=== PATIENT | female | born 1945 | race Caucasian/White ===

== ENCOUNTER 2021-02-10 13:47 | Outpatient (REF) | payer MEDICARE, BC, SELFPAY ==
[2021-02-10 20:17] LABS: HCT 36.6 % (36.0-46.0); HGB 11.9 g/dL (11.2-15.7); MCH 29.9 pg (27.0-33.0); MCHC 32.5 % (32.0-36.0); MPV 11.8 fL (8.0-11.0); Platelet Count 277 10^3/uL (130-400); RBC 3.98 10^6/uL (3.93-5.22); RDW 13.2 % (11.7-14.6); RDW-SD 45.1 fL; WBC 4.21 10^3/uL (4.4-10.8)
[2021-02-10 20:26] LABS: Anion Gap 8.4 mmol/L (3-11); BUN 19 mg/dL (7-18); CO2 25.6 mmol/L (21.0-32.0); Calcium 9.1 mg/dL (8.5-10.1); Chloride 109 mmol/L (98-107); Estimated GFR 53.76 (mL/min/1.73m2); Glucose 85 mg/dL (74-106); Sodium 143 mmol/L (136-145)
[2021-02-10 20:53] LABS: Iron 99 ug/dL (50-170); Total Iron Binding Capacity 289 ug/dL (250-450); Transferrin Sat 34 % (15-50)
== END 2021-02-10 13:48 | disposition home or self-care (01) ==
LOC: NCHCN 13:47
PROVIDERS: Visit Provider Nurse Practitioner Family
DX: G43.709 Chronic migraine without aura, not intractable, without status migrainosus (principal); R79.89 Other specified abnormal findings of blood chemistry
CPT/HCPCS: 80048; 85027; 83540; 83550

== ENCOUNTER 2021-03-09 02:14 | Outpatient (CLI) | payer MEDICARE, BC, SELFPAY ==
--- NOTE | 2021-03-09 | DI.DEXA_ITS ---
Exam(s) XR DEXA BONE DENSITY W/WO ADRIANNE EXAM: XR DEXA BONE DENSITY W/WO ADRIANNE CLINICAL HISTORY: OSTEOPOROSIS, M81.0 TECHNIQUE: COMPARISON: No exams were available for comparison FINDINGS: DEXA scan was performed according to the usual protocol. Findings for left hip scanning are T-score -2.2 with left femoral neck T-score -2.7. Prior examinati on of September 2016 showed left hip T-score -2.1. Lumbar spine scanning shows T-score -2.2. Prior examination of 2015 showed T-score -2.6. Findings for right forearm scanning are T-score -0.5. IMPRESSION: Findings consistent with osteoporosis according to the WHO criteria. The lateral vertebral scanogram shows no evidence of a vertebral compression fracture. RADIATION DOSE DELIVERED: Total DLP
== END 2021-03-09 02:34 ==
PROVIDERS: Visit Provider Nurse Practitioner Family
DX: M81.0 Age-related osteoporosis without current pathological fracture (principal)
CPT/HCPCS: 77080

== ENCOUNTER 2021-09-06 16:53 | Outpatient (REF) | payer MEDICARE, BC, SELFPAY ==
[2021-09-06 20:52] LABS: ESR 18 mm/hr (0-30)
[2021-09-07 09:28] LABS: Abs Immature Grans 0.02 10^3/uL (0.0-0.06); Absolute Basophil Count 0.05 10^3/uL (0.0-0.2); Absolute Eosinophil Count 0.13 10^3/uL (0.0-0.7); Absolute Lymphocyte Count 1.87 10^3/uL (1.2-3.4); Absolute Monocyte Count 0.49 10^3/uL (0.1-0.8); Absolute Neutrophil Count 4.19 10^3/uL (1.2-6.7); Basophils % 0.7; Eosinophils % 1.9; HCT 36.5 % (36.0-46.0); HGB 11.8 g/dL (11.2-15.7); Immature Grans % 0.3; Lymphocytes % 27.7; MCH 29.6 pg (27.0-33.0); MCHC 32.3 % (32.0-36.0); MCV 91.7 fL (80-95); MPV 11.5 fL (8.0-11.0); Monocytes % 7.3; Neutrophils % 62.1; Nucleated RBC 0 %; Platelet Count 333 10^3/uL (130-400); RBC 3.98 10^6/uL (3.93-5.22); RDW 12.5 % (11.7-14.6); RDW-SD 41.7 fL; WBC 6.75 10^3/uL (4.4-10.8)
[2021-09-07 16:34] LABS: Rheumatoid Factor <8.6 IU/mL (<12.0)
[2021-09-08 11:02] LABS: Lyme Ab w Rflx to Lyme Confirm Positive (Negative)
[2021-09-08 12:06] LABS: Lyme IgG Ab Positive (Negative); Lyme IgM Ab Positive (Negative)
[2021-09-08 16:09] LABS: ANA Interpretation Positive (Negative); ANA Titer Pattern 1:640 Speckled
[2021-09-08 20:18] LABS: Anaplasma phagocytophilum Negative (Negative); B. miyamotoi PCR Negative (Negative); Babesia divergens/MO-1 Negative (Negative); Babesia duncani Negative (Negative); Babesia microti Negative (Negative); Ehrlichia chaffeensis Negative (Negative); Ehrlichia ewingii/canis Negative (Negative); Ehrlichia muris eauclairensis Negative (Negative)
== END 2021-09-06 16:54 | disposition home or self-care (01) ==
LOC: NCHCN 16:53
PROVIDERS: Visit Provider Nurse Practitioner Family
DX: M25.69 Stiffness of other specified joint, not elsewhere classified (principal)
CPT/HCPCS: 85652; 86617; 87798; 85025; 86038; 86140; 86431; 86618

== ENCOUNTER 2021-09-21 13:39 | Outpatient (REF) | payer MEDICARE, BC, SELFPAY ==
[2021-09-23 13:28] LABS: dsDNA Ab, IgG <12.3 IU/mL (<30.0)
== END 2021-09-21 13:40 | disposition home or self-care (01) ==
LOC: NCHCN 13:39
PROVIDERS: Visit Provider Nurse Practitioner Family
DX: R79.89 Other specified abnormal findings of blood chemistry (principal)
CPT/HCPCS: 86225

== ENCOUNTER 2021-11-09 15:15 | Observation (INO) | payer MEDICARE, SELFPAY ==
[2021-11-09] VITALS (26 sets, daily range): BP systolic 117–166; BP diastolic 59–84; PULSE 81–94; RESP 17–34; TEMP 36.8–37.7; O2SAT 90–95
--- NOTE | 2021-11-09 15:15 | RT.EKG_ITS ---
APPROVED REPORT Exam: Resting ECG Reason for Exam: pain Patient Location: E HR:93 bpm ECG Measurements Heart Rate 93 AXIS AL 163 P 19 QRSd 76 QRS 9 QT 335 T 25 QTc 416 Conclusion Sinus rhythm...normal P axis, V-rate 60- 99 Sinus. Peaked T waves anterior leads. No STEMI.
--- NOTE | 2021-11-09 15:30 | RT.EKG_ITS ---
APPROVED REPORT Exam: Resting ECG Reason for Exam: posterior ekg for pain Patient Location: E HR:96 bpm ECG Measurements Heart Rate 96 AXIS WA 162 P 24 QRSd 75 QRS 6 QT 329 T 18 QTc 416 Conclusion Sinus rhythm...normal P axis, V-rate 60- 99 Posterior infarct, old...prom R T, V1-V3 or Q >40mS, V7-V9 Physician: no stemi
[2021-11-09 16:09] LABS: Abs Immature Grans 0.08 10^3/uL (0.0-0.06); Absolute Basophil Count 0.03 10^3/uL (0.0-0.2); Absolute Eosinophil Count 0.07 10^3/uL (0.0-0.7); Basophils % 0.2; Eosinophils % 0.5; HCT 37.2 % (36.0-46.0); HGB 11.9 g/dL (11.2-15.7); Immature Grans % 0.6; Lymphocytes % 15.1; MCH 29.6 pg (27.0-33.0); MCV 92.5 fL (80-95); MPV 10.5 fL (8.0-11.0); Monocytes % 5.3; Neutrophils % 78.3; Nucleated RBC 0 %; Platelet Count 290 10^3/uL (130-400); RBC 4.02 10^6/uL (3.93-5.22); RDW 14.8 % (11.7-14.6); RDW-SD 50.6 fL; WBC 13.28 10^3/uL (4.4-10.8)
[2021-11-09 16:10] LABS: Absolute Lymphocyte Count 2.01 10^3/uL (1.2-3.4)
--- NOTE | 2021-11-09 16:15 | DI.CT_ITS ---
Exam(s) CT CHEST PE CTA EXAM: CT CHEST PE CTA CLINICAL HISTORY: left pleuritic chest pain 2 days. TECHNIQUE: Imaging Protocol: Axial CT angiography was performed with multi-slice acquisition and mu lti-planar and/or 3D reconstructions. CONTRAST MATERIAL: Intravenous: Omnipaque 350 Contrast volume:structured data in ml COMPARISON: US RIGHT BREAST ULTRASOUND from 07/04/2013 FINDINGS: CT angiography of the chest was performed with intravenous infusion of 64 cc of Omnipaque 350. There are large areas of apparent atelectasis bilaterally. There is also a question of bilateral bas ilar consolidation period. No pleural effusion. Tracheobronchial tree appears intact. There are multiple pulmonary emboli visible, most in segmental and subsegmental vessels in right lowe r lobe, with additional small peripheral emboli in both lungs. There does not appear to be right hea rt strain. Cardiac size is at the upper limits of normal. . Thoracic aorta is of normal diameter, no thoracic aortic aneurysm or dissection, major branch vess els appear intact. No mediastinal or hilar adenopathy. There is an incidental 4.2 cm in diameter left hepatic lobe mass, this has attenuation readings aroun d 20 Hounsfield units, I cannot confirm that this is a cyst. Accordingly abdominal ultrasound is sugg ested for further evaluation Images obtained through the upper abdomen show unremarkable appearance visualized portions of the spl een pancreas and adrenals. IMPRESSION: Pulmonary embolic disease as described above. No significant evidence of right heart strain. Incidental hepatic low to intermediate attenuation mass noted, hepatic ultrasound recommended for mary racterization. RADIATION DOSE DELIVERED: 375.12mGy.cm Total DLP 375.12mGy.cm Total DLP 12.41mGy CTDIvol DATA REPOSITORY: All CT scans at this facility are submitted to the National Radiology Data Registry (NRDR) Dose Index Registry (DIR) with the [employer] ([employer]). RADIATION OPTIMIZATION: All CT scans at this facility use at least one of these dose optimization te chniques: automated exposure control; mA and/or kV adjustment per patient size (includes targeted exa ms where dose is matched to clinical indication); or iterative reconstruction.
[2021-11-09 16:25] LABS: ALT 25 U/L (14-59); AST 9 U/L (15-37); Albumin 3.6 g/dL (3.4-5.0); Alkaline Phosphatase 97 U/L (46-116); Anion Gap 12.5 mmol/L (3-11); BUN 22 mg/dL (7-18); Bilirubin, Total 0.3 mg/dL (0.2-1.0); CO2 26.5 mmol/L (21.0-32.0); CREATININE 1.2 mg/dL (0.55-1.02); Calcium 8.8 mg/dL (8.5-10.1); Chloride 102 mmol/L (98-107); Estimated GFR 43.45 (mL/min/1.73m2); Glucose 153 mg/dL (74-106); Magnesium 1.9 mg/dL (1.8-2.4); Potassium 3.4 mmol/L (3.5-5.1); Sodium 141 mmol/L (136-145); Total Protein 7.8 g/dL (6.4-8.2); Troponin I < 50 ng/L (<or=60)
[2021-11-09] MEDS: Omnipaque 350 MG/ML 100 ML BTL 64 ML IJ (16:35)
[2021-11-09 16:43] LABS: D-Dimer 2270 ng/mlFEU (<500)
[2021-11-09 16:59] LABS: Source Nasal/Nares
--- NOTE | 2021-11-09 17:09 | W.ED.GENAD ---
Discharge Plan Disposition Patient Disposition: [facility] INPATIENT Discharge Details Clinical Impression: Pulmonary embolism, Liver mass, left lobe Admit Date/Time: 11/09/21 17:16 Admit Provider: Shey Villarreal Attending Provider: Shey Villarreal Primary Care Provider: Arlyn Sweeney ED Provider: Chang Breaux Discharge Data Discharge Date/Time-TO BE ENTERED AT DEPARTURE: 11/09/21 17:49 Medical Decision Making 1709 --76-year-old female here with pleuritic chest pain for the past 2 days, worse today, hypoxic in the low 90s with no known pulmonary disease or cardiac disease. High concern for pulmonary embolism. Patient is hemodynamically stable, mildly hyper since. Screening EKG was reviewed and interpreted by me: Please see report, prominent R with ST depression V1 to V3, consider posterior infarct. Posterior EKG was reviewed and interpreted by me: Please see report, no STEMI. CT of the chest was reviewed and interpreted by radiology: There are large areas of apparent atelectasis bilaterally. There is also a question of bilateral basilar consolidation period. No pleural effusion. Tracheobronchial tree appears intact. There are multiple pulmonary emboli visible, most in segmental and subsegmental vessels in right lower lobe, with additional small peripheral emboli in both lungs. There does not appear to be right heart strain. Cardiac size is at the upper limits of normal. Thoracic aorta is of normal diameter, no thoracic aortic aneurysm or dissection, major branch vessels appear intact. No mediastinal or hilar adenopathy. There is an incidental 4.2 cm in diameter left hepatic lobe mass, this has attenuation readings around 20 Hounsfield units, I cannot confirm that this is a cyst. Accordingly abdominal ultrasound is suggested for further evaluation Images obtained through the upper abdomen show unremarkable appearance visualized portions of the spleen pancreas and adrenals. IMPRESSION: Pulmonary embolic disease as described above. No significant evidence of right heart strain. Incidental hepatic low to intermediate attenuation mass noted, hepatic ultrasound recommended for characterization. I spoke with Dr. Samuels about this study, no right heart strain. Atelectasis at the bases versus consolidation, question pneumonia, also incidentally noted 4 cm left hepatic lobe mass that requires follow-up study. Labs reviewed and patient does have mild leukocytosis. She denies cough or fever in the past few weeks. Initial troponin is negative, delta troponin pending. Plan to treat with Lovenox 1 mg/kg subcutaneous. I will admit the patient to hospitalist service. --Spoke with hospitalist, discussed ED presentation and course, they will admit the patient. Care transitioned to hospitalist service at time of admit. HPI General Mode of arrival: ambulatory. Date/Time Provider Initiated Documentation: 11/09/21 15:35. Limitations to Documentation: no limitations. Information obtained by: patient. HPI Narrative: 76-year-old female here with pleuritic chest pain for the past 2 days, pain is progressive and worse today. Pain worse with deep inspiration. Pain is severe and localized to left chest and left back, radiates to left shoulder. No associated leg swelling or calf pain. Related Data Home Medications Medication Instructions Recorded Confirmed fluoxetine 20 mg PO QAM 07/31/15 11/09/21 multivitamin 1 ea PO DAILY 07/31/15 11/09/21 Advil PM 1 cap PO QHS 11/09/21 11/09/21 omeprazole magnesium [Prilosec OTC] 20 mg PO DAILY 11/09/21 11/09/21 prednisone 10 mg PO HS 11/09/21 11/09/21 apixaban [Eliquis DVT-PE Treat 30D See Rx Instructions .ROUTE 11/10/21 Start] .COMPLEX #74 dose pk verapamil 180 mg PO DAILY 11/10/21 11/10/21 verapamil 180 mg PO DAILY #30 tab 11/10/21 Previous Rx's Medication Instructions Recorded apixaban [Eliquis DVT-PE Treat 30D See Rx Instructions .ROUTE 11/10/21 Start] .COMPLEX #74 dose pk verapamil 180 mg PO DAILY #30 tab 11/10/21 Allergies Allergy/AdvReac Type Severity Reaction Status Date / Time No Known Allergies Allergy Unverified 11/09/21 15:28 General Stated Complaint: Chest Pain ESTEPHANIE: 2 Review of Systems All systems reviewed & are unremarkable except as noted in HPI and below Constitutional Constitutional: Denies fever(s) Cardiovascular Cardiovascular: Reports as per HPI PFSH All Active Problems Bilateral pulmonary embolism (Acute) Double vision with both eyes open (Acute) Arthralgia (Acute) Liver mass, left lobe (Acute) Medical History Benign head tremor Complicated migraine Polymyalgia rheumatica Steroid dependent Surgical History Colonoscopy - MAC (01/03/17) H/O cataract extraction Tonsillectomy Tubal Ligation, Family History Mother Colon cancer Father Leukemia Aneurysm Paternal Grandmother Diabetes Social History Smoking/Tobacco Use Status: Never Smoking risk assessment performed?: Yes Alcohol Intake: current Alcohol Intake frequency: holidays/special occasions only Drug use: Never Substance use type: does not use Do you feel safe at home: Yes Do you feel safe in your relationship?: Yes Exam Const General: cooperative and no acute distress HENMT Mouth: moist mucous membranes Eyes Conjunctivae: normal conjunctivae Sclera: normal sclerae Neck Neck: trachea midline and supple Resp Auscultation: clear to auscultation bilaterally, no rales, no rhonchi and no wheezes Cardio Rate: regular rate and not tachycardic Rhythm: regular rhythm GI Palpation: soft, not firm, no guarding, no masses, not rigid and nontender Skin General skin exam: no rashes or lesions noted Neuro General: patient alert, patient awake, patient oriented x3 and tone normal Extrem General: no edema Psych Appearance: grossly normal Mental Status: mental status grossly normal Speech and Movement: speech and movement normal Course Vital Signs Vital signs: Vital Signs Respiratory Rate 34 H 11/09/21 15:23 Temperature 36.8 C 11/09/21 15:25 Temperature Source Temporal Artery Scan 11/09/21 15:25 Pulse 86 11/09/21 15:31 Pulse 94 H 11/09/21 15:40 Respiratory Rate 17 11/09/21 16:58 Respiratory Effort 11/09/21 16:58 Respiratory Depth Shallow 11/09/21 16:58 Respiratory Pattern Normal 11/09/21 16:58 Blood Pressure 141/71 H 11/09/21 15:31 Blood Pressure Mean 87 11/09/21 15:31 Blood Pressure Position Sitting 11/09/21 15:25 Pulse Oximetry 90 L 11/09/21 15:40 Oxygen Delivery Method Room Air 11/09/21 15:25 Oxygen Flow Rate 0 11/09/21 15:25 Pain Level 8 11/09/21 15:25 Lab/Test Results Lab/Test Results: 11/09/21 16:57 Blood Blood Culture - Pending 11/09/21 16:57 Blood Blood Culture - Pending Laboratory Tests Range/Units 11/09/21 11/09/21 11/09/21 15:27 15:27 15:27 WBC (4.4-10.8) 10^3/uL 13.28 H RBC (3.93-5.22) 10^6/uL 4.02 Hgb (11.2-15.7) g/dL 11.9 Hct (36.0-46.0) % 37.2 MCV (80-95) fL 92.5 MCH (27.0-33.0) pg 29.6 MCHC (32.0-36.0) % 32.0 RDW (11.7-14.6) % 14.8 H Plt Count (130-400) 10^3/uL 290 MPV (8.0-11.0) fL 10.5 Immature Gran % 0.6 Neutrophils % 78.3 Lymphocytes % 15.1 Monocytes % 5.3 Eosinophils % 0.5 Basophils % 0.2 Nucleated RBC % % 0 Absolute Neutrophils (1.2-6.7) 10^3/uL 10.40 H Absolute Lymphocytes (1.2-3.4) 10^3/uL 2.01 Absolute Monocytes (0.1-0.8) 10^3/uL 0.70 Absolute Eosinophils (0.0-0.7) 10^3/uL 0.07 Absolute Basophils (0.0-0.2) 10^3/uL 0.03 D-Dimer (<500) ng/mlFEU 2270 H Sodium (136-145) mmol/L 141 Potassium (3.5-5.1) mmol/L 3.4 L Chloride (98-107) mmol/L 102 Carbon Dioxide (21.0-32.0) mmol/L 26.5 Anion Gap (3-11) mmol/L 12.5 H BUN (7-18) mg/dL 22 H Creatinine (0.55-1.02) mg/dL 1.2 H Estimated GFR/1.73 m2 (mL/min/1.73m2) 43.45 Glucose (74-106) mg/dL 153 H Calcium (8.5-10.1) mg/dL 8.8 Magnesium (1.8-2.4) mg/dL 1.9 Total Bilirubin (0.2-1.0) mg/dL 0.3 AST (15-37) U/L 9 L ALT (14-59) U/L 25 Alkaline Phosphatase (46-116) U/L 97 Troponin I (<or=60) ng/L < 50 Total Protein (6.4-8.2) g/dL 7.8 Albumin (3.4-5.0) g/dL 3.6 COVID-19 Source Range/Units 11/09/21 16:55 WBC (4.4-10.8) 10^3/uL RBC (3.93-5.22) 10^6/uL Hgb (11.2-15.7) g/dL Hct (36.0-46.0) % MCV (80-95) fL MCH (27.0-33.0) pg MCHC (32.0-36.0) % RDW (11.7-14.6) % Plt Count (130-400) 10^3/uL MPV (8.0-11.0) fL Immature Gran % Neutrophils % Lymphocytes % Monocytes % Eosinophils % Basophils % Nucleated RBC % % Absolute Neutrophils (1.2-6.7) 10^3/uL Absolute Lymphocytes (1.2-3.4) 10^3/uL Absolute Monocytes (0.1-0.8) 10^3/uL Absolute Eosinophils (0.0-0.7) 10^3/uL Absolute Basophils (0.0-0.2) 10^3/uL D-Dimer (<500) ng/mlFEU Sodium (136-145) mmol/L Potassium (3.5-5.1) mmol/L Chloride (98-107) mmol/L Carbon Dioxide (21.0-32.0) mmol/L Anion Gap (3-11) mmol/L BUN (7-18) mg/dL Creatinine (0.55-1.02) mg/dL Estimated GFR/1.73 m2 (mL/min/1.73m2) Glucose (74-106) mg/dL Calcium (8.5-10.1) mg/dL Magnesium (1.8-2.4) mg/dL Total Bilirubin (0.2-1.0) mg/dL AST (15-37) U/L ALT (14-59) U/L Alkaline Phosphatase (46-116) U/L Troponin I (<or=60) ng/L Total Protein (6.4-8.2) g/dL Albumin (3.4-5.0) g/dL COVID-19 Source Nasal/Nares Critical Care Time Critical Care Time Critical Care Time: Yes Total Critical Care Time: 40 Attestation: I spent greater than 40 minutes addressing this patient's immediate life threats. Please see MDM section of note. This time was spent engaged in work directly related to the patient's care, exclusive of separate procedures, and failure to initiate these interventions would have likely resulted in clinically significant or life threatening deterioration in the patient's condition.
[2021-11-09] MEDS: Enoxaparin 80 MG/0.8 ML SYR 70 MG SC (17:12)
[2021-11-09 17:40] LABS: COVID-19 PCR Negative (Negative)
[2021-11-09 18:02] LABS: C-Reactive Protein 16.12 mg/dL (0.0-0.3)
[2021-11-09] MEDS: Lactated Ringers 1,000 ML 125 ML IV (18:22)
[2021-11-09] MEDS: Potassium Chloride 20 MEQ TABCR 40 MEQ PO (18:23)
[2021-11-09] MEDS: Acetaminophen 325 MG TAB PO (18:23)
[2021-11-09 18:39] LABS: Procalcitonin 0.1 ng/mL
[2021-11-09 19:18] LABS: Troponin I < 50 ng/L (<or=60)
[2021-11-09] MEDS: predniSONE 5 MG TAB 10 MG PO (21:11)
[2021-11-09] MEDS: diphenhydrAMINE 25 MG CAP PO (21:11)
--- NOTE | 2021-11-09 22:40 | HPE_ITS ---
Date of service: 11/09/21 Time of Service: 22:40 Assessment and Plan Assessment and plan (1) Bilateral pulmonary embolism: Status: Acute Assessment and plan: The cause of pleuritic chest pain and leucocytosis. Continue full dose enoxaparin initiated in the ED with plans to transition to a DOAC agent prior to discharge. Obtain venous dopplers of BLEs as well as an echo. Monitor on tele. IVF overnight. Monitor oxygenation. Check hematest stool. Will need need malignancy workup, most of which should be completed as outpatient. Will need exercise oximetry prior to discharge home. (2) Pleuritic chest pain: Status: Acute Assessment and plan: As above Avoid NSAIDs in setting of being on anticoagulation. Will tx with tylenol and prn tramadol. Encourage IS. (3) Liver mass: Status: Acute Assessment and plan: Check US abdomen and hepatitis panel. (4) Atelectasis: Status: Acute Assessment and plan: As above - encourage IS and treat pleuritic chest pain (5) Hypokalemia: Status: Acute Assessment and plan: Replete and recheck in am (6) Discharge planning issues: Status: Acute Assessment and plan: Full code, per my conversation with the patient History of Present Illness History of Present Illness Chief Complaint: Chest pain on inspiration since Sunday (3 days ago) Narrative: Ms Lemus is a 76 year old female with PMHx of polymyalgia rheumatica, on prednisone, as well as complicated migraines, chronic head tremor, and GERD, who presented to [facility] ED today c/o sudden onset of chest pain which was worse on inspiration. The pain was left sided in her lower chest and radiates to the back. She admits to feeling short of breath only because it hurts to take a deep breath. The pain was better yesterday, but got worse today, so she came in to the hospital. The patient stated that she did not have any leg swelling. She was diagnosed with PMR in the beginning of October and, due to pain associated with that, she does admit to a period of immobility. No recent travel. Her ED workup revealed multiple bilateral PEs without any CT evidence of R heart strain. Her CT also revealed a liver mass, 4.2 cm in diameter, in left hepatic lobe. She was hemodynamically stable and her O2 sats were 91% on RA. She tested negative for COVID-19 in the ED and is fully vaccinated/boosted against COVID-19. She saw her daughter two days ago who, at the time, had cold-like symptoms and did test positive for COVID-19. The patient denies any symptoms of COVID-19 at this time. She was initiated on therapeutic lovenox. Hospitalist admission was requested. Review of Systems All systems reviewed & are unremarkable except as noted in HPI and below PFSH All Active Problems (Updated 11/09/21 @ 22:50 by Shey Villarreal MD) Discharge planning issues (Acute) Hypokalemia (Acute) Atelectasis (Acute) Liver mass (Acute) Pleuritic chest pain (Acute) Bilateral pulmonary embolism (Acute) Double vision with both eyes open (Acute) Arthralgia (Acute) Pulmonary embolism (Chronic) Liver mass, left lobe (Acute) Medical History (Updated 11/09/21 @ 22:50 by Shey Villarreal MD) Benign head tremor Complicated migraine Polymyalgia rheumatica Steroid dependent Surgical History (Updated 11/09/21 @ 22:46 by Shey Villarreal MD) Colonoscopy - MAC (01/03/17) H/O cataract extraction Tonsillectomy Tubal Ligation, Family History Mother Colon cancer Father Leukemia Aneurysm Paternal Grandmother Diabetes Social History Smoking/Tobacco Use Status: Never Smoking risk assessment performed?: Yes Alcohol Intake: current Alcohol Intake frequency: holidays/special occasions only Drug use: Never Substance use type: does not use Do you feel safe at home: Yes Do you feel safe in your relationship?: Yes Meds Allergies and Home Medications Allergies Allergy/AdvReac Type Severity Reaction Status Date / Time No Known Allergies Allergy Unverified 11/09/21 15:28 Home Medications Medication Instructions Recorded Confirmed Type fluoxetine 20 mg PO QAM 07/31/15 11/09/21 History multivitamin 1 ea PO DAILY 07/31/15 11/09/21 History verapamil 120 mg PO DAILY 07/31/15 11/09/21 History ibuprofen-diphenhydramine cit 1 cap PO QHS 11/09/21 11/09/21 History [Advil PM] omeprazole magnesium [Prilosec OTC] 20 mg PO DAILY 11/09/21 11/09/21 History prednisone 10 mg PO HS 11/09/21 11/09/21 History Exam Narrative Exam Narrative: General: Very pleasant elderly female who appears to be comfortable, not tachypneic/ dyspneic, while laying flat in bed, on 1L of O2 by NC. Speaking in complete sentences. Head tremor Neurological: A&OX3, no focal deficits; head tremor Psychiatric: Appropriate speech pattern/content Skin: Visible skin intact HEENT: Atraumatic, normocephalic, EOMI, dry MM, clear oropharynx, no submandibular or cervical lymphadenopathy, no goiter or JVD Cardiovascular: RRR, no m/r/g Lungs: Diminished breast sounds at B bases Gastrointestinal: soft, nontender, nondistended Genitourinary: deferred Extremities: trace BLE edema, symmetric, no c/c; 1+ pedal pulses B Results Imaging Additional studies: EKG: not accessible for my review at this time due to a system issue CTA chest: Pulmonary embolic disease as described above. No significant evidence of right heart strain. Incidental hepatic low to intermediate attenuation mass noted, hepatic ultrasound recommended for characterization. Labs Result diagrams: 11/09/21 15:27 11/09/21 15:27 Labs: Laboratory Results - last 24 hr 11/09/21 11/09/21 11/09/21 15:26 15:26 15:27 WBC RBC Hgb Hct MCV MCH MCHC RDW Plt Count MPV Immature Gran % Neutrophils % Lymphocytes % Monocytes % Eosinophils % Basophils % Nucleated RBC % Absolute Neutrophils Absolute Lymphocytes Absolute Monocytes Absolute Eosinophils Absolute Basophils D-Dimer Sodium 141 Potassium 3.4 L Chloride 102 Carbon Dioxide 26.5 Anion Gap 12.5 H BUN 22 H Creatinine 1.2 H Estimated GFR/1.73 m2 43.45 Glucose 153 H Calcium 8.8 Magnesium 1.9 Total Bilirubin 0.3 AST 9 L ALT 25 Alkaline Phosphatase 97 Troponin I < 50 C-Reactive Protein 16.12 H Total Protein 7.8 Albumin 3.6 Procalcitonin 0.1 COVID-19 Source SARS-CoV-2 (PCR) 11/09/21 11/09/21 11/09/21 15:27 15:27 16:55 WBC 13.28 H RBC 4.02 Hgb 11.9 Hct 37.2 MCV 92.5 MCH 29.6 MCHC 32.0 RDW 14.8 H Plt Count 290 MPV 10.5 Immature Gran % 0.6 Neutrophils % 78.3 Lymphocytes % 15.1 Monocytes % 5.3 Eosinophils % 0.5 Basophils % 0.2 Nucleated RBC % 0 Absolute Neutrophils 10.40 H Absolute Lymphocytes 2.01 Absolute Monocytes 0.70 Absolute Eosinophils 0.07 Absolute Basophils 0.03 D-Dimer 2270 H Sodium Potassium Chloride Carbon Dioxide Anion Gap BUN Creatinine Estimated GFR/1.73 m2 Glucose Calcium Magnesium Total Bilirubin AST ALT Alkaline Phosphatase Troponin I C-Reactive Protein Total Protein Albumin Procalcitonin COVID-19 Source Nasal/Nares SARS-CoV-2 (PCR) Negative 11/09/21 18:50 WBC RBC Hgb Hct MCV MCH MCHC RDW Plt Count MPV Immature Gran % Neutrophils % Lymphocytes % Monocytes % Eosinophils % Basophils % Nucleated RBC % Absolute Neutrophils Absolute Lymphocytes Absolute Monocytes Absolute Eosinophils Absolute Basophils D-Dimer Sodium Potassium Chloride Carbon Dioxide Anion Gap BUN Creatinine Estimated GFR/1.73 m2 Glucose Calcium Magnesium Total Bilirubin AST ALT Alkaline Phosphatase Troponin I < 50 C-Reactive Protein Total Protein Albumin Procalcitonin COVID-19 Source SARS-CoV-2 (PCR) Last Vital Signs Temp 37.5 C 11/09/21 22:34 Pulse 81 11/09/21 22:34 Resp 18 11/09/21 22:34 BP 117/65 11/09/21 22:34 Pulse Ox 92 11/09/21 22:34
--- NOTE | 2021-11-10 | DI.US_ITS ---
Exam(s) US EXTREMITY VENOUS BI EXAM: US EXTREMITY VENOUS BI CLINICAL HISTORY: Bilateral PEs, suspected DVT LEs. TECHNIQUE: Bilateral lower extremity venous ultrasound performed using grayscale, color-flow, and sp ectral Doppler analysis. COMPARISON: No exams were available for comparison FINDINGS: The right common femoral, femoral and popliteal veins demonstrate normal compressibility, augmentatio n, and color Doppler. The right posterior tibial veins are patent. The left common femoral, femoral a nd posterior tibialis veins demonstrate normal compressibility, augmentation and color Doppler. There is thrombus seen in the distal left popliteal vein and proximal left peroneal vein. It measures 7.5 mm in length. The saphenofemoral junctions are unremarkable. There is no evidence of a Thurman's cyst. The soft tissues are unremarkable. IMPRESSION: Right: Negative for DVT Left: DVT within the distal left popliteal vein and proximal left peroneal vein. DATA REPOSITORY:
[2021-11-10 02:10] VITALS: BP 120/76; PULSE 81; RESP 19; TEMP 37.5; O2SAT 92
[2021-11-10] MEDS: Lactated Ringers 1,000 ML 125 ML IV (02:13)
[2021-11-10 03:36] VITALS: O2SAT 92
[2021-11-10] MEDS: Enoxaparin 80 MG/0.8 ML SYR 70 MG SC (05:46)
[2021-11-10 05:52] VITALS: BP 129/76; PULSE 87; RESP 19; TEMP 37.4; O2SAT 93
[2021-11-10 06:56] LABS: Abs Immature Grans 0.03 10^3/uL (0.0-0.06); Absolute Basophil Count 0.03 10^3/uL (0.0-0.2); Absolute Eosinophil Count 0.01 10^3/uL (0.0-0.7); Absolute Lymphocyte Count 1.09 10^3/uL (1.2-3.4); Absolute Monocyte Count 0.43 10^3/uL (0.1-0.8); Absolute Neutrophil Count 7.88 10^3/uL (1.2-6.7); Basophils % 0.3; Eosinophils % 0.1; HCT 32.7 % (36.0-46.0); HGB 10.6 g/dL (11.2-15.7); Immature Grans % 0.3; Lymphocytes % 11.5; MCH 29.2 pg (27.0-33.0); MCHC 32.4 % (32.0-36.0); MCV 90.1 fL (80-95); MPV 10.6 fL (8.0-11.0); Monocytes % 4.5; Neutrophils % 83.3; Nucleated RBC 0 %; Platelet Count 273 10^3/uL (130-400); RBC 3.63 10^6/uL (3.93-5.22); RDW 15.1 % (11.7-14.6); RDW-SD 50.3 fL; WBC 9.47 10^3/uL (4.4-10.8)
[2021-11-10 07:05] VITALS: PULSE 83
[2021-11-10 07:09] LABS: Anion Gap 7.7 mmol/L (3-11); BUN 14 mg/dL (7-18); CO2 26.3 mmol/L (21.0-32.0); CREATININE 0.9 mg/dL (0.55-1.02); Calcium 8.9 mg/dL (8.5-10.1); Chloride 105 mmol/L (98-107); Glucose 100 mg/dL (74-106); Magnesium 1.9 mg/dL (1.8-2.4); Potassium 4.2 mmol/L (3.5-5.1); Sodium 139 mmol/L (136-145)
[2021-11-10] MEDS: Multivitamin TAB 1 TAB PO (07:47)
[2021-11-10] MEDS: FLUoxetine 20 MG CAP PO (07:47)
[2021-11-10] MEDS: Pantoprazole 40 MG TABCR PO (07:47)
--- NOTE | 2021-11-10 08:00 | DI.US_ITS ---
APPROVED REPORT EXAM: Comprehensive 2D, Doppler, and color-flow Echocardiogram Patient Location: In-Patient Room/Bed: 229 Summer Internship: Katheryn Pacheco RDCS (AE) Indications: Acute PE, Chest pain Other Information Study Quality: Good Conclusion Normal left ventricular wall thickness and chamber size. Estimated ejection fraction is 60 to 65%. Wall motion is normal Normal right ventricular size and systolic function The atria are normal in size Mild mitral annular calcification. Trace mitral regurgitation Trileaflet aortic valve without stenosis or regurgitation Normal tricuspid valve with trace regurgitation. Estimated right ventricular systolic pressure is 28 mmHg Borderline dilated ascending aorta measuring 3.44 cm Wall motion Left Ventricle The left ventricle is normal size. The left ventricular systolic function is normal. The left ventric ular ejection fraction is within the normal range. There is normal left ventricular wall thickness. T here is normal LV segmental wall motion. There is no ventricular septal defect visualized. LVEF is 60 -65%. Right Ventricle The right ventricle is normal size. The right ventricular systolic function is normal. The RVSP is 27 .6mmHg. Atria The left atrium size is normal. The right atrium size is normal. The interatrial septum is intact wit h no evidence for an atrial septal defect. Aortic Valve The aortic valve is normal in structure. Aortic valve is trileaflet. There is no aortic valvular sten osis. No aortic regurgitation is present. Mitral Valve Mild mitral annular calcification. No evidence of mitral valve stenosis. Trace mitral regurgitation. Tricuspid Valve The tricuspid valve is normal in structure. There is no tricuspid valve stenosis. Trace tricuspid reg urgitation. Pulmonic Valve The pulmonary valve is normal in structure. There is no pulmonic valvular stenosis. Trace pulmonic re gurgitation. Great Vessels The aortic root is normal in size. The ascending aorta is mildly dilated. Aortic arch is normal in ca liber. IVC is normal in size and collapses >50% with inspiration. Pericardium There is no pericardial effusion. 2D Dimensions IVSD d PLAX 0.81 cm F: 0.6-1.0 LV Vol A2C d MOD 61.4 mL LVPW d PLAX 0.81 cm F: 0.6 - 1.0 LV Vol A4C d MOD 71.7 mL LVID d PLAX 3.68 cm F: 3.8 - 5.2 LA vol/ BSA A2C s A-L 15.5 mL/m2 LVDs 2.55 cm F: 2.2 - 3.5 LA vol/ BSA A4C s A-L 23.6 mL/m2 Ao Root d 2.35 cm F: 2.7 - 3.3 LA Vol/ BSA Biplane s A-L 21.1 mL/m2 RA Area A4C 11.02 cm2 LA Area A4C s MOD 15.94 cm2 RA Vol/ BSA A4C s A-L 13.6 mL/m2 LA Area A2C s MOD 11.76 cm2 Ao Asc Diam d 3.44 cm F: 2.3 - 3.1 LV EF A4C MOD 58.5 % LV EF Teichholz 57.7 % LV EF A2C MOD 58.4 % LVEF (Esqueda's) 56.83 % F: 54 - 74 LV EF Biplane MOD 56.8 % LV Volume 52.22 mL F: 46 - 106 SV 37.58 mL LV Volume Index 30.36 mL/m2 F: 29 - 61 SV Index 21.77 mL/m2 LV Vol Biplane MOD 66.1 mL FS 29.75 % M-Mode TAPSE 2.20 cm (M/F) >1.7 LV Diastology MV E' medial 0.075 (>0.07 m/s) E/A Ratio 0.8 LV E/e MED 10.25 (<14) MV E Vmax 0.77 (0.4-1.3 m/s) MV E' lateral 0.099 (>0.1 m/s) MV A Vmax 0.95 (0.4-1.3 m/s) LV E/e LAT 7.70 (<14) MV E/A Ratio 0.78 MV E/E' medial 10.26 MV E/E' lateral 7.74 Aortic Valve LVOT Area 2.83 cm2 AoV Area Vmax 2.20 cm2 LVOT Vmax 1.32 m/s AoV Area/ BSA (Vmax) 1.28 cm2/m2 LVOT Mean Hector. 0.82 m/s LINDA Mean Hector. 2.06 cm2 LVOT Peak Grad 6.9 mmHg LINDA Mean Hector. Index 1.19 cm2/m2 LVOT Mean Grad 3.2 mmHg LVOT VTI 0.266 m LVOT Diam s 1.85 cm AoV Vmax 1.69 m/s Velocity Ratio 0.78 AoV Mean Hector. 1.13 m/s AoV Peak Grad 11.4 mmHg LVOT SV 75.38 mL AoV Mean Grad 5.8 mmHg AoV VTI 0.310 m AoV Area VTI 2.43 cm2 AoV Area/ BSA (VTI) 1.41 cm/m2 Mitral Valve MV DT 325 (160-240 msec) MV PHT 94 msec MV Area PHT 2.34 cm2 MV VTI 0.319 m MV Area VTI 2.36 (4.0-6.0 cm2) Pulmonary Valve PV Vmax 0.98 (0.5-1.5 m/s) RVOT Peak Gr. 1.65 mmHg PV Peak Grad 3.8 mmHg RVOT Mean Gr. 1.05 mmHg PV Mean Grad 2.0 mmHg RVOT VTI 0.146 m PV VTI 0.179 m RVOT Vmax 0.64 m/s Tricuspid Valve TR Peak Grad 24.6 mmHg TR Vmax 2.48 m/s RA Pressure 3.00 mmHg RVSP (TR) 27.6 mmHg
--- NOTE | 2021-11-10 08:00 | DI.US_ITS ---
Exam(s) US ABDOMEN LIMITED EXAM: US ABDOMEN LIMITED CLINICAL HISTORY: liver mass TECHNIQUE: Ultrasound abdomen performed using standard protocol. COMPARISON: CT CT CHEST PE CTA from 11/09/2021 FINDINGS: PANCREAS: Normal where visualized. LIVER: The liver measures 13.5 cm long. Hepatopedal flow in the Portal Vein. There is a 3.5 x 3.4 x 4 cm cyst with septations in the liver corresponding to the CT abnormality. GALLBLADDER: No evidence of cholelithiasis. No evidence of wall thickening. No pericholecystic fluid identified. BILIARY SYSTEM: Common bile duct measures < 7 mm. No intrahepatic biliary ductal dilation. ZAMORANO'S SIGN: Negative. RIGHT KIDNEY: Kidney is normal in size. No evidence of renal calculi. No evidence of hydronephrosis. No renal mass or cyst identified. ASCITES: None seen. IMPRESSION: 3.5 x 3.4 x 4 cm septated cyst in the liver. This corresponds to the CT finding. DATA REPOSITORY:
[2021-11-10] MEDS: Verapamil C.R. 180 MG TABCR PO (10:25)
[2021-11-10 11:47] VITALS: BP 149/78; PULSE 95; RESP 15; TEMP 37.5; O2SAT 93
[2021-11-10] MEDS: traMADol 50 MG TAB PO (12:37)
[2021-11-10 13:19] VITALS: PULSE 80; PULSE 85; RESP 20; O2SAT 87; O2SAT 93; O2SAT 95
--- NOTE | 2021-11-10 14:26 | W.PM.DS.N ---
Date of service: 11/10/21 Time of Service: 14:26 DS: Diagnosis Discharge Diagnosis (1) Bilateral pulmonary embolism: Status: Acute (2) Pleuritic chest pain: Status: Acute (3) Liver mass: Status: Acute (4) Atelectasis: Status: Acute (5) Hypokalemia: Status: Acute Discharge Plan Disposition Patient Disposition: HOME Condition: Stable Discharge Details Reason For Visit: Bilateral Pulmonary Emobli Admit Date/Time: 11/09/21 17:16 Admit Provider: Shey Villarreal Attending Provider: Shey Villarreal Primary Care Provider: Arlyn Sweeney [place] [facility] Hospital Course: Ms Lemus is a 76 year old female with PMHx of polymyalgia rheumatica, on prednisone, as well as complicated migraines, chronic head tremor, and GERD, who presented to [facility] ED today c/o sudden onset of chest pain which was worse on inspiration. The pain was left sided in her lower chest and radiates to the back. She admits to feeling short of breath only because it hurts to take a deep breath. The pain was better yesterday, but got worse today, so she came in to the hospital. The patient stated that she did not have any leg swelling. She was diagnosed with PMR in the beginning of October and, due to pain associated with that, she does admit to a period of immobility. No recent travel. Her ED workup revealed multiple bilateral PEs without any CT evidence of R heart strain. Her CT also revealed a liver mass, 4.2 cm in diameter, in left hepatic lobe. She was hemodynamically stable and her O2 sats were 91% on RA. She tested negative for COVID-19 in the ED and is fully vaccinated/boosted against COVID-19. She saw her daughter two days ago who, at the time, had cold-like symptoms and did test positive for COVID-19. The patient denies any symptoms of COVID-19 at this time. She was initiated on therapeutic lovenox. Hospitalist admission was requested. Her ultrasound of the liver showed 3.5 x 3.4 x 4 cm septated cyst in the liver. This corresponds to the CT finding. She should follow up with her pcp for further recommendations. Her echo showed no evidence of right ventricular heart strain. Conclusion Normal left ventricular wall thickness and chamber size. Estimated ejection fraction is 60 to 65%. Wall motion is normal Normal right ventricular size and systolic function The atria are normal in size Mild mitral annular calcification. Trace mitral regurgitation Trileaflet aortic valve without stenosis or regurgitation Normal tricuspid valve with trace regurgitation. Estimated right ventricular systolic pressure is 28 mmHg Borderline dilated ascending aorta measuring 3.44 cm She was also found to have a DVT within the distal left popliteal vein and proximal left peroneal vein. she has remained hemodynamically stable and oxygenating well on room air. She is stable for discharge to home and will be started on eliquis. prescription was sent to mail in pharmacy so she will be provided 4 doses, one to started tonight, 2 for tomorrow and one dose for sunday morning. Her prescription should be in by then. she is discharged to home with no services. discharge discussed with DR Davis. Home Meds and New Rx's Prescriptions: New verapamil 180 mg Tablet Extended Release 180 mg PO DAILY Qty: 30 RF: 0 Eliquis DVT-PE Treat 30D Start 5 mg (74 tabs) tablets,dose pack See Rx Instructions .ROUTE .COMPLEX Qty: 74 RF: 0 Continued multivitamin 1 EACH capsule 1 ea PO DAILY RF: 0 fluoxetine 20 MG capsule 20 mg PO QAM RF: 0 prednisone 5 mg tablet 10 mg PO HS RF: 0 omeprazole magnesium [Prilosec OTC] 20 mg Tablet,Delayed Release (Dr/Ec) 20 mg PO DAILY RF: 0 Advil PM 200-38 mg Tablet 1 cap PO QHS RF: 0 verapamil 180 mg tablet extended release 180 mg PO DAILY RF: 0 Discharge Instructions Instructions: Pulmonary Embolism (DC) Additional Instructions: please follow up with your doctor regarding your liver cyst. Stand Alone Forms: Nursing Discharge Form Referrals: Arlyn Sweeney MD [Primary Care Provider] - 11/15/21 1:30 pm Activity:: Activity as Tolerated Equipment/Supplies:: No Equipment Needed Diet:: As Tolerated Discharge Orders Discharge Orders: Discharge Order (Routine); Ordered 11/10/21 Ordered By: Jessica Reardon Discharge Data Discharge Date/Time-TO BE ENTERED AT DEPARTURE: 11/10/21 15:12 DS: Summary Time Spent with Patient providing and/or coordinating discharge services: Less than 30 minutes Status at Discharge Functional status at discharge: independent ambulation Overall status at discharge: patient is progressing back to baseline Mental Status: mental status grossly normal Speech and Movement: speech and movement normal Mood: congruent mood Affect: normal affect Exam Psych Mental Status: mental status grossly normal Speech and Movement: speech and movement normal Mood: congruent mood Affect: normal affect DS: Data Vitals/I&O Vitals and I&O: Vital Signs Temperature 37.5 C 11/10/21 11:47 Temperature Source Tympanic 11/10/21 11:47 Pulse 95 H 11/10/21 11:47 Pulse Rhythm Regular 11/10/21 09:20 Pulse 84 11/09/21 17:16 Respiratory Rate 15 11/10/21 11:47 Respiratory Effort Non-Labored 11/10/21 09:20 Respiratory Depth Normal 11/10/21 09:20 Respiratory Pattern Normal 11/10/21 09:20 Blood Pressure 149/78 H 11/10/21 11:47 Blood Pressure Mean 81 11/09/21 17:16 Blood Pressure Position Sitting 11/09/21 15:25 Pulse Oximetry 93 11/10/21 11:47 Oxygen Delivery Method Room Air 11/10/21 11:47 Oxygen Flow Rate 0 11/10/21 11:47 Pain Level 4 11/10/21 11:47 Comment 11/09/21 17:54 Intake & Output 11/09/21 11/10/21 11/10/21 23:59 11:59 23:59 Intake Total 360 / 360 981.25 / 1181.25 200 / 1181.25 Output Total 200 / 200 1000 / 1000 Balance 160 / 160 -18.75 / 181.25 200 / 181.25 Weight 67.8 kg 68.311 kg Intake: IV 981.25 / 981.25 Oral 340 / 340 200 / 200 Output: Urine 200 / 200 1000 / 1000 Other: Urine Color Yellow Yellow Straw Urine Appearance Clear Clear Urine Odor Normal Normal Voiding Methods Toilet Toilet Data Completed and Pending Labs on day of discharge: Labs from last 24 hours 11/10/21 11/10/21 11/10/21 06:26 06:26 06:26 WBC 9.47 RBC 3.63 L Hgb 10.6 L Hct 32.7 L MCV 90.1 MCH 29.2 MCHC 32.4 RDW 15.1 H Plt Count 273 MPV 10.6 Immature Gran % 0.3 Neutrophils % 83.3 Lymphocytes % 11.5 Monocytes % 4.5 Eosinophils % 0.1 Basophils % 0.3 Nucleated RBC % 0 Absolute Neutrophils 7.88 H Absolute Lymphocytes 1.09 L Absolute Monocytes 0.43 Absolute Eosinophils 0.01 Absolute Basophils 0.03 D-Dimer Sodium 139 Potassium 4.2 D Chloride 105 Carbon Dioxide 26.3 Anion Gap 7.7 BUN 14 D Creatinine 0.9 Estimated GFR/1.73 m2 >= 60.00 Glucose 100 D Calcium 8.9 Magnesium 1.9 Total Bilirubin AST ALT Alkaline Phosphatase Troponin I C-Reactive Protein Total Protein Albumin Procalcitonin COVID-19 Source SARS-CoV-2 (PCR) Hep Bs Antigen Pending Hep Bs Antibody Pending Hep Bs Antibody, Quant Pending Hep B Core Total Ab Pending Hepatitis C Antibody Pending 11/09/21 11/09/21 11/09/21 18:50 16:55 15:27 WBC RBC Hgb Hct MCV MCH MCHC RDW Plt Count MPV Immature Gran % Neutrophils % Lymphocytes % Monocytes % Eosinophils % Basophils % Nucleated RBC % Absolute Neutrophils Absolute Lymphocytes Absolute Monocytes Absolute Eosinophils Absolute Basophils D-Dimer 2270 H Sodium Potassium Chloride Carbon Dioxide Anion Gap BUN Creatinine Estimated GFR/1.73 m2 Glucose Calcium Magnesium Total Bilirubin AST ALT Alkaline Phosphatase Troponin I < 50 C-Reactive Protein Total Protein Albumin Procalcitonin COVID-19 Source Nasal/Nares SARS-CoV-2 (PCR) Negative Hep Bs Antigen Hep Bs Antibody Hep Bs Antibody, Quant Hep B Core Total Ab Hepatitis C Antibody 11/09/21 11/09/21 11/09/21 15:27 15:27 15:26 WBC 13.28 H RBC 4.02 Hgb 11.9 Hct 37.2 MCV 92.5 MCH 29.6 MCHC 32.0 RDW 14.8 H Plt Count 290 MPV 10.5 Immature Gran % 0.6 Neutrophils % 78.3 Lymphocytes % 15.1 Monocytes % 5.3 Eosinophils % 0.5 Basophils % 0.2 Nucleated RBC % 0 Absolute Neutrophils 10.40 H Absolute Lymphocytes 2.01 Absolute Monocytes 0.70 Absolute Eosinophils 0.07 Absolute Basophils 0.03 D-Dimer Sodium 141 Potassium 3.4 L Chloride 102 Carbon Dioxide 26.5 Anion Gap 12.5 H BUN 22 H Creatinine 1.2 H Estimated GFR/1.73 m2 43.45 Glucose 153 H Calcium 8.8 Magnesium 1.9 Total Bilirubin 0.3 AST 9 L ALT 25 Alkaline Phosphatase 97 Troponin I < 50 C-Reactive Protein Total Protein 7.8 Albumin 3.6 Procalcitonin 0.1 COVID-19 Source SARS-CoV-2 (PCR) Hep Bs Antigen Hep Bs Antibody Hep Bs Antibody, Quant Hep B Core Total Ab Hepatitis C Antibody 11/09/21 15:26 WBC RBC Hgb Hct MCV MCH MCHC RDW Plt Count MPV Immature Gran % Neutrophils % Lymphocytes % Monocytes % Eosinophils % Basophils % Nucleated RBC % Absolute Neutrophils Absolute Lymphocytes Absolute Monocytes Absolute Eosinophils Absolute Basophils D-Dimer Sodium Potassium Chloride Carbon Dioxide Anion Gap BUN Creatinine Estimated GFR/1.73 m2 Glucose Calcium Magnesium Total Bilirubin AST ALT Alkaline Phosphatase Troponin I C-Reactive Protein 16.12 H Total Protein Albumin Procalcitonin COVID-19 Source SARS-CoV-2 (PCR) Hep Bs Antigen Hep Bs Antibody Hep Bs Antibody, Quant Hep B Core Total Ab Hepatitis C Antibody 11/09/21 18:30 Blood Blood Culture - Pending 11/09/21 18:50 Blood Blood Culture - Pending Preliminary micro results at discharge 11/09/21 18:30 Blood Culture - Pending Blood 11/09/21 18:50 Blood Culture - Pending Blood PFSH All Active Problems (Updated 11/09/21 @ 22:50 by Shey Villarreal MD) Discharge planning issues (Acute) Hypokalemia (Acute) Atelectasis (Acute) Liver mass (Acute) Pleuritic chest pain (Acute) Bilateral pulmonary embolism (Acute) Double vision with both eyes open (Acute) Arthralgia (Acute) Pulmonary embolism (Chronic) Liver mass, left lobe (Acute) Medical History (Updated 11/09/21 @ 22:50 by Shey Villarreal MD) Benign head tremor Complicated migraine Polymyalgia rheumatica Steroid dependent Surgical History (Updated 11/09/21 @ 22:46 by Shey Villarreal MD) Colonoscopy - MAC (01/03/17) H/O cataract extraction Tonsillectomy Tubal Ligation, Family History (Updated 11/09/21 @ 23:48 by Shey Villarreal MD) Mother Colon cancer Father Leukemia Aneurysm Paternal Grandmother Diabetes Social History Smoking/Tobacco Use Status: Never Smoking risk assessment performed?: Yes Alcohol Intake: current Alcohol Intake frequency: holidays/special occasions only Drug use: Never Substance use type: does not use Do you feel safe at home: Yes Do you feel safe in your relationship?: Yes
--- NOTE | 2021-11-10 16:07 | PDOC.CMDIS ---
- If Service Date Differs Date of service: 11/10/21 Time of Service: 16:07 LACE Index Scoring Tool - Questions: Length of Stay (in days): 1 Acuity (Admit via E.D.?): Yes E.D. Visits: 1 - Answers: Total Score: 5 Risk of Readmission: Low Risk Care Management Discharge Reason for Hospitalization: Bilateral pulmonary emboli Discharge Plan: Shena will discharge home when ready per MD. New eliquis prescription submitted to [facility], and doses released to Shena until the mail order pharmacy is able to deliver. She will follow up with her PCP and transport via private vehicle with her , Robby. Patient/Family Education Needs: Review of discharge instructions, discuss Ask Me Three.
[2021-11-11 10:34] LABS: HBs Antibody, Qual Negative (See Note); HBs Antibody, Quant <3.1 mIU/mL (See Note); Hepatitis B Core Antibody Negative (Negative); Hepatitis B surface Ag Negative (Negative); Hepatitis C Ab w Rflx HCV PCR Negative (Negative)
== END 2021-11-10 15:12 | disposition home or self-care (01) ==
LOC: ER 17:15 → MS 17:51
PROVIDERS: Physician Assistant; Admitting Provider Internal Medicine; Emergency Provider Student in an Organized Health Care Education/Training Program; Visit Provider Internal Medicine
DX: I26.99 Other pulmonary embolism without acute cor pulmonale (principal); J98.11 Atelectasis; I82.432 Acute embolism and thrombosis of left popliteal vein; I82.452 Acute embolism and thrombosis of left peroneal vein; E87.6 Hypokalemia; R07.81 Pleurodynia; M35.3 Polymyalgia rheumatica; Z79.52 Long term (current) use of systemic steroids; K21.9 Gastro-esophageal reflux disease without esophagitis; G43.909 Migraine, unspecified, not intractable, without status migrainosus; G25.2 Other specified forms of tremor; K76.89 Other specified diseases of liver
CPT/HCPCS: 36415; 71275; 80048; 80053; 84145; 86704; 86706; 86803; 87040; 87340; 87635; 93005; 93306; 94618; 96372; 99291; 76705; 83735; 84484; 85025; 85379; 86140; 93010; 93970; 99217; 99220; G0378; J1650; J3490; J7512

== ENCOUNTER 2022-02-28 05:36 | Outpatient (CLI) | payer MEDICARE, SELFPAY ==
[2022-02-28 10:45] LABS: HGB 12.1 g/dL (11.2-15.7); MCH 29.5 pg (27.0-33.0); MCHC 31.8 % (32.0-36.0); MCV 92.7 fL (80-95); MPV 10.4 fL (8.0-11.0); Platelet Count 361 10^3/uL (130-400); RDW 13.4 % (11.7-14.6); RDW-SD 45.8 fL; WBC 5.94 10^3/uL (4.4-10.8)
[2022-02-28 12:09] LABS: Anion Gap 7.7 mmol/L (3-11); BUN 19 mg/dL (7-18); CO2 26.3 mmol/L (21.0-32.0); CREATININE 1.1 mg/dL (0.55-1.02); Calcium 9.7 mg/dL (8.5-10.1); Chloride 104 mmol/L (98-107); Estimated GFR 48.04 (mL/min/1.73m2); Glucose 102 mg/dL (74-106); Sodium 138 mmol/L (136-145)
== END 2022-02-28 05:37 | disposition home or self-care (01) ==
LOC: LBO 05:36
PROVIDERS: PCP Student in an Organized Health Care Education/Training Program; Referring Provider Student in an Organized Health Care Education/Training Program; Visit Provider Student in an Organized Health Care Education/Training Program
DX: D64.9 Anemia, unspecified (principal); H53.2 Diplopia; R06.02 Shortness of breath; E86.0 Dehydration; Z87.448 Personal history of other diseases of urinary system
CPT/HCPCS: 36415; 80048; 85027

== ENCOUNTER → 2022-06-16 14:41 | Outpatient (CLI) | payer MEDICARE, SELFPAY ==
--- NOTE | 2022-06-16 10:15 | DI.RAD_ITS ---
Exam(s) XR THORACIC SPINE COMPLETE EXAM: XR THORACIC SPINE COMPLETE CLINICAL HISTORY: Upper Back Pain, DORSALGIA--M54.9. TECHNIQUE: 2D digital imaging was performed. Three views. COMPARISON: CR XR DEXA BONE DENSITY W/WO ADRIANNE from 03/09/[address] CHEST PE CTA from 11/09/2021 FINDINGS: There is minimal wedging of the T4 and T5 vertebral bodies. There is also mild compression of the T 8 and T11 vertebral bodies. There is mild accentuation of the thoracic kyphosis. There are degenera tive disc changes with anterior disc space narrowing in the midthoracic region. Heart size is normal. The visualized portions of the lungs are clear. IMPRESSION: Multiple mild compression fractures. Degenerative disc changes greatest in the mid thoracic region. DATA REPOSITORY: RADIATION DOSE DELIVERED:
== END ==
PROVIDERS: PCP Student in an Organized Health Care Education/Training Program; Visit Provider Family Medicine
DX: M48.54XA Collapsed vertebra, not elsewhere classified, thoracic region, initial encounter for fracture (principal); M43.14 Spondylolisthesis, thoracic region
CPT/HCPCS: 72072

== ENCOUNTER 2022-09-29 01:28 | Outpatient (CLI) | payer MEDICARE, SELFPAY ==
--- OUTSIDE RECORDS SUMMARY | 2022-09-29 01:30 | XMS_ITS | Encounter Summary ---
:1945 Author Organization [facility] [address] Care Team Providers Name Role Phone Arlyn Sweeney MD Primary Care Provider Reason for Visit Reason Comments Post Op S/P 2.5 weeks blepharoplasty OU Encounter Details Date Type Department Care Team Description 12/28/2016 Office Visit Ophthalmology at [facility] C Barb Kilpatrick, Dermatochalasis of both [facility] [place] [address] [place] [address] [place] [address] Social History Tobacco Use Types Packs/Day Years Used Date Smoking Tobacco: Never Alcohol Use Standard Drinks/Week Comments No 0 (1 standard drink = 0.6 oz pure alcoho l) Sex Assigned at Date Recorded Not on file documented as of this encounter Progress Notes Barb Kilpatrick MD - 12/28/2016 3:15 PM EST Encounter Diagnosis Name Primary? Dermatochalasis of both upper eyelids Shena Lemus, a 71 y.o. female with the following problem(s): 1. POW#2 BUL bleph. Doing well, notices improvement in visual field. - good upper lid height and contour, expected postop appearance - already stopped ointment, returned to normal activities - Findings and concerns discussed with Shena and she expressed understanding. FOLLOW UP - 3 months documented in this encounter Plan of Treatment Upcoming Encounters Date Type Specialty Care Team Description 10/10/2022 TH Visit Hematology and Oncology Elida Turcios , (TeleHealth) [facility] DR HEMATOLOGY/ONCOLOGY DEPT. [place], [place] [address] (Wo rk) 11/02/2022 Office Visit Rheumatology Marisabel Salgado APRN [facility] RHEUMATOLOGY [place], [place] [address] (Savanna matos) documented as of this encounter Visit Diagnoses Diagnosis Dermatochalasis of both upper eyelids documented in this encounter Care Teams Parks Recreation Coordinator Relationship Specialty Start Date End Date Arlyn Sweeney MD PCP - General 09/27/10 10/01/18 [address] [place] [address] documented as of this encounter
--- OUTSIDE RECORDS SUMMARY | 2022-09-29 01:30 | XMS_ITS | Encounter Summary ---
:1945 [place] [address] Care Team Providers Name Role Phone Arlyn Sweeney MD Primary Care Provider Reason for Visit Auth/Cert Specialty Diagnoses / Procedures Referred By Contact Refer red To Contact Diagnoses visually significant dermatochalasis, bilateral upper eyelids Procedures PRO BLEPHAROPLASTY UPPER EYELID W/EXCESSIVE SKIN BLEPHAROPLASTY,UPPER EYELID, WITH EXCESSIVE SKIN, GARETH (WRVU 6.81) Referral ID Status Reason Start Date Expiration Date Visits Requ ested Visits Authorized [id number] 1 1 Encounter Details Date Type Department Care Team Description 12/11/2016 Anesthesia Event Outpatient Surgery Royer Simms MD [facility] [place] [address] [place] Vidhya Washington MD [facility] [place] [address] [facility] [place] [address] Anesthesia Record Procedure Summary Procedure Name Responsible Anesthesia Start Anesthesia Stop Time Anesthesiologist Time BLEPHAROPLASTY,Mane French MD 12/11/16 1005 7 1047 R EYELID, WITH EXCESSIVE SKIN, GARETH (WRVU 6.81) (Bilateral: Face) Events Date Time Event Comment 12/11/2016 1001 1005 AN Verify 1005 Start 1005 An Start Data 1008 Anesthesia Ready 1042 an stop data 1047 Recovery or ICU Handoff Patient care was transferred to the destination unit staff after review of the patient's medica l history, current anesthetic/surgi pascale status and plan, according to the Provider Handoff Checklist. 1047 Stop Name Total IV Lidocaine 60 mg Propofol 75 mg lactated ringers infusion 1,000 mL 400 mL Agents Name O2 Air N2O Blood No blood administrations on file. Lines, Drains, and Airways Type Details Placement Removal Incision 12/11/16; right eye lid 12/11/16 0000 by Snow, 0 07/03/22 1715 by upper ; 07/03/22 (ANA Norris, Anjali erdre L cleanup utility RA#[id number]); 1715 (LDA cleanup utility RA#[id number]) Incision 12/11/16; eye; left eye 12/11/16 0000 by Snow, 0 07/03/22 1715 by lid,upper ; 07/03/22 (ANA Norris , Dierdre L cleanup utility RA#[id number]); 1715 (LDA cleanup utility RA#[id number]) PIV 12/11/16; 0957; median 12/11/16 0957 by 12/11/16 1120 by Alek, cubital vein (antecubital Arlyn Daniel, ANA Mckee), right; rfxl-lif-vykrgo catheter system; 20 gauge; Anesthesia MD; distraction, intradermal injection; no longer indicated, removed per policy/procedure, catheter/device intact; 12/11/16; 1120 documented in this encounter Social History Tobacco Use Types Packs/Day Years Used Date Smoking Tobacco: Never Alcohol Use Standard Drinks/Week Comments No 0 (1 standard drink = 0.6 oz pure alcoho l) Sex Assigned at Date Recorded Not on file documented as of this encounter OR Notes Anesthesia Postprocedure Evaluation - Mane Simms MD - 12/11/2016 2:28 PM EST [facility] Department of Anesthesiology Post-procedure Note Patient: Shena Lemus Procedure Summary Date Anesthesia Start Anesthesia Stop Room / Location 12/11/16 1005 1047 [facility] OR [address] [place] [address] [facility] Procedure Diagnosis Surgeon Responsible Provider BLEPHAROPLASTY,UPPER EYELID, WITH EXCESSIVE SKIN, GARETH (WRVU 6.81) (Bilateral Face) Dermatochalasis of both upper eyelids (visually significant dermatochalasis, bilateral upper eyelids) Barb Kilpatrick MD Beach, Michael L, MD All Anesthesia Providers: Anesthesiologist: Mane Simms MD PLATE MAKER ZINC: Noa Wu CRNA Last (1hr) Vitals: BP Temp Pulse Resp SpO2 Patient Location: [facility] Level of Consciousness: Awake and Alert Pain Management: Satisfactory Analgesia PONV: None Cardiovascular Status: At Baseline and Hemodynamically Stable Respiratory Status: At Baseline and Room Air Postoperative Fluid Status: Intravascular EUvolemia Possible Anesthetic Complications: NONE apparent at time of evaluation Final Primary Anesthesia Type: General (The anesthetic type performed was the same as planned.) Comments: MANE SIMMS MD Anesthesia Preprocedure Evaluation - Mane Simms MD - 12/11/2016 7:28 AM EST Pre-Anesthesia Evaluation for: Shena zimmer 71 y.o. female. Procedure(s): BLEPHAROPLASTY,UPPER EYELID, WITH EXCESSIVE SKIN, GARETH (WRVU 6.81) Patient Active Problem List Diagnosis ??? Dermatochalasis of both upper eyelids Past Medical History Diagnosis Date ??? Arthritis ??? Cataract Past Surgical History Procedure Laterality Date ??? Cataract removal Right 2011 ??? Cataract removal Left 2011 Social History Substance Use Topics ??? Smoking status: Never Smoker ??? Smokeless tobacco: Not on file ??? Alcohol use No History Drug Use Not on file No Known Allergies Medications: MAR and/or home medications have been reviewed. Physical Exam: There were no vitals filed for this visit. There is no height or weight on file to calculate BMI. Anesthesia Physical Exam Anesthesia Plan: ASA 2 MAC, with a(n) intravenous induction Informed Consent: Anesthetic plan and risks discussed with patient. PAT Staff Note verapmil for chronic head movement. Not for cardiac diseaas Fosamax This is a preliminary note based on a chart review in preparation for anesthetic care. documented in this encounter Plan of Treatment Upcoming Encounters Date Type Specialty Care Team Description 10/10/2022 Visit Hematology and Oncology Elida Turcios (TeleHealth) [facility] HEMATOLOGY/ONCOLOGY DEPT. [place], [place] [address] (Wo rk) 11/02/2022 Office Visit Rheumatology Marisabel Salgado APRN [facility] [address] [place], [place] [address] (Wo rk) documented as of this encounter Visit Diagnoses Not on filedocumented in this encounter Administered Medications Inactive Administered Medications - up to 3 most recent administrations Medication Order MAR Action Action Date Dose Rate Site lactated ringers infusion 1,000 mL New Bag 12/11/2016 10:05 AM EST 1,000 mL, at 100 mL/hr, Intravenous, CONTINUOUS, Starting on Sun12/11/16 at 1015, Until Sun12/11/16 at 1135, Day of Surgery (Day of Procedure) New Bag 12/11/2016 9:49 AM EST 1,000 mLs 100 mL/hr lidocaine (PF) (XYLOCAINE) 100 mg/5 mL (2 %) Given 04/2017 10:12 AM EST 60 mg injection PRN, Starting on Sun12/11/16 at 1012, Until Sun12/11/16 at 1048, Anesthesia Intra-op, Routine propofol (DIPRIVAN) 10 mg/mL bolus injection Given 04/2017 10:13 AM EST 25 mg (Anesthesia) PRN, Starting on Sun12/11/16 at 1012, Until Sun12/11/16 at 1048, Anesthesia Intra-op Given 12/11/2016 10:12 AM EST 50 mg documented in this encounter Care Teams Brush Machine Setter Relationship Specialty Start Date End Date Arlyn Sweeney MD PCP - General 09/27/10 10/01/18 [address] [place] [address] documented as of this encounter
--- OUTSIDE RECORDS SUMMARY | 2022-09-29 01:30 | XMS_ITS | Encounter Summary ---
:1945 Author Organization [facility] [place] [address] Care Team Providers Name Role Phone Petra Serra DO Primary Care Provider Encounter Details Date Type Department Care Team Description 06/16/2022 Ancillary Procedure Radiology Library at PonceGenny dean [facility] B, DO [facility] [address] [place] [phone] (Wo rk) Social History Tobacco Use Types Packs/Day Years Used Date Smoking Tobacco: Never Smokeless Tobacco: Never Alcohol Use Standard Drinks/Week Comments No 0 (1 standard drink = 0.6 oz pure alcoho l) Sex Assigned at Date Recorded Not on file documented as of this encounter Plan of Treatment Upcoming Encounters Date Type Specialty Care Team Description 10/10/2022 TH Visit Hematology and Oncology Elida Turcios (TeleHealth) [facility] HEMATOLOGY/ONCOLOGY DEPT. [place], [place] [address] (Wo rk) 11/02/2022 Office Visit Rheumatology Marisabel Salgado APRN [facility] RHEUMATOLOGY [place], [place] [address] (Wo rk) documented as of this encounter Procedures Procedure Name Priority Date/Time Associated Diagnosis Comme nts FILM LIBRARY Routine 06/16/2022 12:00 AM Results for this STORAGE ONLY DX EDT procedure ar e in SPINE the results section. documented in this encounter Results Film Library- Storage Only DX Spine (06/16/2022 12:00 AM EDT) Specimen (Source) Anatomical Location Collection Method / Collectio n Time Received Time / Laterality Volume Narrative STANLEY - 08/02/2022 10:33 PM EDT This exam is auto-finalizing. It's purpo se is for storage only. Petra Serra DO IMG FILM LIBRARY ORDERABLES Performing Organization Address City/State/ZIP Code Phon e Number [place], [place] documented in this encounter Visit Diagnoses Not on filedocumented in this encounter Care Teams Land Surveyor Manager Relationship Specialty Start Date End Date Petra Serra DO PCP - General Family Medicine 02/19/[address] [place] [address] documented as of this encounter
--- OUTSIDE RECORDS SUMMARY | 2022-09-29 01:30 | XMS_ITS | Encounter Summary ---
:1945 Author Organization [facility] [place] [address] Care Team Providers Name Role Phone Petra Serra Primary Care Provider Reason for Visit Reason Onset Date Comments Medication Refill 05/23/2022 Encounter Details Date Type Department Care Team Description 05/23/2022 Refill Rheumatology at [facility] Aramis Griffin, PMR ([facility] Du beyer MD rheumatica) [place] [address] [facility] [phone] DR RHEUMATOLOGY [place], [place] [address] (Wo rk) Social History Tobacco Use Types Packs/Day Years Used Date Smoking Tobacco: Never Smokeless Tobacco: Never Alcohol Use Standard Drinks/Week Comments No 0 (1 standard drink = 0.6 oz pure alcoho l) Sex Assigned at Date Recorded Not on file documented as of this encounter Miscellaneous Notes Telephone Encounter - Susi Aguila LPN - 05/23/2022 12:56 PM EDT Requested Prescriptions Pending Prescriptions Disp Refills ??? predniSONE (Deltasone) 1 mg Tablet 120 tablet 11 Sig: Use 1 mg tablets of prednisone to reduce daily dose by 1 mg every 2 to 4 weeks if doing well. Increase daily dose by 1 mg if symptoms return ??? predniSONE (Deltasone) 5 mg Tablet 120 tablet 5 Si tablets daily May take first thing in the morning or as split doses 2 in the morning 2 at night /Last office visit: 11/07/2021 follow up 05/30/2022 with Marisabel Salgado /Last refill: 11/07/2021, 10/11/2021 documented in this encounter Plan of Treatment Upcoming Encounters Date Type Specialty Care Team Description 10/10/2022 TH Visit Hematology and Oncology Elida Turcios , (TeleHealth) [facility] HEMATOLOGY/ONCOLOGY DEPT. [place], [place] [address] (Wo rk) 11/02/2022 Office Visit Rheumatology Marisabel Salgado APRN [facility] RHEUMATOLOGY [place], [place] [address] (Wo rk) documented as of this encounter Visit Diagnoses Diagnosis PMR (polymyalgia rheumatica) Polymyalgia rheumatica documented in this encounter Care Teams Wood Buffer Relationship Specialty Start Date End Date Petra Serra DO PCP - General Family Medicine 02/19/22 4 [place] [address] documented as of this encounter
--- OUTSIDE RECORDS SUMMARY | 2022-09-29 01:30 | XMS_ITS | Encounter Summary ---
:1945 Author Organization [facility] [place] [address] Care Team Providers Name Role Phone Petra Serra Primary Care Provider Encounter Details Date Type Department Care Team Description 09/19/2022 Hospital Encounter Hematology and VTE (ve nous thromboembolism); Oncology at [facility] [place] Dyspnea, [place] [address] Social History Tobacco Use Types Packs/Day Years Used Date Smoking Tobacco: Never Smokeless Tobacco: Never Alcohol Use Standard Drinks/Week Comments No 0 (1 standard drink = 0.6 oz pure alcoho l) Sex Assigned at Date Recorded Not on file documented as of this encounter Medications at Time of Discharge Medication Sig Dispensed Refills Start Date End Date CALCIUM ORAL Take by mouth daily. 0 Eliquis 5 mg Tablet 5 mg 2 times daily. 0 022 predniSONE (Deltasone) 1 Use 1 mg tablets of 120 tablet 11 mg TabletIndications: PMR prednisone to reduce (polymyalgia rheumatica) daily dose by 1 mg every 2 to 4 weeks if doing well. Increase daily dose by 1 mg if symptoms return FLUoxetine (PROZAC) 20 mg Take 20 mg by mouth 0 Tablet daily. verapamil (CALAN) 120 mg Take 120 mg by mouth 0 Tablet daily. multivitamin with Take 1 tablet by 0 minerals Tablet mouth daily. verapamiL SR (Calan-SR) Take 180 mg by mouth 0 180 mg Tablet Sustained daily. Release gabapentin (Neurontin) Take 100 mg by mouth 0 100 mg Capsule 3 times daily. acetaminophen (Tylenol) Take 1,000 mg by 0 500 mg Tablet mouth 3 times daily. documented as of this encounter Plan of Treatment Upcoming Encounters Date Type Specialty Care Team Description 10/10/2022 TH Visit Hematology and Oncology Elida Turcios , (TeleHealth) [facility] HEMATOLOGY/ONCOLOGY DEPT. [place], [place] [address] (Wo rk) 11/02/2022 Office Visit Rheumatology Marisabel Salgado APRN [facility] RHEUMATOLOGY [place], [place] [address] (Wo rk) documented as of this encounter Procedures Procedure Name Priority Date/Time Associated Diagnosis Comme nts HEMOGRAM Routine 09/19/2022 11:30 AM VTE (venous Results for this EST thromboembolism) procedure are in Dyspnea, unspecified the res ults type section. DIFFERENTIAL, Routine 09/19/2022 11:30 AM VTE (venous Results for this AUTOMATED EST thromboembolism) procedure are in Dyspnea, unspecified the res ults type section. HC CBC,PLT & AUTO Routine 09/19/2022 11:30 AM VTE (venous DIFF EST thromboembolism) Dyspnea, unspecified type documented in this encounter Results (ABNORMAL) Differential, Automated (09/19/2022 11:30 AM EST) [facility] Method Time Signature Neutrophils % 74.2 % [facility] Neutr Abs (ANC) 7.19 (H) 1.70 - [facility] 6.10 [facility] x10(3)/[facility] LABORATORY Lymphocytes % 15.6 % [facility] Lymphocytes Abs 1.5 0.9 - 3.2 [facility] x10(3)/[facility] LABORATORY Monocytes % 8.1 % [facility] Monocyte Abs 0.8 0.3 - 0.9 [facility] x10(3)/[facility] LABORATORY Eosinophils % 1.1 % [facility] Eosinophils Abs 0.1 0.0 - 0.4 [facility] x10(3)/[facility] LABORATORY Basophils % 0.4 % [facility] Basophils Abs 0.0 0.0 - 0.1 [facility] x10(3)/[facility] LABORATORY Immature Gran % 0.60 % [facility] Comment: Immature granulocytes(IG's)percentage an d absolute count will include metamyelocytes, myelocytes, and promyelo cytes. Blood smears from CBCs yielding IG's will be scanned manually for concor dance. If this scan disagrees with the automated IG or if promyelocytes are not ed, a manual differential will be performed. Alanna Gran Abs 0.06 (H) 0.00 - 0.04 x10(3)/[facility] LABORATORY Specimen Anatomical Collection Method Collection Time Receive d Time (Source) Location / / Volume Laterality Blood 09/19/2022 11:30 09/19/2022 AM EST 11:41 AM EST Resulting Agency Comment Spec In Lab Elida Turcios MD HEMATOLOGY ORDERABLES Performing Organization Address City/State/ZIP Code Phon e Number [place] [phone] (ABNORMAL) Hemogram (09/19/2022 11:30 AM EST) Analysis Performed At Patho logist Time Signature WBC 9.7 (H) 4.0 - 9.5 [facility] x10(3)/[facility] LABORATORY RBC 3.90 (L) 4.00 - [facility] 5.21 [facility] x10(6)/[facility] LABORATORY Hemoglobin 12.1 11.7 - [facility] g/dL [facility]ORY Hematocrit 37.4 35.7 - [facility] 45.8 % [facility] MCV 95.9 (H) 82.6 - [facility] 94.4 [facility] LABORATORY MCH 31.0 27.1 - [facility] 32.0 pg [facility] MCHC 32.4 31.7 - [facility] 35.0 g/dL [facility] Platelets 342 145 - 357 [facility] x10(3)/[facility] LABORATORY RDWSD 47.5 (H) 37.0 - [facility] 46.0 [facility] RDWCV 13.4 11.5 - [facility] 14.1 % [facility] LABORATORY MPV 10.4 7.6 - 12.9 [facility] LABORATORY nRBC % Auto 0.0 % [facility] nRBC Abs Auto 0.000 0.000 - [facility] 0.000 [facility] x10(3)/[facility] LABORATORY Specimen Anatomical Collection Method Collection Time Receive d Time (Source) Location / / Volume Laterality Blood 09/19/2022 11:30 09/19/2022 AM EST 11:41 AM EST Resulting Agency Comment Spec In Lab Elida Turcios MD HEMATOLOGY ORDERABLES Performing Organization Address City/State/[place] [address] documented in this encounter Visit Diagnoses Diagnosis VTE (venous thromboembolism) Embolism and thrombosis of unspecified s ite Dyspnea, unspecified type documented in this encounter Care Teams Foundation Coordinator Relationship Specialty Start Date End Date Petra Serra DO PCP - General Family Medicine 02/19/22 4 [place] [address] documented as of this encounter
--- OUTSIDE RECORDS SUMMARY | 2022-09-29 01:30 | XMS_ITS | Encounter Summary ---
:1945 Author Organization [facility] [place] [address] Care Team Providers Name Role Phone Tawanna Browning MAGI Primary Care Provider Encounter Details Date Type Department Care Team Description 10/25/2021 Telephone [place] [facility] [place]amis Griffin MD [facility] [place] [address] RHEUMATOLOGY DEPT. [phone] [place], [place] [address] (Wo rk) Social History Tobacco Use Types Packs/Day Years Used Date Smoking Tobacco: Never Smokeless Tobacco: Never Alcohol Use Standard Drinks/Week Comments No 0 (1 standard drink = 0.6 oz pure alcoho l) Sex Assigned at Date Recorded Not on file documented as of this encounter Miscellaneous Notes Telephone Encounter - Aramis Griffin MD - 10/25/2021 2:18 PM EST Return call to patient. The patient describes that the prednisone which is currently at 15 mg in split doses has made a marked difference in her shoulder mobility and sense of wellbeing. She is concerned however that while her PMR symptoms are better, she is experienced return of symptoms for which she takes verapamil and fluoxetine. The symptoms include a tic,, that has markedly worsened, that was previously very well controlled by verapamil. Second, she reports that the benefit of fluoxetine for her head symptoms has also been washed. She has symptoms nearly all day long that started at 9 or 9:30 in the morning. It is just as before . I am wondering if there may be some drug interaction between higher doses of prednisone with the efficacy of these agents. I have suggested to her that she try lowering her prednisone to 5 mg twice a day for the next day or2 and call her PCP if she is not feeling better. The patient agreed with this plan and said I thought we might do something like this I will copy Ms. Browning on this note so that she is aware of these new issues. Aramis Griffin MD documented in this encounter Plan of Treatment Upcoming Encounters Date Type Specialty Care Team Description 10/10/2022 TH Visit Hematology and Oncology Elida Turcios , (TeleHealth) [facility] HEMATOLOGY/ONCOLOGY DEPT. [place], [place] [address] (Wo rk) 11/02/2022 Office Visit Rheumatology Marisabel Salgado APRN [facility] RHEUMATOLOGY [place], [place] [address] (Wo rk) documented as of this encounter Visit Diagnoses Not on filedocumented in this encounter Care Teams Supervisor Chlorine Liquefaction Relationship Specialty Start Date End Date Tawanna Browning APRN PCP - General Family Medicine 10/02/18 02/18/22 [address] [place] [address] documented as of this encounter
--- OUTSIDE RECORDS SUMMARY | 2022-09-29 01:30 | XMS_ITS | Encounter Summary ---
:1945 Author Organization [facility] [place] [address] Care Team Providers Name Role Phone Arlyn Sweeney MD Primary Care Provider Reason for Visit Auth/Cert Specialty Diagnoses / Procedures Referred By Contact Refer red To Contact Diagnoses visually significant dermatochalasis, bilateral upper eyelids Procedures PRO BLEPHAROPLASTY UPPER EYELID W/EXCESSIVE SKIN BLEPHAROPLASTY,UPPER EYELID, WITH EXCESSIVE SKIN, GARETH (WRVU 6.81) Referral ID Status Reason Start Date Expiration Date Visits Requ ested Visits Authorized [id number] 1 1 Encounter Details Date Type Department Care Team Description 12/11/2016 Surgery Outpatient Surgery Sarah Kilpatrick MD BLEPHAROPLASTY,[facility] EYELID, WITH EXCESSIVE [facility] DR SKIN, GARETH (WRVU 6.81) [facility] OPHTHALMOLOGY DEPT [address] [address] [phone] Social History Tobacco Use Types Packs/Day Years Used Date Smoking Tobacco: Never Alcohol Use Standard Drinks/Week Comments No 0 (1 standard drink = 0.6 oz pure alcoho l) Sex Assigned at Date Recorded Not on file documented as of this encounter Last Filed Vital Signs Vital Sign Reading Time Taken Comments Blood Pressure 133/60 12/11/2016 11:15 AM EST Pulse 68 12/11/2016 11:15 AM EST Temperature 36.9 ??C (98.4 ??F) 12/11/2016 10:45 AM EST Respiratory Rate 14 12/11/2016 11:15 AM EST Oxygen Saturation 98% 12/11/2016 11:15 AM EST Inhaled Oxygen Concentration - - Weight 68 kg (150 lb) 12/11/2016 9:44 AM EST Height 163.8 cm (5' 4.5) 12/11/2016 9:44 AM EST Body Mass Index 25.35 12/11/2016 9:44 AM EST documented in this encounter Discharge Instructions Discharge InstructionsArlyn Daniel RN - 12/11/2016 9:58 AM EST General Anesthesia Discharge Instructions Go home and rest. You may be sleepy for several hours. Take it easy as sudden position changes may cause nausea and/or dizziness. Use caution on stairs. Do not smoke if you are alone. Follow a light to regular diet as tolerated today. If nausea occurs, start with clear liquids, and progress slowly to a regular diet. Do not drive, operate machinery, drink alcoholic beverages or make any legal decisions after having general anesthesia. The medications given change your reaction time and alter your judgement. IV site -- slight redness is normal, you can use warm compresses. If tenderness and redness increases or foul drainage occurs, please contact your M.D. Patients who have had endotracheal tubes/LMA (tubes used by the anesthesia staff to ensure a safe airway during your operation) may have a sore throat. This is normal and cold liquids or soothing lozengers will help ease this discomfort. Narcotic pain medications can cause constipation, please ask the surgeons office what they recommendfor prevention of this. Some non-pharmaceutical means of constipation prevention include increasing intake of fluids, eating more fruits and vegetables as well as fruit juices. If you are uncomfortable and/or unable to urinate within 8 hours of discharge and it is before 5 pm,call your physician. If it is after 5pm go to the closest emergency room or call the hospital raschel knitting machine operator at [phone] and ask for physician nca certified concierge covering for your physician. Questions or problems after 5pm or on a weekend: Call the [facility] raschel knitting machine operator at and ask for the physician nca certified concierge covering for your doctor. Patient Barb Wang MD - 12/11/2016 9:59 AM EST POST-OPERATIVE INSTRUCTIONS after EYELID and ORBITAL Surgery WOUND CARE Apply ice (most patients prefer a bag of frozen peas) to the area of surgery for the first 24 hours.This is essential for reducing the amount of swelling and bruising. It is normal to have mild bleeding/drainage from the incisions for the first couple of days. Apply the ointment to the incision(s) 3x/day for 1 week (you may experience blurriness if the ointment gets into the eyes - this is ok). This provides comfort to the incision while it heals. If you develop itching and increasing redness, please discontinue the ointment as this may be a sign of an allergic reaction. If you feel your eyes are dry, you may use the ointment in the eye or an [id number] artificial tear drop. Your bruising and swelling will look its worse within the first 24 - 48 hours after surgery. GENERAL POST-OPERATIVE INSTRUCTIONS If you were given a prescription for antibiotics, take as directed until all pills are gone. If you develop a rash, itching, trouble breathing, or feel you are having any other reaction to the pills, do not take any more and contact Dr. Kilpatrick's office immediately. For the first 48 hours after surgery sleep with your head elevated on at least 2 pillows. This will help decrease the swelling. You may shower and wash your hair the day after surgery. The sutures may get wet but avoid direct impact of water. When drying the eye area, blot rather than rub dry. Do not exert yourself for the first 5 days following surgery. This includes bending over, lifting heavy objects, exercising, working out, and other activities requiring exertion. You may read, run errands, and perform other activities that do not require exertion. Sutures should be fully dissolved 5 to 30 days after surgery. It is normal for one eye to heal more quickly than the other. It is also normal for the incisions to look pink, lumpy, and bumpy 1 to 30 days following surgery. The incisions can be gently rubbed (after 10 days) with a towel to encourage the sutures to dissolve. DO NOT APPLY VITAMIN E TO THE EYELID AREA - it will burn the skin If you have pain, take Tylenol. If this does not relieve the pain, call Dr. Kilpatrick. DO NOT TAKE ASPIRIN, MOTRIN, ADVIL, EXCEDIN, OR ANY OTHER PAIN KILLER WITHOUT SPECIFIC PERMISSION TO DO SO - these may cause additional bruising. You may resume all above medicines and Vitamin E 3 days after surgery. You may wear contact lenses whe you feel comfortable inserting them. DO NOT WEAR DARK MAKEUP (I.E. MASCARA OR EYELINER) FOR 14 DAYS AFTER SURGERY - this may pigment the incision. You may wear cover-up the following day (ie Dermablend) If you have severe pain, or your wound site becomes increasingly red and painful, begins bleeding heavily, or develops a greenish discharge, or if you develop fever or any other concern about your condition, call Dr. Kilpatrick immediately. She may be reached at [phone]: PLEASE DO NOT HESITATE TO CALL IF YOU ARE HAVING A PROBLEM!! There is always a doctor nca certified concierge at the eye clinic. documented in this encounter Medications at Time of Discharge Medication Sig Dispensed Refills Start Date End Date FLUoxetine (PROZAC) 20 mg Take 20 mg by mouth 0 Tablet daily. verapamil (CALAN) 120 mg Take 120 mg by mouth 0 Tablet daily. multivitamin with Take 1 tablet by 0 minerals Tablet mouth daily. erythromycin (ROMYCIN) 5 Apply to both eye 3.5 g 3 04/201712/18/2016 mg/gram (0.5 %) Ointment lids 3 times daily for 7 days. calcium carbonate 648 mg Take 650 mg by mouth 0 04/04/2022 calcium Tablet 3 times daily (with meals). alendronate (FOSAMAX) 35 Take 35 mg by mouth 0 05/30/2022 mg Tablet every 7 days. Take in AM with full glass of water, on an empty stomach. Do not lie down for 30 min. fish oil-omega-3 fatty Take 2 g by mouth 0 04/04/2022 acids 1,000 mg Capsule daily. Reported on 03/08/2017 documented as of this encounter Progress Notes Karolina Gaston RN - 12/11/2016 10:58 AM EST Report from Jesus PEREZ, no concerns. documented in this encounter H&P Notes Barb Kilpatrick MD - 12/11/2016 9:58 AM EST Seen in pre-operative area. Shena Lemus reports that she is in her usual state of health and hashad no new problems with her eyes or general health since her pre op physical examination and she feels fit for surgery today. Operative and post op plans reviewed, informed consent signed and in chart. Source Note - Barb Kilpatrick MD - 12/11/2016 9:57 AM EST Patient Name: Shena Lemus Patient Age: 71 y.o. Birthdate: 1945 Admit date: 12/11/2016 Attending Physician: Barb Kilpatrick MD Please see scanned preop H&P by Arlyn Sweeney MD on 11/29/16. Cleared for surgery. Barb Kilpatrick MD - 12/11/2016 9:57 AM EST Patient Name: Shena Lemus Patient Age: 71 y.o. Birthdate: 1945 Admit date: 12/11/2016 Attending Physician: Barb Kilpatrick MD Please see scanned preop H&P by Arlyn Sweeney MD on 11/29/16. Cleared for surgery. documented in this encounter Miscellaneous Notes Op Note - Barb Kilpatrick MD - 12/11/2016 9:58 AM EST [facility] Operative Note Patient Name: Shena Lemus : [id number] MR#: [id number] Case Date: 12/11/2016 Surgeon: Surgeon(s) and Role: * Barb Kilpatrick MD - Primary Preoperative diagnosis: visually significant dermatochalasis, bilateral upper eyelids Postoperative diagnosis: same Procedure(s): BLEPHAROPLASTY,UPPER EYELID, WITH EXCESSIVE SKIN, GARETH (WRVU 6.81) Anesthesia: MAC Estimated Blood Loss: minimal Specimens removed during surgery: None Drains: none Surgical Closure: Primary Closure - closure of ALL tissue levels during the original surgery regardless of wires, wickes, drains, or other devices extruding through the incision Disposition: awakened from anesthesia and taken to the recovery room in a stable condition, having suffered no apparent untoward event. Condition: doing well without problems (Please see the Surgical Encounter Summary for any Implant and Specimen details pertinent to this patient.) Indications for procedure: Shena presented with ptosis of the bilateral upper lids causing obstruction of vision and affecting activities of daily living. Examination revealed ptosis of the bilateral upper lids and Goldmann visual field testing confirmed visual field defects that improved with taping of the lid on both sides. Given the patient's visually significant ptosis, surgery was recommended toimprove visual function. Description of procedure: After informed consent for the procedure was obtained, the patient was brought to the operating room where the operative site was confirmed. Monitored anesthesia care was established without complication. A roughly elliptical area of tissue to be excised from the bilateral upper eyelids was marked with amarking pen. The lower border was placed within the eyelid crease and the upper border determined bythe pinch test. Local anesthesia containing a 50:50 mixture of 2% lidocaine with 1:100,000 epinephrine and 0.75% Marcaine was injected into each upper lid for anesthesia and hemostasis. The patient wasthen prepped and draped in the standard sterile fashion for oculoplastic surgery. Attention was first directed to the right upper eyelid where the previously marked area was incised with a #15 blade. Dissection of a skin-muscle flap was carried out using curved iris scissors and theexcised tissue was placed in a wet sponge until the end of the case. The incision was then closed with a 6-0 plain gut suture using a combination of interrupted and running throws. Attention was then turned to the left upper eyelid where the previously marked area was incised witha #15 blade. Dissection of a skin-muscle flap was carried out using curved iris scissors and the excised tissue was placed in a wet sponge until the end of the case. The incision was then closed with a6-0 plain gut suture using a combination of interrupted and running throws. Shena tolerated the procedure well, and was transferred to the recovery room in good condition. Infection Bundle used? N/A Attestation: Case Date: 12/11/2016 I performed this procedure without the involvement of a resident. Barb Kilpatrick MD 12/11/2016 documented in this encounter Plan of Treatment Upcoming Encounters Date Type Specialty Care Team Description 10/10/2022 TH Visit Hematology and Oncology Elida Turcios (TeleHealth) [facility] HEMATOLOGY/ONCOLOGY DEPT. [place], [place] [address] (Wo rk) 11/02/2022 Office Visit Rheumatology Marisabel Salgado APRN [facility] RHEUMATOLOGY [place], [place] [address] (Wo rk) documented as of this encounter Procedures Procedure Name Priority Date/Time Associated Diagnosis Comme nts BLEPHAROPLASTY,UPPER 12/11/2016 10:05 AM Dermatochalas is of both EYELID, WITH EST upper eyelids EXCESSIVE SKIN, GARETH (WRVU 6.81) documented in this encounter Visit Diagnoses Diagnosis Dermatochalasis of both upper eyelids documented in this encounter Administered Medications Inactive Administered Medications - up to 3 most recent administrations Medication Order MAR Action Action Date Dose Rate Site BUpivacaine (PF) (MARCAINE) Given 12/11/2016 10:30 AM EST 1 mL Both Eyes 0.75 % (7.5 mg/mL) injection ONCE PRN, Starting on Sun12/11/16 at 1030, Until Sun12/11/16 at 1344, Intra-Operative (Intra-Procedure), Routine erythromycin (ROMYCIN) 5 mg/gram Given 12/11/2016 10:30 AM EST 1 Tube Both Eyes (0.5 %) ophthalmic ointment ONCE PRN, Starting on Sun12/11/16 at 1030, Until Sun12/11/16 at 1344, Intra-Operative (Intra-Procedure) lactated ringers infusion 1,000 mL New Bag 12/11/2016 10:05 AM EST 1,000 mL, at 100 mL/hr, Intravenous, CONTINUOUS, Starting on Sun12/11/16 at 1015, Until Sun12/11/16 at 1135, Day of Surgery (Day of Procedure) New Bag 12/11/2016 9:49 AM EST 1,000 mLs 100 mL/hr lidocaine-EPINEPHrine 2 %-1:200,000 inje ction Given 12/11/2016 10:31 AM EST 1 mL ONCE PRN, Starting on Sun12/11/16 at 1031, Until Sun12/11/16 at 1344, Intra-Operative (Intra-Procedure), Routine tetracaine (PF) (PONTOCAINE) ophthalmic Given 12/11/2016 10:31 A M EST 2 drops solution ONCE PRN, Starting on Sun12/11/16 at 1031, Until Sun12/11/16 at 1344, Intra-Operative (Intra-Procedure), Routine documented in this encounter Active and Recently Administered Medications Times are shown in EST. Continuous Medication Order 12/09/2016 12/10/2016 12/11/2016 lactated ringers infusion 1,000 mL 0949 (New Bag - Provider: Arlyn Daniel RN)1005 (New Bag - Provider: Noa Wu CRNA)1041 (Anesthesia Volume Adjustment - Provider: Noa Wu CRNA) 1,000 mL, at 100 mL/hr, Intravenous, CON TINUOUS, Starting Sun12/11/16 at 1015, Until Sun12/11/16 at 1135, Day of Surgery (Day of Procedure) PRN Medication Order 12/09/2016 12/10/2016 12/11/2016 acetaminophen (TYLENOL) tablet 650 mg 650 mg, Oral, ONCE PRN, 1 dose, Starting Sun12/11/16 at 1142, Until Sun12/11/16 at 1344, Pain, Maximum dose of acetaminophen is 4000 mg from all sources in 24 hours., Recovery (Recovery-Hospital Unit), Routine BUpivacaine (PF) (MARCAINE) 0.75 % (7.5 mg/mL) injection (CANCEL ED) 1030 (Given - Provider: Barb Kilpatrick MD - Comment: 2% Xylocaine w/ epi 1:200,000 mixed 1:1 with Sensocaine 0.75% total 2 cc) ONCE PRN, Starting 12/11/16 at 1030, U ntil 12/11/16 at 1344, Intra-Operative (Intra-Procedure), Routine erythromycin (ROMYCIN) 5 mg/gram (0.5 %) ophthalmic ointment (CA NCELED) 1030 (Given - Provider: Barb Kilpatrick MD - Comment: topical post-op, tube labeled sent with patient) ONCE PRN, Starting 12/11/16 at 1030, Intra-Operative (Intra-Pr ocedure) lidocaine (XYLOCAINE) 10 mg/mL (1 %) injection 3 mg 3 mg (0.3 mL), Subcutaneous, ONCE PRN, 1 dose, Starting 12/11/16 at 0945, Until 12/11/16 at 1135, for discomfort with PIV insertion, Day of Surgery (Day of Procedure), Routine lidocaine-EPINEPHrine 2 %-1:200,000 injection (CANCELED) 1031 (Given - Provider: Barb Kilpatrick MD - Comment: 2% Xylocaine w/ epi 1:200,000 mixed 1:1 with Sensocaine 0.75% total 2 cc) ONCE PRN, Starting 12/11/16 at 1031, U ntil 12/11/16 at 1344, Intra-Operative (Intra-Procedure), Routine sodium chloride 0.9 % flush 5-20 mL 5-20 mL, Intravenous, EVERY 1 MIN PRN, S tarting 12/11/16 at 0945, Until 12/11/16 at 1135, flush, Flush pertains to all indwelling lines. Flush per protocol found in the job aid using the link provid ed on this medication record., Day of Surgery (Day of Procedure) , Routine tetracaine (PF) (PONTOCAINE) ophthalmic solution (CANCELED) 1031 (Given - Provider: Barb Kilpatrick MD - Comment: prior to prep) ONCE PRN, Starting 12/11/16 at 1031, U ntil 12/11/16 at 1344, Intra-Operative (Intra-Procedure), Routine documented in this encounter Care Teams Webbing Inspector Relationship Specialty Start Date End Date Arlyn Sweeney MD PCP - General 09/27/10 10/01/18 [address] [place] [address] documented as of this encounter
--- OUTSIDE RECORDS SUMMARY | 2022-09-29 01:30 | XMS_ITS | Encounter Summary ---
:1945 Author Organization [facility] [place] [address] Care Team Providers Name Role Phone Petra Serra Primary Care Provider Reason for Referral Diagnostic Test (Routine) - Pending Review Specialty Diagnoses / Procedures Referred By Contact Refer red To Contact Diagnoses Compression fracture of T8 vertebra with routine healing, subsequent encounter Closed wedge compression fracture of T4 vertebra with routine healing, subsequent encounter Joshua Cabrera PA Procedures MRI Thoracic Spine wo Contrast (Generic) MRI Thoracic Spine wo Contrast (Generic) [facility] [place] [address] Referral ID Status Reason Start Expiration Visits Visits Date Date Requested Authorized [id number] Pending Specialty 09/06/2022 03/06/2024 1 1 Review Service Requested Reason for Visit Reason Comments Back Pain T4,T5, T8 & T11 mild sally jasmin FX Consultation (Routine) - Authorized Specialty Diagnoses / Procedures Referred By Contact Refer red To Contact [facility] Diagnoses Collapse of thoracic vertebra, initial encounter Spine - T4, T5, T8 & T11 mild compression fxs/ XR 06/16/22 in eDH *SLB or ARB Bhanu Acevedo, DO [facility] Spine [facility] [address] [place] [address] Phone: Fax: Referral ID Status Reason Start Expiration Visits Visits Date Date Requested Authorized [id number] Authorized Consult, 06/27/2022 06/27/2023 6 6 Test & Treat PCP Updated and/or Approved Encounter Details Date Type Department Care Team Description 09/06/2022 Office Visit [facility] Savita Cabrera ssisandi fracture of T8 vertebra with routine healing, subsequent encounter; at [facility] Closed wedge compression fracture of T4 vertebra with routine healing, subsequent encounter; [facility] Ce sed wedge compression fracture of T5 vertebra with routine healing, subsequent encounter; Stacey WOLFF Closed wedge compression fracture of T11 vertebra with routine healing, subsequent encounter [place], [place] [employer] [id number] [place] [address] [phone] Social History Tobacco Use Types Packs/Day Years Used Date Smoking Tobacco: Never Smokeless Tobacco: Never Alcohol Use Standard Drinks/Week Comments No 0 (1 standard drink = 0.6 oz pure alcoho l) Sex Assigned at Date Recorded Not on file documented as of this encounter Last Filed Vital Signs Vital Sign Reading Time Taken Comments Blood Pressure - - Pulse - - Temperature - - Respiratory Rate - - Oxygen Saturation - - Inhaled Oxygen Concentration - - Weight 70.3 kg (155 lb) 09/06/2022 10:38 AM EDT Height 162.6 cm (5' 4) 09/06/2022 10:38 AM EDT Body Mass Index 26.61 09/06/2022 10:38 AM EDT documented in this encounter Progress Notes Joshua Cabrera PA - 09/06/2022 11:00 AM EDT Images from the original note were not included. [facility] Joshua Cabrera PA-C Dear Colleagues, I had the pleasure of seeing this patient at the [facility] for evaluation. Chief Complaint: Thoracic back pain HPI: Shena is a 77 year old female who presents to clinic for evaluation of back pain. 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 She has history of osteoporosis. She was involved in a sledding accident years ago and has had upper thoracic back pain since. This summer in May while gardening, she devel oped increased mid thoracic back pain. She had imaging done which showed T4, T5, T8 and T11 compression fractures. Pain continues to be quite bothersome for her, particularly during activities that require bending over. She does not report any radiating symptoms. She notes some changes in balance but not significant changes that is concerning for her. No bowel/bladder changes. Medications and allergies: reviewed and can be found in eDH Review of systems: As above in HPI Physical exam: Resting comfortably in no acute distress. Ambulates without assistive device. She has tenderness to palpation particularly about the T8 and lower thoracic spine and paraspinals. She has pain with forward flexion but not extension. She has normal sensation and motor strength in bilateral lower extremities. Imaging: Reviewed imaging available in eDH including XR from 06/16/22 which shows T4, T5, T8, T11 superior endplate compression fractures; mild in severity. More recent chest XR reviewed and shows increased T8 wedging when compared to the dedicated thoracic films from 06/16/22. Assessment Diagnosis: -T4, T5, T8, and T11 superior endplate compression fractures. Shena is a 77 year old female who presents to clinic with history of osteoporosis and PMR being treated with chronic steroids with XR findings of T4, T5, T8, and T11 superior endplate compression fractures with complaints of thoracic back pain. Her pain is located lower thoracic spine. When comparing to 08/01/22 imaging there has been progression of wedging of T8 fracture. We discussed the natural progression of compression fractures. Given that her symptoms have persisted over 3 months and continues to have significant, activity limiting back pain with XR evidence of progression T8 wedging,an MRI could be obtained to assess status of healing and if indicated possible vertebroplasty. She is currently involved in PT and recommend she continue with this. We will have her obtain MRI and I will reach out once I receive results and discuss recommendations. Plan: 1) MRI thoracic spine; will call once imaging results are received. 2) If indicated, may consider vertebroplasty. 3) continue with plans with PT Thank you for letting me participate in this patient's care. Sincerely, Joshua Cabrera PA-C [facility] documented in this encounter Plan of Treatment Upcoming Encounters Date Type Specialty Care Team Description 10/10/2022 TH Visit Hematology and Oncology Elida Turcios , (TeleHealth) [facility] HEMATOLOGY/ONCOLOGY DEPT. [place], [place] [address] (Wo rk) 11/02/2022 Office Visit Rheumatology Marisabel Salgado APRN [facility] RHEUMATOLOGY [place], [place] [address] (Wo rk) Scheduled Orders Name Type Priority Associated Diagnoses Order S chedule MRI Thoracic Spine wo Imaging Routine Compression fractur e of Expected: 09/06/2022 Contrast (Generic) T8 vertebra with routi ne (Approximate), healing, subsequent Expires: 03/08/2023 encounter Closed wedge compression fracture of T4 vertebra with routine healing, subsequent encounter documented as of this encounter Visit Diagnoses Diagnosis Compression fracture of T8 vertebra with routine healing, subsequent encounter Closed wedge compression fracture of T4 vertebra with routine healing, subsequent encounter Closed wedge compression fracture of T5 vertebra with routine healing, subsequent encounter Closed wedge compression fracture of T11 vertebra with routine healing, subsequent encounter documented in this encounter Care Teams Steel Die Engraver Relationship Specialty Start Date End Date Petra Serra DO PCP - General Family Medicine 02/19/[address] [place] [address] documented as of this encounter
--- OUTSIDE RECORDS SUMMARY | 2022-09-29 01:30 | XMS_ITS | Encounter Summary ---
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 [place] [address] CENTER [phone] [place] [place] [address] Social History Tobacco Use Types Packs/Day Years Used Date Smoking Tobacco: Never Smokeless Tobacco: Never Alcohol Use Standard Drinks/Week Comments No 0 (1 standard drink = 0.6 oz pure alcoho l) Sex Assigned at Date Recorded Not on file documented as of this encounter Last Filed Vital Signs Vital Sign Reading Time Taken Comments Blood Pressure 135/70 05/30/2022 3:54 PM EDT Pulse 76 05/30/2022 3:54 PM EDT Temperature 36.2 ??C (97.1 ??F) 05/30/2022 3:54 PM EDT Respiratory Rate - - Oxygen Saturation 100% 05/30/2022 3:54 PM EDT Inhaled Oxygen Concentration - - Weight 69.9 kg (154 lb) 05/30/2022 3:54 PM EDT Height 162.6 cm (5' 4) 05/30/2022 3:54 PM EDT Body Mass Index 26.43 05/30/2022 3:54 PM EDT documented in this encounter Patient Instructions Patient InstructionsMarisabel Salgado, CASHIER ASSOCIATE - 05/30/2022 4:00 PM EDT Taper prednisone by 1mg every 2 weeks until at 10mg/day, then taper by 1mg every 3 weeks Report response or any flares Lab work today 3L DXA scan ordered (sent to [facility]) Follow up in 2 months, sooner PRN Bone Health - Optimize calcium intake: (1,000-1,200 mg/day), includes food/drink intake Optimize vitamin D intake: (1,000-2,000 IU/day) Lifestyle modifications (balanced diet, maintaining weight in the recommended range, smoking cessation, regular weight-bearing or resistance training exercise, limiting alcohol intake to 1-2 alcoholic beverages/day) documented in this encounter Progress Notes Marisabel Salgado APRN - 05/30/2022 4:00 PM EDT Rheumatology Progress Note Chief Complaint: Shena Lemus is a 77 y.o. year old female seen as a follow up for PMR. FABIENNE from Dr. Griffin. Last visit 11/2021. Rheum History: -10/2022 developed relatively acutely bilateral shoulder pain and stiffness that progressed to involve hips, buttocks, lateral hips, groin. did not respond well to Tylenol or NSAIDs. 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 nothing to suggest GCA or SNRA. had beautiful response to prednisone. steroid 20mg then taper planned. -11/2021 reduced to 10mg w/o flare. Taper by 1mg q2-4w. -03/2022 flared at 3mg, increased to 5mg -04/2022 at 6mg with some symptoms, increase to 7mg Previous Therapies: Prednisone-current, immediate response History of Present Illness: PMH includes PE. Was tapering dose down by 1 mg every 2 weeks. Decrease to 3 mg/day and had an increase in symptoms (shoulders and neck). Tapered up dose and currently on 12mg/d of prednisone for about a month. Denies any visual changes, headache, malaise, cough, neck stiffness, lutheran tenderness, scalp tenderness, trouble swallowing, muscle pain around the jaw or the tongue with eating or talking, pain/aches in upper arms/shoulders, especially with activity, difficulty raising arms above the head, pain/aches in thethighs/hips, especially with activity. Reports no point tenderness in muscles or joints. Denies lower extremity claudication with activity. +fatigue -better than when diagnosed but still present. Hx Fosamax treatment. Reports that she had a follow-up DEXA scan where provider and her thought that the medication was doing more harm than good. Last DEXA years ago. Not sure if it was osteoporosis versus osteopenia. Does not take vitamin D or calcium. States she is active in the summer with gardening. Does not smoke and rarely drinks any alcohol. 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 Currently on Eliquis ROS: General (-)fevers, (-)chills, (-)night sweats, (-)wt loss/gain, (+)fatigue Head and Neck (-)headache, (-)dizziness, (-)tinnitus, (-)epistaxis, (-)tender scalp or temporal area, (-)hair loss, (-)lymphadenopathy Mouth (-)dry mouth, (-)mouth ulcers, (-)jaw claudication Eyes (-)vision change, (-)dry eyes, (-)photosensitivity, (-)uveitis CVS (-)chest pain, (-)palpitations, (-)edema, (-)claudication Pulm (-)shortness of breath, (-)wheezes, (-)cough Hematologic (-)anemia, (-)bruising, (+)blood clots GI (-)nausea (-)vomiting, (-)diarrhea, (-)abdominal pain, (-)hematochezia, (- )change in appetite, (-)reflux, (-)dysphagia (-)hematuria, (-)dysuria, (-)frequency MS (-)joint pain, (-) joint stiffness, (-)paralysis, (-)hx of arthritis Endo (-)thyroid disorders, (-)diabetes, (-)temperature intolerance Neuro (-) neuropathy, (-)numbness, (-)paresthesias, (-)weakness, (-)gait instability Skin (-)Raynaud's,(-) ulcers, (-)rash, (-)fingernail changes, (-)dactylitis Psych (-) depression, (-)anxiety, (-)sleep disturbances Problem List: Patient Active Problem List Diagnosis Date Noted ??? Dermatochalasis of both upper eyelids 11/09/2016 Allergies: No Known Allergies Past Medical History: Past Medical History: Diagnosis Date ??? Arthritis ??? Cataract Past Surgical History: Past Surgical History: Procedure Laterality Date ??? CATARACT REMOVAL Right 2011 ??? CATARACT REMOVAL Left 2011 ??? LID SURGERY Bilateral 12/11/2016 blepharoplasty OU JR ??? PRO BLEPHAROPLASTY UPPER EYELID W EXCESSIVE SKIN Bilateral 12/11/2016 BLEPHAROPLASTY,UPPER EYELID, WITH EXCESSIVE SKIN, GARETH (WRVU 6.81) performed by Barb Kilpatrick MD at [facility] OSC ??? PRO COLONOSCOPY, BIOPSY N/A 04/04/2022 COLONOSCOPY FLEXIBLE, WITH BX (WRVU 3.66) performed by Aster Golden MD at [facility] ENDOSCOPY Family History: Family History Problem Relation Age of Onset ??? Glaucoma Neg Hx ??? Macular Degeneration Neg Hx ??? Retinal Detachment Neg Hx ??? Autoimmune Disorder Neg Hx Health Care Maintenance Date Next Due Influenza vaccine Pneumonia vaccine TB Screen (PPD/QGA) DXA 05/2022 HCQ Eye Exam Viral Hepatitis Screen Social History: Social History Socioeconomic History ??? Marital status: Spouse name: Not on file ??? Number of children: Not on file ??? Years of education: Not on file ??? Highest education level: Not on file Occupational History ??? Not on file Tobacco Use ??? Smoking status: Never Smoker ??? Smokeless tobacco: Never Used Vaping Use ??? Vaping Use: Never used Substance and Sexual Activity ??? Alcohol use: No ??? Drug use: No ??? Sexual activity: Not on file Other Topics Concern ??? Not on file Social History Narrative ??? Not on file Social Determinants of Health Financial Resource Strain: Not on file Food Insecurity: Not on file Transportation Needs: Not on file Physical Activity: Not on file Housing Stability: Not on file Daily Behaviors: Exercise: gardening Physical Exam BP 135/70 Pulse 76 Temp 36.2 ??C (97.1 ??F) (Temporal) Ht 162.6 cm (5' 4) Wt 69.9 kg (154 lb) LMP (LMP Unknown) Comment: postmenopausal SpO2 100% BMI 26.43 kg/m?? Gen: awake, alert and oriented x 3, in no distress. well nourished Skin: warm and dry, no rheumatologic rashes. Head and Neck: no scalp or temporal tenderness, no cervical or submandibular adenopathy Eyes: normal sclerae Heart: regular rate and rhythm, no murmurs, rubs or gallops. No edema present. +2 radial and pedal pulses. Lungs: no signs of respiratory distress, lung sounds are clear in all lobes bilaterally without rales, ronchi, or wheezes MSK: Hand - no tenderness, swelling, or warmth. Heberden and charly's nodes. Limited fist and claw. Strength normal. Wrist - no tenderness, swelling, or warmth. normal ROM Elbow - no tenderness, swelling, or warmth. normal ROM Shoulder - no tenderness, swelling, or warmth. normal ROM Neck - no tenderness, normal ROM Hip - no tenderness, Sit to stand normal. Knee - no tenderness, swelling, or warmth. normal ROM. crepitus noted. Strength normal. Ankle - no tenderness, normal ROM Feet - no tenderness Neuro: Strength 5/5 throughout unless otherwise noted. Sensation to light touch is grossly normal throughout. Psych: appropriate mood and affect. good eye contact. answers questions appropriately Past Lab Studies: WBC Date Value Ref Range Status 10/11/2021 8.8 4.0 - 9.5 x10(3)/mcL Final RBC Date Value Ref Range Status 10/11/2021 3.94 (L) 4.00 - 5.21 x10(6)/mcL Final Hematocrit Date Value Ref Range Status 10/11/2021 35.0 (L) 35.7 - 45.8 % Final Hemoglobin Date Value Ref Range Status 10/11/2021 11.7 11.7 - 15.5 g/dL Final MCV Date Value Ref Range Status 10/11/2021 88.8 82.6 - 94.4 fL Final MCH Date Value Ref Range Status 10/11/2021 29.7 27.1 - 32.0 pg Final Platelets Date Value Ref Range Status 10/11/2021 379 (H) 145 - 357 x10(3)/mcL Final Chemistry Component Value Date/Time NA 139 10/11/2021 1212 K 4.0 10/11/2021 1212 CL 103 10/11/2021 1212 CO2 22 10/11/2021 1212 BUN 22 (H) 10/11/2021 1212 CREATININE 1.01 10/11/2021 1212 Component Value Date/Time CALCIUM 9.9 10/11/2021 1212 ALKPHOS 92 10/11/2021 1212 AST 8 10/11/2021 1212 ALT 8 10/11/2021 1212 BILITOT <0.2 (L) 10/11/2021 1212 Assessment/Plan: I discussed the following diagnosis/diagnoses and differential diagnoses in detail with patient, including treatment options and patient agrees with the plan outlined below. PMR, long-term use of systemic steroids - Patient presents today with a history of PMR, currently on12 mg/day prednisone and asymptomatic of any PMR (or GCA) symptoms. She has had 1 true flare when she was at 3 mg/day. From there she continued to increase her dose until she found asymptomatic status at 12 mg/day. She never tried to taper again. We will begin taper by 1 mg every 2 weeks until at 10 mg then by 1 mg every 3 weeks. She understands to report any flares. We discussed PMR and GCA symptomsto report. She understands to go to the ER immediately for any visual changes. We will check inflammatory markers today. She was previously on a bisphosphonate. We discussed side effects of prednisone including but not limited to bone loss. Repeat DEXA will be sent to [facility]. Pending these results may restart her on a bisphosphonate. We will check a vitamin D today. We discussed bone health recommendations. We will continue to monitor her for flares and she is interested in our steroid sparing study. We will see her back in 2 months, sooner if needed. Further changes pending clinical course. ??? Taper prednisone by 1mg every 2 weeks until at 10mg/day, then taper by 1mg every 3 weeks ??? Report response or any flares ??? Lab work today 3L ??? DXA scan ordered (sent to [facility]) ??? Follow up in 2 months, sooner PRN Bone Health - Optimize calcium intake: (1,000-1,200 mg/day), includes food/drink intake Optimize vitamin D intake: (1,000-2,000 IU/day) Lifestyle modifications (balanced diet, maintaining weight in the recommended range, smoking cessation, regular weight-bearing or resistance training exercise, limiting alcohol intake to 1-2 alcoholic beverages/day) Orders Placed This Encounter Procedures ??? DXA Central Spine, Hip, and/or Whole Body (Generic) ??? Vitamin D, 25-Hydroxy ??? CRP, acute inflammation ??? Sedimentation rate - Patient was given the necessary information on the condition and instructed to contact clinic or go to ER if symptoms continue or worsen. - After Visit Summary was either printed and given to the patient or provided via the patient portalat the patient's request. 35 minutes was spent today in chart review, documentation, and [id number] visit. Deborah Salgado, MSN, CASHIER ASSOCIATE, [employer] Rheumatology Department documented in this encounter Plan of Treatment Upcoming Encounters Date Type Specialty Care Team Description 10/10/2022 TH Visit Hematology and Oncology Elida Turcios , (TeleHealth) [facility] HEMATOLOGY/ONCOLOGY DEPT. 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 steroids HC VITAMIN D Routine 05/30/2022 4:53 PM PMR (polymyalgia Resul ts for this TOTAL-25 HYDROXY EDT rheumatica) procedure are in group home current the result s use of systemic section. steroids HC Routine 05/30/2022 4:53 PM PMR (polymyalgia Resul ts for this ESR-SEDIMENTATION EDT rheumatica) procedure are in RATE, BLOOD group home current the result s use of systemic section. steroids documented in this encounter Results Sedimentation rate (05/30/2022 4:53 PM EDT) athologist Signature Sed Rate 16 3 - 46 [facility] mm/hr [facility] Comment: Effective October 15, 2019 new capillar y photometric technology has resulted in a change in reference ranges. It is r ecommended that each ESR result be reviewed with its own age appropriate re ference range. Specimen Anatomical Collection Method Collection Time Receive d Time (Source) Location / / Volume Laterality Blood 05/30/2022 4:53 PM 2 5:08 EDT PM EDT Resulting Agency Comment Spec In Lab Marisabel Salgado APRN HEMATOLOGY ORDERABLES Performing Organization Address City/[facility]/[place] [address] CRP, acute inflammation (05/30/2022 4:53 PM EDT) P athologist Signature CRP <3.0 <=4.9 mg/L [facility] Specimen Anatomical Collection Method Collection Time Receive d Time (Source) Location / / Volume Laterality Blood 05/30/2022 4:53 PM 2 5:08 EDT PM EDT Resulting Agency Comment Spec In Lab Marisabel Salgado APRN CHEMISTRY ORDERABLES Performing Organization Address City/[facility]/[place] [address] Vitamin D, 25-Hydroxy (05/30/2022 4:53 PM EDT) Patholo gist Method Time Signature 25-OH Vit D 47 21 - 100 [facility] Total ng/mL [facility] 25-OH Vit D Sufficient [facility] Specimen Anatomical Collection Method Collection Time Receive d Time (Source) Location / / Volume Laterality Blood 05/30/2022 4:53 PM 5:08 EDT PM EDT Resulting Agency Comment Spec In Lab Marisabel Salgado APRN CHEMISTRY ORDERABLES Performing Organization Address City/State/[place] [address] documented in this encounter Visit Diagnoses Diagnosis PMR (polymyalgia rheumatica) 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
--- OUTSIDE RECORDS SUMMARY | 2022-09-29 01:30 | XMS_ITS | Encounter Summary ---
:1945 Author Organization [facility] [place] [address] Care Team Providers Name Role Phone Tawanna Browning APRN Primary Care Provider Reason for Visit Consultation (Routine) - Closed Specialty Diagnoses / Procedures Referred By Contact Refer red To Contact Rheumatology Diagnoses Stiffness of unspecified joint, not elsewhere classified Other specified abnormal findings of blood chemistry Tawanna Browning APRN [facility] Rheumatology [address]c [address] [place] [address] [place] [address] Fax: Referral ID Status Reason Start Date Expiration Date Visits V isits Requested Authorized [id number] Closed Consult, Test 09/28/2021 09/28/2022 12 [facility] PCP Updated and/or Approved Encounter Details Date Type Department Care Team Description 10/11/2021 Office Visit Rheumatology at [facility] Aramis Griffin PMR (polymyalgia rheumatica) ; [facility] MD Rebeca Trigger finger of all digits of both stan[place] ds; [facility] osteoarthritis invol [place]ing [place] [address] CENTER [phone] [place] [address] Social History Tobacco Use Types Packs/Day Years Used Date Smoking Tobacco: Never Smokeless Tobacco: Never Alcohol Use Standard Drinks/Week Comments No 0 (1 standard drink = 0.6 oz pure alcoho l) Sex Assigned at Date Recorded Not on file documented as of this encounter Last Filed Vital Signs Vital Sign Reading Time Taken Comments Blood Pressure 145/76 10/11/2021 10:54 AM EST Pulse 91 10/11/2021 10:54 AM EST Temperature 36.8 ??C (98.3 ??F) 10/11/2021 10:54 AM EST Respiratory Rate 16 10/11/2021 10:54 AM EST Oxygen Saturation 99% 10/11/2021 10:54 AM EST Inhaled Oxygen Concentration - - Weight 70.4 kg (155 lb 4.8 oz) 10/11/2021 10:54 AM EST Height 162.6 cm (5' 4) 10/11/2021 10:54 AM EST Body Mass Index 26.66 10/11/2021 10:54 AM EST documented in this encounter Patient Instructions Patient InstructionsAramis Griffin MD - 10/11/2021 11:00 AM EST 1. Probable diagnosis of polymyalgia rheumatica discussed. Risk in association with seronegative rheumatoid arthritis and giant cell arteritis discussed. 2. Use of prednisone 20 mg a day as 5 mg tablets x4 for the first week. Please call if symptoms are not completely better 3. If symptom free at the end of 2 weeks may reduce prednisone to 15 mg a day (3 Tablets) 4. Return in 1 month for evaluation of clinical response 5. If symptoms of headache or loss of vision occurs please call [facility] rheumatology as soon as possible. 6. Recommend baby aspirin daily for the first 2 weeks 7. Catracho tape fingers for triggering at that time nightly for 1 week. 8. Labs today as baseline documented in this encounter Progress Notes Aramis Griffin MD - 10/11/2021 11:00 AM EST Aramis Griffin MD - 10/11/2021 11:00 AM EST Subjective: Patient ID: Shena Lemus is a 76 y.o. female referred for polyarticular pain. HPI Patient was in her usual state of excellent health enjoying gardening and having a wonderful summer when in early July she developed relatively acutely bilateral shoulder pain and stiffness that progressed to involve her hips and her buttocks her lateral hips and in her groin. This came on relatively quickly and did not respond very well to Tylenol or nonsteroidals. She is not experienced headache, jaw claudication, change in vision, diplopia, cough. She is in painnearly 24 hours a day except when she takes a Tylenol PM. She has been experiencing major functionallimitation. She does not think that she can do much of the activities that were standard for her before July. No fevers chills weight loss no change in her hands. Review of Systems Constitutional: No fevers, chills, malaise. Skin: no rashes HEENT: no sicca sx, change in hearing, taste sinus pain, CYR, change in taste. 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 Not never smoker. Patient Active Problem List Diagnosis Code ??? Dermatochalasis of both upper eyelids H02.831, H02.834 Objective: Physical Exam BP 145/76 Pulse 91 Temp 36.8 ??C (98.3 ??F) (Temporal) Resp 16 Ht 162.6 cm (5' 4) Wt 70.4kg (155 lb 4.8 oz) LMP (LMP Unknown) Comment: postmenopausal SpO2 99% BMI 26.66 kg/m?? Healthy-appearing white female looking her stated age walking gingerly due to knee pain and arthritis and having trouble arising from the chair without using her hands. Skin exam negative HEENT exam negative for temporal artery tenderness Neck exam stiff in all directions Chest clear Cardiac exam normal no murmurs gallops or rubs. Abdomen no bruits nontender normal bowel sounds Extremity no clubbing cyanosis or edema Joint exam is significant for marked impairment of abduction in her shoulders, bilateral elbow flexion contractures of approximately 5??, wrist pain and tenderness,. 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 Back exam, normal straight leg raising note tenderness Hip exam decreased external rotation bilaterally. Knees no obvious effusions or warmth with tenderness on the medial tibial plateau and pain arising from a chair requiring the use of her hands Ankles: Normal Feet: Normal Neurologic exam no focal deficit some ataxia. Assessment and Plan: The presentation is that of polymyalgia rheumatica superimposed on a background of erosive osteoarthritis of the hands and triggering of the fingers. There is nothing to suggest giant cell arteritis orseronegative rheumatoid arthritis. The proximal distribution of her joint involvement is quite characteristic of PMR as is the presentation. Plan 1. Probable diagnosis of polymyalgia rheumatica discussed. Risk in association with seronegative rheumatoid arthritis and giant cell arteritis discussed. 2. Use of prednisone 20 mg a day as 5 mg tablets x4 for the first week. Please call if symptoms are not completely better 3. If symptom free at the end of 2 weeks may reduce prednisone to 15 mg a day (3 Tablets) 4. Return in 1 month for evaluation of clinical response 5. If symptoms of headache or loss of vision occurs please call [facility] rheumatology as soon as possible. 6. Recommend baby aspirin daily for the first 2 weeks 7. Catracho tape fingers for triggering at that time nightly for 1 week. 8. Labs today as baseline Level 4 consultation Aramis Griffin MD labs as expected CRP is 29 normochromic normocytic anemia note sent to patient and copy PCP Recent Results (from the past 24 hour(s)) CRP, acute inflammation Result Value Ref Range CRP 29.1 (H) <=4.9 mg/L Comprehensive metabolic panel (non-fasting) Result Value Ref Range Glucose Lvl 92 65 - 199 mg/dL BUN 22 (H) 8 - 18 mg/dL Creatinine 1.01 0.70 - 1.20 mg/dL Sodium 139 135 - 145 mmol/L Potassium 4.0 3.5 - 5.0 mmol/L Chloride 103 98 - 107 mmol/L CO2 22 22 - 31 mmol/L Anion Gap 14 5 - 15 mmol/L Calcium 9.9 8.5 - 10.5 mg/dL Total Protein 7.6 6.1 - 8.0 g/dL Albumin 4.3 3.2 - 5.2 g/dL AST 8 0 - 30 unit/L ALT 8 0 - 30 unit/L Alk Phos 92 35 - 105 unit/L Total Bilirubin <0.2 (L) 0.2 - 1.3 mg/dL Estimated GFR 53 (L) >=60 mL/min/1.73 m?? Hemogram Result Value Ref Range WBC 8.8 4.0 - 9.5 x10(3)/mcL RBC 3.94 (L) 4.00 - 5.21 x10(6)/mcL Hemoglobin 11.7 11.7 - 15.5 g/dL Hematocrit 35.0 (L) 35.7 - 45.8 % MCV 88.8 82.6 - 94.4 fL MCH 29.7 27.1 - 32.0 pg MCHC 33.4 31.7 - 35.0 g/dL Platelets 379 (H) 145 - 357 x10(3)/mcL RDWSD 40.6 37.0 - 46.0 fL RDWCV 12.4 11.5 - 14.1 % MPV 10.6 7.6 - 12.9 fL nRBC % Auto 0.0 % nRBC Abs Auto 0.000 0.000 - 0.000 x10(3)/mcL Differential, Automated Result Value Ref Range Neutrophils % 71.6 % Neutr Abs (ANC) 6.30 (H) 1.70 - 6.10 x10(3)/mcL Lymphocytes % 19.3 % Lymphocytes Abs 1.7 0.9 - 3.2 x10(3)/mcL Monocytes % 7.6 % Monocyte Abs 0.7 0.3 - 0.9 x10(3)/mcL Eosinophils % 0.6 % Eosinophils Abs 0.0 0.0 - 0.4 x10(3)/mcL Basophils % 0.7 % Basophils Abs 0.1 0.0 - 0.1 x10(3)/mcL Immature Gran % 0.20 % Alanna Gran Abs 0.02 0.00 - 0.04 x10(3)/mcL documented in this encounter Miscellaneous Notes Addendum Note - Gallo Chan V - 10/11/2021 11:00 AM EST Addended by: GALLO CHAN V on: 10/11/2021 12:02 PM Modules accepted: Orders documented in this encounter Plan of Treatment Upcoming Encounters Date Type Specialty Care Team Description 10/10/2022 TH Visit Hematology and Oncology Elida Turcios , (TeleHealth) [facility] HEMATOLOGY/ONCOLOGY DEPT. [place], [place] [address] (Wo rk) 11/02/2022 Office Visit Rheumatology Marisabel Salgado APRN [facility] RHEUMATOLOGY [place], [place] [address] (Savanna rk) documented as of this encounter Procedures Procedure Name Priority Date/Time Associated Comments Diagnosis HC VENIPUNCTURE Routine 10/11/2021 12:12 PMR (polymyalgia Resu lts for this PM EST rheumatica) procedure are i n the results section. HEMOGRAM Routine 10/11/2021 12:12 PMR (polymyalgia Results for this PM EST rheumatica) procedure are i n the results section. DIFFERENTIAL, Routine 10/11/2021 12:12 PMR (polymyalgia Result s for this AUTOMATED PM EST rheumatica) procedure are i n the results section. HC CBC,PLT & AUTO DIFF Routine 10/11/2021 12:12 PMR (polymyalg ia PM EST rheumatica) COMPREHENSIVE Routine 10/11/2021 12:12 PMR (polymyalgia Result s for this METABOLIC PANEL PM EST rheumatica) procedure ar e in (NON-FASTING) the results section. documented in this encounter Results (ABNORMAL) Differential, Automated (10/11/2021 12:12 PM EST) [facility] Method Time Signature Neutrophils % 71.6 % [facility] Neutr Abs (ANC) 6.30 (H) 1.70 - [facility] [address] [facility] x10(3)/[facility] LABORATORY Lymphocytes % 19.3 % [facility] Lymphocytes Abs 1.7 0.9 - 3.2 [facility] x10(3)/[facility] LABORATORY Monocytes % 7.6 % [facility] Monocyte Abs 0.7 0.3 - 0.9 [facility] x10(3)/[facility] LABORATORY Eosinophils % 0.6 % [facility] Eosinophils Abs 0.0 0.0 - 0.4 [facility] x10(3)/[facility] LABORATORY Basophils % 0.7 % [facility] Basophils Abs 0.1 0.0 - 0.1 [facility] x10(3)/[facility] LABORATORY Immature Gran % 0.20 % [facility] Comment: Immature granulocytes(IG's)percentage an d absolute count will include metamyelocytes, myelocytes, and promyelo cytes. Blood smears from CBCs yielding IG's will be scanned manually for concor dance. If this scan disagrees with the automated IG or if promyelocytes are not ed, a manual differential will be performed. Alanna Gran Abs 0.02 0.00 - 0.04 x10(3)/[facility] LABORATORY Specimen Anatomical Collection Method Collection Time Receive d Time (Source) Location / / Volume Laterality Blood 10/11/2021 12:12 10/11/2021 PM EST 12:27 PM EST Resulting Agency Comment Spec In Lab Aramis Griffin MD HEMATOLOGY ORDERABLES Performing Organization Address City/State/[place] [address] (ABNORMAL) Hemogram (10/11/2021 12:12 PM EST) Analysis Performed At Patho logist Time Signature WBC 8.8 4.0 - 9.5 [facility] x10(3)/[facility] LABORATORY RBC 3.94 (L) 4.00 - [facility] [place] [address] [facility] x10(6)/[facility] LABORATORY Hemoglobin 11.7 11.7 - [facility] 15.5 g/dL [facility]OR[facility]ORY Hematocrit 35.0 (L) 35.7 - [facility] [place] 45.8 % [facility] MCV 88.8 82.6 - [facility] 94.4 fL [facility] MCH 29.7 27.1 - [facility] [place] 32.0 pg [facility] MCHC 33.4 31.7 - [facility] 35.0 g/dL [facility] Platelets 379 (H) 145 - 357 [facility] x10(3)/[facility] LABORATORY RDWSD 40.6 37.0 - [facility] 46.0 [facility] LABORATORY RDWCV 12.4 11.5 - [facility] 14.1 % [facility] LABORATORY MPV 10.6 7.6 - 12.9 [facility] LABORATORY nRBC % Auto 0.0 % [facility] nRBC Abs Auto 0.000 0.000 - [facility] [address] [facility] x10(3)/[facility] LABORATORY Specimen Anatomical Collection Method Collection Time Receive d Time (Source) Location / / Volume Laterality Blood 10/11/2021 12:12 10/11/2021 PM EST 12:27 PM EST Resulting Agency Comment Spec In Lab Aramis Griffin MD HEMATOLOGY ORDERABLES Performing Organization Address City/State/ZIP Code Phon e Number [address] (ABNORMAL) CRP, acute inflammation (10/11/2021 12:12 PM EST) athologist Signature CRP 29.1 (H) <=4.9 mg/L [facility] Specimen Anatomical Collection Method Collection Time Receive d Time (Source) Location / / Volume Laterality Blood 10/11/2021 12:12 10/11/2021 PM EST 12:27 PM EST Resulting Agency Comment Spec In Lab Aramis Griffin MD CHEMISTRY ORDERABLES Performing Organization Address City/State/[place] [address] (ABNORMAL) Comprehensive metabolic panel (non-fasting) (10/11/2021 12:12 PM EST) P athologist Signature Glucose Lvl 92 65 - 199 [facility] mg/dL [facility] Comment: Diabetes: >=200 mg/dL plus symp toms BUN 22 (H) 8 - 18 mg/dL [facility] Creatinine 1.01 0.70 - 1.20 mg/dL [facility] Sodium 139 135 - 145 mmol/L [facility] Potassium 4.0 3.5 - 5.0 mmol/L [facility] Comment: Please note: ??Patients with WBC >100,00 0 may have falsely elevated Potassium levels. ??For accurate Potassium quantif ication in these patients send serum separator tube (gold top) for subsequent determinations. ??Contact the Clinical Chemistry Laboratory if there are any qu estions. Chloride 103 98 - 107 mmol/L [facility] CO2 22 22 - 31 mmol/L [facility] Anion Gap 14 5 - 15 mmol/L [facility] Calcium 9.9 8.5 - 10.5 mg/dL [facility] Total Protein 7.6 6.1 - 8.0 g/dL [facility] Albumin 4.3 3.2 - 5.2 g/dL [facility] AST 8 0 - 30 unit/L [facility] ALT 8 0 - 30 unit/L [facility] Alk Phos 92 35 - 105 unit/L [facility] Total Bilirubin <0.2 (L) 0.2 - 1.3 mg/dL [facility] Estimated GFR 53 (L) >=60 mL/min/1.73 m?? [facility] Comment: This patient? s estimated glomerular filtration rate (eGFR) is between 53 mL/min/1.73 m2 (patients with less muscl e mass) and 62 mL/min/1.73 m2 (patients with more muscle mass) as determined by the CKD-EPI equation. Assessment of eGFR is not appropriate when creatinine concentrations are rapidly changing. For clinical decisions where creatinine clearance will affect therapy, a 24-hour urine creatinine clearance may b e advised. Assignment of CKD stage 1 - 5 for patien ts with an eGFR near the transition point between stages may be based on cli nical assessment of muscle mass and symptoms in addition to eGFR. Specimen Anatomical Collection Method Collection Time Receive d Time (Source) Location / / Volume Laterality Blood 10/11/2021 12:12 10/11/2021 PM EST 12:27 PM EST Resulting Agency Comment Spec In Lab Aramis Griffin MD CHEMISTRY ORDERABLES Performing Organization Address City/State/[place] [address] documented in this encounter Visit Diagnoses Diagnosis PMR (polymyalgia rheumatica) Polymyalgia rheumatica Trigger finger of all digits of both [place] ds Primary osteoarthritis involving multipl e joints documented in this encounter Care Teams Director Of Entertainment Relationship Specialty Start Date End Date Tawanna Browning APRN PCP - General Family Medicine 10/02/18 02/18/22 [address] [place] [address] documented as of this encounter
--- OUTSIDE RECORDS SUMMARY | 2022-09-29 01:30 | XMS_ITS | Encounter Summary ---
:1945 Author Organization [facility] [place] [address] Care Team Providers Name Role Phone Petra Serra DO Primary Care Provider Encounter Details Date Type Department Care Team Description 09/06/2022 Travel Social History Tobacco Use Types Packs/Day Years [...] Hematology and Oncology Elida Turcios , (TeleHealth) [facility] HEMATOLOGY/ONCOLOGY DEPT. [place], [place] [address] (Wo rk) 11/02/2022 Office Visit Rheumatology Marisabel Salgado APRN [facility] RHEUMATOLOGY [place], [place] [address] (Wo rk) documented as of this encounter Visit Diagnoses Not on filedocumented in this encounter Care Teams Cane Pusher Relationship Specialty Start Date End Date Petra Serra DO PCP - General Family Medicine 02/19/[address] [place] [id number] documented as of this encounter
--- OUTSIDE RECORDS SUMMARY | 2022-09-29 01:30 | XMS_ITS | Encounter Summary ---
:1945 Author Organization [facility] [place] [address] Care Team Providers Name Role Phone Tawanna Browning APRN Primary Care Provider Encounter Details Date Type Department Care Team Description 12/30/2021 Telephone Rheumatology at [facility] [place] [address] Social History Tobacco Use Types Packs/Day [...] Hematology and Oncology Elida Turcios , (TeleHealth) [facility] HEMATOLOGY/ONCOLOGY DEPT. [place], [place] [address] (Wo rk) 11/02/2022 Office Visit Rheumatology Marisabel Salgado APRN [facility] RHEUMATOLOGY [place], [place] [address] (Wo rk) documented as of this encounter Visit Diagnoses Not on filedocumented in this encounter Care Teams Agricultural Engineering Technologist Relationship Specialty Start Date End Date Tawanna Browning APRN PCP - General Family Medicine 10/02/18 02/18/22 [address] [place] [address] documented as of this encounter
--- OUTSIDE RECORDS SUMMARY | 2022-09-29 01:30 | XMS_ITS | Encounter Summary ---
:1945 Author Organization [facility] [place] [address] Care Team Providers Name Role Phone Petra Serra Primary Care Provider Encounter Details Date Type Department Care Team Description 05/04/2022 Telephone Rheumatology at [facility] [place] [address] Social History Tobacco Use Types Packs/Day Years Used Date Smoking Tobacco: Never Smokeless Tobacco: Never Alcohol Use Standard Drinks/Week Comments No 0 (1 standard drink = 0.6 oz pure alcoho l) Sex Assigned at Date Recorded Not on file documented as of this encounter Miscellaneous Notes Telephone Encounter - Alyson Stein - 05/04/2022 11:07 AM EDT Called pt to try and jennifer a bumped follow up, left message, sending letter documented in this encounter Plan of Treatment Upcoming Encounters Date Type Specialty Care Team Description 10/10/2022 TH Visit Hematology and Oncology Elida Turcios (TeleHealth) [facility] HEMATOLOGY/ONCOLOGY DEPT. [place], [place] [address] (Wo rk) 11/02/2022 Office Visit Rheumatology Marisabel Salgado, HOTEL OR MOTEL ROOM SERVICE SUPERVISOR [facility] RHEUMATOLOGY [place], [place] [address] (Wo rk) documented as of this encounter Visit Diagnoses Not on filedocumented in this encounter Care Teams Business Intelligence Consultant Relationship Specialty Start Date End Date Petra Serra DO PCP - General Family Medicine 02/19/[address] [place] [address] documented as of this encounter
--- OUTSIDE RECORDS SUMMARY | 2022-09-29 01:30 | XMS_ITS | Encounter Summary ---
:1945 Author Organization [facility] [place] [address] Care Team Providers Name Role Phone Petra Serra Primary Care Provider Encounter Details Date Type Department Care Team Description 02/28/2022 Telephone Gastroenterology at [facility] [place] [address] Social History Tobacco Use Types Packs/Day Years Used Date Smoking Tobacco: Never Smokeless Tobacco: Never Alcohol Use Standard Drinks/Week Comments No 0 (1 standard drink = 0.6 oz pure alcoho l) Sex Assigned at Date Recorded Not on file documented as of this encounter Miscellaneous Notes Telephone Encounter - Gale Eduardo - 02/28/2022 11:25 AM EDT Shena Lemus [id number] Diagnosis/Indication: Family history of malignant neoplasm of gastrointestinal tract Encounter for screening colonoscopy Diarrhea, unspecified type 1. Have you ever had a/an Colonoscopy before? Yes: Date over 5 years ago she said If yes, did you have any problems with the procedure? No What type of sedation was used: Other: unknown 2. Do you take any blood thinners or have you been diagnosed with a bleeding disorder that increasesyour risk of bleeding with procedures? Yes: Type: eliquis 3. Do you have a Pacemaker or Defibrillator device? No 4. Are you a diabetic? No 5. Do you have any Allergies to Eggs, Latex or Medications? No 6. Do you take any Oral Iron Supplements (Including multi-vitamins)? No 7. Do you have a history of three or more abdominal surgeries? No 8. Have you had a problem with sedation or anesthesia? No 9. Do you use a c-pap machine or oxygen tank? Neither 10. Do you take prescription narcotic pain medications, including suboxone or methodone? No 11. Do you have a preference regarding the gender of your provider? No Preference 12. Is there any other information you would like to us to note for the provider and nursing team who will perform your case? No 13. Say to patient: You must have a responsible green party who will drive you to your procedure, stay on campus for the entire duration of your procedure, and drive you home from your procedure? *Please Verify the height and weight, and adjust if height and/or weight have changed* Estimated body mass index is 26.63 kg/m?? as calculated from the following: Height as of 11/07/21: 162.6 cm (5' 4.02). Weight as of 11/07/21: 70.4 kg (155 lb 3.3 oz). Age:76 y.o. documented in this encounter Plan of Treatment Upcoming Encounters Date Type Specialty Care Team Description 10/10/2022 TH Visit Hematology and Oncology Elida Turcios , (TeleHealth) [facility] HEMATOLOGY/ONCOLOGY DEPT. [place], [place] [address] (Savanna matos) 11/02/2022 Office Visit Rheumatology Marisabel Salgado APRN [facility] RHEUMATOLOGY [place], [place] [address] (Savanna matos) documented as of this encounter Visit Diagnoses Not on filedocumented in this encounter Care Teams Insurance Verification Rep Relationship Specialty Start Date End Date Petra Serra DO PCP - General Family Medicine 02/19/[address] [place] [address] documented as of this encounter
--- OUTSIDE RECORDS SUMMARY | 2022-09-29 01:30 | XMS_ITS | Encounter Summary ---
:1945 Author Organization [facility] [place] [address] Care Team Providers Name Role Phone Petra Serra DO Primary Care Provider Reason for Referral Surgical (Routine) - Closed Specialty Diagnoses / Procedures Referred By Contact Refer red To Contact Gastroenterology Diagnoses Family history of malignant neoplasm of gastrointestinal tract Encounter for screening colonoscopy Diarrhea, unspecified type Petra Serra, [facility] Endoscopy 4t Procedures Braddock DO [facility] [address] [place] [id number] Referral ID Status Reason Start Date Expiration Date Visits V isits Requested Authorized [id number] Closed Test Only 02/19/2022 02/19/2023 6 6 PCP Updated and/or Approved Encounter Details Date Type Department Care Team Description 02/19/2022 Transcribe Orders eDH Incoming Family Ponce his tory of malignant neoplasm of gastrointestinal tract; Referrals Petra Granado DO Encounter for screening colonoscopy; [phone] [address] Diarrhea, unspe cified type [place], [place] [address] Social History Tobacco Use Types Packs/Day Years [...] Oncology Elida Turcios , (TeleHealth) [facility] HEMATOLOGY/ONCOLOGY DEPT. [place], [place] [address] (Wo rk) 11/02/2022 Office Visit Rheumatology Marisabel Salgado APRN [facility] RHEUMATOLOGY [place], [place] [address] (Wo rk) Scheduled Referrals Name Type Priority Associated Diagnoses Order S chedule Referral to Outpatient Routine Family history of Ordered: Colorectal Surgery Referral malignant neoplasm of 02/19/2022 gastrointestinal tract Encounter for screening colonoscopy Diarrhea, unspecified type documented as of this encounter Visit Diagnoses Diagnosis Family history of malignant neoplasm of gastrointestinal tract Encounter for screening colonoscopy Special screening for malignant neoplasm s, colon Diarrhea, unspecified type documented in this encounter Care Teams Bible Teacher Relationship Specialty Start Date End Date Petra Serra DO PCP - General Family Medicine 02/19/22 [facility] [place] [address] documented as of this encounter
--- OUTSIDE RECORDS SUMMARY | 2022-09-29 01:30 | XMS_ITS | Encounter Summary ---
:1945 Author Organization [facility] [place] [address] Care Team Providers Name Role Phone Petra Serra Primary Care Provider Encounter Details Date Type Department Care Team Description 04/10/2022 Telephone Rheumatology at [facility] [place] [address] Social History Tobacco Use Types Packs/Day Years Used Date Smoking Tobacco: Never Smokeless Tobacco: Never Alcohol Use Standard Drinks/Week Comments No 0 (1 standard drink = 0.6 oz pure alcoho l) Sex Assigned at Date Recorded Not on file documented as of this encounter Miscellaneous Notes Telephone Encounter - Casie Ortega RN - 04/10/2022 11:53 AM EDT Increase to 7 mg/d of prednisone Schedule follow up 30' with me ??6.19 8am or ??6.20 9 am wr RTC to patient. Patient wtll increase to 7 mg.daily. Patient uncertain of the times listed above. Message sent to sales secretary to call back and schedule patient with Dr Griffin around this time, and per patient schedule as well. Telephone Encounter - Casie Ortega RN - 04/10/2022 10:37 AM EDTSummary: PMR RTC to the patient. The patient states she is currently at 6 mg of the Prednisone. Has felt better at the 6 mg, but still has symptoms with the Right arm and this discomfort extendinginto her neck. It was much worse, but I can live with it if I have to. The patient did not received any message from the sales secretary to be seen, per her report. Nurse reviewed the previous phone note with the patient regarding the need for her to increase the medication, 5 mg Prednisone,and see Provider today. The patient states I will do whatever he wants. I would love to see and talk to him. Question is should patient increase again to 7 mg, or wait this out? Message to Provider. documented in this encounter Plan of Treatment Upcoming Encounters Date Type Specialty Care Team Description 10/10/2022 TH Visit Hematology and Oncology Elida Turcios (TeleHealth) [facility] HEMATOLOGY/ONCOLOGY DEPT. [place], [place] [address] (Wo rk) 11/02/2022 Office Visit Rheumatology Marisabel Salgado APRN [facility] RHEUMATOLOGY [place], [place] [address] (Wo rk) documented as of this encounter Visit Diagnoses Not on filedocumented in this encounter Care Teams Skilled Nursing Facility Counselor Relationship Specialty Start Date End Date Petra Serra DO PCP - General Family Medicine 02/19/22 4 [place] [address] documented as of this encounter
--- OUTSIDE RECORDS SUMMARY | 2022-09-29 01:30 | XMS_ITS | Encounter Summary ---
:1945 Author Organization [facility] [place] [address] Care Team Providers Name Role Phone Petra Serra Primary Care Provider Encounter Details Date Type Department Care Team Description 04/04/2022 Telephone Rheumatology at [facility] [place] [address] Social History Tobacco Use Types Packs/Day Years Used Date Smoking Tobacco: Never Smokeless Tobacco: Never Alcohol Use Standard Drinks/Week Comments No 0 (1 standard drink = 0.6 oz pure alcoho l) Sex Assigned at Date Recorded Not on file documented as of this encounter Miscellaneous Notes Telephone Encounter - Casie Ortega RN - 04/05/2022 3:49 PM EDT Stay at 5 mg and schedule f/u for Sunday Nurse called the patient back,left detailed message. Nurse also will send to the school secretary to call make f/u with Provider for this Sunday. Telephone Encounter - Casie Ortega RN - 04/05/2022 3:12 PM EDT TC x one-patient not available. No machine to leave message on. Will call again later if able. Patient called back, left message back to call her, phone sketchy? Message left from the patient: The patient message states for the PMR she had decreased the Prednisone to 3 mg and had sx. So, the patient reports she increased to 5 mg. How long should she continue? Last office visit Plan as follows: Plan 1. Patient doing well so we will begin to taper daily dose of prednisone by 1 mg every 2 to 4 weeks if doing well. Patient to start at 9 mg (1 5 mg tablet and four 1 mg tablets) tonight 2. If symptoms return patient is discharged to resume a higher dose of prednisone typically 1 mg more to control symptoms, but she may call or use my to reach out. 3. Follow-up with Ms. Carmen Ruthzier in 3 months or as needed. ?Message sent to the Provider documented in this encounter Plan of Treatment Upcoming Encounters Date Type Specialty Care Team Description 10/10/2022 TH Visit Hematology and Oncology Elida Turcios , (TeleHealth) [facility] HEMATOLOGY/ONCOLOGY DEPT. [place], [place] [address] (Wo rk) 11/02/2022 Office Visit Rheumatology Marisabel Salgado APRN [facility] RHEUMATOLOGY [place], [place] [address] (Wo rk) documented as of this encounter Visit Diagnoses Not on filedocumented in this encounter Care Teams Factory Focus Technician Relationship Specialty Start Date End Date Petra Serra DO PCP - General Family Medicine 02/19/[address] [place] [address] documented as of this encounter
--- OUTSIDE RECORDS SUMMARY | 2022-09-29 01:30 | XMS_ITS | Encounter Summary ---
:1945 Author Organization [facility] [place] [address] Care Team Providers Name Role Phone AudreyPetra huynh Primary Care Provider Reason for Referral Vision (Optometry) (Routine) - Authorized Specialty Diagnoses / Procedures Referred By Contact Refer red To Contact Diagnoses Routine eye exam Marisabel Salgado, Mery Granados, [employer] [address] [place] [phone] Fax: Referral ID Status Reason Start Date Expiration Visits Visits Date Requested Authorized [id number] Authorized Consult, 08/01/2022 01/28/2023 1 1 Test & Treat Encounter Details Date Type Department Care Team Description 08/01/2022 Office Visit Rheumatology at [facility] [place] Marisabel Salgado, PMR (polymyalgia rheumatica) ; [facility] PBX WIRE CHIEF assisted current use of systemic steroi ds; [facility] SOB (shortness of breath); [place] [address] Routine eye exam [phone] RHEUMATOLOGY [place], [place] [address] Social History Tobacco Use Types Packs/Day Years Used Date Smoking Tobacco: Never Smokeless Tobacco: Never Alcohol Use Standard Drinks/Week Comments No 0 (1 standard drink = 0.6 oz pure alcoho l) Sex Assigned at Date Recorded Not on file documented as of this encounter Last Filed Vital Signs Vital Sign Reading Time Taken Comments Blood Pressure 152/82 08/01/2022 3:41 PM EDT Pulse 96 08/01/2022 3:41 PM EDT Temperature 36.6 ??C (97.8 ??F) 08/01/2022 3:41 PM EDT Respiratory Rate 16 08/01/2022 3:41 PM EDT Oxygen Saturation 98% 08/01/2022 3:41 PM EDT Inhaled Oxygen Concentration - - Weight 70.5 kg (155 lb 6.4 oz) 08/01/2022 3:41 PM EDT Height 162.6 cm (5' 4.02) 08/01/2022 3:41 PM EDT Body Mass Index 26.66 08/01/2022 3:41 PM EDT documented in this encounter Patient Instructions Patient InstructionsMarisabel Salgado APRN - 08/01/2022 4:00 PM EDT Follow up with pain and spine about making an appointment Chest xray today at 3T Continue with prednisone taper every 2-3 weeks [facility] Follow up in 3 months, sooner if needed documented in this encounter Progress Notes Marisabel Salgado APRN - 08/01/2022 4:00 PM EDT Rheumatology Progress Note Chief Complaint: Shena Lemus is a 77 y.o. year old female seen as a follow up for PMR. Last visit 05/2022. Rheum History: -10/2022 developed relatively acutely bilateral [...] 6mg with some symptoms, increase to 7mg -05/2022 currently 12 mg/d prednisone and asymptomatic. 1 true flare at 3 mg/d. increased dose until asymptomatic at 12 mg/d. never tried to taper again. will begin taper 1 mg q2w until at 10mg then 1mgq3 w. check inflammatory markers today. previously on bisphosphonate. Repeat DEXA order sent to [facility]. may restart bisphosphonate. will check vitamin D. Previous Therapies: Prednisone-current, immediate response History of Present Illness: PMH includes PE. Doing well in regard to PMR but recently dx with compression fx and having severe back pain. Referral to pain and spine but has not heard from them yet. Has been tapering prednisone successfully since last visit, currently on 8mg/d of prednisone and denies any visual changes, malaise, cough, neck stiffness, jehovah's witness tenderness, scalp tenderness, trouble swallowing, muscle pain around the jaw or the tongue with eating or talking, pain/aches in upper arms/shoulders, especially with activity, difficulty raising arms above the head, pain/aches in the thighs/hips, especially with activity. Reports no point tenderness in muscles or joints. Denies lower extremity claudication with activity. +fatigue - improving. +CYR - occ when she wakes up, resolves in seconds. Does not know where CYR is usually located d/t it goes away so quickly. DXA scan ordered (sent to [facility]), medicare will not pay until 2022. Hx Fosamax treatment. Currently taking calcium per PCP recommendations. SOB with walking, new, hx PE. Denies CP, cough, dizziness, wheezing, SOB at rest. Has not seen eye doctor in 15yrs, would like to see one. 06/2022 new onset compression fx --> referred to pain clinic 02/2022 - CMP norm except Cr 1.1 H, BUN 19 H, CBC unremarkable 05/2022 - CRP/sed rate/vit D norm 03/2021 - external DXA - osteoporosis. no evidence of vertebral compression fx Rheumatic History (x) means positive Heart Failure [...] CVS (-)chest pain, (-)palpitations, (-)edema, (-)claudication Pulm (+)shortness of breath, (-)wheezes, (-)cough Hematologic (-)anemia, (-)bruising, (+)blood clots GI (-)nausea (-)vomiting, (-)diarrhea, (-)abdominal pain, (-)hematochezia, (- )change in appetite, (-)reflux, (-)dysphagia (-)hematuria, (-)dysuria, (-)frequency MS (+)joint pain, back pain(-) joint stiffness, (-)paralysis, (-)hx of arthritis Endo [...] 6.81) performed by Barb Kilpatrick MD at [facility] OSC ??? PRO COLONOSCOPY, BIOPSY N/A 04/04/2022 COLONOSCOPY FLEXIBLE, WITH BX (WRVU 3.66) performed by Aster Golden MD at [facility] ENDOSCOPY Family History: Family History Problem Relation Age of Onset ??? Glaucoma Neg Hx ??? Macular Degeneration Neg Hx ??? Retinal Detachment Neg Hx ??? Autoimmune Disorder Neg Hx Health Care Maintenance Date Next Due Influenza vaccine Pneumonia vaccine TB Screen (PPD/QGA) DXA 05/2023 *medicare will not pay until then HCQ Eye Exam Viral Hepatitis Screen Social [...] Daily Behaviors: Exercise: gardening Physical Exam BP 152/82 Pulse 96 Temp 36.6 ??C (97.8 ??F) (Temporal) Resp 16 Ht 162.6 cm (5' 4.02) Wt 70.5 kg (155 lb 6.4 oz) LMP (LMP Unknown) Comment: postmenopausal SpO2 98% BMI 26.66 kg/m?? Gen: awake, alert and oriented x 3, in no distress. well nourished Skin: warm and dry, no rheumatologic rashes. Head and Neck: no scalp or temporal tenderness, no cervical or submandibular adenopathy Eyes: normal sclerae Heart: regular rate and rhythm, no murmurs, rubs or gallops. No edema present. +2 radial and posterior popliteal pulses. Lungs: no signs of respiratory distress, [...] Sit to stand normal. Knee - no tenderness Ankle - no tenderness Feet - no tenderness Neuro: Strength 5/5 [...] today with a history of PMR, currently on8mg/d prednisone and asymptomatic of any PMR (or GCA) symptoms. Tapering since last visit has gone well, we will continue to taper 1mg q2-3w. No labs today d/t asymptomatic. We discussed PMR and GCA symptoms to report. She understands to go to the ER immediately for any visual changes. Recent dx of compression fx, referred to pain and spine. I encouraged patient to call to schedule appt. Encouraged bone health recommendations. Complaining of SOB with exertion today, will do cxr. Hx PE on eliqus currently. Would like eye doctor referral, order place to Fabi in [facility]. We will see her back in 3 months, sooner if needed. ??? Follow up with pain and spine about making an appointment ??? Chest xray today at 3T ??? Continue with prednisone taper every 2-3 weeks ??? Referral to eye doctor, Fabi in [facility] ??? Follow up in 3 months, sooner if needed Bone Health - Optimize calcium intake: (1,000-1,200 mg/day), includes food/drink intake Optimize vitamin D intake: (1,000-2,000 IU/day) Lifestyle modifications (balanced diet, maintaining weight in the recommended range, smoking cessation, regular weight-bearing or resistance training exercise, limiting alcohol intake to 1-2 alcoholic beverages/day) Orders Placed This Encounter Procedures ? ? XR Chest PA & Lateral (Generic) - Patient was given the necessary information on the condition and instructed to contact clinic or go to ER if symptoms continue or worsen. - After Visit Summary was either printed and given to the patient or provided via the patient portalat the patient's request. 30 minutes was spent today in chart review, documentation, and [id number] visit. Deborah Salgado MSN, PBX WIRE CHIEF, HEALTH INSURANCE SALES AGENT-C Rheumatology Department documented in this encounter Plan of Treatment Upcoming Encounters Date Type Specialty Care Team Description 10/10/2022 TH Visit Hematology and Oncology Elida Turcios , (TeleHealth) [facility] HEMATOLOGY/ONCOLOGY DEPT. [place], [place] [address] (Wo rk) 11/02/2022 Office Visit Rheumatology Marisabel Salgado APRN [facility] [address] [place], [place] [address] (Wo rk) Scheduled Referrals Name Type Priority Associated Diagnoses Order S chedule Referral to Outpatient Referral Routine Routine eye exam Orde red: Optometry 08/01/2022 documented as of this encounter Results XR Chest PA & Lateral (Generic) (08/01/2022 4:42 PM EDT) Anatomical Region Laterality Modality Chest N/A Digital Radiography Specimen (Source) Anatomical Location Collection Method / Collectio n Time Received Time / Laterality Volume Impressions 08/01/2022 8:55 PM EDT Hiatal hernia. No radiographically evident acute cardio pulmonary process. Thank you for letting us participate in the care of this patient. ??If you are a health care provider and have any questi ons regarding this report, please contact the number below. ??For patients who have questions please contact the health before and after school daycare worker that requested your imaging first. ? Narrative 08/01/2022 8:55 PM EDT EXAMINATION: XR CHEST PA AND LATERAL (GENERIC) CLINICAL HISTORY: SOB with walking, hx P E 11/2021 TECHNIQUE: PA and lateral views of the chest COMPARISON: None FINDINGS: Low lung volumes. Age unknown wedge-shap ed compression deformity mid thoracic spine. No radiographically evident pleur al effusion. No pneumothorax. Platelike atelectasis or scar at the right midlung and left lower lobe. No consolidation. No pleural effusion. Hiatal hernia with air-fluid level. Cardiac, remaining mediastinal and hilar contours are elvie l. No displaced rib fracture. No subphrenic free air. Procedure Note Estee Alvarez MD - 08/01/2022 EXAMINATION: XR CHEST PA AND LATERAL ([employer]) CLINICAL HISTORY: SOB with walking, hx P E 11/2021 TECHNIQUE: PA and lateral views of the chest COMPARISON: None FINDINGS: Low lung volumes. Age unknown wedge-shap ed compression deformity mid thoracic spine. No radiographically evident pleur al effusion. No pneumothorax. Platelike atelectasis or scar at the right midlung and left lower lobe. No consolidation. No pleural effusion. Hiatal hernia with air-fluid level. Cardiac, remaining mediastinal and hilar contours are elvie l. No displaced rib fracture. No subphrenic free air. IMPRESSION Hiatal hernia. No radiographically evident acute cardio pulmonary process. Thank you for letting us participate in the care of this patient. If you are a health care provider and have any questi ons regarding this report, please contact the number below. For patients w ho have questions please contact the health before and after school daycare worker that requested your imaging first. 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
--- OUTSIDE RECORDS SUMMARY | 2022-09-29 01:30 | XMS_ITS | Encounter Summary ---
:1945 Author Organization [place] [address] Care Team Providers Name Role Phone Petra Serra DO Primary Care Provider Encounter Details Date Type Department Care Team Description 09/25/2022 Telephone Hematology [place] [facility] [place] [address] Social History Tobacco Use Types Packs/Day Years Used Date Smoking Tobacco: Never Smokeless Tobacco: Never Alcohol Use Standard Drinks/Week Comments No 0 (1 standard drink = 0.6 oz pure alcoho l) Sex Assigned at Date Recorded Not on file documented as of this encounter Miscellaneous Notes Telephone Encounter - Anel Damico RN - 09/25/2022 9:27 AM EST TC to patient and reviewed labs and Dr. Tucker' recommendations outlined below. US order to be faxed to [facility]. Patient aware and will call to have a TH visit set up after US completed. Anel Damico RN MSN ===View-only below this line=== ----- Message ----- From: Elida Turcios MD Sent: 09/23/2022 8:36 AM EST To: Anel Damico RN, Grace Arzola PS: can you change f/u to tele? You may need to double check with patient when she will get the ultrasound of the liver done. Hopefully she gets that done before her tele appointment, otherwise we willhave to move tele follow up out. Thank you Anel: Please call and let her know that there is no evidence of anemia. Still think that her dyspnea is due to restriction from thoracic compression fracture. Also let her know that I will change her f/u to tele, but if she does not get her ultrasound done before her appointment, please let her call PS to move her appointment out. Can you fax an order of right upper quadrant ultrasound to follow-up liver mass to [facility]? ICD code R16.0 liver mass. Thank you, Elida documented in this encounter Plan of Treatment Upcoming Encounters Date Type Specialty Care Team Description 10/10/2022 TH Visit Hematology and Oncology Elida Turcios (TeleHealth) [facility] HEMATOLOGY/ONCOLOGY DEPT. [place], [place] [address] (Wo rk) 11/02/2022 Office Visit Rheumatology Marisabel Salgado APRN [facility] RHEUMATOLOGY [place], [place] [address] (Wo rk) documented as of this encounter Visit Diagnoses Not on filedocumented in this encounter Care Teams Forestry Fire Aide Relationship Specialty Start Date End Date Petra Serra DO PCP - General Family Medicine 02/19/22 [address] [place] [address] documented as of this encounter
--- OUTSIDE RECORDS SUMMARY | 2022-09-29 01:30 | XMS_ITS | Encounter Summary ---
:1945 Author Organization [facility] [address] Care Team Providers Name Role Phone Petra Serra DO Primary Care Provider Reason for Visit Auth/Cert Specialty Diagnoses / Procedures Referred By Contact Refer red To Contact Diagnoses Family history of malignant neoplasm of gastrointestinal tract Encounter for screening colonoscopy Diarrhea, unspecified type Family history of malignant neoplasm of gastrointestinal tract Encounter for screening colonoscopy Diarrhea, unspecified type Procedures PRO COLONOSCOPY, DIAGNOSTIC PRO COLONOSCOPY, BIOPSY PRO COLONOSCOPY, REMV LESN, SNARE COLONOSCOPY, DIAGNOSTIC Referral ID Status Reason Start Date Expiration Date Visits Requ ested Visits Authorized [id number] 1 1 Encounter Details Date Type Department Care Team Description 04/04/2022 Surgery Gastro[place]ology at [facility] Aster Golden COLONOSCOPY FLEXIBLE, [facility] Du Monk MD WITH BX (WRVU 3.66) [place] [address] [facility] [phone] DR GASTROENTEROLOGY [place], [place] [address] Social History Tobacco Use Types Packs/Day Years Used Date Smoking Tobacco: Never Smokeless Tobacco: Never Alcohol Use Standard Drinks/Week Comments No 0 (1 standard drink = 0.6 oz pure alcoho l) Sex Assigned at Date Recorded Not on file documented as of this encounter Last Filed Vital Signs Vital Sign Reading Time Taken Comments Blood Pressure 116/81 04/04/2022 4:15 PM EDT Pulse 67 04/04/2022 4:15 PM EDT Temperature 36.9 ??C (98.4 ??F) 04/04/2022 2:56 PM EDT Respiratory Rate 9 04/04/2022 4:15 PM EDT Oxygen Saturation 96% 04/04/2022 4:15 PM EDT Inhaled Oxygen Concentration - - Weight - - Height - - Body Mass Index - - documented in this encounter Discharge Instructions Discharge InstructionsDionisio Anderson RN - 04/04/2022 4:37 PM EDT Learning About Treatments for Orona's Esophagus With Dysplasia What is Orona's esophagus? The esophagus is the tube that carries food and liquid to your stomach. Orona's esophagus, or Orona's syndrome, is a condition in which the cells that line the esophagus start to change. They startto look like the cells that line the stomach and intestines. When you have Orona's, you are slightly more likely to get cancer of the esophagus. So regular testing is important, even if you don't have symptoms. It helps your doctor watch for signs of more changes that may lead to cancer. If tests show that the cells continue to change and could become cancer, that change is called dysplasia. How is Orona's esophagus treated? Treatment for Orona's depends on whether the cells in the esophagus lining have changed (dysplasia). If you don't have dysplasia, there is no specific treatment. But taking GERD medicines can help lower your risk of getting esophageal cancer. If dysplasia is found, your doctor may do a procedure to remove or destroy the changed cells. During the procedure, you will get medicines through a needle in a vein (IV) in your arm or hand. These medicines reduce pain. They will make you feel relaxed and drowsy. Your throat will also be numbed. You may not remember much about the procedure. There are a few ways to remove or destroy the changed cells. You may have: Radiofrequency (RF) ablation. The doctor uses heat to destroy the cells. Cryosurgery (also called cryotherapy). It destroys cells by freezing them. Liquid nitrogen is most often used. Endoscopic resectioning. Your doctor cuts the damaged tissue from your esophagus. This is done through a small tube, called an endoscope. You may also need surgery to remove part of the esophagus. Your doctor will recommend the best treatment based on your test results. What can you expect after treatment? After most treatments, you will be observed for 1 to 2 hours until the medicines wear off. Don't eator drink until feeling returns to your throat. When you recover, you can go home. After radiofrequency (RF) treatment, your esophagus may feel tight or narrow when you swallow. You may have some chest pain. If you had cryotherapy, you may feel some discomfort in your neck and chest. Your esophagus may feeltight or narrow when you swallow. If you had surgery, you will stay in the hospital and will take longer to recover. You may still need to treat the symptoms of gastrointestinal reflux disease (GERD). Your doctor may give you information about that. Follow-up care is a mary part of your treatment and safety. Be sure to make and go to all appointments, and call your doctor if you are having problems. It's also a good idea to know your test results and keep a list of the medicines you take. Where can you learn more? Visit our [employer] information library at [email or web address] You can also view health information on [employer], your personal patient account. Log in or sign up today. Enter X603 in the search box to learn more about Learning About Treatments for Orona's Esophagus With Dysplasia. Current as of: February 18, 2020 Content Version: 12.8 ?? [id number] imagine. Care instructions adapted under license by [facility]. If you have questions about a medical condition or this instruction, always ask your healthcare professional. [employer] disclaims any warranty or liability for your use of this information. documented in this encounter Medications at Time of Discharge Medication Sig Dispensed Refills Start Date End Date FLUoxetine (PROZAC) 20 Take 20 mg by mouth 0 mg Tablet daily. verapamil (CALAN) 120 Take 120 mg by mouth 0 mg Tablet daily. multivitamin with Take 1 tablet by 0 minerals Tablet mouth daily. predniSONE (Deltasone) Use 1 mg tablets of 120 tablet 11 01/202205/23/2022 1 mg TabletIndications: prednisone to reduce PMR (polymyalgia daily dose by 1 mg rheumatica) every 2 to 4 weeks if doing well. Increase daily dose by 1 mg if symptoms return predniSONE (Deltasone) 4 tablets daily March 120 tablet 5 05/202105/23/2022 5 mg TabletIndications: take first thing in PMR (polymyalgia the morning or as rheumatica) split doses 2 in the morning 2 at night alendronate (FOSAMAX) Take 35 mg by mouth 0 05/30/2022 35 mg Tablet every 7 days. Take in AM with full glass of water, on an empty stomach. Do not lie down for 30 min. documented as of this encounter Plan of Treatment Upcoming Encounters Date Type Specialty Care Team Description 10/10/2022 TH Visit Hematology and Oncology Eilda Turcios , (TeleHealth) [facility] HEMATOLOGY/ONCOLOGY DEPT. [place], [place] [address] (Wo rk) 11/02/2022 Office Visit Rheumatology Marisabel Salgado APRN [facility] RHEUMATOLOGY [place], [place] [address] (Wo rk) documented as of this encounter Procedures Procedure Name Priority Date/Time Associated Diagnosis Comme nts SURGICAL PATHOLOGY Routine 04/04/2022 4:38 Result s for this REPORT PM EDT procedure are i n the results section. SPECIMEN TO Routine 04/04/2022 4:38 Results for this PATHOLOGY PM EDT procedure are i n the results section. SPECIMEN TO Routine 04/04/2022 4:38 Results for this PATHOLOGY PM EDT procedure are i n the results section. COLONOSCOPY 04/04/2022 3:39 Family history of FLEXIBLE, WITH BX PM EDT malignant neoplasm of (WRVU 3.66) gastrointestinal tract Encounter for screening colonoscopy Diarrhea, unspecified type COLONOSCOPY Routine 04/04/2022 3:24 Results for this PM EDT procedure are i n the results section. documented in this encounter Results Surgical Pathology Report (04/04/2022 4:38 PM EDT) Component Value Ref Test Analysis Performed At [facility] Method Time Signature Surgical [id number] ? Location: 4T; EA; [facility] Pathology [place] Report The signing pathologist has (i) examined the relevant preparation(s) for the [facility] specimen(s) and (ii) rendered or confirmed the diagnosis(es) . HOSPITAL LABORATORY . ?Surgic al Pathology DIAGNOSIS A - Cecum 2mm polyp, resection: - ??Tubular adenoma. B - Non-directed colon biopsies, biopsy (Multiple): - ??Colonic mucosa within normal limits. Electronically signed by: ?Shannan WHITE PhD, Samantha Verified: ??04/06/2022 12:53 ??Pathologist Performed at: ??-[facility] Dept. of Pathology, [place], [place] SPECIMEN(S) SUBMITTED A - ??Cecum 2mm polyp, resection B - Non-directed colon biopsies, biopsy (Multiple) CLINICAL INFORMATION 77 year-old F screening colonoscopy/intermittent diarrhea SPECIMEN PROCESSING A - Labeled/Fixative: Cecum 2 mm polyp, formalin. Quantity/Size: Single, 0.4 x 0.3 x 0.3 cm. Tissue Description: Soft, red-chappell, polypoid tissue. Sections/Processing: Submitted en toto ??in 1 cassette labeled A1. B - Labeled/Fixative: Non-directed colon biopsies, formalin. Quantity/Size: Six, averaging 0.3 cm. Tissue Description: Soft, red-chappell tissues. Sections/Processing: Submitted en toto ??in 2 cassettes labeled B1-B2. ??shb Specimen (Source) Anatomical Collection Method Collection Time Re ceived Time Location / / Volume Laterality 04/04/2022 4:38 PM EDT Aster Golden MD PATHOLOGY/CYTOLOGY ORDERABLE S Performing Organization Address City/State/[place] [address] Specimen to Pathology (04/04/2022 4:38 PM EDT) Specimen Anatomical Collection Method Collection Time Receive d Time (Source) Location / / Volume Laterality AP Specimen 04/04/2022 4:38 PM 4:38 EDT PM EDT Narrative [facility] - 04/04/2022 4:38 PM EDT Specimen requisition ordered. ??Separate Pathology report to follow Aster Golden MD PATHOLOGY/CYTOLOGY ORDERABLE S Performing Organization Address City/[facility]/[place] [address] Specimen to Pathology (04/04/2022 4:38 PM EDT) Specimen Anatomical Collection Method Collection Time Receive d Time (Source) Location / / Volume Laterality AP Specimen 04/04/2022 4:38 PM 4:38 EDT PM EDT Narrative [facility] - 04/04/2022 4:38 PM EDT Specimen requisition ordered. ??Separate Pathology report to follow Aster Golden MD PATHOLOGY/CYTOLOGY ORDERABLE S Performing Organization Address City/State/[place] [address] COLONOSCOPY (04/04/2022 3:24 PM EDT) [facility] gist Method Time Signature COLONOSCOPY [facility] Endoscopy Procedure Date: 04/04/2022 3:24 PM ? Patient Name: Shena Lemus ? N: [id number] ? Date of : 1945 ? Age: 77 ? Order #: [id number] ? Instrument Name: [id number] ? Procedure: ? Colonoscopy Indications: ? Screening in patient at increase d ? risk: Colorectal cancer in mother ? 60 or older (90s) Providers: ? Aster Golden MD, Jesus swanson ? Lloyd Francisco RN, Mickie Niño MD: ?Petra B. Audreychetoff Medicines: ? Midazolam 5 mg and fentanyl 200 mcg ? were given through an infi ltrated ? IV. Then, Midazolam 3 mg I V, ? Fentanyl 75 micrograms IV were ? given through a new IV. Complications: ? No immediate complications. Procedure: ? The procedure, indications, ? benefits, risks and altern atives ? were explained to the keyonna ent. ? Specifically discussed wer e ? potential complications in cluding, ? but not limited to, estela lemus, ? perforation, infection, mi ssing a ? cancer, and adverse medica tion ? reactions. The patient was placed ? in the left lateral decubi tus ? position, and a digital re ctal exam ? was performed. The Colonos cope was ? inserted in the anus and u nder ? direct visualization, adva nced to ? the cecum, identified by ? appendiceal orifice and il eocecal ? valve. Careful inspection was made ? as the colonoscope was wit hdrawn. ? The colonoscopy was perfor med ? without difficulty. The pa tient ? tolerated the procedure we ll. The ? quality of the bowel prepa ration ? was evaluated using the BB PS ? (Errol Bowel Preparation Scale) ? with scores of: Right [place] n = 2, ? Transverse Colon = 2 and L eft Colon ? = 3. The total BBPS score equals 7. ? Findings: ? A 2 mm polyp was found in the cecum. The polyp was ? sessile. The polyp was removed with a cold biopsy ? forceps. Resection and retrieval were complete. ? The exam was otherwise normal. ? Biopsies for histology were taken with a cold forceps ? from the right colon and left colon for evaluation of ? microscopic colitis. ? Moderate Sedation: ? I was present during the intraservice time as ? documented by the sedation RN. Impression: ?- One diminuitive polyp, otherw ise ? normal exam. ? - Biopsies taken for evalu ation of ? microscopic colitis. Recommendation: ?- Await pathology results. Need f or ? future colonoscopy to be d etermined ? after reviewing pathology. ? - Discharge home ambulator y. ? Attending Participation: ? I personally performed the entire procedure. ? Aster Golden MD 04/04/2022 4:33:48 PM Number of Addenda: 0 Note Initiated On: 04/04/2022 3:24 PM Specimen (Source) Anatomical Collection Method Collection Time Re ceived Time Location / / Volume Laterality 04/04/2022 3:24 PM EDT Petra Serra DO GENERAL SURGICAL ORDERABLES Performing Organization Address City/State/ZIP Code Phon e Number [facility] documented in this encounter Visit Diagnoses Not on filedocumented in this encounter Administered Medications Inactive Administered Medications - up to 3 most recent administrations Medication Order MAR Action Action Date Dose Rate Site fentaNYL (pf) (50 mcg/mL) Given 04/04/2022 4:09 PM EDT 25 mcg multi-dose injection ONCE PRN, Starting on Sun04/04/22 at 1544, Until Sun04/04/22 at 1920, Intra-Operative (Intra-Procedure), Routine Given 04/04/2022 3:59 PM EDT 50 mcg Given 04/04/2022 3:53 PM EDT 50 mcg midazolam (pf) (Versed) (1 mg/mL) multi-dose Given 04/04/2022 4: 07 PM EDT 1 mg injection ONCE PRN, Starting on Sun04/04/22 at 1544, Until Sun04/04/22 at 1920, Intra-Operative (Intra-Procedure), Routine Given 04/04/2022 4:02 PM EDT 1 mg Given 04/04/2022 3:59 PM EDT 1 mg documented in this encounter Active and Recently Administered Medications Times are shown in EDT. PRN Medication Order 04/02/2022 04/03/2022 04/04/2022 fentaNYL (pf) (50 mcg/mL) multi-dose injection (CANCELED) 1544 (Given - Provider: Lashell Francisco RN)1547 (Given - Provider: Lashell Francisco RN)1550 (Given - Provider: Lashell Francisco RN)1553 (Given - Provider: Lashell Francisco, ANA) ONCE PRN, Starting on Sun04/04/22 at 154 4, Until Sun04/04/22 at 1920, Intra- Operative (Intra-Procedure), Routine 155 9 (Given - Provider: Lashell Francisco RN - Comment: with new IV)1609 (Given - Provider: Lashell Francisco, ANA) midazolam (pf) (Versed) (1 mg/mL) multi-dose injection (CANCELED ) 1544 (Given - Provider: Lashell W Francisco, RN)1547 (Given - Provider: Lashell Francisco RN)1550 (Given - Provider: Lashell Francisco, ANA)1553 (Given - Provider: Lashell Francisco RN)1556 (Given - Provider: Lashell Francisco, ANA) ONCE PRN, Starting on Sun04/04/22 at 154 4, Until Sun04/04/22 at 1920, Intra- Operative (Intra-Procedure), Routine 155 9 (Given - Provider: Lashell Francisco RN - Comment: with new IV)1602 (Given - Provider: Lashell Francisco RN)1607 (Given - Provider: Lashell Francisco RN) documented in this encounter Care Teams Graining Machine Operator Relationship Specialty Start Date End Date Petra Serra DO PCP - General Family Medicine 02/19/22 [address] [place] [address] documented as of this encounter
--- OUTSIDE RECORDS SUMMARY | 2022-09-29 01:30 | XMS_ITS | Encounter Summary ---
:1945 Author Organization [facility] [place] [address] Care Team Providers Name Role Phone Petra Serra Primary Care Provider Encounter Details Date Type Department Care Team Description 08/01/2022 Hospital Encounter [place] [facility] Marisabel Salgado, SOB ([address] MAGI lockhart) [facility] [address] [place] [phone] RHEUMATOLOGY [place] [id number] Social History Tobacco Use Types Packs/Day Years Used Date Smoking Tobacco: Never Smokeless Tobacco: Never Alcohol Use Standard Drinks/Week Comments No 0 (1 standard drink = 0.6 oz pure alcoho l) Sex Assigned at Date Recorded Not on file documented as of this encounter Medications at Time of Discharge Medication Sig Dispensed Refills Start Date End Date Eliquis 5 mg Tablet 5 mg 2 times daily. 0 022 predniSONE (Deltasone) Use 1 mg tablets of 120 tablet 11 05/05 1 mg TabletIndications: prednisone to reduce PMR (polymyalgia daily dose by 1 mg rheumatica) every 2 to 4 weeks if doing well. Increase daily dose by 1 mg if symptoms return FLUoxetine (PROZAC) 20 Take 20 mg by mouth 0 mg Tablet daily. verapamil (CALAN) 120 Take 120 mg by mouth 0 mg Tablet daily. multivitamin with Take 1 tablet by 0 minerals Tablet mouth daily. predniSONE (Deltasone) 4 tablets daily March 120 tablet 05/0509/06/2022 5 mg TabletIndications: take first thing in PMR (polymyalgia the morning or as rheumatica) split doses 2 in the morning 2 at night documented as of this encounter Plan of Treatment Upcoming Encounters Date Type Specialty Care Team Description 10/10/2022 TH Visit Hematology and Oncology Elida Turcios (TeleHealth) [facility] HEMATOLOGY/ONCOLOGY DEPT. [place], [place] [address] (Wo rk) 11/02/2022 Office Visit Rheumatology Marisabel Salgado APRN [facility] RHEUMATOLOGY [place], [place] [address] (Wo rk) documented as of this encounter Procedures Procedure Name Priority Date/Time Associated Diagnosis Comme nts XR CHEST PA AND Routine 08/01/2022 4:42 PM SOB (shortness of R esults for this LATERAL EDT breath) procedure are i n the results section. documented in this encounter Results XR Chest PA & [...] who have questions please contact the health aged or disabled care worker that requested your imaging first. ? [...] 08/01/2022 EXAMINATION: XR CHEST PA AND LATERAL (GE NERIC) CLINICAL HISTORY: SOB with walking, hx P [...] ho have questions please contact the health aged or disabled care worker that requested your imaging first. Electronically signed by: Estee Alvarez MD , [facility] ([phone]), at 08/01/2022 8:55 PM Marisabel Salgado MOTOR VEHICLE LICENCE EXAMINER IMG DX ORDERABLES documented in this encounter Visit Diagnoses Diagnosis SOB (shortness of breath) Shortness of breath documented in this encounter Care Teams National Facilities Manager Relationship Specialty Start Date End Date Petra Serra DO PCP - General Family Medicine 02/19/22 [address] [place] [address] documented as of this encounter
--- OUTSIDE RECORDS SUMMARY | 2022-09-29 01:30 | XMS_ITS | Encounter Summary ---
:1945 Author Organization [facility] [place] [address] Care Team Providers Name Role Phone Tawanna Browning MAGI Primary Care Provider Encounter Details Date Type Department Care Team Description 10/25/2021 Telephone Rheumatology at [facility] Susi Aguila LPN [facility] [place] [address] Social History Tobacco Use Types Packs/Day Years Used Date Smoking Tobacco: Never Smokeless Tobacco: Never Alcohol Use Standard Drinks/Week Comments No 0 (1 standard drink = 0.6 oz pure alcoho l) Sex Assigned at Date Recorded Not on file documented as of this encounter Miscellaneous Notes Telephone Encounter - Susi Aguila LPN - 10/25/2021 10:36 AM EST Pt called and reports that she is having trouble with her meds not working. She states that on the first week of taking Prednisone, verapamil, and fluoxetine, everything was fine. On the second week, the prednisone continues to work, but she reports that the verapamil and fluoxetine is not working now. She would like a call back to discuss. [phone] documented in this encounter Plan of Treatment Upcoming Encounters Date Type Specialty Care Team Description 10/10/2022 TH Visit Hematology and Oncology Elida Turcios (TeleHealth) [facility] HEMATOLOGY/ONCOLOGY DEPT. [place], [place] [address] (Wo rk) 11/02/2022 Office Visit Rheumatology Marisabel Salgado APRN [facility] RHEUMATOLOGY [place], [place] [address] (Wo rk) documented as of this encounter Visit Diagnoses Not on filedocumented in this encounter Care Teams Neck Cutter Relationship Specialty Start Date End Date Tawanna Browning APRN PCP - General Family Medicine 10/02/18 02/18/22 [address] [place] [address] documented as of this encounter
--- OUTSIDE RECORDS SUMMARY | 2022-09-29 01:30 | XMS_ITS | Encounter Summary ---
:1945 Author Organization [place] [address] Care Team Providers Name Role Phone Petra [...] Expiration Date Visits Requ ested Visits Authorized [id number] 1 1 Encounter Details Date Type Department Care Team Description 04/04/2022 Hospital Encounter Gastroenterology at [facility] Michael Weaver, [facility] [place] [address] [facility] [phone] [place] [address] Social History Tobacco Use Types Packs/Day Years Used Date Smoking Tobacco: Never Smokeless Tobacco: Never Alcohol Use Standard Drinks/Week Comments No 0 (1 standard drink = 0.6 oz pure alcoho l) Sex Assigned at Date Recorded Not on file documented as of this encounter Last Filed Vital Signs Vital Sign Reading Time Taken Comments Blood Pressure 118/64 04/04/2022 4:50 PM EDT Pulse 69 04/04/2022 4:30 PM EDT Temperature 36.9 ??C (98.4 ??F) 04/04/2022 2:56 PM EDT Respiratory Rate 16 04/04/2022 4:50 PM EDT Oxygen Saturation 94% 04/04/2022 5:00 PM EDT Inhaled Oxygen Concentration - - [...] Where can you learn more? Visit our [employer] information library at [email or web address] You can also view health information on [employer], your personal patient account. Log in or sign up today. Enter X603 in the search box to learn more about Learning About Treatments for Orona's Esophagus With Dysplasia. Current as of: February 18, 2020 Content Version: 12.8 ?? [id number] [employer]. Care instructions adapted under license by [facility]. If you have questions about a medical condition or this instruction, always ask your healthcare professional. [employer] disclaims any warranty or liability for your [...] Hematology and Oncology Elida Turcios , (TeleHealth) [facility] HEMATOLOGY/ONCOLOGY DEPT. [place], [place] [address] (Wo rk) 11/02/2022 Office Visit Rheumatology Marisabel Salgado APRN [facility] RHEUMATOLOGY [place], [place] [address] (Savanna matos) documented as of this encounter Procedures Procedure [...] Component Value Ref Test Analysis Performed At [facility] Method Time Signature Surgical [id number] ? Location: 4T; [facility]; [facility] Report The signing pathologist has (i) examined [...] Samantha Verified: ??04/06/2022 12:53 ??Pathologist Performed at: ??-[facility] Dept. of Pathology, [place], [place] SPECIMEN(S) SUBMITTED A - ??Cecum 2mm [...] MD PATHOLOGY/CYTOLOGY ORDERABLE S Performing Organization Address [facility]/ZIP Code Phon e Number [address] Specimen to Pathology (04/04/2022 4:38 PM EDT) Specimen Anatomical Collection Method Collection Time Receive d Time (Source) Location / / Volume Laterality AP Specimen 04/04/2022 4:38 PM 4:38 EDT PM EDT Narrative [facility] - 04/04/2022 4:38 PM EDT Specimen requisition ordered. ??Separate Pathology report to follow Aster Golden MD PATHOLOGY/CYTOLOGY ORDERABLE S Performing Organization Address City/[facility]/ZIP [facility] Phon e Number [address] Specimen to Pathology (04/04/2022 4:38 PM EDT) Specimen Anatomical Collection Method Collection Time Receive d Time (Source) Location / / Volume Laterality AP Specimen 04/04/2022 4:38 PM 4:38 EDT PM EDT Narrative [facility] - 04/04/2022 4:38 PM EDT Specimen requisition ordered. ??Separate Pathology report to follow Aster Golden MD PATHOLOGY/CYTOLOGY ORDERABLE S Performing Organization Address [facility]/ZIP [place] [address] COLONOSCOPY (04/04/2022 3:24 PM EDT) [facility] gist Method Time Signature COLONOSCOPY [facility] Endoscopy Procedure Date: 04/04/2022 3:24 PM ? Patient Name: Shena Lemus ? N: [id number] ? Date of : 1945 ? Age: 77 ? Order #: [id number] ? Instrument Name: [id number] ? Procedure: ? Colonoscopy Indications: ? Screening in patient at increase d ? risk: Colorectal cancer in mother ? 60 or older (90s) Providers: ? Aster Golden MD, Jesus swanson ? Lloyd Francisco RN, Mickie Niño MD: ?Petra Serra Medicines: ? Midazolam 5 mg and fentanyl [...] was evaluated using the BB PS ? (Piqua Bowel Preparation Scale) ? with scores of: Right [place] n = 2, ? Transverse Colon = [...] Diagnoses Not on filedocumented in this encounter Active and Recently Administered Medications Times are shown in EDT. PRN Medication Order 04/02/2022 04/03/2022 04/04/2022 fentaNYL (pf) (50 mcg/mL) multi-dose injection (CANCELED) 1544 (Given - Provider: Lashell Francisco RN)1547 (Given - Provider: Lashell Francisco RN)1550 (Given - Provider: Lashell Francisco RN)1553 (Given - Provider: Lashell Francisco RN) ONCE PRN, Starting on Sun04/04/22 at 154 4, Until Sun04/04/22 at 1920, Intra- Operative (Intra-Procedure), Routine 155 9 (Given - Provider: Lashell Francisco RN - Comment: with new IV)1609 (Given - Provider: Lashell Francisco, ANA) midazolam (pf) (Versed) (1 mg/mL) multi-dose injection (CANCELED ) 1544 (Given - Provider: Lashell Francisco RN)1547 (Given - Provider: Lashell Francisco, ANA)1550 (Given - Provider: Lashell Francisco, ANA)1553 (Given - Provider: Lashell Francisco, NAA)1556 (Given - Provider: Lashell Francisco, RN) ONCE PRN, Starting on Sun04/04/22 at 154 4, Until Sun04/04/22 at 1920, Intra- Operative (Intra-Procedure), Routine 155 9 (Given - Provider: Lashell Francisco RN - Comment: with new IV)1602 (Given - Provider: Lashell Francisco, ANA)1607 (Given - Provider: Lashell Francisco, ANA) documented in this encounter Care Teams Can Vacuum Tester Relationship Specialty Start Date End Date Petra Serra DO PCP - General Family Medicine 02/19/22 [address] [place] [address] documented as of this encounter
--- OUTSIDE RECORDS SUMMARY | 2022-09-29 01:30 | XMS_ITS | Encounter Summary ---
:1945 Author Organization [facility] [place] [address] Care Team Providers Name Role Phone Petra Serra DO Primary Care Provider Reason for Referral Consultation (Routine) - Closed Specialty Diagnoses / Procedures Referred By Contact Refer red To Contact Hematology and Diagnoses Other pulmonary embolism without acute cor pulmonale, unspecified chronicity Petra Serra, [facility] Hem Onc 3k Oncology DO [address] [phone] Fax: Referral ID Status Reason Start Date Expiration Date Visits V isits Requested Authorized [id number] Closed Consult, Test 05/30/2022 05/30/2023 1 1 & Treat PCP Updated and/or Approved Encounter Details Date Type Department Care Team Description 05/30/2022 Transcribe Orders eDH Incoming Kwasi Serra pulm onary Referrals Petra Granado DO embolism without [phone] [place] [place] [address] acute cor [place], RD unspecified [place], chronic[place] [id number] Social History Tobacco Use Types Packs/Day Years [...] (TeleHealth) [facility] HEMATOLOGY/ONCOLOGY DEPT. [place], [place] [address] (Wo rk) 11/02/2022 Office Visit Rheumatology Marisabel Salgado, FOOD SERVICE DIRECTOR [facility] RHEUMATOLOGY [place], [place] [address] (Wo rk) Scheduled Referrals Name Type Priority Associated Diagnoses Order S chedule Referral to Outpatient Referral Routine Other pulmonary Order ed: Hematology and embolism without Oncology acute cor pulmonale, unspecified chronicity documented as of this encounter Visit Diagnoses Diagnosis Other pulmonary embolism without acute c or pulmonale, unspecified chronicity documented in this encounter Care Teams Wood Die Maker Relationship Specialty Start Date End Date Petra Serra DO PCP - General Family Medicine 02/19/22 [facility] [place] [address] documented as of this encounter
--- OUTSIDE RECORDS SUMMARY | 2022-09-29 01:30 | XMS_ITS | Clinical Summary ---
:1945 Author Organization [facility] [place] [address] Care Team Providers Name Role Phone Petra Serra Primary Care Provider Allergies No known active allergies Medications Medication Sig Dispensed Refills Start Date End Date Status FLUoxetine (PROZAC) Take 20 mg by 0 Active 20 mg Tablet mouth daily. verapamil (CALAN) 120 Take 120 mg by 0 Active mg Tablet mouth daily. multivitamin with Take 1 tablet by 0 Active minerals Tablet mouth daily. predniSONE Use 1 mg tablets 120 tablet 11 05/23/2022 Active (Deltasone) 1 mg of prednisone to TabletIndications: reduce daily dose PMR (polymyalgia by 1 mg every 2 to rheumatica) 4 weeks if doing well. Increase daily dose by 1 mg if symptoms return Additional Information Patient taking differently: 7 mg Oral DAILY, Use 1 mg tablets of prednisone to reduce daily dose by 1 mg every 2 to 4 weeks if doing well. Increase daily dose by 1 mg if symptoms return, Reported on 09/19/2022 Eliquis 5 mg Tablet 5 mg 2 times daily. 0 05/29/2022 Active CALCIUM ORAL Take by mouth daily. 0 Active verapamiL SR (Calan-SR) 180 mg Take 180 mg by mouth daily. 0 08/22/2022 Active Tablet Sustained Release gabapentin (Neurontin) 100 mg Take 100 mg by mouth 3 0 08/23/2022 Active Capsule times daily. acetaminophen (Tylenol) 500 mg Take 1,000 mg by mouth 3 0 Active Tablet times daily. Active Problems Problem Noted Date Acute pulmonary embolism without acute cor pulmonale 1 11/19/2021 PMR (polymyalgia rheumatica) 09/19/2022 Migraine 09/19/2022 Osteoporosis 09/19/2022 Compression fracture of thoracic vertebra 09/19/2022 Dermatochalasis of both upper eyelids 11/09/2016 Encounters Date Type Specialty Care Team Description 09/25/2022 Telephone Hematology and Anel Damico Oncology Rosangela, RN 09/19/2022 Hospital Encounter Hematology and VTE (ve nous thromboembolism); Oncology Dyspnea, unspec ified type 09/19/2022 Office Visit Hematology and Karolina, Liver mass (P rimary Dx); Oncology Elida Jiménez MD VTE (venous thr omboembolism); Dyspnea, unspec ified type; Chronic midline thoracic back pain 09/19/2022 Travel 09/06/2022 Office Visit [facility] Savita Cabrera ssion fracture of T8 vertebra with routine healing, subsequent encounter; GILDARDO Lewis Closed wedge co mpression fracture of T4 vertebra with routine healing, subsequent encounter; Closed wedge co mpression fracture of T5 vertebra with routine healing, subsequent encounter; Closed wedge co mpression fracture of T11 vertebra with routine healing, subsequent encounter 09/06/2022 Travel 08/01/2022 Hospital Encounter Radiology Marisabel Salgado SOB (shor tness of M, PLEATER HAND breath) 08/01/2022 Office Visit Rheumatology Marisabel Salgado PMR (polymyalgi a rheumatica); M, 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 nt use of systemic 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; SOB (shortness of breath); Routine eye exa m from Last 3 Months Family History Medical History Relation Comments Autoimmune Disorder Neg Hx Glaucoma Neg Hx Macular Degeneration Neg Hx Retinal Detachment Neg Hx Social History Tobacco Use Types Packs/Day Years Used Date Smoking Tobacco: Never Smokeless Tobacco: Never Tobacco Cessation: Counseling Given: Not Answered Alcohol Use Standard Drinks/Week Comments No 0 (1 standard drink = 0.6 oz pure alcoho l) Sex Assigned at Date Recorded Not on file Last Filed Vital Signs Vital Sign Reading Time Taken Comments Blood Pressure 131/87 09/19/2022 10:17 AM EST Pulse 81 09/19/2022 10:17 AM EST Temperature 36.1 ??C (97 ??F) 09/19/2022 10:17 AM EST Respiratory Rate 16 09/19/2022 10:17 AM EST Oxygen Saturation 97% 09/19/2022 10:17 AM EST Inhaled Oxygen Concentration - - Weight 71.9 kg (158 lb 8.2 oz) 09/19/2022 10:17 AM EST Height 156.8 cm (5' 1.73) 09/19/2022 10:17 AM EST Body Mass Index 29.24 09/19/2022 10:17 AM EST Plan of Treatment Upcoming Encounters Date Type Specialty Care Team Description 10/10/2022 TH Visit Hematology and Oncology Elida Turcios , (TeleHealth) [facility] HEMATOLOGY/ONCOLOGY DEPT. [place], [place] [address] (Wo rk) 11/02/2022 Office Visit Rheumatology Marisabel Salgado PLEATER HAND [facility] RHEUMATOLOGY [place], [place] [address] (Wo rk) Health Maintenance Due Date Last Done Comments Covid-19 Vaccine (#1) 1945 Hepatitis C Screening 1961 Tdap adult 1962 Tetanus vaccine 1962 Zoster vaccine (1 of 2) 1993 Advance Directive 1998 Bone Density Scan 2008 Pneumoccocal Vaccine: 65+ (1 - PCV) 2008 Influenza (Flu) vaccine (1 of 1 - Influenza standard 07/06/2022 series) Procedures Procedure Name Priority Date/Time Associated Diagnosis Comme nts DIFFERENTIAL, Routine 09/19/2022 11:30 AM VTE (venous Results for this AUTOMATED EST thromboembolism) procedure are in Dyspnea, unspecified the res ults type section. HEMOGRAM Routine 09/19/2022 11:30 AM VTE (venous Results for this EST thromboembolism) procedure are in Dyspnea, unspecified the res ults type section. HC CBC,PLT & AUTO Routine 09/19/2022 11:30 AM VTE (venous DIFF EST thromboembolism) Dyspnea, unspecified type XR CHEST PA AND Routine 08/01/2022 4:42 PM SOB (shortness of R esults for this LATERAL EDT breath) procedure are i n the results section. from Last 3 Months Results (ABNORMAL) Hemogram (09/19/2022 11:30 AM EST) Analysis Performed At Patho logist Time Signature WBC 9.7 (H) 4.0 - 9.5 MANSI JAIN x10(3)/[facility] LABORATORY RBC 3.90 (L) 4.00 - [facility] 5.21 [facility] x10(6)/[facility] LABORATORY Hemoglobin 12.1 11.7 - [facility] 15.[facility] g/dL [facility] LABORATORY Hematocrit 37.4 35.7 - [facility] 45.8 % [facility] LABORATORY MCV 95.9 (H) 82.6 - [facility] 94.4 [facility] LABORATORY MCH 31.0 27.1 - [facility] 32.0 pg [facility] LABORATORY MCHC 32.4 31.7 - [facility] 35.0 g/dL [facility] LABORATORY Platelets 342 145 - 357 [facility] x10(3)/[facility] LABORATORY RDWSD 47.5 (H) 37.0 - [facility] 46.0 [facility] LABORATORY RDWCV 13.4 11.5 - [facility] 14.1 % [facility] LABORATORY MPV 10.4 7.6 - 12.9 [facility] LABORATORY nRBC % Auto 0.0 % [facility] LABORATORY nRBC Abs Auto 0.000 0.000 - [facility] 0.000 [facility] x10(3)/[facility] LABORATORY Specimen Anatomical Collection Method Collection Time Receive d Time (Source) Location / / Volume Laterality Blood 09/19/2022 11:30 09/19/2022 AM EST 11:41 AM EST Resulting Agency Comment Spec In Lab Elida Turcios MD HEMATOLOGY ORDERABLES Performing Organization Address City/State/ZIP [place] [address] (ABNORMAL) Differential, Automated (09/19/2022 11:30 AM EST) [facility] gist Method Time Signature Neutrophils % 74.2 % [facility] LABORATORY Neutr Abs (ANC) 7.19 (H) 1.70 - [facility] 6.10 [facility] x10(3)/[facility] LABORATORY Lymphocytes % 15.6 % [facility] LABORATORY Lymphocytes Abs 1.5 0.9 - 3.2 [facility] x10(3)/[facility] LABORATORY Monocytes % 8.1 % [facility] LABORATORY Monocyte Abs 0.8 0.3 - 0.9 [facility] x10(3)/[facility] LABORATORY Eosinophils % 1.1 % [facility] LABORATORY Eosinophils Abs 0.1 0.0 - 0.4 [facility] x10(3)/[facility] LABORATORY Basophils % 0.4 % [facility] LABORATORY Basophils Abs 0.0 0.0 - 0.1 [facility] x10(3)/[facility] LABORATORY Immature Gran % 0.60 % [facility] LABORATORY Comment: Immature granulocytes(IG's)percentage an d absolute count will include metamyelocytes, myelocytes, and promyelo cytes. Blood smears from CBCs yielding IG's will be scanned manually for concor dance. If this scan disagrees with the automated IG or if promyelocytes are not ed, a manual differential will be performed. Alanna Gran Abs 0.06 (H) 0.00 - 0.04 x10(3)/[facility] LABORATORY Specimen Anatomical Collection Method Collection Time Receive d Time (Source) Location / / Volume Laterality Blood 09/19/2022 11:30 09/19/2022 AM EST 11:41 AM EST Resulting Agency Comment Spec In Lab Elida Turcios MD HEMATOLOGY ORDERABLES Performing Organization Address City/State/ZIP [place] [address] XR Chest PA & Lateral (Generic) (08/01/2022 [...] who have questions please contact the health medicare sales executive that requested your imaging first. ? Electronically signed by: Estee Alvarez MD , [facility] ([phone]), at 08/01/2022 8:55 PM Narrative 08/01/2022 8:55 PM EDT EXAMINATION: XR [...] ho have questions please contact the health medicare sales executive that requested your imaging first. Electronically signed by: Estee Alvarez MD , [facility] ([phone]), at 08/01/2022 8:55 PM Marisabel Salgado PLEATER HAND IMG DX ORDERABLES from Last 3 Months Insurance Payer Benefit Plan / Subscriber ID Effective Dates Phone Addre ss Type Group [employer] [place] [place] [id number] 2021-Christopher [phone] [address] [place] ADV[employer]AGE t 22 [id number] [place] [address] Advance Directives Latest Code Status on File Code Status Date Activated Date Inactivated Comments Full Code 12/11/2016 10:02 AM 12/11/2016 1:44 PM Question Answer Comments Does patient have capacity to make decision: Yes Care Teams Icu Registered Nurse Relationship Specialty Start Date End Date Petra Serra DO PCP - General Family Medicine 02/19/22 [facility] [address] [address]
--- OUTSIDE RECORDS SUMMARY | 2022-09-29 01:30 | XMS_ITS | Encounter Summary ---
:1945 Author Organization [facility] [place] [address] Care Team Providers Name Role Phone Petra Serra DO Primary Care Provider Encounter Details Date Type Department Care Team Description 09/19/2022 Travel Social History Tobacco Use Types Packs/Day [...] , (TeleHealth) [facility] HEMATOLOGY/ONCOLOGY DEPT. [place], [place] [address] (Wo rk) 11/02/2022 Office Visit Rheumatology Marisabel Salgado APRN [facility] RHEUMATOLOGY [place], [place] [address] (Wo rk) documented as of this encounter Visit Diagnoses Not on filedocumented in this encounter Care Teams Sebd Teacher Relationship Specialty Start Date End Date Petra Serra DO PCP - General Family Medicine 02/19/[address] [place] [id number] documented as of this encounter
--- OUTSIDE RECORDS SUMMARY | 2022-09-29 01:30 | XMS_ITS | Encounter Summary ---
:1945 Author Organization [facility] [address] Care Team Providers Name Role Phone Tawanna Browning MAGI Primary Care Provider Reason for Visit Reason Comments Follow-up Encounter Details Date Type Department Care Team Description 11/07/2021 Office Visit Rheumatology at [facility] Aramis Griffin, PMR ([facility] rheumaticgoran) [place] [address] CENTER [phone] R[address]PT. [place] [address] Social History Tobacco Use Types Packs/Day Years Used Date Smoking Tobacco: Never Smokeless Tobacco: Never Alcohol Use Standard Drinks/Week Comments No 0 (1 standard drink = 0.6 oz pure alcoho l) Sex Assigned at Date Recorded Not on file documented as of this encounter Last Filed Vital Signs Vital Sign Reading Time Taken Comments Blood Pressure 124/71 11/07/2021 8:05 AM EST Pulse 87 11/07/2021 8:05 AM EST Temperature 36.4 ??C (97.6 ??F) 11/07/2021 8:05 AM EST Respiratory Rate 16 11/07/2021 8:05 AM EST Oxygen Saturation 99% 11/07/2021 8:05 AM EST Inhaled Oxygen Concentration - - Weight 70.4 kg (155 lb 3.3 oz) 11/07/2021 8:05 AM EST Height 162.6 cm (5' 4.02) 11/07/2021 8:05 AM EST Body Mass Index 26.63 11/07/2021 8:05 AM EST documented in this encounter Patient Instructions Patient InstructionsAramis Griffin MD - 11/07/2021 8:00 AM EST 1. Patient doing well so we will [...] but she may call or use my DH to reach out. 3. Follow-up with Ms. Carmen Salgado in 3 months or as needed. documented in this encounter Progress Notes Aramis Griffin MD - 11/07/2021 8:00 AM EST Subjective: Patient ID: Shena Lemus is a 76 y.o. female referred for polyarticular pain on 10/11/21. 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 There is nothing to suggest giant cell arteritis orseronegative rheumatoid arthritis. The proximal distribution of her joint involvement is quite characteristic of PMR as is the presentation. CRP 29 placed on Prednisone 20 mg in divided doses to good effect; f/u phone call wished to reduce to 5 bid because verapamil/fluoxetine for tic + headache were no longr working thought due to steroids Interval History: Subsequently reduced prednisone to 10 mg a day taken at bedtime because of symptoms related to lack of activity with fluoxetine and verapamil. She has had no symptoms. No morning stiffness anymore, no fevers, chills, visual disturbances. There have been no signs of infections all in all she is very happy with how she is doing although neither she nor I can explain of prednisone therapy altered the benefits that she has experienced from verapamil and fluoxetine. However I am using the prednisone at bedtime and reducing the dose to 10 mg a day these benefits seem to have returned she is otherwise doing well. 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 Not never smoker. Patient Active Problem List Diagnosis Code ??? Dermatochalasis of both upper eyelids H02.831, H02.834 Objective: Physical Exam BP 124/71 Pulse 87 Temp 36.4 ??C (97.6 ??F) (Temporal) Resp 16 Ht 162.6 cm (5'4.02) Wt 70.4 kg (155 lb 3.3 oz) LMP (LMP Unknown) Comment: postmenopausal SpO2 99% BMI 26.63 kg/m?? LMP (LMP Unknown) Comment: postmenopausal Healthy-appearing white female looking her stated age no longer walking gingerly due to knee pain and arthritis or having trouble arising from the chair without using her hands. Skin exam negative HEENT exam negative for temporal artery tenderness Neck exam supple Chest clear Cardiac exam normal no murmurs gallops or rubs. Abdomen no bruits nontender normal bowel sounds Extremity no clubbing cyanosis or edema Joint exam is significant for complete clearing of marked impairment of abduction in her shoulders. No longer has bilateral elbow flexion contractures of approximately 5??, wrist pain and tenderness,. 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 Hip exam decreased external rotation bilaterally. Knees no obvious effusions or warmth with tenderness on the medial tibial plateau and pain arising from a chair requiring the use of her hands Ankles: Normal Feet: Normal Neurologic exam no focal deficits. Assessment and Plan: The presentation is that of polymyalgia rheumatica superimposed on a background of erosive osteoarthritis of the hands and triggering of the fingers. There is nothing to suggest giant cell arteritis orseronegative rheumatoid arthritis. The proximal distribution of her joint involvement is quite characteristic of PMR as is the presentation and she has had a beautiful response to prednisone that has been maintained to 10 mg a day. Her steroid taper is planned and follow-up as needed in 3 months. Plan 1. Patient doing well so we [...] reach out. 3. Follow-up with Ms. Carmen Salgado in 3 months or as needed. Level 4 follow-up Aramis Griffin MD documented in this encounter Plan of Treatment Upcoming Encounters Date Type Specialty Care Team Description 10/10/2022 TH Visit Hematology and Oncology Elida Turcios (TeleHealth) [facility] HEMATOLOGY/ONCOLOGY DEPT. [place], [place] [address] (Wo rk) 11/02/2022 Office Visit Rheumatology Marisabel Salgado APRN [facility] RHEUMATOLOGY [place], [place] [address] (Wo rk) documented as of this encounter Visit Diagnoses Diagnosis PMR (polymyalgia rheumatica) Polymyalgia rheumatica documented in this encounter Care Teams Vision Therapist Relationship Specialty Start Date End Date Tawanna Browning APRN PCP - General Family Medicine 10/02/18 02/18/22 [address] [place] [address] documented as of this encounter
--- OUTSIDE RECORDS SUMMARY | 2022-09-29 01:30 | XMS_ITS | Encounter Summary ---
:1945 Author Organization [facility] [place] [address] Care Team Providers Name Role Phone Arlny Sweeney MD Primary Care Provider Reason for Visit Reason Comments Post Op Encounter Details Date Type Department Care Team Description 03/08/2017 Office Visit Ophthalmology at [facility] C Barb Kilpatrick, Dermatochalasis of both [facility] [place] [address] CENTER [phone] [place] [address] Social History Tobacco Use Types Packs/Day Years Used Date Smoking Tobacco: Never Alcohol Use Standard Drinks/Week Comments No 0 (1 standard drink = 0.6 oz pure alcoho l) Sex Assigned at Date Recorded Not on file documented as of this encounter Progress Notes Barb Kilpatrick MD - 03/08/2017 2:15 PM EDT Images from the original note were not included. No diagnosis found. Shena Lemus, a 71 y.o. female with the following problem(s): 1. POM#3 BUL bleph. Doing well, notices improvement in visual field. - good upper lid height and contour, well healed - discussed risk of recurrence - Findings and concerns discussed with Shena and she expressed understanding. FOLLOW UP - PRN Photo(s) taken by Barb Kilpatrick MD with patient's verbal permission for use for clinical and education purposes preop postop documented in this encounter Plan of Treatment Upcoming Encounters Date Type Specialty Care Team Description 10/10/2022 TH Visit Hematology and Oncology Elida Turcios , (TeleHealth) [facility] HEMATOLOGY/ONCOLOGY DEPT. [place], [place] [address] (Wo rk) 11/02/2022 Office Visit Rheumatology Marisabel Salgado APRN [facility] RHEUMATOLOGY [place], [place] [address] (Wo rk) documented as of this encounter Procedures Procedure Name Priority Date/Time Associated Diagnosis Comme nts EXTERNAL Routine 03/08/2017 2:19 Dermatochalasis of both R esults for this PHOTOGRAPHY - OU - PM EDT upper eyelids procedur e are in BOTH EYES the results section. documented in this encounter Results EXTERNAL PHOTOGRAPHY - OU- BOTH EYES (03/08/2017 2:19 PM EDT) Anatomical Region Laterality Modality Other Specimen (Source) Anatomical Location Collection Method / Collectio n Time Received Time / Laterality Volume Narrative 03/08/2017 2:19 PM EDT This result has an attachment that is no t available. Much improved lid position OU (see scann ed photo) Barb Kilpatrick MD OPHTHALMOLOGY SERVICES ORDER NATHAN documented in this encounter Visit Diagnoses Diagnosis Dermatochalasis of both upper eyelids documented in this encounter Care Teams Customer Logistics Manager Relationship Specialty Start Date End Date Arlyn Sweeney MD PCP - General 09/27/10 10/01/18 [address] [place] [address] documented as of this encounter
--- OUTSIDE RECORDS SUMMARY | 2022-09-29 01:30 | XMS_ITS | Encounter Summary ---
:1945 Author Organization [facility] [place] [address] Care Team Providers Name Role Phone Petra Serra Primary Care Provider Encounter Details Date Type Department Care Team Description 04/05/2022 Telephone Rheumatology at [facility] [place] [address] Social History Tobacco Use Types Packs/Day Years Used Date Smoking Tobacco: Never Smokeless Tobacco: Never Alcohol Use Standard Drinks/Week Comments No 0 (1 standard drink = 0.6 oz pure alcoho l) Sex Assigned at Date Recorded Not on file documented as of this encounter Miscellaneous Notes Telephone Encounter - Ilana Martinez - 04/05/2022 4:00 PM EDT Lm for pt to call and book a visit with Carmen Salgado. Sending letter documented in this encounter Plan of Treatment Upcoming Encounters Date Type Specialty Care Team Description 10/10/2022 TH Visit Hematology and Oncology Elida Turcios (TeleHealth) [facility] HEMATOLOGY/ONCOLOGY DEPT. [place], [place] [address] (Wo rk) 11/02/2022 Office Visit Rheumatology Marisabel Salgado APRN [facility] RHEUMATOLOGY [place] [address] (Wo rk) documented as of this encounter Visit Diagnoses Not on filedocumented in this encounter Care Teams Deodorizer Operator Relationship Specialty Start Date End Date Petra Serra DO PCP - General Family Medicine 02/19/[address] [place] [address] documented as of this encounter
--- OUTSIDE RECORDS SUMMARY | 2022-09-29 01:31 | XMS_ITS | Encounter Summary ---
:1945 Author Organization [place] [address] Care Team Providers Name Role Phone Arlyn Sweeney MD Primary Care Provider Reason for Visit Reason Comments Ptosis Consultation (Routine) - Closed Specialty Diagnoses / Procedures Referred By Contact Refer red To Contact Ophthalmology Diagnoses blepharoplasty Denisha rCuz MD Renz, Jennifer, MD Procedures consult, treat, eval [address] [place] OPHTHALMOLOGY DEPT [place], [place] [id number] [place] [address] Fax: Referral ID Status Reason Start Date Expiration Date Visits Requ ested Visits Authorized [id number] Closed 07/13/2016 07/13/2017 1 1 Encounter Details Date Type Department Care Team Description 11/09/2016 Office Visit Ophthalmology at [facility] C Barb Kilpatrick, Dermatochalasis of both [facility] [place] [address] CENTER [phone] [place] [address] Social History Tobacco Use Types Packs/Day Years Used Date Smoking Tobacco: Never Alcohol Use Standard Drinks/Week Comments No 0 (1 standard drink = 0.6 oz pure alcoho l) Sex Assigned at Date Recorded Not on file documented as of this encounter Progress Notes Barb Kilpatrick MD - 11/09/2016 3:15 PM EST Encounter Diagnosis Name Primary? Dermatochalasis of both upper eyelids Shena Lemus, a 71 y.o. female with the following problem(s): 1. Dermatochalasis of bilateral upper eyelids: causing obstruction of vision and affecting activities of daily living. Visually significant superior field loss of both eyes was demonstrated by Goldmannvisual spence, with 20-25 degrees of improvement noted with eyelid taping. Recommend repair with dermatochalasis excision OU. - Discussed risks, benefits, and alternatives to procedure including risk of bleeding, infection, recurrence, and need for more surgery and Shena expressed understanding. - Patient to avoid fish oil/omega 3s 14 days prior to procedure - Surgical orders entered - Surgical consent signed - pre-operative information packet given - surgical coordination initiated - Call with any problems or questions. - Findings and concerns discussed with Shena and she expressed understanding. FOLLOW UP - schedule for surgery. documented in this encounter Plan of Treatment Upcoming Encounters Date Type Specialty Care Team Description 10/10/2022 TH Visit Hematology and Oncology Elida Turcios (TeleHealth) [facility] HEMATOLOGY/ONCOLOGY DEPT. [place], [place] [address] (Wo rk) 11/02/2022 Office Visit Rheumatology Marisbael Salgado APRN [facility] RHEUMATOLOGY [place], [place] [address] (Wo rk) documented as of this encounter Procedures Procedure Name Priority Date/Time Associated Diagnosis Comme nts GOLDMANN VISUAL FIELD Routine 11/09/2016 4:47 Dermatochalasis of Results for this - INTERMEDIATE - OU- PM EST both upper eyelids p rocedure are in BOTH EYES the results section. BLEPHAROPLASTY UPPER, Routine 11/09/2016 4:44 Dermatochalasis of W/ EXCESS SKIN, GARETH PM EST both upper eyelids documented in this encounter Results GOLDMANN VISUAL FIELD - INTERMEDIATE - OU- BOTH EYES (11/09/2016 4:47 PM EST) Anatomical Region Laterality Modality Other Specimen (Source) Anatomical Location Collection Method / Collectio n Time Received Time / Laterality Volume Narrative 11/09/2016 4:47 PM EST Right Eye Reliability was good. Left Eye Reliability was good. Notes OD: superior visual field defect within 25 degrees of fixation, improves 20 degrees with lid taping OS: superior visual field defect within 20 degrees of fixation, improves 25 degrees with lid taping Barb Kilpatrick MD OPHTHALMOLOGY SERVICES ORDER NATHAN documented in this encounter Visit Diagnoses Diagnosis Dermatochalasis of both upper eyelids documented in this encounter Care Teams Grounds Supervisor Relationship Specialty Start Date End Date Arlyn Sweeney MD PCP - General 09/27/10 10/01/18 [address] [place] [address] documented as of this encounter
--- OUTSIDE RECORDS SUMMARY | 2022-09-29 01:31 | XMS_ITS | Encounter Summary ---
:1945 Author Organization [facility] [place] [address] Care Team Providers Name Role Phone Arlyn Sweeney MD Primary Care Provider Reason for Visit Auth/Cert Specialty Diagnoses / Procedures Referred By Contact Refer red To Contact Diagnoses visually significant dermatochalasis, bilateral upper eyelids Procedures PRO BLEPHAROPLASTY UPPER EYELID W/EXCESSIVE SKIN BLEPHAROPLASTY,UPPER EYELID, WITH EXCESSIVE SKIN, GARETH (WRVU 6.81) Referral ID Status Reason Start Date Expiration Date Visits Requ ested Visits Authorized [id number] 1 1 Encounter Details Date Type Department Care Team Description 12/11/2016 Hospital Encounter Outpatient Surgery Beatrice Kilpatrick MD On license of [facility] [place] [address] [place] [address] [phone] Social History Tobacco Use Types Packs/Day Years [...] closest emergency room or call the hospital utility operator yarn at [phone] and ask for physician inspector balance wheel motion covering for your physician. Questions or problems after 5pm or on a weekend: Call the [facility] utility operator yarn at and ask for the physician inspector balance wheel motion covering for your doctor. Patient Barb Wang [...] the ointment in the eye or an [id number]-[id number] artificial tear drop. Your bruising and swelling [...] Kilpatrick immediately. She may be reached at [phone]: PLEASE DO NOT HESITATE TO CALL IF YOU ARE HAVING A PROBLEM!! There is always a doctor inspector balance wheel motion at the eye clinic. documented in this [...] Kilpatrick MD - 12/11/2016 9:58 AM EST [facility] Operative Note Patient Name: Shena Lemus : [id number] MR#: [id number] Case Date: 12/11/2016 Surgeon: Surgeon(s) and Role: [...] Hematology and Oncology Elida Turcios , (TeleHealth) [facility] HEMATOLOGY/ONCOLOGY DEPT. [place], [place] [address] (Wo rk) 11/02/2022 Office Visit Rheumatology Marisabel Salgado APRN [facility] RHEUMATOLOGY [place], [place] [address] (Wo rk) documented as of this encounter Procedures Procedure Name Priority Date/Time Associated Diagnosis Comme nts BLEPHAROPLASTY,UPPER 12/11/2016 10:05 AM Dermatochalas is of both EYELID, WITH EST upper eyelids EXCESSIVE SKIN, GARETH (WRVU 6.81) documented in this encounter Visit Diagnoses Not [...] 9:49 AM EST 1,000 mLs 100 mL/hr documented in this encounter Active and Recently Administered Medications Times are shown in EST. Continuous Medication Order 12/09/2016 12/10/2016 12/11/2016 lactated ringers infusion 1,000 mL 0949 (New Bag - Provider: Arlyn Daniel RN)1005 (New Bag - Provider: Noa Wu CRNA)1041 (Anesthesia Volume Adjustment - Provider: Noa Wu CRNA) 1,000 mL, at 100 mL/hr, Intravenous, CON TINUOUS, Starting 12/11/16 at 1015, Until Sun12/11/16 at 1135, Day of Surgery (Day of Procedure) PRN Medication Order 12/09/2016 12/10/2016 12/11/2016 acetaminophen (TYLENOL) tablet 650 mg 650 mg, Oral, ONCE PRN, 1 dose, Starting 12/11/16 at 1142, Until Sun12/11/16 at 1344, Pain, [...] labeled sent with patient) ONCE PRN, Starting Sun12/11/16 at 1030, Intra-Operative (Intra-Pr ocedure) lidocaine (XYLOCAINE) 10 mg/mL (1 %) injection 3 mg 3 mg (0.3 mL), Subcutaneous, ONCE PRN, 1 dose, Starting Sun12/11/16 at 0945, Until Sun12/11/16 at 1135, for discomfort with PIV insertion, [...] Intravenous, EVERY 1 MIN PRN, S tarting Sun12/11/16 at 0945, Until Sun12/11/16 at 1135, flush, Flush pertains to all indwelling lines. Flush per protocol found in the job aid using the link provid ed on this medication record., Day of Surgery (Day of Procedure) , Routine tetracaine (PF) (PONTOCAINE) ophthalmic solution (CANCELED) 1031 (Given - Provider: Barb Kilpatrick MD - Comment: prior to prep) ONCE PRN, Starting Sun12/11/16 at 1031, U ntil Sun12/11/16 at 1344, Intra-Operative (Intra-Procedure), Routine documented in this encounter Care Teams Social Science Teacher Relationship Specialty Start Date End Date Arlyn Sweeney MD PCP - General 09/27/10 10/01/18 [address] [place] [address] documented as of this encounter
--- OUTSIDE RECORDS SUMMARY | 2022-09-29 01:33 | XMS_ITS | Encounter Summary ---
:1945 Author Organization [facility] Address [address] [place] [address] Care Team Providers Name Role Phone None, Provider Primary Care Provider Unavailable Reason for Visit Reason Comments Eye Problem Patient here for extra skin outer corner Right eye since having Bilateral blepharoplasty at [facility] 12/11.Bump RLL x 1.5 months. Bump is bothersome and itches. Other No dryness or eye pain. [facility] f ine both eyes. No flashes/floaters. RASHAWN was last eye at [facility]. Hx of gerhard ract surgery. No eye trauma. Consult (Routine) - Authorization Not Required Specialty Diagnoses / Procedures Referred By Contact Refer red To Contact Ophthalmology Diagnoses Unspecified ptosis of bilateral eyelids Unspecified disorder of eyelid [facility] Ophthalmology [address] [place], [place] [address] Phone: Fax: Referral ID Status Reason Start Expiration Visits Visits Date Date Requested Authorized [id number] Authorization Not 1 1 Required Encounter Details Date Type Department Care Team Description 10/25/2018 Office Visit [facility] Cherelle Lake MD Ophthalmology - [address], [facility] [address] [place], [place] [address] [place], [place] [phone] (Wo rk) Social History Tobacco Use Types Packs/Day Years Used Date Smoking Tobacco: Never Smokeless Tobacco: Never Sex Assigned at Date Recorded Not on file documented as of this encounter Discharge Diagnoses Diagnosis H57.819 Brow ptosis, unspecified-H57.819 [ICD-10-CM] H02.9 Unspecified disorder of eyelid-H02 .9[ICD-10-CM] Z96.1 Presence of intraocular lens-Z96.1 [ICD-10-CM] documented in this encounter Discharge Disposition Disposition Code Departure Means Destination Auto Discharge documented in this encounter Progress Notes Rosibel Lake MD - 10/25/2018 1400 EST Chief Complaint Patient presents with ??? Eye Problem Patient here for extra skin outer corner Right eye since having Bilateral blepharoplasty at [facility] 12/11/16.Bump RLL x 1.5 months. Bump is bothersome and itches. ??? Other No dryness or eye pain. [facility] fine both eyes. No flashes/floaters. RASHAWN was last eye at [facility]. Hx of cataract surgery. No eye trauma. HPI The patient is a 73 y.o. female seen for the first time for eval of extra skin outer corner Right eye since having Bilateral blepharoplasty at [facility] in 12/11/16. Bump RLL has been present for 6weeks, itis bothersome and itches. Vision is unchanged. No eye pain or dryness Hx of PCIOL. ROS Constitutional: ENT/Mouth NL Cardiovascular: NL Respiratory: NL Gastrointestinal: NL Genitourinary: NL Musculoskeletal: Integumentary: Neurologic: NL Psychiatric: Endocrine: NL Hematologic: NL Immunologic: NL Roadway Technician: Exposures: Other: Attestation: Allergies include: Patient has no allergy information on record. There is no problem list on file for this patient. Outpatient Medications Marked as Taking for the 10/25/18 encounter (Office Visit) with Rosibel Lake MD Medication Sig ??? FLUoxetine (PROZAC) 20 mg capsule Take 20 mg by mouth daily. ??? ibandronate (BONIVA) 150 mg tablet Take 150 mg by mouth every 30 days. ??? verapamil (CALAN) 120 mg tablet Take 180 mg by mouth 3 times daily. Base Eye Exam Visual Acuity (Snellen - Linear) Right Left Dist sc 20/25 +2 20/25 Near cc J1+ J1+ Tonometry (ICARE, 14:28) Right Left Pressure 13 12 Pupils Dark Light Shape React APD Right 3 2 Round Brisk None Left 3 2 Round Brisk None Visual Bond Right Left Full Full Extraocular Movement Right Left Full, Ortho Full, Ortho Neuro/Psych Oriented x3: Yes Mood/Affect: Normal Dilation Both eyes: paremyd @ 14:44 Additional Tests Color Right Left Ishihara 14 Slit Lamp and Fundus Exam External Exam Right Left External Brow ptosis Brow ptosis MRD1 3 mm 3 mm MRD2 5 mm 5 mm Levator 15 mm 14 mm Slit Lamp Exam Right Left Lids/Lashes nodule LL measures 2.5mm x 3mm Normal Conjunctiva/Sclera White and quiet White and quiet Cornea Clear Clear Anterior Chamber Deep and quiet Deep and quiet Iris Round and reactive, pharm dilated Round and reactive,pharm dilated Lens PCIOL PCIOL Vitreous Normal Normal Fundus Exam Right Left Disc Normal Normal C/D Ratio 0.4 0.4 Macula Normal Normal Vessels Normal Normal Periphery Normal Normal DIAGNOSTIC TESTS: IMPRESSION & PLAN: Encounter Diagnoses Name Primary? Brow ptosis Yes ??? Lesion of right eyelid ??? Pseudophakia of both eyes 1. Brow ptosis I think the redundant skin on her lid is actually due to some brow ptosis. We discussed treatment options. She would like to observe for now, and/or will discuss with Dr. Kilpatrick when she returns from maternity leave. 2. Lesion of right eyelid Discussed treatment options, including observation vs excision.?? Discussed risks of excision, including pain, bleeding, infection, need for additional surgery, scarring, recurrence.?? Patient would like to proceed.?? Will plan for excision in the treatment room under local anesthestic. 3. Pseudophakia of both eyes I have reviewed the patient's past medical, family, social and surgical history. I have also reviewed the patient's medications, allergies, and problem list. I performed my own HPI and have reviewed the [facility]'s ROS as well. I personally completed this exam myself. Rosibel Lake MD The patient was instructed to call our office or go to emergency room if worse vision, worse symptoms, or new/other concerns arise. documented in this encounter Plan of Treatment Not on filedocumented as of this encounter Visit Diagnoses Diagnosis Brow ptosis - Primary Unspecified ptosis of eyelid Lesion of right eyelid Pseudophakia of both eyes Lens replaced by other means documented in this encounter Historical Medications This list may reflect changes made after this encounter. Medication Sig Dispensed Refills Start Date End Date ibandronate (BONIVA) 150 mg Take 150 mg by mouth 0 tablet every 30 days. verapamil (CALAN) 120 mg Take 180 mg by mouth 0 tablet 3 times daily. FLUoxetine (PROZAC) 20 mg Take 20 mg by mouth 0 capsule daily. added in this encounter Eye Exam Visual Acuity (Snellen - Linear) Right eye Left eye Dist sc 20/25 +2 20/25 Near cc J1+ J1+ Tonometry (ICARE, 14:28) Right eye Left eye Pressure 13 12 Pupils Dark Light Shape React APD Right eye 3 2 Round Brisk None Left eye 3 2 Round Brisk None Visual Bond Right eye Left eye Full Full Extraocular Movement Right eye Left eye Full, Ortho Full, Ortho Neuro/Psych Oriented x3: Yes Mood/Affect: Normal Dilation Both eyes: paremyd @ 14:44 Color Right eye Left eye Ishihara External Exam Right eye Left eye External Brow ptosis Brow ptosis Slit Lamp Exam Right eye Left eye Lids/Lashes nodule LL measures 2.5mm x 3mm Normal Conjunctiva/Sclera White and quiet White and quiet Cornea Clear Clear Anterior Chamber Deep and quiet Deep and quiet Iris Round and reactive, pharm dilated Round and reactive,pharm dilated Lens PCIOL PCIOL Vitreous Normal Normal Fundus Exam Right eye Left eye Disc Normal Normal C/D Ratio 0.4 0.4 Macula Normal Normal Vessels Normal Normal Periphery Normal Normal External Right eye Left eye MRD1 3 mm 3 mm MRD2 5 mm 5 mm Levator 15 mm 14 mm Care Teams Supervisor Quilting Relationship Specialty Start Date End Date None, Provider PCP - General 10/08/18 documented as of this encounter
--- OUTSIDE RECORDS SUMMARY | 2022-09-29 01:33 | XMS_ITS | Encounter Summary ---
:1945 Author Organization [facility] Address [address] [place] [address] Care Team Providers Name Role Phone Unavailable Primary Care Provider Unavailable Encounter Details Date Type Department Care Team Description 11/01/2006 Results Only [facility] - Raven Luna FNP conversion [address] [place], [place] [id number] [place] [phone] (Wo rk) Social History Tobacco Use Types Packs/Day Years Used Date Smoking Tobacco: Never Assessed Sex Assigned at Date Recorded Not on file documented as of this encounter Plan of Treatment Not on filedocumented as of this encounter Procedures Procedure Name Priority Date/Time Associated Diagnosis Comme nts CYTOPATHOLOGY Routine 11/01/2006 0:00 EST Results for this procedure are i n the results section . documented in this encounter Results CYTOPATHOLOGY (11/01/2006 0:00 EST) Component Value Ref Test Analysis Performed At [facility] Method Time Signature Pathology CYTOPATHOLOGY REPORT JAVI Report: [facility] Reports generated via electronic interface contain original data; however they are lacking the format of the original report. Caution should be taken when reading/interpreting unformatte d reports. Name: ? DIMITRI LUIS ? Accession #: ? [id number] : ? 1945 (Age: 61) ??F ?Collect Date: ? 11/01/2006 Location: ? [facility] ? Receive Date: ? 11/06/2006 Provider: ?RAVEN PEREZ RETAIL SALESMAN Copy to: ? Specimen/Source: ? ThinPrep Pap Test, Cervix/Endocervix, processed on [employer] ThinPrep Imaging System, with manual evaluation Last Menstrual Period: ? SPECIMEN ADEQUACY ? Unsatisfactory for Evaluation, - insufficient numbers of squamous epith elial cells (less than 10% of expected cellularity) GENERAL CATEGORIZATION ? Specimen processed and examined, but unsatisfac tory for evaluation of epithelial abnormality. Recommend repeat Pap test or further follow up, as clinicall y indicated. ? Document reviewed and electronically signed by: ? BROOKS Weldon(ASCP) ? Report Date: ??11/09/2006 09:00 End of Report Specimen (Source) Anatomical Location Collection Method / Collectio n Time Received Time / Laterality Volume 11/01/2006 11/06/2006 Raven Perez RETAIL SALESMAN PATHOLOGY ORDERABLES Performing Organization Address City/State/ZIP Code Phon e Number [facility] [address] [place] [address] SERVICES [facility] [address] [place] [address] documented in this encounter Visit Diagnoses Not on filedocumented in this encounter
--- OUTSIDE RECORDS SUMMARY | 2022-09-29 01:33 | XMS_ITS | Clinical Summary ---
:1945 Author Organization [facility] Address [address] [place] [address] Care Team Providers Name Role Phone None, Provider Primary Care Provider Unavailable Allergies No known active allergies Medications Medication Sig Dispensed Refills Start Date End Date Status FLUoxetine (PROZAC) 20 Take 20 mg by 0 Active mg capsule mouth daily. verapamil (CALAN) 120 Take 180 mg by 0 Active mg tablet mouth 3 times daily. ibandronate (BONIVA) Take 150 mg by 0 Active 150 mg tablet mouth every 30 days. Active Problems No known active problems Surgical History Surgery Date Site/Laterality Comments INTRAOCULAR LENS PROSTHESIS INSERTION Bilateral CATARACT REMOVAL Bilateral Family History Medical History Relation Comments Cataract Mother Blindness Neg Hx Glaucoma Neg Hx Keratoconus Neg Hx Macular Degeneration Neg Hx Retinitis Pigmentosa Neg Hx Relation Status Comments Mother Social History Tobacco Use Types Packs/Day Years Used Date Smoking Tobacco: Never Smokeless Tobacco: Never Sex Assigned at Date Recorded Not on file Obstetrics History Plan of Treatment Health Maintenance Due Date Last Done Comments Hepatitis C Screen 1945 COVID-19 Vaccine (#1) 1945 Fall Risk Screening 2008 Care Teams Special Diet Cook Relationship Specialty Start Date End Date None, Provider PCP - General 10/08/18
--- OUTSIDE RECORDS SUMMARY | 2022-09-29 01:33 | XMS_ITS | Encounter Summary ---
:1945 Author Organization [facility] Address [address] [place] [address] Care Team Providers Name Role Phone None, Provider Primary Care Provider Unavailable Encounter Details Date Type Department Care Team Description 09/21/2021 Lab Requisition [facility] Outr Resulting Lab, Pathology & Laboratory Provider [facility] [address] [place] [address] Social History Tobacco Use Types Packs/Day Years Used Date Smoking Tobacco: Never Smokeless Tobacco: Never Sex Assigned at Date Recorded Not on file documented as of this encounter Plan of Treatment Not on filedocumented as of this encounter Procedures Procedure Name Priority Date/Time Associated Diagnosis Comme nts ANTI DNA (DOUBLE Routine 09/21/2021 9:05 EST Resu lts for this STRANDED) procedure are i n the results section. documented in this encounter Results ANTI DNA (DOUBLE STRANDED) (09/21/2021 9:05 EST) P athologist Signature Anti-DNA <12.3 <30.0 09/23/2021 [facility] (Double IU/mL 13:22 EST CENTER Stranded) LABORATORY SERVICES Comment: ? Negative: ??<30.0 IU/mL ? Borderline Positive: ??30.0 - 75.0 IU/mL ? Positive: ??>75.0 IU/mL Results were obtained with the [employer] LORAINE NTA Lite dsDNA SC [place] assay on the [employer] DSX. Specimen Anatomical Collection Method Collection Time Receive d Time (Source) Location / / Volume Laterality Blood VENOUS BLOOD / 09/21/2021 9:05 09/21/2021 Unknown EST 21:10 EST Provider Outr Resulting Lab IMMUNOLOGY AND SEROLOGY OR DERABLES Performing Organization Address City/State/[facility] Code Phon e Number [facility] [address] [place] [address] SERVICES documented in this encounter Visit Diagnoses Not on filedocumented in this encounter Care Teams Casting Inspector Relationship Specialty Start Date End Date None, Provider PCP - General 10/08/18 documented as of this encounter
--- OUTSIDE RECORDS SUMMARY | 2022-09-29 01:33 | XMS_ITS | Encounter Summary ---
:1945 Author Organization [facility] Address [address] [place] [address] Care Team Providers Name Role Phone Unavailable Primary Care Provider Unavailable Encounter Details Date Type Department Care Team Description 08/21/2005 Results Only [facility] - Raven Luna FNP conversion [address] [place], [place] [id number] [place] [phone] (Wo rk) Social History Tobacco Use Types Packs/Day Years Used Date Smoking Tobacco: Never Assessed Sex Assigned at Date Recorded Not on file documented as of this encounter Plan of Treatment Not on filedocumented as of this encounter Procedures Procedure Name Priority Date/Time Associated Diagnosis Comme nts CYTOPATHOLOGY Routine 08/21/2005 0:00 EDT Results for this procedure are i n the results section . documented in this encounter Results CYTOPATHOLOGY (08/21/2005 0:00 EDT) Component Value Ref Test Analysis Performed At [facility] Method Time Signature Pathology CYTOPATHOLOGY REPORT JAVI Report: [facility] Reports generated via electronic interface contain original data; however they are lacking the format of the original report. Caution should be taken when reading/interpreting unformatte d reports. Name: ? DIMITRI LUIS ? Accession #: ? [id number] : ? 1945 (Age: 60) ??F ?Collect Date: ? 08/21/2005 Location: ? [facility] ? Receive Date: ? 08/23/2005 Provider: ?RAVEN CHA MOTOR VEHICLE COMPLIANCE ANALYST Copy to: ? Specimen/Source: ? ThinPrep Pap Test, Cervix/Endocervix, processed on [employer] ThinPrep Imaging System, with manual evaluation Last Menstrual Period: ? grace Other: ? HPVA - HPV testing requested if ASC-US on the current ThinPr ep Pap test. ? SPECIMEN ADEQUACY ? Unsatisfactory for Evaluation, - insufficient numbers of squamous epith elial cells (less than 10% of expected cellularity) GENERAL CATEGORIZATION ? Specimen processed and examined, but unsatisfac tory for evaluation of epithelial abnormality. Recommend repeat Pap test or further follow up, as clinicall y indicated. ? Document reviewed and electronically signed by: ? BROOKS Cole(ASCP) ? Report Date: ??08/31/2005 12:03 End of Report Specimen (Source) Anatomical Location Collection Method / Collectio n Time Received Time / Laterality Volume 08/21/2005 08/23/2005 Raven BURGOS PATHOLOGY ORDERABLES Performing Organization Address City/State/ZIP Code Phon e Number [facility] [address] [place] [address] SERVICES [facility] [address] [place] [address] documented in this encounter Visit Diagnoses Not on filedocumented in this encounter
--- OUTSIDE RECORDS SUMMARY | 2022-09-29 01:33 | XMS_ITS | Encounter Summary ---
:1945 Author Organization [facility] Address [address] [place] [address] Care Team Providers Name Role Phone Unavailable Primary Care Provider Unavailable Encounter Details Date Type Department Care Team Description 02/05/2008 Results Only [facility] - Raven Luna FNP conversion [address] [place], [place] [phone] [place] [phone] (Wo rk) Social History Tobacco Use Types Packs/Day Years Used Date Smoking Tobacco: Never Assessed Sex Assigned at Date Recorded Not on file documented as of this encounter Plan of Treatment Not on filedocumented as of this encounter Procedures Procedure Name Priority Date/Time Associated Diagnosis Comme nts CYTOPATHOLOGY Routine 02/05/2008 0:00 EDT Results for this procedure are i n the results section . documented in this encounter Results CYTOPATHOLOGY (02/05/2008 0:00 EDT) Component Value Ref Test Analysis Performed At [facility] Method Time Signature Pathology CYTOPATHOLOGY REPORT JAVI Report: [facility] Reports generated via electronic interface contain original data; however they are lacking the format of the original report. Caution should be taken when reading/interpreting unformatte d reports. Name: ? DIMITRI LUIS ? Accession #: ? [id number] : ? 1945 (Age: 62) ??F ?Collect Date: ? 02/05/2008 Location: ? [facility] ? Receive Date: ? 02/06/2008 Provider: ?RAVEN CHA WASTE COLLECTION DRIVER Copy to: ? Specimen/Source: ? ThinPrep Pap Test, Cervix/Endocervix, processed on [employer] ThinPrep Imaging System, with manual evaluation Last Menstrual Period: ? AWILDA Other: ? HPVA - HPV testing requested if ASC-US on the current ThinPr ep Pap test. ? SPECIMEN ADEQUACY ? Satisfactory for Evaluation - assessment of transformation zone component not appl icable ( e.g. atrophy, vaginal sample, hysterectomy) - scant squamous epithelial component GENERAL CATEGORIZATION ? Negative for Intraepithelial Lesion or Malignancy ? Document reviewed and electronically signed by: ? BROOKS Weldon(ASCP) ? Report Date: ??02/11/2008 14:15 End of Report Specimen (Source) Anatomical Location Collection Method / Collectio n Time Received Time / Laterality Volume 02/05/2008 02/06/2008 Raven BURGOS PATHOLOGY ORDERABLES Performing Organization Address City/State/ZIP Code Phon e Number [facility] [address] [place] [address] SERVICES [facility] [address] [place] [address] documented in this encounter Visit Diagnoses Not on filedocumented in this encounter
--- OUTSIDE RECORDS SUMMARY | 2022-09-29 01:33 | XMS_ITS | Encounter Summary ---
:1945 Author Organization [facility] Address [address] [place] [address] Care Team Providers Name Role Phone None, Provider Primary Care Provider Unavailable Encounter Details Date Type Department Care Team Description 09/07/2021 Lab Requisition [facility] Outr Resulting Lab, Pathology & Laboratory Provider [facility] [address] [place] [address] Social History Tobacco Use Types Packs/Day Years Used Date Smoking Tobacco: Never Smokeless Tobacco: Never Sex Assigned at Date Recorded Not on file documented as of this encounter Plan of Treatment Not on filedocumented as of this encounter Procedures Procedure Name Priority Date/Time Associated Comments Diagnosis LYME ANTIBODY Today 09/06/2021 15:45 Results fo r this CONFIRMATION EDT procedure are i n the results section. LYME AB Routine 09/06/2021 15:45 Results for this EDT procedure are i n the results section. RHEUMATOID FACTOR Routine 09/06/2021 15:45 Result s for this EDT procedure are i n the results section. ANTI NUCLEAR AB Routine 09/06/2021 15:45 Results for this (NAJMA), IFA EDT procedure are i n the results section. documented in this encounter Results (ABNORMAL) LYME ANTIBODY CONFIRMATION (09/06/2021 15:45 EDT) [facility] Method Time Signature Lyme IgG Positive (A) Negative 09/08/2021 [facility] Antibody 12:01 EDT [facility] Comment: Specific anti-Borrelia burgdorf ei IgG antibodies are detected. Lyme IgM Antibody Positive (A) Negative 09/08/2021 12:01 EDT [facility] Comment: Specific anti-Borrelia burgdorf ei IgM antibodies are detected. Lyme Antibody See Comment 09/08/2021 12:01 EDT [facility] Confirmation LABORATORY SERVIC ES Interpretation Comment: Indicative of active or previou s B. burgdorferi infection. Lyme IgM is of diagnostic utility only during the first four weeks after the onset of disease. Specimen Anatomical Collection Method Collection Time Receive d Time (Source) Location / / Volume Laterality Blood VENOUS BLOOD / 09/06/2021 15:45 1 Unknown EDT 16:05 EDT Narrative [facility] - 09/08/2021 12:01 EDT New methodology in use 05/23/2021. Provider Outr Resulting Lab IMMUNOLOGY AND SEROLOGY OR DERABLES Performing Organization Address City/[facility] Code Phon e Number [facility] [address] [place] [address] SERVICES (ABNORMAL) LYME AB (09/06/2021 15:45 EDT) Analysis Performed At Patho logist Time Signature Lyme Ab Positive (A) Negative 09/08/2021 [facility] 10:58 EDT [facility] Comment: Lyme confirmation added by reflex. The [employer] Lyme Liaison Lyme Total Ant ibody Plus assay contains antigens from Borrelia burgdorferi, Borrelia garinii, and Borelia afzelli. Results from the second-step confirmation tests that detect o nly B. burgdorferi specific antigens ward uld be interpreted with caution. Specimen Anatomical Collection Method Collection Time Receive d Time (Source) Location / / Volume Laterality Blood VENOUS BLOOD / 09/06/2021 15:45 1 Unknown EDT 16:05 EDT Provider Outr Resulting Lab IMMUNOLOGY AND SEROLOGY OR DERABLES Performing Organization Address City/State/ZIP Code Phon e Number [facility] [address] [place] [address] SERVICES RHEUMATOID FACTOR (09/06/2021 15:45 EDT) P athologist Signature Rheumatoid <8.6 <12.0 09/07/2021 [facility] Factor IU/mL 16:29 EDT [facility] Specimen Anatomical Collection Method Collection Time Receive d Time (Source) Location / / Volume Laterality Blood VENOUS BLOOD / 09/06/2021 15:45 1 Unknown EDT 16:05 EDT Provider Outr Resulting Lab CHEMISTRY & BLOOD GAS ORDE RABLES Performing Organization Address City/[facility]/ZIP Code Phon e Number [facility] [address] [place] [address] SERVICES (ABNORMAL) ANTI NUCLEAR AB (NAJMA), IFA (09/06/2021 15:45 EDT) [facility] Method Time Signature NAJMA Positive Negative 09/08/2021 [facility] Interpretation (A) 16:04 EDT [facility] Comment: For titers greater than or equal to 1:16 0 (except the centromere and nucleolar patterns) it is recommended that specific follow-up autoantibody testing ??(such as for dsDNA and Extractable Nuclear Antig ens) be performed on all diffuse and/or speckled patterns NOTE: For add-on testing dsDNA is stable for 7 days refrigerated while Extractable Nuclear Antigens are only stable for 48 hours refrigerated. Cytoplasmic Pattern Noted, Speckled Cytoplasmic Pattern Noted, Reticular/Todd ochondrion-like NAJMA Titer and 1:640 Speckled 09/08/2021 16:04 EDT [facility] Pattern 1 LABORATORY SERVICES Specimen Anatomical Collection Method Collection Time Receive d Time (Source) Location / / Volume Laterality Blood VENOUS BLOOD / 09/06/2021 15:45 1 Unknown EDT 16:05 EDT Narrative [facility] - 09/08/2021 16:04 EDT Results were obtained with the INOVA NOV A Lite HEp-2 NAJMA Kit by indirect immunofluorescence. Provider Outr Resulting Lab IMMUNOLOGY AND SEROLOGY OR DERABLES Performing Organization Address City/[facility]/ZIP Code Phon e Number [facility] [address] [place] [address] SERVICES documented in this encounter Visit Diagnoses Not on filedocumented in this encounter Care Teams Space Systems Operations Manager Relationship Specialty Start Date End Date None, Provider PCP - General 10/08/18 documented as of this encounter
--- OUTSIDE RECORDS SUMMARY | 2022-09-29 01:33 | XMS_ITS | Encounter Summary ---
:1945 Author Organization [facility] Address [address] [place] [address] Care Team Providers Name Role Phone None, Provider Primary Care Provider Unavailable Encounter Details Date Type Department Care Team Description 11/10/2021 Lab Requisition [facility] Outr Resulting Lab, Pathology & Laboratory Provider [facility] [address] [place] [address] Social History Tobacco Use Types Packs/Day Years Used Date Smoking Tobacco: Never Smokeless Tobacco: Never Sex Assigned at Date Recorded Not on file documented as of this encounter Plan of Treatment Not on filedocumented as of this encounter Procedures Procedure Name Priority Date/Time Associated Diagnosis Comme nts CHRONIC HEPATITIS Routine 11/10/2021 6:26 EST Res ults for this PROFILE, UNKNOWN procedure a re in TYPE the results section. documented in this encounter Results CHRONIC HEPATITIS PROFILE, UNKNOWN TYPE (11/10/2021 6:26 EST) [facility] Method Time Signature Hep B Surface Ag Negative Negative 11/11/2021 [facility] 10:29 [facility] Hep B Surface <3.1 See Note 11/11/2021 [facility] Ab, Quantitative mIU/mL 10:29 [facility] Comment: Reference Range for Hep B Surface Ab, Qu ant: Positive: >= 10.0 mIU/mL Negative: ??< 10.0 mIU/mL Patient is presumed to not be immune to infection with Hepatitis B Virus. Hep B Surface Ab, Negative See Note 11/11/2021 10:29 EST [facility] Qualitative LABORATORY SERVICE S Comment: Reference Range for Hep B Surface Ab, Qu al: Unvaccinated: ??Negative Vaccinated: ??Positive Hepatitis B Core Ab, Negative Negative 11/11/2021 10:29 ES T [facility] Total LABORATORY SERVICES Hep C Antibody Negative Negative 11/11/2021 10:29 EST [facility] Specimen Anatomical Collection Method Collection Time Receive d Time (Source) Location / / Volume Laterality Blood VENOUS BLOOD / 11/10/2021 6:26 11/10/2021 Unknown EST 17:18 EST Provider Outr Resulting Lab CHEMISTRY & BLOOD GAS WENDY KIDD Performing Organization Address City/State/ZIP Code Phon e Number [facility] [address] [place] [address] SERVICES documented in this encounter Visit Diagnoses Not on filedocumented in this encounter Care Teams [employer] Director Relationship Specialty Start Date End Date None, Provider PCP - General 10/08/18 documented as of this encounter
[2022-09-29 11:53] LABS: HCT 35.8 % (36.0-46.0); HGB 11.5 g/dL (11.2-15.7); MCH 31.4 pg (27.0-33.0); MCHC 32.1 % (32.0-36.0); MCV 98 fL (80-95); Platelet Count 345 10^3/uL (130-400); RBC 3.66 10^6/uL (3.93-5.22); RDW 12.8 % (11.7-14.6); RDW-SD 46.2 fL; WBC 8.57 10^3/uL (4.4-10.8)
[2022-09-29 12:53] LABS: ALT 24 U/L (14-59); AST 16 U/L (15-37); Albumin 3.6 g/dL (3.4-5.0); Alkaline Phosphatase 73 U/L (46-116); BUN 26 mg/dL (7-18); Bilirubin, Total 0.4 mg/dL (0.2-1.0); CREATININE 1.2 mg/dL (0.55-1.02); Calcium 9.5 mg/dL (8.5-10.1); Chloride 101 mmol/L (98-107); Estimated GFR 46.05 (mL/min/1.73m2); Glucose 103 mg/dL (74-106); Potassium 3.9 mmol/L (3.5-5.1); Sodium 138 mmol/L (136-145); Total Protein 7.4 g/dL (6.4-8.2)
[2022-09-29 13:16] LABS: Vitamin D 25 Total 35.5 ng/mL (30-100)
== END 2022-09-29 01:29 | disposition home or self-care (01) ==
LOC: LBO 01:29
PROVIDERS: PCP Student in an Organized Health Care Education/Training Program; Visit Provider Student in an Organized Health Care Education/Training Program
DX: R16.0 Hepatomegaly, not elsewhere classified (principal); Z91.89 Other specified personal risk factors, not elsewhere classified; H53.2 Diplopia; M81.0 Age-related osteoporosis without current pathological fracture
CPT/HCPCS: 36415; 80053; 82306; 85027

== ENCOUNTER → 2022-10-09 03:16 | Outpatient (CLI) | payer MEDICARE, SELFPAY ==
--- NOTE | 2022-10-09 | DI.US_ITS ---
Exam(s) US ABDOMEN LIMITED EXAM: US ABDOMEN LIMITED CLINICAL HISTORY: RUQ US TO FOLLOW LIVER MASS, R16.0 TECHNIQUE: Ultrasound abdomen performed using standard protocol. COMPARISON: CT CT CHEST PE CTA from 11/09/2021 US US ABDOMEN LIMITED from 11/10/2021 FINDINGS: GALLBLADDER: No evidence of cholelithiasis. No evidence of wall thickening. No pericholecystic fluid identified. ZAMORANO'S SIGN: Negative. BILIARY SYSTEM: No intrahepatic or extrahepatic biliary ductal dilation. RIGHT KIDNEY: Normal size. No evidence of renal calculi. No evidence of hydronephrosis. No suspicious renal mass. No cyst identified. PANCREAS: Normal where visualized. ABDOMINAL AORTA AND IVC: Visualized portions normal caliber. ASCITES: None seen. LIVER: Normal size and echogenicity. Stable size 3.7 centimeter cyst with septation at the dome of t he right lobe of the liver. No additional lesions... IMPRESSION: Stable liver cyst. DATA REPOSITORY:
== END ==
PROVIDERS: PCP Student in an Organized Health Care Education/Training Program; Visit Provider Internal Medicine Hematology & Oncology
DX: R16.0 Hepatomegaly, not elsewhere classified (principal); K76.89 Other specified diseases of liver
CPT/HCPCS: 76705

== ENCOUNTER → 2022-10-27 00:12 | Outpatient (CLI) | payer MEDICARE, SELFPAY ==
--- NOTE | 2022-10-27 10:40 | DI.MRI_ITS ---
Exam(s) MR THORACIC SPINE WO EXAM: MR THORACIC SPINE WO CLINICAL HISTORY: COMP FX T8,S22.060D,CLOSED WEDGE COMP FX,S22.040D. TECHNIQUE: Multiplanar multisequence MRI of the Thoracic spine was performed. COMPARISON: CR XR THORACIC SPINE COMPLETE from 06/16/2022 FINDINGS: Bones: There is mild compression of the superior endplate of T4. There is very mild hyperintense sig nal seen on the T2 weighted images in this vertebral body. The T5 compression deformity appears brim plater conor. Since the x-ray from 06/16/2022 there is now a compression fracture deformity of T6 which shows mild hyperintense signal suggesting a a subacute fracture. There is also now compression fracture de formity of T7. There is loss of approximately 20 percent of the height of the vertebral body anterio rly. There is hyperintense signal seen in the superior aspect suggestive of a subacute fracture. Ne ither of these were present on the x-ray from 06/16/2022. There is a superior compression fracture de formity of T8 which appears to have slightly progressed since the prior x-ray from 06/16/2022. The si gnal suggests a subacute fracture. The subacute fracture in the T11 vertebral body appears stable. There is exaggeration of the kyphosis in the thoracic spine. Cord: The thoracic cord is normal size and signal intensity. No intrinsic cord lesion is present. Discs: There are mild diffuse disc bulges at several levels in the thoracic spine but no significant central spinal canal or neural foraminal stenosis is present. Soft tissues: Normal. IMPRESSION: 1. Stable subacute T11 compression fracture deformity. 2. Mild progression of the superior compression fracture deformity of T8 since 06/16/2022. 3. New anterior wedging compression deformities of T6 and T7 since 06/16/2022. 4. Subacute T4 compression fracture deformity. 5. Chronic T5 compression deformity. DATA REPOSITORY:
== END ==
PROVIDERS: PCP Student in an Organized Health Care Education/Training Program; Visit Provider Student in an Organized Health Care Education/Training Program
DX: M54.6 Pain in thoracic spine (principal); S22.060D Wedge compression fracture of T7-T8 vertebra, subsequent encounter for fracture with routine healing; S22.040D Wedge compression fracture of fourth thoracic vertebra, subsequent encounter for fracture with routine healing; S22.050A Wedge compression fracture of T5-T6 vertebra, initial encounter for closed fracture; S22.080D Wedge compression fracture of T11-T12 vertebra, subsequent encounter for fracture with routine healing
CPT/HCPCS: 72146

== ENCOUNTER 2022-11-12 12:19 | Emergency (ER) | payer MEDICARE, SELFPAY ==
[2022-11-12 12:26] VITALS: BP 142/90; PULSE 97; RESP 17; TEMP 36.6; O2SAT 95
--- NOTE | 2022-11-12 12:49 | ED.GENADUL_ITS ---
Discharge Plan Disposition Patient Disposition: Home Condition: Stable Discharge Details Clinical Impression: Closed rib fracture Primary Care Provider: Petra Serra ED Provider: Francie Álvarez Home Meds and New Rx's Prescriptions: New oxycodone 5 mg tablet 5 mg PO TID PRN (Reason: pain) Qty: 7 0RF Continued verapamil 180 mg tablet extended release 180 mg PO DAILY Qty: 90 3RF Rx Instructions: facial tic fluoxetine 20 mg capsule 20 mg PO QAM Qty: 90 3RF Rx Instructions: migraine management .. SENDING RX FOR PRICING ... calcium citrate-vitamin D3 500 mg-12.5 mcg (500 unit) tablet,chewable 1 tab PO DAILY Qty: 90 1RF Rx Instructions: Continue D per Rheum note dated 05/30/22 cgc (combo w/ Ca, ik) diphenhydramine-acetaminophen [Tylenol PM Extra Strength] 25-500 mg tablet 1 tab PO QHS PRN (Reason: pain) Qty: 90 0RF prednisone 1 mg tablet 4 mg PO DAILY Qty: 100 1RF Rx Instructions: Continuing. Rheum increase. apixaban 2.5 mg tablet 2.5 mg PO BID Qty: 180 1RF Rx Instructions: Reduced dose per 10/2022 Heme note gabapentin 100 mg capsule 100 mg PO TID Qty: 90 1RF Rx Instructions: Continuing TM Rx .. consider 300 qHS multivitamin 1 EACH capsule 1 ea PO DAILY calcium carbonate [Oyster Shell Calcium 500] 500 mg calcium (1,250 mg) Tablet 500 mg PO DAILY Discharge Instructions Instructions: Rib Fracture (ED) Additional Instructions: Your imaging was concerning for 2 rib fractures. Please encourage hydration. Please continue with Tylenol as needed for discomfort. Please do not take more than 3000 mg of Tylenol daily. Please encourage gentle stretching. You may use lidocaine patches which are available [id number] to help with discomfort. You may augment this with the oxycodone as prescribed if your pain is not sufficiently controlled. Please take this only as prescribed. Do not drink alcohol or drive while using this medication and stored in a safe place. Please note that this can make you dizzy or drowsy and please stop if symptoms increase. Please use your incentive spirometer at least 6 times daily to ensure you are taking deep breaths to help prevent pneumonia. Please discuss pain and stretching further with your physical therapy team. Please follow-up with your primary care in the next 2 weeks for reevaluation. If you develop shortness of breath, difficulty breathing or other new/worsening symptom please seek care urgently once again. Referrals: Petra Serra DO [Primary Care Provider] - Medical Decision Making Patient is a pleasant 77-year-old female with past medical history of polymyalgia rheumatica, compression fractures of thoracic spine, PE, anticoagulated on Eliquis, presented with chief complaint of right-sided back pain. She reports that 4 days ago she was standing on a chair trying to get something out of a truck when she fell after her feet slipped. She landed on the right side of her back and rolled. She denies striking her head. No loss of conscious. Denies any visual change. No headache, nausea or vomiting subsequently. Denies any pain in her neck. Denies any midline spinous pain. States that she is having pain with deep inspiration. She denies any change in bowel or bladder habits. Denies any sensory changes. No numbness or tingling. Denies any weakness. States the pain is maximal when she is laying supine or when she tries to twist. On exam, patient appears nontoxic. Her lungs are clear. No abdominal tenderness. No saddle paresthesias. She has 5-5 strength equal bilaterally in the lower extremities. Rotation to the right and left is quite limited secondary to pain in the right ribs laterally. She does have a small area of ecchymosis around ribs 5 through 7 posterior lateral. This area is focally tender for the patient and she does have small amount of swelling here. Her history and exam is not suggestive of cauda equina. She is not having any midthoracic pain. Exam is most consistent with a rib fracture. Will obtain x- ray. She did take Tylenol for her discomfort. We discussed supportive care measures and will apply Lidoderm patch. FINDINGS: Lungs: Bibasilar infiltrates. Low lung volumes. Pleural spaces: Blunted posterior costophrenic angles. Heart/Mediastinum: Retrocardiac gastric hernia. Stable cardiomediastinal silhouette. Bones/joints: Multiple midthoracic compression deformities. Multilevel degenerative scoliotic changes of the thoracic spine. Suspect right 4th and 5th anterolateral rib fractures. Degenerative changes of the shoulders. IMPRESSION: 1. Bilateral infiltrates. 2. Suspect right 4th and 5th anterolateral rib fractures. 3. Degenerative scoliotic changes of the thoracic spine with multiple midthoracic compression deformities. 4. Additional findings as discussed above Compared to CT scan dated 03/05/2022, patient did have bilateral infiltrates at that time. She does report that she has chronic shortness of breath with no acute change in this. She denies any cough, congestion, fevers, increased sputum production. At this time, I do not believe these infiltrates are infective but rather from chronic disease. While her pain is improving with the Lidoderm patch, will give p.o. oxycodone. She reports that she has had this historically and has done well with this medication. She is not driving. Advised on safe usage. Advised that she keep the stored in a safe place and try with nonopioid analgesics first and only to augment with this if unsuccessful. Patient has a incentive spirometer at home and will begin using this again. We did discuss the importance of being ambulatory and stretching. I encouraged her to sleep in a more upright position to help with symptomatic management. We discussed further supportive care and encourage close follow-up with her primary. Return precautions discussed. All of her questions and concerns were addressed and she is in agreement this plan. HPI General Date/Time Provider Initiated Documentation: 11/12/22 12:48 . Related Data Home Medications Medication Instructions Recorded Confirmed multivitamin 1 ea PO DAILY 07/31/15 11/12/22 fluoxetine 20 mg capsule 20 mg PO QAM #90 caps 01/05/22 11/12/22 verapamil 180 mg tablet,extended 180 mg PO DAILY #90 tabs 01/05/22 11/12/22 release calcium citrate 500 mg-vitamin D3 1 tab PO DAILY #90 tabs 09/26/22 11/12/22 12.5 mcg (500 unit) chewable tablet diphenhydramine 25 1 tab PO QHS PRN pain #90 tabs 09/27/22 11/12/22 mg-acetaminophen 500 mg tablet (Tylenol PM Extra Strength) prednisone 1 mg tablet 4 mg PO DAILY #100 tabs 10/16/22 11/12/22 apixaban 2.5 mg tablet 2.5 mg PO BID #180 tabs 10/19/22 11/12/22 gabapentin 100 mg capsule 100 mg PO TID #90 caps 10/21/22 11/12/22 calcium carbonate 500 mg calcium 500 mg PO DAILY 11/12/22 11/12/22 (1,250 mg) tablet (Oyster Shell Calcium 500) oxycodone 5 mg tablet 5 mg PO TID PRN pain #7 tabs 11/12/22 Previous Rx's Medication Instructions Recorded fluoxetine 20 mg capsule 20 mg PO QAM #90 caps 01/05/22 verapamil 180 mg tablet,extended 180 mg PO DAILY #90 tabs 01/05/22 release calcium citrate 500 mg-vitamin D3 1 tab PO DAILY #90 tabs 09/26/22 12.5 mcg (500 unit) chewable tablet diphenhydramine 25 1 tab PO QHS PRN pain #90 tabs 09/27/22 mg-acetaminophen 500 mg tablet (Tylenol PM Extra Strength) prednisone 1 mg tablet 4 mg PO DAILY #100 tabs 10/16/22 apixaban 2.5 mg tablet 2.5 mg PO BID #180 tabs 10/19/22 gabapentin 100 mg capsule 100 mg PO TID #90 caps 10/21/22 oxycodone 5 mg tablet 5 mg PO TID PRN pain #7 tabs 11/12/22 Allergies Allergy/AdvReac Type Severity Reaction Status Date / Time No Known Allergies Allergy Verified 11/12/22 12:31 General Stated Complaint: Nk/Back Pain ESTEPHANIE: 3 Review of Systems Constitutional Constitutional: Reports as per HPI, Denies chills, Denies fever(s), Denies headache(s), Denies lethargy and Denies poor appetite Eyes Eyes: Denies change in vision ENT Ears, Nose, Mouth, and Throat: Denies dizziness and Denies headache(s) Cardiovascular Cardiovascular: Reports as per HPI Respiratory Respiratory: Reports as per HPI, Denies chest congestion and Denies cough Gastrointestinal Gastrointestinal: Reports as per HPI, Denies abdominal pain, Denies diarrhea, Denies nausea and Denies vomiting Musculoskeletal Musculoskeletal: Reports as per HPI Integumentary/Breasts Skin/Breast: Reports as per HPI and Denies rash Neurologic Neurologic: Reports as per HPI, Denies dizziness and Denies headache(s) PFSH All Active Problems (Updated 11/12/22 @ 14:40 by GILDARDO Guthrie) Closed rib fracture (Acute) Low back pain, unspecified (Chronic) Due to compression fracture Compression fracture of thoracic spine, non-traumatic (Acute) T8, T11 Polymyalgia rheumatica (Acute) New Dx, [facility] Rheum. Tapering down from Predn 10mg, 5mg starts 01/12/22. Couns possibility of extending 2mg .. Anemia (Chronic) Hx low-normal, low .. [ ] iron studies? Liver mass, left lobe (Acute ~11/09/21) Incidental findin.5 x 3.4 x 4 cm septated cyst in the liver Bilateral pulmonary embolism (Acute ~11/09/21) Sudden onset, PAIN .. SOB (shortness of breath) (Acute) Pain in right knee (Chronic) Family history of colon cancer in mother (Acute) Dx @ 91yo, but she from this cancer and had Hx IBS symptoms x years.. Tubular adenoma of colon (Acute ~03/2022) per [facility] colonoscopy Osteoporosis (Chronic ~09/12/16) alendronate and boniva rx .. Rx stopped 2' worsening vs improving bone density per pt report.. [ ] DEXA Diarrhea (Acute) Recent symptoms .. recommending colo sooner than later [ ] Ptosis of both eyelids (Acute) Double vision with both eyes open (Acute) Trigger finger, right index finger (Acute) Medical History (Updated 11/12/22 @ 14:40 by GILDARDO Guthrie) Arthralgia Benign essential tremor Benign head tremor Chronic deep vein thrombosis (DVT) of left popliteal vein Nov 2021 Chronic migraine Dx mixed migraines .. more of a heavy head than headache. Almost resolved with Fluoxetine. 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 Sleeping difficulties Hx Advil PM .. changing to Tyl PM (01/2022). 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 still trying to taper, 09/2022 Surgical History Colonoscopy - MAC (01/03/17) 2006, 2016 H/O cataract extraction right 01/11/10, left 02/04/10 Dr. Hampton Tonsillectomy (~1972) Tubal Ligation, (~1972) Family History Mother Colon cancer Osteoporosis Father Leukemia Aneurysm Alcohol use disorder Paternal Grandmother Diabetes Social History Smoking/Tobacco Use Status: Never Smoking risk assessment performed?: Yes Alcohol Intake: current Alcohol Intake frequency: holidays/special occasions only Drug use: Never Substance use type: does not use Adopted: No Caregiver/Support person: Yes Foster care: No Household members: spouse Housing: house Number of Children: 2 number of grandchildren: 3 Communication Needs: None Education Level: college Details: Bachelor's Degree Do you need help understanding health information?: Never current occupation: Retired Pets and animals: No Sexually active: Yes Do you think of yourself as: straight/heterosexual Current gender identity: female What is your relationship status?: How often do you talk on the phone with friends or family?: three or more times per week How often do you get together with friends or relatives?: twice per week Do you belong to any clubs or organized social groups?: no Panel score (0-1 are the most socially isolated patients): 2 Sandra/Confucianism: None Special sandra needs: No Seatbelt use: always Helmet use: No 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 Do you feel safe at home: Yes Do you feel safe in your relationship?: Yes Exam Const General: cooperative, healthy appearing, comfortable, no acute distress and well developed Nutritional Appearance: average body habitus and well nourished Orientation: alert, awake and oriented x3 HENMT Head: normal to inspection Ears: hearing grossly normal bilaterally Mouth: moist mucous membranes Neck Neck: normal visual inspection and full ROM Chest Chest: normal inspection of the chest, normal palpation of entire chest wall and no crepitus Resp Effort & Inspection: normal respiratory effort, able to speak in complete sentences and no respiratory distress Auscultation: crackles bilaterally at the base, no rales, no rhonchi and no wheezes Cardio Rate: regular rate Rhythm: regular rhythm Heart Sounds: S1 normal and S2 normal GI Inspection: normal to inspection, no edema and non-distended Palpation: soft, no hepatosplenomegaly, not firm, no guarding, not rigid and nontender Auscultation: normal bowel sounds Back/Spine/Pelvis Thoracic/Lumbar Spine: thoracic and lumbar spine normal to inspection Back/spine/pelvis image: 1. Area of ecchymosis and tenderness. Skin General skin exam: ecchymosis Neuro General: patient alert, patient awake and patient oriented x3 Cognition: normal cognition Speech: speech normal Gait: normal gait Motor: muscle tone normal throughout, strength 5/5 throughout, no movement abnormalities noted and no fasciculations Sensory Exam: no sensory deficits noted (no saddle paresthesias) Extrem General: normal to inspection, capillary refill normal, no pedal edema, no calf tenderness and normal gait Psych Appearance: grossly normal and well kempt Mental Status: mental status grossly normal Speech and Movement: speech and movement normal Course Vital Signs Vital signs: Vital Signs Temperature 36.6 C 11/12/22 12:26 Pulse 97 H 11/12/22 12:26 Respiratory Rate 17 11/12/22 12:26 Blood Pressure 142/90 H 11/12/22 12:26 Pulse Oximetry 95 11/12/22 12:26 Temperature 36.6 C 11/12/22 12:26 Temperature Source Temporal Artery Scan 11/12/22 12:26 Pulse 97 H 11/12/22 12:26 Respiratory Rate 17 11/12/22 12:26 Respiratory Effort Short of Breath 11/12/22 12:30 Blood Pressure 142/90 H 11/12/22 12:26 Blood Pressure Position Sitting 11/12/22 12:26 Pulse Oximetry 95 11/12/22 12:26 Oxygen Delivery Method Room Air 11/12/22 12:26 Oxygen Flow Rate 0 11/12/22 12:26 Pain Level 9 11/12/22 12:26 PAWSS Have you Been Recently Intoxicated or Drunk Within the Last 30 days?: No Have you Ever Experienced Previous Episodes of Alcohol Withdrawal?: No Have you ever Experienced Withdrawal Seizures?: No Have you ever Experienced Delirium Tremens(DT)s?: No Have you ever undergone Alcohol Rehabilitation Treatment (i.e, inpt ot outpatient treatment programs)?: No Have you ever Experienced Blackouts?: No Have you ever Combined Alcohol with other Downers within the last 90 days?: No Have you ever Combined Alcohol with any other Substance of Abuse during the last 90 days?: No Result: 0
--- NOTE | 2022-11-12 13:00 | DI.RAD_ITS ---
Exam(s) XR RIBS RT W PA LAT CHEST CLINICAL HISTORY: fall, lateral pain. COMPARISON: CR XR THORACIC SPINE COMPLETE from 06/16/2022 TECHNIQUE:: PA and lateral views of the chest and four views of the right ribs were performed. FINDINGS: LUNGS:Linear areas scarring right mid lung field and left lung base. No pleural abnormality seen. HEART: Normal size. Aorta tortuous.. MEDIASTINUM: Small a moderate size hiatal hernia. BONES: Degenerative changes in the spine. Stable mild midthoracic compression fractures. No displac ed rib fracture is seen. No bony destructive lesion is seen. OTHER FINDINGS: None. IMPRESSION: 1. No rib fracture visible. Stable mild midthoracic compression fractures. 2. No acute pulmonary findings.
[2022-11-12] MEDS: Lidocaine 5% Patch 1 PATCH TP (13:22)
--- NOTE | 2022-11-12 13:56 | DI.VRAD_ITS ---
PROCEDURE INFORMATION: Exam: XR Right Ribs Exam date and time: 11/12/2022 1:31 PM Age: 77 years old Clinical indication: Other: Fall, lateral pain TECHNIQUE: Imaging protocol: Radiologic exam of the Right ribs. Views: 2 views. COMPARISON: CT CHEST PE CTA 03/05/2022 16:41 FINDINGS: Bones/joints: Multiple midthoracic compression deformities. Multilevel degenerative scoliotic changes of the thoracic spine. Suspect right 4th and 5th anterolateral rib fractures. Degenerative changes of the right and left shoulders. Pleural space: Blunted posterior costophrenic angles. Soft tissues: Unremarkable. IMPRESSION: 1. Suspect right 4th and 5th anterolateral rib fractures. 2. Bilateral infiltrates. 3. Degenerative scoliotic changes of the spine. PROCEDURE INFORMATION: Exam: XR Chest Exam date and time: 11/12/2022 1:31 PM Age: 77 years old Clinical indication: Other: Fall, lateral pain TECHNIQUE: Imaging protocol: Radiologic exam of the chest. Views: 2 views. COMPARISON: CT CHEST PE CTA 03/05/2022 16:41 FINDINGS: Lungs: Bibasilar infiltrates. Low lung volumes. Pleural spaces: Blunted posterior costophrenic angles. Heart/Mediastinum: Retrocardiac gastric hernia. Stable cardiomediastinal silhouette. Bones/joints: Multiple midthoracic compression deformities. Multilevel degenerative scoliotic changes of the thoracic spine. Suspect right 4th and 5th anterolateral rib fractures. Degenerative changes of the shoulders. IMPRESSION: 1. Bilateral infiltrates. 2. Suspect right 4th and 5th anterolateral rib fractures. 3. Degenerative scoliotic changes of the thoracic spine with multiple midthoracic compression deformities. 4. Additional findings as discussed above. Dictated and Authenticated by: Sue Aviles MD. Ordering:VANESSA Marmolejo MD
[2022-11-12] MEDS: oxyCODONE 5 MG TAB PO (14:56)
== END 2022-11-12 15:13 | disposition home or self-care (01) ==
PROVIDERS: Emergency Provider Physician Assistant; PCP Student in an Organized Health Care Education/Training Program
DX: S22.41XA Multiple fractures of ribs, right side, initial encounter for closed fracture (principal); S20.221A Contusion of right back wall of thorax, initial encounter; Z86.711 Personal history of pulmonary embolism; Z79.01 Long term (current) use of anticoagulants; W07.XXXA Fall from chair, initial encounter; Y93.89 Activity, other specified
CPT/HCPCS: 99283; 71046; 71100; 99284

== ENCOUNTER 2022-12-21 01:36 | Outpatient (CLI) | payer MEDICARE, SELFPAY ==
[2022-12-21 09:15] LABS: HCT 37.5 % (36.0-46.0); HGB 11.7 g/dL (11.2-15.7); MCH 27.8 pg (27.0-33.0); MCHC 31.2 % (32.0-36.0); MCV 89 fL (80-95); MPV 10.5 fL (8.0-11.0); Platelet Count 367 10^3/uL (130-400); RBC 4.21 10^6/uL (3.93-5.22); RDW 13.4 % (11.7-14.6); RDW-SD 43.6 fL; WBC 11.47 10^3/uL (4.4-10.8)
[2022-12-21 09:54] LABS: ALT 22 U/L (14-59); AST 8 U/L (15-37); Albumin 3.8 g/dL (3.4-5.0); Alkaline Phosphatase 74 U/L (46-116); Anion Gap 12.6 mmol/L (3-11); BUN 25 mg/dL (7-18); Bilirubin, Direct 0.1 mg/dL (0.0-0.2); Bilirubin, Total 0.3 mg/dL (0.2-1.0); CO2 25.4 mmol/L (21.0-32.0); CREATININE 1.4 mg/dL (0.55-1.02); Calcium 9.6 mg/dL (8.5-10.1); Chloride 104 mmol/L (98-107); Estimated GFR 38.27 (mL/min/1.73m2); Glucose 87 mg/dL (74-106); Potassium 3.6 mmol/L (3.5-5.1); Sodium 142 mmol/L (136-145); Total Protein 7.4 g/dL (6.4-8.2)
[2022-12-21 10:29] LABS: Iron 55 ug/dL (50-170); Total Iron Binding Capacity 351 ug/dL (250-450); Transferrin Sat 16 % (15-50)
== END 2022-12-21 01:37 | disposition home or self-care (01) ==
LOC: LBO 01:37
PROVIDERS: PCP Student in an Organized Health Care Education/Training Program; Visit Provider Student in an Organized Health Care Education/Training Program
DX: D64.9 Anemia, unspecified (principal); N17.9 Acute kidney failure, unspecified; R16.0 Hepatomegaly, not elsewhere classified; R79.89 Other specified abnormal findings of blood chemistry
CPT/HCPCS: 36415; 80048; 80076; 85027; 83540; 83550

== ENCOUNTER 2023-03-12 03:07 | Outpatient (CLI) | payer MEDICARE, SELFPAY ==
[2023-03-12 10:56] LABS: HGB 12.5 g/dL (11.2-15.7)
[2023-03-12 11:21] LABS: Anion Gap 12.9 mmol/L (3-11); BUN 23 mg/dL (7-18); CO2 24.1 mmol/L (21.0-32.0); CREATININE 1.3 mg/dL (0.55-1.02); Calcium 9.4 mg/dL (8.5-10.1); Chloride 104 mmol/L (98-107); Estimated GFR 41.83 (mL/min/1.73m2); Glucose 132 mg/dL (74-106); Magnesium 1.9 mg/dL (1.8-2.4); Potassium 3.7 mmol/L (3.5-5.1); Sodium 141 mmol/L (136-145)
[2023-03-12 11:26] LABS: Hemoglobin A1C 5.5 % (<5.7)
[2023-03-12 11:50] LABS: Iron 74 ug/dL (50-170)
== END 2023-03-12 03:08 | disposition home or self-care (01) ==
LOC: LBO 03:07
PROVIDERS: PCP Student in an Organized Health Care Education/Training Program; Referring Provider Student in an Organized Health Care Education/Training Program; Visit Provider Student in an Organized Health Care Education/Training Program
DX: D64.9 Anemia, unspecified (principal); R73.09 Other abnormal glucose; N17.9 Acute kidney failure, unspecified; E86.0 Dehydration; M35.3 Polymyalgia rheumatica; Z79.52 Long term (current) use of systemic steroids
CPT/HCPCS: 36415; 80048; 83036; 83540; 83735; 85018

== ENCOUNTER 2023-03-28 02:26 | Outpatient (CLI) | payer MEDICARE, SELFPAY ==
--- NOTE | 2023-03-28 07:45 | DI.RAD_ITS ---
Exam(s) XR LUMBAR SPINE COMP W FLEX/EX EXAM: XR LUMBAR SPINE COMP W FLEX/EX CLINICAL HISTORY: eval bony path, lordosis,LOW BACK PAIN, M54.50. TECHNIQUE: 2D digital imaging was performed. COMPARISON: CR XR DEXA BONE DENSITY W/WO ADRIANNE from 03/09/2021 FINDINGS: Seven views: There is no evidence of typical compression fracture. Schmorl's node invagination in superior endpla te of L5 noted, age indeterminate. There is advanced disc space narrowing at L4-5 level and there is mild degenerative anterolisthesis L 4 upon L5 due to facet arthropathy. Other disc spaces exhibit normal height. There is facet arthrop athy also evident at L5-S1; less so above these 2 levels. Bone density is age-appropriate. No osseo us lesions. Sacroiliac joints unremarkable. No scoliosis. IMPRESSION: Chronic advanced disc space narrowing at L4-5 level. Mild degenerative anterolisthesis L4 upon L5 re lated to facet arthropathy. L5 superior endplate concavity versus Schmorl's node. If clinically ind icated follow-up MRI can be performed for added sensitivity and specificity. DATA REPOSITORY: RADIATION DOSE DELIVERED:
== END 2023-03-28 02:46 ==
LOC: DI 02:26
PROVIDERS: PCP Student in an Organized Health Care Education/Training Program; Visit Provider Student in an Organized Health Care Education/Training Program
DX: M35.3 Polymyalgia rheumatica; M54.50 Low back pain, unspecified; M51.36 Other intervertebral disc degeneration, lumbar region; D64.9 Anemia, unspecified
CPT/HCPCS: 72114

== ENCOUNTER 2023-04-30 14:00 | Emergency (ER) | payer MEDICARE, SELFPAY ==
[2023-04-30 14:04] VITALS: BP 115/62; PULSE 60; RESP 20; TEMP 36.2; O2SAT 100
--- NOTE | 2023-04-30 14:55 | ED.GENADUL_ITS ---
Discharge Plan Disposition Patient Disposition: Home Condition: Stable Discharge Details Clinical Impression: Low back pain Primary Care Provider: Petra Serra ED Provider: Chang Breaux Home Meds and New Rx's Prescriptions: Continued diphenhydramine-acetaminophen [Tylenol PM Extra Strength] 25-500 mg tablet 1 tab PO QHS PRN (Reason: pain) Qty: 90 0RF verapamil 180 mg tablet extended release 180 mg PO DAILY Rx Instructions: facial tic and Hx migraines cyclobenzaprine 5 mg tablet 5 mg PO TID PRN (Reason: muscle spasm) Qty: 30 0RF prednisone 5 mg tablet 5 mg PO DAILY Qty: 90 1RF Rx Instructions: taper instructions.. per rheumatology fluoxetine 20 mg capsule 20 mg PO QAM Qty: 90 3RF Rx Instructions: migraine management .. SENDING RX FOR PRICING ... prednisone 1 mg tablet 4 mg PO DAILY Qty: 120 1RF Rx Instructions: Continuing. Rheum increase. gabapentin 100 mg capsule 100 mg PO TID Qty: 90 1RF Rx Instructions: Continuing TM Rx .. consider 300 qHS multivitamin 1 EACH capsule 1 ea PO DAILY calcium carbonate [Oyster Shell Calcium 500] 500 mg calcium (1,250 mg) Tablet 500 mg PO DAILY Discharge Instructions Instructions: Lumbar Disc Herniation (ED) Additional Instructions: Avoid activities that worsen pain. No heavy lifting. Please follow-up with your primary care provider to arrange outpatient diagnostic work-up and further diagnostic treatment. Be sure to discuss anticoagulation and whether or not ongoing treatment is recommended. Please contact your primary care physician to arrange follow-up. Return to the ER immediately for any worsening or new concerning symptoms. Referrals: Petra Serra DO [Primary Care Provider] - Medical Decision Making 78-year-old female with multiple medical problems including history of PMR, on chronic steroid, compression fractures of the spine, pulmonary embolism in the past, no longer on anticoagulation, here today with increased low back pain over the past 2 weeks after attempting to lift heavy object with associated intermittent weakness of her lower extremities with legs intermittently feeling unstable and giving out. Patient has had no bowel or bladder dysfunction. She is neurologically intact at this time including no saddle anesthesia. She has no focal midline tenderness of her spine. No signs of cauda equina. Patient does not wish to pursue additional diagnostic testing or treatment of the fleeting chest discomfort that was described as indigestion yesterday. She understands without diagnostic testing and cannot provide evaluation of this. She provided informed refusal of additional diagnostic testing at this time but does agree to return immediately should she have any worsening or new concerning symptoms. Patient discontinued anticoagulation on her own. I am not sure if Dr. Nboles at office aware of this I did recommend that she discuss anticoagulant dosing with Dr. Dr. Nobles as soon as possible. Patient is a fall risk at this time and she has not been on anticoagulants for some time. I called Dr. Nobles office office and unfortunately she is not available today. I spoke with [employer] Kar and discussed ED presentation course, she will ensure timely follow-up. HPI General Mode of arrival: ambulatory . Date/Time Provider Initiated Documentation: 04/30/23 14:24 . Limitations to Documentation: no limitations . Information obtained by: patient . HPI Narrative: 78-year-old female with history of spinal compression fractures in the past as well as pulmonary embolism, polymyalgia rheumatica, on chronic prednisone, presents with chief complaint of back pain. Patient notes she was lifting a heavy object about 2 weeks ago and experienced a popping sensation in her low back. She has pain that is intermittent in her low back currently right greater than left. Pain intermittently radiates into the legs. Patient denies associated numbness. No bowel or bladder dysfunction. She does note that when she ambulates she has additional discomfort and sometimes her legs feel like they give out. Patient denies associated abdominal pain. Patient does note she had some fleeting chest discomfort described as indigestion yesterday. She believes this was reflux. She notes she has been taking ibuprofen for her back discomfort. Related Data Home Medications Medication Instructions Recorded Confirmed multivitamin 1 ea PO DAILY 07/31/15 04/30/23 diphenhydramine 25 1 tab PO QHS PRN pain #90 tabs 09/27/22 04/30/23 mg-acetaminophen 500 mg tablet (Tylenol PM Extra Strength) calcium carbonate 500 mg calcium 500 mg PO DAILY 11/12/22 04/30/23 (1,250 mg) tablet (Oyster Shell Calcium 500) fluoxetine 20 mg capsule 20 mg PO QAM #90 caps 01/26/23 04/30/23 prednisone 5 mg tablet 5 mg PO DAILY #90 tabs 03/24/23 06/26/23 verapamil 180 mg tablet,extended 180 mg PO DAILY 01/30/23 04/30/23 release prednisone 1 mg tablet 4 mg PO DAILY #120 tabs 03/14/23 04/30/23 gabapentin 100 mg capsule 100 mg PO TID #90 caps 04/13/23 04/30/23 cyclobenzaprine 5 mg tablet 5 mg PO TID PRN muscle spasm #30 04/20/23 04/30/23 tab-caps Previous Rx's Medication Instructions Recorded diphenhydramine 25 1 tab PO QHS PRN pain #90 tabs 09/27/22 mg-acetaminophen 500 mg tablet (Tylenol PM Extra Strength) fluoxetine 20 mg capsule 20 mg PO QAM #90 caps 01/26/23 prednisone 5 mg tablet 5 mg PO DAILY #90 tabs 01/26/23 prednisone 1 mg tablet 4 mg PO DAILY #120 tabs 03/14/23 gabapentin 100 mg capsule 100 mg PO TID #90 caps 04/13/23 cyclobenzaprine 5 mg tablet 5 mg PO TID PRN muscle spasm #30 04/20/23 tab-caps Allergies Allergy/AdvReac Type Severity Reaction Status Date / Time No Known Allergies Allergy Verified 04/20/23 09:40 General Stated Complaint: Nk/Back Pain ESTEPHANIE: 3 PFSH All Active Problems Low back pain (Acute) MANSI (acute kidney injury) (Acute) URI (upper respiratory infection) (Acute) Sore throat; Tickle, now cough (with back pain), wheeze qHS x dayss Bilateral hand pain (Acute) Terrible pain and stiffness in the AM Low back pain, unspecified (Chronic) Due to compression fracture Compression fracture of thoracic spine, non-traumatic (Acute) T8, T11 Polymyalgia rheumatica (Acute) New , [facility] Rheum. Tapering down from Predn 10mg, 5mg starts 01/12/22. Couns possibility of extending 2mg .. Anemia (Chronic) Hx low-normal, low .. [ ] iron studies? Liver mass, left lobe (Acute ~11/09/21) Incidental findin.5 x 3.4 x 4 cm septated cyst in the liver Nov 2021/1 yr checks) Bilateral pulmonary embolism (Acute ~11/09/21) Sudden onset, PAIN .. SOB (shortness of breath) (Acute) Pain in right knee (Chronic) Family history of colon cancer in mother (Acute) Dx @ 91yo, but she from this cancer and had Hx IBS symptoms x years.. Tubular adenoma of colon (Acute ~03/2022) per [facility] colonoscopy Osteoporosis (Chronic ~09/12/16) alendronate and boniva rx .. Rx stopped 2' worsening vs improving bone density per pt report.. [ ] DEXA Ptosis of both eyelids (Acute) Double vision with both eyes open (Acute) Trigger finger, right index finger (Acute) Medical History Arthralgia Benign essential tremor Benign head tremor Chronic deep vein thrombosis (DVT) of left popliteal vein Nov 2021 Chronic migraine Dx mixed migraines .. more of a heavy head than headache. Almost resolved with Fluoxetine. (symptoms rtd @ 20mg prednisone) Complicated migraine Diarrhea Recent symptoms .. 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 Hx Neuro (?). 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 Sleeping difficulties Hx Advil PM .. changing to Tyl PM (01/2022). 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 still trying to taper, 09/2022 Surgical History Colonoscopy - MAC (01/03/17) 2006, 2017, 04/2022 H/O cataract extraction right 01/11/10, left 02/04/10 Dr. Hampton Tonsillectomy (~1972) Tubal Ligation, (~1972) Family History Mother Colon cancer Osteoporosis Father Leukemia Aneurysm Alcohol use disorder Paternal Grandmother Diabetes Social History Smoking/Tobacco Use Status: Never Smoking risk assessment performed?: Yes Alcohol Intake: current Alcohol Intake frequency: holidays/special occasions only Drug use: Never Substance use type: does not use Adopted: No Caregiver/Support person: No Foster care: No Household members: spouse Housing: house Number of Children: 2 number of grandchildren: 3 Communication Needs: None Education Level: college Details: Bachelor's Degree Do you need help understanding health information?: Never current occupation: Retired Pets and animals: No Sexually active: Yes Do you think of yourself as: straight/heterosexual Current gender identity: female What is your relationship status?: How often do you talk on the phone with friends or family?: three or more times per week How often do you get together with friends or relatives?: twice per week Do you belong to any clubs or organized social groups?: no Panel score (0-1 are the most socially isolated patients): 2 What type of physical activity do you participate in: other Details: gardening Duration: > 90 minutes/day Frequency: 5-6 times per week Sandra/Quaker: None Special sandra needs: No Seatbelt use: always Helmet use: No Drive intox or ride 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: No Do you feel safe at home: Yes Do you feel safe in your relationship?: Yes Exam Const General: cooperative and no acute distress HENMT Mouth: moist mucous membranes Eyes Conjunctivae: normal conjunctivae Sclera: normal sclerae Neck Neck: trachea midline and supple Resp Auscultation: clear to auscultation bilaterally, no rales, no rhonchi and no wheezes Cardio Rate: regular rate and not tachycardic Rhythm: regular rhythm Heart Sounds: no murmurs GI Palpation: soft, not firm, no guarding, no masses, not rigid and nontender Back/Spine/Pelvis Back: No erythema, No warmth and No ecchymosis Thoracic/Lumbar Spine: paraspinal tenderness, lumbar spinal tenderness (rt) and straight leg raise positive Other: No midline cervical, thoracic or lumbar tenderness Skin General skin exam: no rashes or lesions noted Neuro General: patient alert, patient awake, patient oriented x3 and tone normal Cognition: normal cognition Motor: strength 5/5 throughout (bilateral LEs) Sensory Exam: no sensory deficits noted (b/l LEs) DTR's: Rt Patellar: 1+ and Lt Patellar: 1+ Extrem General: no calf tenderness and no edema Other: 1+ posterior tibial bilateral Psych Appearance: grossly normal Mental Status: mental status grossly normal Speech and Movement: speech and movement normal Course Vital Signs Vital signs: Vital Signs Temperature 36.2 C L 06/26/23 14:04 Pulse 60 04/30/23 14:04 Respiratory Rate 20 04/30/23 14:04 Blood Pressure 115/62 04/30/23 14:04 Pulse Oximetry 100 04/30/23 14:04 Temperature 36.2 C L 04/30/23 14:04 Temperature Source Oral 04/30/23 14:04 Pulse 60 04/30/23 14:04 Respiratory Rate 20 04/30/23 14:04 Blood Pressure 115/62 04/30/23 14:04 Pulse Oximetry 100 04/30/23 14:04 Oxygen Delivery Method Room Air 04/30/23 14:04 Oxygen Flow Rate 0 04/30/23 14:04 Pain Level 8 04/30/23 14:04
== END 2023-04-30 15:08 | disposition home or self-care (01) ==
PROVIDERS: Emergency Provider Student in an Organized Health Care Education/Training Program; PCP Student in an Organized Health Care Education/Training Program
DX: M54.50 Low back pain, unspecified (principal); Z91.148 Patient's other noncompliance with medication regimen for other reason; X50.0XXA Overexertion from strenuous movement or load, initial encounter
CPT/HCPCS: 99281; 99282

== ENCOUNTER 2023-05-08 18:56 | Emergency (ER) | payer MEDICARE, SELFPAY ==
[2023-05-08] VITALS (54 sets, daily range): BP systolic 125–145; BP diastolic 60–78; PULSE 72–80; RESP 9–20; TEMP 36.6–36.8; O2SAT 94–99
--- NOTE | 2023-05-08 18:45 | RT.EKG_ITS ---
APPROVED REPORT Exam: Resting ECG Reason for Exam: CHEST AND JAW PAIN Patient Location: E HR:84 bpm ECG Measurements Heart Rate 84 AXIS WA 160 P 17 QRSd 76 QRS 5 QT 361 T 6 QTc 427 Conclusion Sinus rhythm...normal P axis, V-rate 60- 99 Low voltage, precordial leads...precordial leads <1.0mV
--- NOTE | 2023-05-08 19:00 | DI.RAD_ITS ---
Exam(s) XR PORTABLE CHEST AP EXAM: XR PORTABLE CHEST AP CLINICAL HISTORY: chest pain TECHNIQUE: 2D digital imaging was performed. COMPARISON: CR,XR XR RIBS RT W PA LAT CHEST from 11/12/2022 FINDINGS: Exam limited by suboptimal penetration and mild motion.. LUNGS: Basilar scarring versus atelectasis. No area of consolidation visible. No pleural abnormalit y seen. HEART: Normal size. AORTA: Normal diameter. BONES: Unremarkable for age. Soft tissues: Small to moderate size hiatal hernia. IMPRESSION: No acute findings. DATA REPOSITORY: RADIATION DOSE DELIVERED:
[2023-05-08 19:27] LABS: Absolute Basophil Count 0.01 10^3/uL (0.0-0.2); Absolute Lymphocyte Count 0.83 10^3/uL (1.2-3.4); Absolute Monocyte Count 0.46 10^3/uL (0.1-0.8); Absolute Neutrophil Count 12.02 10^3/uL (1.2-6.7); Basophils % 0.1; HCT 21.9 % (36.0-46.0); Immature Grans % 0.7; Lymphocytes % 6.2; MCH 28.2 pg (27.0-33.0); MCHC 31.1 % (32.0-36.0); MCV 91 fL (80-95); MPV 9.9 fL (8.0-11.0); Monocytes % 3.4; Neutrophils % 89.6; Nucleated RBC 0.1 % (0.0-0.3); Platelet Count 569 10^3/uL (130-400); RBC 2.41 10^6/uL (3.93-5.22); RDW 14.8 % (11.7-14.6); RDW-SD 49.6 fL; WBC 13.42 10^3/uL (4.4-10.8)
[2023-05-08 19:30] LABS: HGB 6.8 g/dL (11.2-15.7)
[2023-05-08 19:43] LABS: ALT 18 U/L (14-59); AST 8 U/L (15-37); Albumin 3.6 g/dL (3.4-5.0); Alkaline Phosphatase 123 U/L (46-116); Anion Gap 14.3 mmol/L (3-11); BUN 37 mg/dL (7-18); Bilirubin, Total 0.2 mg/dL (0.2-1.0); CO2 21.7 mmol/L (21.0-32.0); CREATININE 1.4 mg/dL (0.55-1.02); Calcium 9.1 mg/dL (8.5-10.1); Chloride 103 mmol/L (98-107); Estimated GFR 38.03 (mL/min/1.73m2); Glucose 116 mg/dL (74-106); Magnesium 2.1 mg/dL (1.8-2.4); Potassium 4.2 mmol/L (3.5-5.1); Sodium 139 mmol/L (136-145); Total Protein 7.5 g/dL (6.4-8.2); Troponin I < 50 ng/L (<or=60)
--- NOTE | 2023-05-08 19:45 | DI.CT_ITS ---
Exam(s) CT CHEST PE CTA EXAM: CT CHEST PE CTA CLINICAL HISTORY: chest pain, history of clot. TECHNIQUE: Imaging Protocol: Axial CT angiography was performed with multi-slice acquisition and mu lti-planar reconstructions as well as axial, coronal and sagittal MIP reconstructions. CONTRAST MATERIAL: Intravenous: Omnipaque 350 Contrast volume:100 ml COMPARISON: CT CT CHEST PE CTA from 11/09/2021 CR,XR XR RIBS RT W PA LAT CHEST from 11/12/2022 CR,XR XR PORTABLE CHEST AP from 05/08/2023 FINDINGS: Pulmonary Arteries: Filling defects in segmental branches of the right lower lobe. Filling defect in the lingula and left upper lobe posterior branch. Tracheobronchial tree: Patent where visualized. Mediastinum and Nitza: No dominant adenopathy or fluid collection. Large hiatal hernia. Pulmonary parenchyma: Not well evaluated due to respiratory motion and expiratory changes. No consol idation or dominant measurable mass. Pleura: No effusion or pneumothorax. Heart: Not enlarged. Mild right heart strain. Aorta: Thoracic aorta non-dilated. No aneurysm. No dissection. Mild calcification. Upper abdomen: Liver cyst. Pancreas mildly atrophic. Bones: Unremarkable for age.Old thoracic compression fractures. IMPRESSION: Segmental emboli in right lower lobe, right upper lobe and lingula. Mild right heart strain. RADIATION DOSE DELIVERED: 407.17mGy.cm Total DLP DATA REPOSITORY: All CT scans at this facility are submitted to the National Radiology Data Registry (NRDR) Dose Index Registry (DIR) with the [employer] (A[employer]). RADIATION OPTIMIZATION: All CT scans at this facility use at least one of these dose optimization te chniques: automated exposure control; mA and/or kV adjustment per patient size (includes targeted exa ms where dose is matched to clinical indication); or iterative reconstruction.
--- NOTE | 2023-05-08 19:56 | DI.VRAD_ITS ---
PROCEDURE INFORMATION: Exam: XR Chest Exam date and time: 05/08/2023 7:38 PM Age: 78 years old Clinical indication: Other: Chest pain TECHNIQUE: Imaging protocol: Radiologic exam of the chest. Views: 1 view. Total images: 1 COMPARISON: CR XR RIBS RT W PA LAT CHEST 11/12/2022 1:31 PM FINDINGS: Lungs: No airspace disease. Minimal scarring in the right mid lung at the left lung base. No vascular congestion. Pulmonary marli: Unremarkable contours. Pleural spaces: No pleural effusion. No pneumothorax. Heart/Mediastinum: Stable mediastinal contours. Moderate-sized hiatal hernia. Vasculature: Tortuous aorta. Bones/joints: Unremarkable. Intraperitoneal space: Visualized upper abdomen is unremarkable. IMPRESSION: No acute findings. Dictated and Authenticated by: Dennys Boykin MD. Ordering:CAREY Downing MD
[2023-05-08 20:03] LABS: D-Dimer 2886 ng/mlFEU (<500)
[2023-05-08] MEDS: Normal Saline Flush 10 ML SYR IVP (20:16)
[2023-05-08] MEDS: Omnipaque 350 MG/ML 100 ML BTL IJ (20:16)
--- NOTE | 2023-05-08 20:16 | ED.GENADUL_ITS ---
Discharge Plan Discharge Details Chief Complaint: Chest Pain Primary Care Provider: Petra Serra ED Provider: Chang Breaux Home Meds and New Rx's Prescriptions: No Action diphenhydramine-acetaminophen [Tylenol PM Extra Strength] 25-500 mg tablet 1 tab PO QHS PRN (Reason: pain) Qty: 90 0RF verapamil 180 mg tablet extended release 180 mg PO DAILY Rx Instructions: facial tic and Hx migraines fluoxetine 20 mg capsule 20 mg PO QAM Qty: 90 3RF Rx Instructions: migraine management .. SENDING RX FOR PRICING ... prednisone 1 mg tablet 4 mg PO DAILY Qty: 120 1RF Rx Instructions: Continuing. Rheum increase. gabapentin 100 mg capsule 100 mg PO TID Qty: 90 1RF Rx Instructions: Continuing TM Rx .. consider 300 qHS cyclobenzaprine 5 mg tablet 5 mg PO TID PRN (Reason: muscle spasm) Qty: 30 0RF Rx Instructions: patient reported that she no longer takes this medication apixaban 2.5 mg tablet 2.5 mg PO BID Qty: 180 1RF Rx Instructions: Reduced dose per 10/2022 Heme note multivitamin 1 EACH capsule 1 ea PO DAILY calcium carbonate [Oyster Shell Calcium 500] 500 mg calcium (1,250 mg) Tablet 500 mg PO DAILY prednisone 5 mg tablet 15 mg PO DAILY Rx Instructions: taper instructions.. per rheumatology Medical Decision Making 2019 -- 78-year-old female with multiple medical problems including history of PMR, on chronic steroid, compression fractures of the spine, pulmonary embolism in the past, here today with intermittent chest discomfort over the past 2 days. Patient is saturating well in no respiratory distress. Hemodynamically stable. Consider ACS. EKG interpreted by radiology: Sinus rhythm 84 bpm, normal axis, no STEMI, nondiagnostic. Please see report. Initial troponin negative. Plan to trend. Patient has history of pulmonary embolism and was only recently restarted on Eliquis. Consider acute pulmonary embolism. Plan to obtain CT of the chest. Initial labs reviewed and anemia noted with hemoglobin 6.8. This is a significant decrease from recent prior. Hemoglobin is 12.52 months ago. This may be contributing to chest discomfort today. Plan to transfuse 1 unit, will crossmatch. Unclear etiology for anemia at this point. Patient does have history of reflux. Consider ulcerative disease versus secondary to hemolysis. Chest x-ray interpreted virology: No acute findings. No airspace disease. Minimal scarring in the right midlung at the left lung base. No vascular congestion. Lab Data Lab results reviewed: Yes I reviewed the patient's lab results. Labs: Laboratory Tests Range/Units 05/08/23 05/08/23 05/08/23 19:15 19:15 19:15 WBC (4.4-10.8) 10^3/uL 13.42 H RBC (3.93-5.22) 10^6/uL 2.41 L Hgb (11.2-15.7) g/dL 6.8 L* Hct (36.0-46.0) % 21.9 L MCV (80-95) fL 91 MCH (27.0-33.0) pg 28.2 MCHC (32.0-36.0) % 31.1 L RDW (11.7-14.6) % 14.8 H Plt Count (130-400) 10^3/uL 569 H MPV (8.0-11.0) fL 9.9 Immature Gran % 0.7 Neutrophils % 89.6 Lymphocytes % 6.2 Monocytes % 3.4 Eosinophils % 0.0 Basophils % 0.1 Nucleated RBC % (0.0-0.3) % 0.1 Absolute Neutrophils (1.2-6.7) 10^3/uL 12.02 H Absolute Lymphocytes (1.2-3.4) 10^3/uL 0.83 L Absolute Monocytes (0.1-0.8) 10^3/uL 0.46 Absolute Eosinophils (0.0-0.7) 10^3/uL 0.00 Absolute Basophils (0.0-0.2) 10^3/uL 0.01 APTT (21.5-31.9) sec 21.0 L D-Dimer (<500) ng/mlFEU 2886 H Sodium (136-145) mmol/L 139 Potassium (3.5-5.1) mmol/L 4.2 Chloride (98-107) mmol/L 103 Carbon Dioxide (21.0-32.0) mmol/L 21.7 Anion Gap (3-11) mmol/L 14.3 H BUN (7-18) mg/dL 37 H Creatinine (0.55-1.02) mg/dL 1.4 H Est GFR (CKD-EPI 2020) (mL/min/1.73m2) 38.03 Glucose (74-106) mg/dL 116 H Calcium (8.5-10.1) mg/dL 9.1 Magnesium (1.8-2.4) mg/dL 2.1 Total Bilirubin (0.2-1.0) mg/dL 0.2 AST (15-37) U/L 8 L ALT (14-59) U/L 18 Alkaline Phosphatase (46-116) U/L 123 H Troponin I (<or=60) ng/L < 50 Total Protein (6.4-8.2) g/dL 7.5 Albumin (3.4-5.0) g/dL 3.6 Crossmatch Range/Units 05/08/23 19:58 WBC (4.4-10.8) 10^3/uL RBC (3.93-5.22) 10^6/uL Hgb (11.2-15.7) g/dL Hct (36.0-46.0) % MCV (80-95) fL MCH (27.0-33.0) pg MCHC (32.0-36.0) % RDW (11.7-14.6) % Plt Count (130-400) 10^3/uL MPV (8.0-11.0) fL Immature Gran % Neutrophils % Lymphocytes % Monocytes % Eosinophils % Basophils % Nucleated RBC % (0.0-0.3) % Absolute Neutrophils (1.2-6.7) 10^3/uL Absolute Lymphocytes (1.2-3.4) 10^3/uL Absolute Monocytes (0.1-0.8) 10^3/uL Absolute Eosinophils (0.0-0.7) 10^3/uL Absolute Basophils (0.0-0.2) 10^3/uL APTT (21.5-31.9) sec D-Dimer (<500) ng/mlFEU Sodium (136-145) mmol/L Potassium (3.5-5.1) mmol/L Chloride (98-107) mmol/L Carbon Dioxide (21.0-32.0) mmol/L Anion Gap (3-11) mmol/L BUN (7-18) mg/dL Creatinine (0.55-1.02) mg/dL Est GFR (CKD-EPI 2020) (mL/min/1.73m2) Glucose (74-106) mg/dL Calcium (8.5-10.1) mg/dL Magnesium (1.8-2.4) mg/dL Total Bilirubin (0.2-1.0) mg/dL AST (15-37) U/L ALT (14-59) U/L Alkaline Phosphatase (46-116) U/L Troponin I (<or=60) ng/L Total Protein (6.4-8.2) g/dL Albumin (3.4-5.0) g/dL Crossmatch See Detail HPI General Mode of arrival: ambulatory . Date/Time Provider Initiated Documentation: 05/08/23 19:06 . Limitations to Documentation: no limitations . Information obtained by: patient . HPI Narrative: 78-year-old female with history of spinal compression fractures, pulmonary embolism, polymyalgia rheumatica, on chronic prednisone, presents with chief complaint of chest pain. Patient states she had intermittent sharp chest pain localized to central chest as well as left lower chest and also into her neck over the past 2 days. Chest pain occurs at rest. Chest pain does seem worse with deep inspiration. Pain is described as sharp. She has no associated diaphoresis or shortness of breath. Patient was off of Eliquis for some time and did recently restart. Related Data Home Medications Medication Instructions Recorded Confirmed multivitamin 1 ea PO DAILY 07/31/15 05/08/23 diphenhydramine 25 1 tab PO QHS PRN pain #90 tabs 09/27/22 05/08/23 mg-acetaminophen 500 mg tablet (Tylenol PM Extra Strength) calcium carbonate 500 mg calcium 500 mg PO DAILY 11/12/22 05/08/23 (1,250 mg) tablet (Oyster Shell Calcium 500) fluoxetine 20 mg capsule 20 mg PO QAM #90 caps 01/26/23 05/08/23 verapamil 180 mg tablet,extended 180 mg PO DAILY 01/30/23 05/08/23 release prednisone 1 mg tablet 4 mg PO DAILY #120 tabs 03/14/23 05/08/23 gabapentin 100 mg capsule 100 mg PO TID #90 caps 04/13/23 05/08/23 cyclobenzaprine 5 mg tablet 5 mg PO TID PRN muscle spasm #30 05/04/23 tab-caps apixaban 2.5 mg tablet 2.5 mg PO BID #180 tabs 05/05/23 05/08/23 prednisone 5 mg tablet 15 mg PO DAILY 05/08/23 05/08/23 Previous Rx's Medication Instructions Recorded diphenhydramine 25 1 tab PO QHS PRN pain #90 tabs 09/27/22 mg-acetaminophen 500 mg tablet (Tylenol PM Extra Strength) fluoxetine 20 mg capsule 20 mg PO QAM #90 caps 01/26/23 prednisone 1 mg tablet 4 mg PO DAILY #120 tabs 03/14/23 gabapentin 100 mg capsule 100 mg PO TID #90 caps 04/13/23 cyclobenzaprine 5 mg tablet 5 mg PO TID PRN muscle spasm #30 05/04/23 tab-caps apixaban 2.5 mg tablet 2.5 mg PO BID #180 tabs 05/05/23 Allergies Allergy/AdvReac Type Severity Reaction Status Date / Time No Known Allergies Allergy Verified 05/08/23 19:02 General Stated Complaint: Chest Pain ESTEPHANIE: 2 Review of Systems All systems reviewed & are unremarkable except as noted in HPI and below Constitutional Constitutional: Denies fever(s) Respiratory Respiratory: Reports as per HPI Musculoskeletal Comments: Chronic low back pain PFSH All Active Problems Anticoagulated by anticoagulation treatment (Chronic) Eliquis 2' PE .. DVT/PE 2' decreased ambulation due to PMR, with Eliquis @ 1/2 dose per Heme - possible d/c post PMR resolution and steroid D/C. Lumbar radiculopathy, acute (Acute) Weakness and radiating pain per ED visit, 04/30/2023 Low back pain (Acute) MANSI (acute kidney injury) (Acute) URI (upper respiratory infection) (Acute) Sore throat; Tickle, now cough (with back pain), wheeze qHS x dayss Bilateral hand pain (Acute) Terrible pain and stiffness in the AM Low back pain, unspecified (Chronic) Due to compression fracture Compression fracture of thoracic spine, non-traumatic (Acute) T8, T11 Polymyalgia rheumatica (Acute) New Dx, [facility] Rheum. Tapering down from Predn 10mg, 5mg starts 01/12/22. Couns possibility of extending 2mg .. Anemia (Chronic) Hx low-normal, low .. [ ] iron studies? Liver mass, left lobe (Acute ~11/09/21) Incidental findin.5 x 3.4 x 4 cm septated cyst in the liver Nov 2021/1 yr checks) Bilateral pulmonary embolism (Acute ~11/09/21) Sudden onset, PAIN .. SOB (shortness of breath) (Acute) Pain in right knee (Chronic) Family history of colon cancer in mother (Acute) Dx @ 91yo, but she from this cancer and had Hx IBS symptoms x years.. Tubular adenoma of colon (Acute ~03/2022) per [facility] colonoscopy Osteoporosis (Chronic ~09/12/16) alendronate and boniva rx .. Rx stopped 2' worsening vs improving bone density per pt report.. [ ] DEXA Ptosis of both eyelids (Acute) Double vision with both eyes open (Acute) Trigger finger, right index finger (Acute) Medical History Arthralgia Benign essential tremor Benign head tremor Chronic deep vein thrombosis (DVT) of left popliteal vein Nov 2021 Chronic migraine Dx mixed migraines .. more of a heavy head than headache. Almost resolved with Fluoxetine. (symptoms rtd @ 20mg prednisone) Complicated migraine Diarrhea Recent symptoms .. 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 Hx Neuro (?). 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 Sleeping difficulties Hx Advil PM .. changing to Tyl PM (01/2022). 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 still trying to taper, 09/2022 Surgical History Colonoscopy - MAC (01/03/17) 2006, 2016, 04/2022 H/O cataract extraction right 01/11/10, left 02/04/10 Dr. Hampton Tonsillectomy (~1972) Tubal Ligation, (~1972) Family History Mother Colon cancer Osteoporosis Father Leukemia Aneurysm Alcohol use disorder Paternal Grandmother Diabetes Social History Smoking/Tobacco Use Status: Never Smoking risk assessment performed?: Yes Alcohol Intake: current Alcohol Intake frequency: holidays/special occasions only Drug use: Never Substance use type: does not use Adopted: No Caregiver/Support person: No Foster care: No Household members: spouse Housing: house Number of Children: 2 number of grandchildren: 3 Communication Needs: None Education Level: college Details: Bachelor's Degree Do you need help understanding health information?: Never current occupation: Retired Pets and animals: No Sexually active: Yes Do you think of yourself as: straight/heterosexual Current gender identity: female What is your relationship status?: How often do you talk on the phone with friends or family?: three or more times per week How often do you get together with friends or relatives?: twice per week Do you belong to any clubs or organized social groups?: no Panel score (0-1 are the most socially isolated patients): 2 What type of physical activity do you participate in: other Details: gardening Duration: > 90 minutes/day Frequency: 5-6 times per week Sandra/Adventist: None Special sandra needs: No Seatbelt use: always Helmet use: No Drive intox or ride w/intox 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: No Do you feel safe at home: Yes Do you feel safe in your relationship?: Yes Exam Const General: cooperative and no acute distress HENMT Mouth: moist mucous membranes Eyes Conjunctivae: normal conjunctivae Sclera: normal sclerae Neck Neck: trachea midline and supple Resp Auscultation: clear to auscultation bilaterally, no rales, no rhonchi and no wheezes Cardio Rate: regular rate and not tachycardic Rhythm: regular rhythm Heart Sounds: no gallops, no murmurs and no rubs GI Palpation: soft, not firm, no guarding, no masses, not rigid and nontender Skin General skin exam: no rashes or lesions noted Neuro General: patient alert, patient awake and tone normal Extrem General: no calf tenderness and no edema Psych Appearance: grossly normal Mental Status: mental status grossly normal Course Vital Signs Vital signs: Vital Signs Temperature 36.8 C 05/08/23 18:58 Pulse 72 05/08/23 18:58 Respiratory Rate 18 05/08/23 18:58 Blood Pressure 140/70 05/08/23 18:58 Pulse Oximetry 95 05/08/23 18:58 Temperature 36.8 C 05/08/23 18:58 Temperature Source Skin 05/08/23 18:58 Pulse 72 05/08/23 18:58 Respiratory Rate 18 05/08/23 18:58 Respiratory Effort Normal, Non-Labored 05/08/23 19:12 Respiratory Depth Normal 05/08/23 19:12 Respiratory Pattern Normal 05/08/23 19:12 Blood Pressure 140/70 05/08/23 18:58 Blood Pressure Position Sitting 05/08/23 18:58 Pulse Oximetry 95 05/08/23 18:58 Oxygen Delivery Method Room Air 05/08/23 18:58 Oxygen Flow Rate 0 05/08/23 18:58 Pain Level 4 05/08/23 18:58 Lab/Test Results Lab/Test Results: Laboratory Tests Range/Units 05/08/23 05/08/23 05/08/23 19:15 19:15 19:15 WBC (4.4-10.8) 10^3/uL 13.42 H RBC (3.93-5.22) 10^6/uL 2.41 L Hgb (11.2-15.7) g/dL 6.8 L* Hct (36.0-46.0) % 21.9 L MCV (80-95) fL 91 MCH (27.0-33.0) pg 28.2 MCHC (32.0-36.0) % 31.1 L RDW (11.7-14.6) % 14.8 H Plt Count (130-400) 10^3/uL 569 H MPV (8.0-11.0) fL 9.9 Immature Gran % 0.7 Neutrophils % 89.6 Lymphocytes % 6.2 Monocytes % 3.4 Eosinophils % 0.0 Basophils % 0.1 Nucleated RBC % (0.0-0.3) % 0.1 Absolute Neutrophils (1.2-6.7) 10^3/uL 12.02 H Absolute Lymphocytes (1.2-3.4) 10^3/uL 0.83 L Absolute Monocytes (0.1-0.8) 10^3/uL 0.46 Absolute Eosinophils (0.0-0.7) 10^3/uL 0.00 Absolute Basophils (0.0-0.2) 10^3/uL 0.01 APTT (21.5-31.9) sec 21.0 L D-Dimer (<500) ng/mlFEU 2886 H Sodium (136-145) mmol/L 139 Potassium (3.5-5.1) mmol/L 4.2 Chloride (98-107) mmol/L 103 Carbon Dioxide (21.0-32.0) mmol/L 21.7 Anion Gap (3-11) mmol/L 14.3 H BUN (7-18) mg/dL 37 H Creatinine (0.55-1.02) mg/dL 1.4 H Est GFR (CKD-EPI 2020) (mL/min/1.73m2) 38.03 Glucose (74-106) mg/dL 116 H Calcium (8.5-10.1) mg/dL 9.1 Magnesium (1.8-2.4) mg/dL 2.1 Total Bilirubin (0.2-1.0) mg/dL 0.2 AST (15-37) U/L 8 L ALT (14-59) U/L 18 Alkaline Phosphatase (46-116) U/L 123 H Troponin I (<or=60) ng/L < 50 Total Protein (6.4-8.2) g/dL 7.5 Albumin (3.4-5.0) g/dL 3.6 Crossmatch Range/Units 05/08/23 19:58 WBC (4.4-10.8) 10^3/uL RBC (3.93-5.22) 10^6/uL Hgb (11.2-15.7) g/dL Hct (36.0-46.0) % MCV (80-95) fL MCH (27.0-33.0) pg MCHC (32.0-36.0) % RDW (11.7-14.6) % Plt Count (130-400) 10^3/uL MPV (8.0-11.0) fL Immature Gran % Neutrophils % Lymphocytes % Monocytes % Eosinophils % Basophils % Nucleated RBC % (0.0-0.3) % Absolute Neutrophils (1.2-6.7) 10^3/uL Absolute Lymphocytes (1.2-3.4) 10^3/uL Absolute Monocytes (0.1-0.8) 10^3/uL Absolute Eosinophils (0.0-0.7) 10^3/uL Absolute Basophils (0.0-0.2) 10^3/uL APTT (21.5-31.9) sec D-Dimer (<500) ng/mlFEU Sodium (136-145) mmol/L Potassium (3.5-5.1) mmol/L Chloride (98-107) mmol/L Carbon Dioxide (21.0-32.0) mmol/L Anion Gap (3-11) mmol/L BUN (7-18) mg/dL Creatinine (0.55-1.02) mg/dL Est GFR (CKD-EPI 2020) (mL/min/1.73m2) Glucose (74-106) mg/dL Calcium (8.5-10.1) mg/dL Magnesium (1.8-2.4) mg/dL Total Bilirubin (0.2-1.0) mg/dL AST (15-37) U/L ALT (14-59) U/L Alkaline Phosphatase (46-116) U/L Troponin I (<or=60) ng/L Total Protein (6.4-8.2) g/dL Albumin (3.4-5.0) g/dL Crossmatch See Detail
[2023-05-08] MEDS: Normal Saline - Diluent 50 ML VIAL IJ (20:17)
[2023-05-08 20:38] LABS: Diff Comment Diff Reviewed; Polychromasia Present
--- NOTE | 2023-05-08 20:48 | DI.VRAD_ITS ---
Addendum created by Dennys Boykin MD on 05/08/2023 8:51:33 PM EDT: THIS REPORT CONTAINS FINDINGS THAT MAY BE CRITICAL TO PATIENT CARE. The findings were verbally communicated via telephone conference with Chang Breaux at 8:51 PM EDT on 05/08/2023. The findings were acknowledged and understood. Initial report created on 05/08/2023 8:48:34 PM EDT: PROCEDURE INFORMATION: Exam: CTA Chest With Contrast Exam date and time: 05/08/2023 8:23 PM Age: 78 years old Clinical indication: Patient HX: Chest pain, history of clot TECHNIQUE: Imaging protocol: Computed tomographic angiography of the chest with contrast. Exam focused on the arteries. 3D rendering (Not supervised by radiologist): MIP and/or 3D reconstructed images were created by the technologist. Total images: 1572 Radiation optimization: All CT scans at this facility use at least one of these dose optimization techniques: automated exposure control; mA and/or kV adjustment per patient size (includes targeted exams where dose is matched to clinical indication); or iterative reconstruction. Contrast material: OMNIPAQUE 350; Contrast volume: 100 ml; Contrast route: INTRAVENOUS (IV); COMPARISON: CT CHEST PE CTA 11/09/2021 4:41 PM FINDINGS: Pulmonary arteries: Segmental filling defects right lower lobe pulmonary artery. Segmental filling defect in the lingular pulmonary arterial branch and left upper lobe apicoposterior branch.. Aorta: No aortic aneurysm. No aortic dissection. Celiac trunk and mesenteric arteries: Mild stenosis celiac trunk. Lungs: Scarring versus discoid atelectasis in the lung bases. Mosaic attenuation likely due to air trapping. Pleural spaces: Thickening of the right minor fissure. Minimal pleural thickening bases. No pleural effusion or pneumothorax. Heart: No pericardial effusion. Heart RV/LV ratio: RV LV ratio 1.2. Lymph nodes: No mediastinal, hilar or axillary adenopathy. Diaphragm: Large hiatal hernia. Liver: Hepatic steatosis. 4 cm hepatic cyst. Pancreas: Mild pancreatic atrophy. Bones/joints: Thoracic kyphosis with old midthoracic compression deformities. Soft tissues: Extrathoracic soft tissues are unremarkable. IMPRESSION: 1. Bilateral multilobar PE. 2. Mild right heart strain. Dictated and Authenticated by: Dennys Boykin MD. Ordering:CAREY Downing MD
[2023-05-08] MEDS: PANTOPRAZOLE 80 MG in Normal Saline 100 ML 10 MG IV (21:45)
[2023-05-08] MEDS: Pantoprazole 40 MG VIAL 80 MG IVP (21:45)
[2023-05-08 22:12] LABS: Troponin I < 50 ng/L (<or=60)
--- NOTE | 2023-05-08 22:33 | ED.PROG_ITS ---
Date of service: 05/08/23 Time of Service: 22:33 Medical Decision Making Pt hemodynamically stable, given she has PE and a gi bleed with her PMR history feel she would benefit from being at a tertiary care facility where she can see the specialists she needs, spoke with Dr. Raymond in the ED at [facility] who accepts h er for transfer to their ED. Sign Out Sign Out Data: Sign Out Comment: Follow-up CT chest. Patient will likely need admission for anemia requiring transfusion and chest discomfort. Last updated by Chang Breaux MD at 05/08/23 20:25 Discharge Plan Disposition Specific Acute Inpt Facility: [facility] Condition: Serious Discharge Details Chief Complaint: Chest Pain Clinical Impression: Anemia, Acute GI bleeding, Pulmonary embolism Primary Care Provider: Petra Serra ED Provider: Edison Leigh Home Meds and New Rx's Prescriptions: No Action diphenhydramine-acetaminophen [Tylenol PM Extra Strength] 25-500 mg tablet 1 tab PO QHS PRN (Reason: pain) Qty: 90 0RF verapamil 180 mg tablet extended release 180 mg PO DAILY Rx Instructions: facial tic and Hx migraines fluoxetine 20 mg capsule 20 mg PO QAM Qty: 90 3RF Rx Instructions: migraine management .. SENDING RX FOR PRICING ... prednisone 1 mg tablet 4 mg PO DAILY Qty: 120 1RF Rx Instructions: Continuing. Rheum increase. gabapentin 100 mg capsule 100 mg PO TID Qty: 90 1RF Rx Instructions: Continuing TM Rx .. consider 300 qHS cyclobenzaprine 5 mg tablet 5 mg PO TID PRN (Reason: muscle spasm) Qty: 30 0RF Rx Instructions: patient reported that she no longer takes this medication apixaban 2.5 mg tablet 2.5 mg PO BID Qty: 180 1RF Rx Instructions: Reduced dose per 10/2022 Heme note multivitamin 1 EACH capsule 1 ea PO DAILY calcium carbonate [Oyster Shell Calcium 500] 500 mg calcium (1,250 mg) Tablet 500 mg PO DAILY prednisone 5 mg tablet 15 mg PO DAILY Rx Instructions: taper instructions.. per rheumatology
== END 2023-05-08 23:22 | disposition short-term general hospital (02) ==
PROVIDERS: Student in an Organized Health Care Education/Training Program; Emergency Provider Emergency Medicine; PCP Student in an Organized Health Care Education/Training Program
DX: D64.9 Anemia, unspecified (principal); K92.2 Gastrointestinal hemorrhage, unspecified; I26.99 Other pulmonary embolism without acute cor pulmonale
CPT/HCPCS: 36415; 71275; 80053; 86850; 86900; 86901; 86920; 93005; 96365; 96366; 96375; 99285; 71045; 83735; 84484; 85025; 85379; 85730; 93010; J3490; P9016

== ENCOUNTER 2023-05-24 01:29 | Outpatient (CLI) | payer MEDICARE, SELFPAY ==
--- NOTE | 2023-05-24 07:02 | DI.MRI_ITS ---
Exam(s) MR LUMBAR SPINE WO EXAM: MR LUMBAR SPINE WO CLINICAL HISTORY: ACUTE LUMBAR RADICULOPATHY,LOWBACK PAIN,COMP FX T SPINE,M54.50,M54.16,N17.9. TECHNIQUE: Multiplanar multisequence MRI of the Lumbar spine was performed. COMPARISON: CR XR LUMBAR SPINE COMP W FLEX/EX from 03/28/2023 FINDINGS: Bones: The last intervertebral disc space is designated the L5/S1 level for the numbering purpose of this examination. Since the prior x-ray from 03/28/2023, there is a compression fracture of the L3 v ertebral body. There is loss of 40 percent of the height of the vertebral body. There is mild resul tant narrowing of the central spinal canal. There is unchanged mild anterior wedging of the T11 vert ebral body. Alignment is satisfactory. Degenerative endplate signal changes are present. There is m ild hyperintense signal seen in the L3 vertebral body. Cord: The conus tip ends at the L1 level. It is of normal size and signal intensity. T12-L1: No disc herniations or bulges are present. No central spinal canal or neural foraminal stenos is. L1-2: No disc herniations or bulges are present. No central spinal canal or neural foraminal stenosis . L2-3: There is mild narrowing of the central spinal canal which appears secondary to the compression fracture appear degenerative changes of the facets and hypertrophy of the ligamentum flavum are noted . No significant neural foraminal stenosis is seen. L3-4: There are degenerative changes of the facets and mild diffuse disc bulge. No significant centr al spinal canal. Stenosis is seen. There is mild bilateral neural foraminal stenosis. L4-5: There is a diffuse disc bulge. There are hypertrophic changes of the facets and ligamentum fla vum. The findings result in mild narrowing of the central spinal canal. There is mild right and mil [id number] left neural foraminal stenosis. L5-S1: There is a mild diffuse disc bulge. There are degenerative changes of the facets. No signifi cant central spinal canal stenosis is seen. There may be a mild small central disc herniation at thi s level. There is mild narrowing of the right neural foramen. No significant left neural foraminal stenosis. Soft tissues: The visualized SI joints and sacrum are well maintained. The paraspinal soft tissues ar e unremarkable. IMPRESSION: 1. Subacute compression fracture of L3. This was not present on the x-ray of the lumbar spine from . There is mild narrowing of the central spinal canal which results. 2. Multilevel degenerative changes throughout the lumbar spine resulting in central spinal canal and neural foraminal stenosis as described above. DATA REPOSITORY:
== END 2023-05-24 01:49 ==
LOC: DI 01:29
PROVIDERS: PCP Student in an Organized Health Care Education/Training Program; Visit Provider Student in an Organized Health Care Education/Training Program
DX: M48.54XD Collapsed vertebra, not elsewhere classified, thoracic region, subsequent encounter for fracture with routine healing (principal); M54.16 Radiculopathy, lumbar region; N17.9 Acute kidney failure, unspecified; M89.38 Hypertrophy of bone, other site; M48.061 Spinal stenosis, lumbar region without neurogenic claudication
CPT/HCPCS: 72148

== ENCOUNTER 2023-06-15 16:39 | Outpatient (CLI) | payer MEDICARE, SELFPAY ==
[2023-06-15 12:54] LABS: Abs Immature Grans 0.06 10^3/uL (0.0-0.06); Absolute Eosinophil Count 0.11 10^3/uL (0.0-0.7); Absolute Lymphocyte Count 0.97 10^3/uL (1.2-3.4); Absolute Monocyte Count 0.51 10^3/uL (0.1-0.8); Absolute Neutrophil Count 10.67 10^3/uL (1.2-6.7); Basophils % 0.8; Eosinophils % 0.9; HCT 33.7 % (36.0-46.0); HGB 10.6 g/dL (11.2-15.7); Immature Grans % 0.5; Lymphocytes % 7.8; MCHC 31.5 % (32.0-36.0); MCV 86 fL (80-95); MPV 10.5 fL (8.0-11.0); Monocytes % 4.1; Neutrophils % 85.9; Platelet Count 461 10^3/uL (130-400); RBC 3.93 10^6/uL (3.93-5.22); RDW 15.6 % (11.7-14.6); RDW-SD 49.2 fL; WBC 12.42 10^3/uL (4.4-10.8)
[2023-06-15 13:10] LABS: BUN 29 mg/dL (7-18); CREATININE 1.3 mg/dL (0.55-1.02); Calcium 9.5 mg/dL (8.5-10.1); Chloride 104 mmol/L (98-107); Estimated GFR 41.57 (mL/min/1.73m2); Glucose 103 mg/dL (74-106); Magnesium 1.9 mg/dL (1.8-2.4); Potassium 3.7 mmol/L (3.5-5.1); Sodium 141 mmol/L (136-145)
[2023-06-15 13:57] LABS: Iron 67 ug/dL (50-170); Total Iron Binding Capacity 364 ug/dL (250-450); Transferrin Sat 18 % (15-50)
[2023-06-15 14:20] LABS: Vitamin D 25 Total 43.5 ng/mL (30-100)
== END 2023-06-15 16:40 | disposition home or self-care (01) ==
LOC: LBO 16:40
PROVIDERS: PCP Student in an Organized Health Care Education/Training Program; Visit Provider Student in an Organized Health Care Education/Training Program
DX: I10 Essential (primary) hypertension (principal); M81.0 Age-related osteoporosis without current pathological fracture; N18.30 Chronic kidney disease, stage 3 unspecified; M25.561 Pain in right knee
CPT/HCPCS: 80048; 82306; 83540; 83550; 83735; 85025

== ENCOUNTER → 2023-06-25 03:43 | Outpatient (CLI) | payer MEDICARE, SELFPAY ==
--- NOTE | 2023-06-25 08:00 | DI.RAD_ITS ---
Exam(s) XR KNEE RT 3V AP,LAT,SANA EXAM: XR KNEE RT 3V AP,LAT,SANA CLINICAL HISTORY: evaluate joint spce, bony path,rt knee pain, m25.561,arthralgia. TECHNIQUE: 2D digital imaging was performed of the right knee. Three views obtained. AP, lateral an d PA tunnel views were obtained. COMPARISON: None. FINDINGS: BONES: No acute fracture is present. No bony destructive lesion is seen. JOINTS: There is mild joint space narrowing and osteophytes in the lateral femoral tibial joint. The re is mild spurring of the posterior patella. There is a small joint effusion. SOFT TISSUE: Atherosclerosis is present. IMPRESSION: Degenerative changes in the right knee as described. DATA REPOSITORY: RADIATION DOSE DELIVERED:
== END ==
PROVIDERS: PCP Student in an Organized Health Care Education/Training Program; Visit Provider Student in an Organized Health Care Education/Training Program
DX: M25.561 Pain in right knee
CPT/HCPCS: 73562

== ENCOUNTER 2023-07-16 02:07 | Outpatient (CLI) | payer MEDICARE, SELFPAY ==
[2023-07-16 12:27] LABS: Abs Immature Grans 0.03 10^3/uL (0.0-0.06); Absolute Basophil Count 0.05 10^3/uL (0.0-0.2); Absolute Eosinophil Count 0.13 10^3/uL (0.0-0.7); Absolute Lymphocyte Count 2.26 10^3/uL (1.2-3.4); Absolute Monocyte Count 0.58 10^3/uL (0.1-0.8); Absolute Neutrophil Count 4.75 10^3/uL (1.2-6.7); Basophils % 0.6; Eosinophils % 1.7; HCT 33.7 % (36.0-46.0); HGB 10.8 g/dL (11.2-15.7); Immature Grans % 0.4; MCH 26.8 pg (27.0-33.0); MCV 84 fL (80-95); MPV 10.4 fL (8.0-11.0); Monocytes % 7.4; Neutrophils % 60.9; Platelet Count 397 10^3/uL (130-400); RBC 4.03 10^6/uL (3.93-5.22); RDW 16.1 % (11.7-14.6); RDW-SD 49.7 fL
[2023-07-16 12:29] LABS: ESR 16 mm/hr (0-30)
[2023-07-16 13:20] LABS: Anion Gap 12.6 mmol/L (3-11); BUN 26 mg/dL (7-18); CO2 23.4 mmol/L (21.0-32.0); CREATININE 1.4 mg/dL (0.55-1.02); Calcium 9.3 mg/dL (8.5-10.1); Chloride 104 mmol/L (98-107); Estimated GFR 38.03 (mL/min/1.73m2); Ferritin 26 ng/mL (8-252); Glucose 119 mg/dL (74-106); Potassium 3.6 mmol/L (3.5-5.1); Sodium 140 mmol/L (136-145)
[2023-07-16 14:09] LABS: Iron 43 ug/dL (50-170); Total Iron Binding Capacity 342 ug/dL (250-450); Transferrin Sat 13 % (15-50)
[2023-07-16 14:14] LABS: C-Reactive Protein 0.31 mg/dL (0.0-0.3)
== END 2023-07-16 02:08 | disposition home or self-care (01) ==
LOC: LBO 02:07
PROVIDERS: PCP Student in an Organized Health Care Education/Training Program; Visit Provider Physician Assistant Medical
DX: I10 Essential (primary) hypertension (principal); M35.3 Polymyalgia rheumatica; D64.9 Anemia, unspecified; N18.30 Chronic kidney disease, stage 3 unspecified; K25.3 Acute gastric ulcer without hemorrhage or perforation; Z79.899 Other long term (current) drug therapy
CPT/HCPCS: 36415; 80048; 85652; 82728; 83540; 83550; 85025; 86140

== ENCOUNTER → 2023-07-26 09:53 | Outpatient (BNVA) | payer MEDICARE, SELFPAY | PROVIDERS: PCP Student in an Organized Health Care Education/Training Program; Referring Provider Student in an Organized Health Care Education/Training Program | DX: M17.11 Unilateral primary osteoarthritis, right knee (principal) | CPT/HCPCS: 20610; 99213; J1040 ==

== ENCOUNTER 2023-09-17 03:52 | Outpatient (CLI) | payer MEDICARE, SELFPAY ==
[2023-09-17 16:41] LABS: Anion Gap 11.9 mmol/L (3-11); BUN 29 mg/dL (7-18); CO2 25.1 mmol/L (21.0-32.0); CREATININE 1.3 mg/dL (0.55-1.02); Calcium 10.2 mg/dL (8.5-10.1); Chloride 103 mmol/L (98-107); Estimated GFR 41.57 (mL/min/1.73m2); Glucose 102 mg/dL (74-106); Potassium 4.1 mmol/L (3.5-5.1); Sodium 140 mmol/L (136-145)
[2023-09-17 16:56] LABS: Hemoglobin A1C 5.4 % (<5.7)
== END 2023-09-17 03:53 | disposition home or self-care (01) ==
LOC: LBO 03:52
PROVIDERS: PCP Student in an Organized Health Care Education/Training Program; Referring Provider Student in an Organized Health Care Education/Training Program; Visit Provider Student in an Organized Health Care Education/Training Program
DX: I10 Essential (primary) hypertension (principal); R73.09 Other abnormal glucose
CPT/HCPCS: 36415; 80048; 83036

== ENCOUNTER → 2023-09-18 00:45 | Outpatient (CLI) | payer MEDICARE, SELFPAY ==
--- NOTE | 2023-09-18 07:30 | DI.RAD_ITS ---
Exam(s) XR KNEE LT 4V AP,LAT,SANA,PAT EXAM: XR KNEE LT 4V AP,LAT,SANA,PAT CLINICAL HISTORY: knee and knee cap pain going upstairs,m25.562. TECHNIQUE: 2D digital imaging was performed. Three views. COMPARISON: CR XR KNEE RT 3V AP,LAT,SANA from 06/25/2023 FINDINGS: BONES: No acute fracture is present. No bony destructive lesion is seen. JOINTS: The knee is normally aligned. No joint effusion is seen. Minimal periarticular spurring. SOFT TISSUE: Normal. IMPRESSION: Mild degenerative changes. DATA REPOSITORY: RADIATION DOSE DELIVERED:
--- NOTE | 2023-09-18 07:40 | DI.RAD_ITS ---
Exam(s) XR HIP PELVIS ADULT BL EXAM: XR HIP PELVIS ADULT BL CLINICAL HISTORY: BILAT HIP PAIN,M25.551,M25.552,EVAL HIP JOINTS. TECHNIQUE: 2D digital imaging was performed. Three views. COMPARISON: No exams were available for comparison FINDINGS: BONES: No acute fracture is present. No bony destructive lesion is seen. JOINTS: No dislocation present. The hip joint spaces are maintained. Mild acetabular spurring. SI joints and pubic symphysis are unremarkable. SOFT TISSUE: Normal. IMPRESSION: Mild degenerative changes of both hips. DATA REPOSITORY: RADIATION DOSE DELIVERED:
== END ==
PROVIDERS: PCP Student in an Organized Health Care Education/Training Program; Visit Provider Student in an Organized Health Care Education/Training Program
DX: M16.0 Bilateral primary osteoarthritis of hip (principal); M17.12 Unilateral primary osteoarthritis, left knee
CPT/HCPCS: 73521; 73564

== ENCOUNTER 2023-10-04 13:55 | Outpatient (CLI) | payer MEDICARE, SELFPAY ==
--- NOTE | 2023-10-04 11:45 | DI.RAD_ITS ---
Exam(s) XR KNEE RT 1V EXAM: XR KNEE RT 1V CLINICAL HISTORY: Right Anterior Knee Pain. TECHNIQUE: 2D digital imaging was performed of the right knee. One views obtained. Merchant, views were obtained. COMPARISON: CR XR KNEE RT 3V AP,LAT,SANA from 06/25/2023 FINDINGS: BONES: No acute fracture is present. No bony destructive lesion is seen. JOINTS: There is normal alignment of the patella. SOFT TISSUE: Normal. IMPRESSION: No acute abnormality. DATA REPOSITORY: RADIATION DOSE DELIVERED:
== END 2023-10-04 13:56 | disposition home or self-care (01) ==
LOC: DIORS 13:55
PROVIDERS: PCP Student in an Organized Health Care Education/Training Program; Referring Provider Student in an Organized Health Care Education/Training Program; Visit Provider Student in an Organized Health Care Education/Training Program
DX: M16.0 Bilateral primary osteoarthritis of hip (principal); M54.50 Low back pain, unspecified; M17.11 Unilateral primary osteoarthritis, right knee
CPT/HCPCS: 99213; 73560

== ENCOUNTER 2023-12-18 03:46 | Outpatient (CLI) | payer MEDICARE, SELFPAY ==
[2023-12-18 14:41] LABS: HCT 33.4 % (36.0-46.0); HGB 10.9 g/dL (11.2-15.7); MCH 28.9 pg (27.0-33.0); MCHC 32.6 % (32.0-36.0); MCV 89 fL (80-95); MPV 10.4 fL (8.0-11.0); Platelet Count 382 10^3/uL (130-400); RBC 3.77 10^6/uL (3.93-5.22); RDW 14.5 % (11.7-14.6); WBC 7.67 10^3/uL (4.4-10.8)
[2023-12-18 14:52] LABS: Hemoglobin A1C 5.5 % (<5.7)
[2023-12-18 16:09] LABS: ALT 22 U/L (14-59); AST 11 U/L (15-37); Albumin 3.9 g/dL (3.4-5.0); Alkaline Phosphatase 73 U/L (46-116); BUN 24 mg/dL (7-18); Bilirubin, Total 0.2 mg/dL (0.2-1.0); CREATININE 1.4 mg/dL (0.55-1.02); Calcium 9.8 mg/dL (8.5-10.1); Chloride 102 mmol/L (98-107); Estimated GFR 38.03 (mL/min/1.73m2); Glucose 112 mg/dL (74-106); Potassium 3.7 mmol/L (3.5-5.1); Sodium 141 mmol/L (136-145); Total Protein 7.7 g/dL (6.4-8.2)
[2023-12-18 16:40] LABS: Iron 42 ug/dL (50-170); Total Iron Binding Capacity 380 ug/dL (250-450); Transferrin Sat 11 % (15-50)
[2023-12-18 17:05] LABS: Vitamin D 25 Total 56.5 ng/mL (30-100)
== END 2023-12-18 03:47 | disposition home or self-care (01) ==
LOC: LBO 03:46
PROVIDERS: Absent Provider Student in an Organized Health Care Education/Training Program; PCP Student in an Organized Health Care Education/Training Program; Referring Provider Student in an Organized Health Care Education/Training Program; Visit Provider Student in an Organized Health Care Education/Training Program
DX: M81.0 Age-related osteoporosis without current pathological fracture; R73.09 Other abnormal glucose; N18.32 Chronic kidney disease, stage 3b
CPT/HCPCS: 36415; 80053; 82306; 85027; 83036; 83540; 83550

== ENCOUNTER → 2024-01-07 13:58 | Outpatient (BNVA) | payer MEDICARE, SELFPAY | PROVIDERS: PCP Student in an Organized Health Care Education/Training Program; Referring Provider Student in an Organized Health Care Education/Training Program; Visit Provider Student in an Organized Health Care Education/Training Program | DX: M17.11 Unilateral primary osteoarthritis, right knee (principal) | CPT/HCPCS: 20610; J1040 ==

== ENCOUNTER 2024-01-30 04:37 | Outpatient (RCR) | payer MEDICARE, SELFPAY ==
[2024-01-30] MEDS: IRON SUCROSE COMPLEX 200 MG in Normal Saline 100 ML 440 MG IVPB (13:41)
[2024-01-30] MEDS: Normal Saline Flush 10 ML SYR IVP (13:41)
== END 2024-02-03 23:59 | disposition home or self-care (01) ==
LOC: INF 04:37
PROVIDERS: PCP Student in an Organized Health Care Education/Training Program; Visit Provider Student in an Organized Health Care Education/Training Program
DX: D64.9 Anemia, unspecified (principal); E61.1 Iron deficiency
CPT/HCPCS: 96365; J1756

== ENCOUNTER 2024-02-20 04:30 | Outpatient (CLI) | payer MEDICARE, SELFPAY ==
[2024-02-20 14:18] LABS: ESR 9 mm/hr (0-30)
[2024-02-20 15:22] LABS: C-Reactive Protein 0.62 mg/dL (<or=0.5)
== END 2024-02-20 04:31 | disposition home or self-care (01) ==
LOC: LBO 04:30
PROVIDERS: PCP Student in an Organized Health Care Education/Training Program; Visit Provider Internal Medicine
DX: M35.3 Polymyalgia rheumatica (principal)
CPT/HCPCS: 36415; 85652; 86140

== ENCOUNTER 2024-02-27 04:49 | Outpatient (RCR) | payer MEDICARE, SELFPAY ==
[2024-02-06] MEDS: Normal Saline Flush 10 ML SYR IVP (13:24)
[2024-02-06] MEDS: IRON SUCROSE COMPLEX 200 MG in Normal Saline 100 ML 440 MG IVPB (13:24)
[2024-02-13] MEDS: IRON SUCROSE COMPLEX 200 MG in Normal Saline 100 ML 440 MG IVPB (13:40)
[2024-02-13] MEDS: Normal Saline Flush 10 ML SYR IVP (13:40)
[2024-02-20] MEDS: IRON SUCROSE COMPLEX 200 MG in Normal Saline 100 ML 440 MG IVPB (13:23)
[2024-02-20] MEDS: Normal Saline Flush 10 ML SYR IVP (13:23)
[2024-02-27] MEDS: IRON SUCROSE COMPLEX 200 MG in Normal Saline 100 ML 440 MG IVPB (13:19)
[2024-02-27] MEDS: Normal Saline Flush 10 ML SYR IVP (13:20)
== END 2024-03-04 23:59 | disposition home or self-care (01) ==
LOC: INF 04:49
PROVIDERS: PCP Student in an Organized Health Care Education/Training Program; Visit Provider Student in an Organized Health Care Education/Training Program
DX: D64.9 Anemia, unspecified (principal); E61.1 Iron deficiency
CPT/HCPCS: 96365; J1756

== ENCOUNTER → 2024-03-04 04:19 | Outpatient (CLI) | payer MEDICARE, SELFPAY ==
--- NOTE | 2024-03-04 07:30 | DI.MRI_ITS ---
Exam(s) MR LOWER JOINT RT WO EXAM: MR LOWER JOINT RT WO CLINICAL HISTORY: ? MENISCAL TEAR,RT KNEE PAIN,M25.561. TECHNIQUE: Multiplanar multisequence MRI was performed. COMPARISON: CR XR KNEE RT 3V AP,LAT,SANA from 06/25/2023 CR XR KNEE LT 4V AP,LAT,SANA,PAT from 09/18/2023 CR XR KNEE RT 1V from 10/04/2023 FINDINGS: BONES: There is no fracture or contusion pattern. JOINTS: A small to moderate-sized joint effusion is present. Articular cartilage: Patellofemoral joint: Mild cartilage thinning. Medial femoral tibial joint: Mild cartilage thinning. Lateral femoral tibial joint: Marked thinning of the cartilage overlying the lateral femoral condyle and lateral tibial plateau, extending down and involving underlying bone. TENDONS: Extensor mechanism: Unremarkable. Medial retinaculum: Unremarkable. Lateral retinaculum: Unremarkable. Popliteus: Unremarkable. MUSCLES: Unremarkable. MENISCI: The medial meniscus is unremarkable. The lateral meniscus is peripherally displaced and shows some intrasubstance signal seen consistent w ith degenerative changes. SOFT TISSUES: Small bilobed Thurman's cyst with multiple small densities within which could represent l oose bodies.. Mild amount of anterior edema. LIGAMENTS: Anterior Cruciate: Unremarkable. Posterior Cruciate: Unremarkable. Medial Collateral:Unremarkable. Lateral Collateral: Unremarkable. IMPRESSION: Advanced degenerative changes of the lateral femoral tibial joint space, with cartilage thinning exte nding down to bone well as significant degenerative change of the lateral meniscus. Thurman's cyst containing loose bodies versus debris. DATA REPOSITORY:
== END ==
PROVIDERS: PCP Student in an Organized Health Care Education/Training Program; Visit Provider Student in an Organized Health Care Education/Training Program
DX: M17.11 Unilateral primary osteoarthritis, right knee (principal)
CPT/HCPCS: 73721

== ENCOUNTER 2024-03-05 09:24 | Outpatient (CLI) | payer MEDICARE, SELFPAY ==
[2024-03-05 09:34] VITALS: BP 132/79; PULSE 85; RESP 20; TEMP 36.7; O2SAT 95
--- NOTE | 2024-03-05 10:01 | PDOC.PAIN_ITS ---
Date of service: 03/05/24 Time of Service: 10:01 Pain Managment Procedure Note Procedure Note Procedure Note: PROCEDURE NOTE BILATERAL INTRA-ARTICULAR SACROILIAC JOINT INJECTION Date of Service: March 05, 2024 Patient: Shena Lemus Provider: Alejandro Palma DO, MPH COMMENTS: I previously evaluated the patient in the office and their symptoms in relation to the sacroiliac joint pain have remained the same. Pre-operative diagnosis: Sacroiliac joint dysfunction Post-operative diagnosis: Same Pre-procedure pain: VAS= 6/10 Shena Lemus has been referred to our [facility] for a Bilateral intra-articular Sacroiliac joint injection. Shena was interviewed and the medical record reviewed. There were no medical, pharmacologic, radiographic or other structural contraindications to attempting a fluoroscopically-guided, contrast-enhanced, intra-articular Sacroiliac joint injection. The risks, benefits, and potential side effects of this procedure were reviewed with the patient. Questions and concerns were addressed. After it was clear that Shena was fully informed about the procedure, the printed consent form was signed by the patient and myself. Shena was placed in the prone position on the fluoroscopy table and an automated blood pressure cuff, 3 lead EKG, and pulse oximeter were applied. The skin entry point for approaching the Left sacroiliac joint was identified under the most advantageous fluoroscopic view and marked. Following thorough Chlorhexadine preparation of the skin and draping with sterile surgical drapes, 2 mls of 1% lidocaine was infiltrated into the skin at the entry point and the surrounding subcutaneous tissues. Next, a 3.5 22G spinal needle was placed under fluoroscopic guidance into the Left sacroiliac joint. Intra-articular placement was confirmed by a clear arthrogram resulting from the injection of 0.25ml of Omnipaque-240. Next, 1 ml of Depo- Medrol 40 mg/ml was injected intra- articularly with an initial reproduction of a significant component of the usual pain. This was followed with 1 ml of 1% Lidocaine. The needle was then removed without difficulty. (49 ml of Omnipaque-240 was wasted). The exact procedure was completed on the opposite sacroiliac joint. Shena's vital signs were stable throughout the procedure and were as recorded in nursing records. Follow up plans and appointments were discussed with Shena. Post procedure instructions were given as documented in nursing records. Having met discharge criteria, Shena was [facility] from the [facility]. COMMENTS: Post-procedure pain: VAS= 1/10. If the patient receives at least 50% improvement in pain and/or function for at least 3 months, this procedure can be repeated if needed. I personally performed this entire procedure. ALEJANDRO PALMA DO, MPH ABPMR-subspecialty board certification in Pain Medicine [facility]
[2024-03-05 10:05] VITALS: BP 151/92; PULSE 78; RESP 22; O2SAT 98
--- NOTE | 2024-03-05 10:05 | DI.RAD_ITS ---
Exam(s) XR PAIN CLINIC SACRIOILIAC 2V EXAM: XR PAIN CLINIC SACRIOILIAC 2V CLINICAL HISTORY: Dx: Sacroiliac Joint Dysfunction. TECHNIQUE: Fluoroscopy was provided for the referring physician for guidance with performing pain cl inic injection procedure. COMPARISON: No exams were available for comparison FINDINGS: Please see procedure note for details. Fluoro time: 29.2 seconds RADIATION DOSE DELIVERED: Ka,r=6.38 mGy
[2024-03-05] MEDS: Omnipaque 240 MG/ML 50 ML BTL IJ (10:08)
[2024-03-05] MEDS: Nerve Block Tray 1 EACH MC (10:08)
[2024-03-05] MEDS: methylPREDNISolone ACETATE 40 MG/ML VIAL IJ (10:08)
== END 2024-03-05 09:25 | disposition home or self-care (01) ==
LOC: PC 09:25
PROVIDERS: PCP Student in an Organized Health Care Education/Training Program; Visit Provider Preventive Medicine Occupational Medicine
DX: M54.50 Low back pain, unspecified (principal); M46.1 Sacroiliitis, not elsewhere classified
CPT/HCPCS: 27096; 72200; J1010; Q9967

== ENCOUNTER → 2024-03-10 13:38 | Outpatient (BNVA) | payer MEDICARE, SELFPAY | PROVIDERS: PCP Student in an Organized Health Care Education/Training Program; Referring Provider Student in an Organized Health Care Education/Training Program; Visit Provider Student in an Organized Health Care Education/Training Program | DX: M17.11 Unilateral primary osteoarthritis, right knee (principal) | CPT/HCPCS: 99213 ==

== ENCOUNTER 2024-04-11 05:17 | Outpatient (CLI) | payer MEDICARE, SELFPAY ==
[2024-04-11 11:44] LABS: Abs Immature Grans 0.01 10^3/uL (0.0-0.06); Absolute Basophil Count 0.06 10^3/uL (0.0-0.2); Absolute Lymphocyte Count 1.51 10^3/uL (1.2-3.4); Absolute Monocyte Count 0.54 10^3/uL (0.1-0.8); Absolute Neutrophil Count 3.62 10^3/uL (1.2-6.7); Eosinophils % 1.7 %; HCT 38.3 % (36.0-46.0); HGB 12.7 g/dL (11.2-15.7); Immature Grans % 0.2 %; Lymphocytes % 25.9 %; MCHC 33.2 % (32.0-36.0); MCV 91 fL (80-95); MPV 10.6 fL (8.0-11.0); Monocytes % 9.2 %; Platelet Count 329 10^3/uL (130-400); RBC 4.23 10^6/uL (3.93-5.22); RDW-SD 50.4 fL; WBC 5.84 10^3/uL (4.4-10.8)
[2024-04-11 12:14] LABS: ALT 21 U/L (14-59); AST 10 U/L (15-37); Albumin 3.9 g/dL (3.4-5.0); Alkaline Phosphatase 80 U/L (46-116); Anion Gap 9.5 mmol/L (3-11); BUN 20 mg/dL (7-18); Bilirubin, Total 0.3 mg/dL (0.2-1.0); C-Reactive Protein 0.56 mg/dL (<or=0.5); CO2 26.5 mmol/L (21.0-32.0); CREATININE 1.3 mg/dL (0.55-1.02); Calcium 9.3 mg/dL (8.5-10.1); Chloride 104 mmol/L (98-107); Estimated GFR 41.31 (mL/min/1.73m2); Glucose 97 mg/dL (74-106); Sodium 140 mmol/L (136-145); Total Protein 7.3 g/dL (6.4-8.2)
== END 2024-04-11 05:18 | disposition home or self-care (01) ==
LOC: LBO 05:17
PROVIDERS: PCP Student in an Organized Health Care Education/Training Program; Visit Provider Student in an Organized Health Care Education/Training Program
DX: N18.9 Chronic kidney disease, unspecified
CPT/HCPCS: 36415; 80053; 85027; 85025; 86140

== ENCOUNTER 2024-04-11 11:55 | Outpatient (CLI) | payer MEDICARE, SELFPAY ==
--- NOTE | 2024-04-11 10:57 | DI.RAD_ITS ---
Exam(s) XR STANDING ALIGNMENT XR KNEE RT 1V EXAM: XR STANDING ALIGNMENT and XR knee RT 1 V CLINICAL HISTORY: OA R KNEE. TECHNIQUE: 2D digital imaging was performed. Five images were obtained. COMPARISON: CR XR KNEE RT 3V AP,LAT,SANA from 06/25/2023 CR XR HIP PELVIS ADULT BL from 09/18/2023 CR XR KNEE LT 4V AP,LAT,SANA,PAT from 09/18/2023 CR XR KNEE RT 1V from 10/04/2023 FINDINGS: BONES: The hips are well maintained. In the right knee, there is mild joint space narrowing and spur ring in the lateral femoral tibial joint. There is also mild spurring of the posterior patella. The re is a small joint effusion. Vascular calcifications are present. In the left knee, there is mild spurring seen both medially and laterally. The joint spaces otherwise well maintained. Vascular pascale cifications are present. The ankles are well maintained.There is no significant leg length discrepan cy. SOFT TISSUE: Vascular calcifications are seen in the soft tissues. IMPRESSION: Degenerative changes of the knees, right greater than left. DATA REPOSITORY: RADIATION DOSE DELIVERED:
== END 2024-04-11 11:56 | disposition home or self-care (01) ==
LOC: DIORS 11:55
PROVIDERS: PCP Student in an Organized Health Care Education/Training Program; Referring Provider Student in an Organized Health Care Education/Training Program; Visit Provider Physician Assistant
DX: M17.11 Unilateral primary osteoarthritis, right knee (principal); Z01.818 Encounter for other preprocedural examination
CPT/HCPCS: 73560; 77073

== ENCOUNTER 2024-04-29 07:15 | Day surgery (SDC) | payer MEDICARE, SELFPAY ==
[2024-04-29] VITALS (20 sets, daily range): BP systolic 111–192; BP diastolic 53–76; PULSE 60–86; RESP 0–115; TEMP 36–36.6; O2SAT 90–97; BMI 28.1
--- NOTE | 2024-04-29 07:23 | W.PM.DS.N ---
Date of service: 04/29/24 Time of Service: 07:27 Discharge Plan Disposition Patient Disposition: Home Condition: Good Discharge Details Attending Provider: Víctor Peterson Primary Care Provider: Petra Serra Home Meds and New Rx's Prescriptions: New acetaminophen 500 mg tablet 1,000 mg PO Q8H PRN Qty: 90 0RF Rx Instructions: Take two tablets up to every 8 hours as needed for pain celecoxib [Celebrex] 200 mg capsule 200 mg PO BID PRNQty: 60 0RF Rx Instructions: Take one tablet twice daily for pain and inflammation dexamethasone 4 mg tablet 4 mg PO DAILY Qty: 2 0RF Rx Instructions: Take one tablet once daily for two days docusate sodium [Colace] 100 mg capsule 100 mg PO BID Qty: 30 0RF gabapentin 300 mg capsule 300 mg PO QHS Qty: 14 0RF Rx Instructions: Take one tablet at bedtime oxycodone 5 mg tablet 5 mg PO Q4H PRNQty: 18 0RF Rx Instructions: Take one tablet up to every 4 hours as needed for severe postoperative pain Continued Tymlos 80 mcg (3,120 mcg/1.56 mL) pen injector 80 mcg subcut DAILY Rx Instructions: inject into abdomen; do not inject within 2 inches of belly button/navel; rotate sites calcium citrate 200 mg (950 mg) tablet 1,900 mg PO BID Qty: 1 0RF Rx Instructions: 1900mg BID per [facility] Rx diclofenac sodium 1 % gel 2 g topical QID Rx Instructions: Apply topically QID to painful joints. Do not exceed 32 grams in a day Venofer 200 mg iron/10 mL solution 200 mg IV QWEEK Patient Comments: 04/29/24: pt reports this finished several weeks ago. FS RN Rx Instructions: administer over 30 mins/per infusion room guidelines verapamil 180 mg tablet extended release 180 mg PO DAILY Qty: 180 3RF Rx Instructions: facial tic and Hx migraines apixaban 5 mg tablet 5 mg PO BID Qty: 60 3RF Rx Instructions: restarted post vertebroplasty. see [facility] notes (coagulopathy 2' PMR!) fluoxetine 20 mg capsule 20 mg PO QAM Qty: 90 3RF Rx Instructions: migraine management pantoprazole 40 mg tablet,delayed release (DR/EC) 40 mg PO BID Qty: 60 3RF multivitamin 1 EACH capsule 1 ea PO DAILY Discontinued Tylenol PM Extra Strength 25-500 mg tablet 1 tab PO QHS PRN (Reason: pain) Qty: 90 0RF No Action gabapentin 100 mg capsule 100 mg PO TID Qty: 90 1RF Rx Instructions: Continuing TM Rx .. consider 300 qHS Discharge Instructions Additional Instructions: Total Knee Discharge Instructions Activity: The most important activity is to walk and to work on gentle motion (both flexion and extension). You should try to take short walks a few times a day. It is important that when resting you work on keeping the knee straight. Avoid putting a pillow behind the knee as this will encourage flexion. Work on range of motion exercises as provided by Physical Therapy. - Start outpatient physical therapy within 2 weeks. - You should wear the ALYSSA hose on both legs for 2 weeks. You may remove these at night. You may also use any compression sock in place of the ALYSSA hose. - Utilize [employer] to review exercises, see videos on exercises and obtain basic information pertaining to your surgery and your recovery. Dressing: Remove the Emerson wrap by 2 days after your surgery and put on the ALYSSA stocking given to you from the hospital. Keep the surgical dressing (underneath the EMERSON wrap) in place for at least one week. After the first week it may be removed and replaced with light gauze and tape or nothing. The wound and dressing may get wet after 3 days but avoid soaking the dressing or otherwise it will need to be changed. Many people prefer covering the dressing with cling wrap (saran wrap) to minimize it from getting soaked. If it gets wet, just pat dry. If it starts to peel off then it will need to be changed. Medications: - You should take Tylenol and anti-inflammatory Celebrex as your primary pain control medications. If the Celebrex is too expensive or not covered, please call the office for another alternative (Advil/Ibuprofen or Naproxen/Aleve) - You have been prescribed a stronger pain medication Oxycodone for breakthrough pain, take as needed as prescribed. - You take a stomach acid reduction agent Pantoprozole at baseline - continue with this medication to help reduce stomach acid and reflux. - You take Gabapentin at baseline - continue with your normal dosing but in place of your regular 100 mg dose at bedtime take the prescription gabapentin 300 mg at night for restlessness and nerve pain. - You will resume taking your apixaban for DVT prevention unless instructed otherwise. - You have also been prescribed Decadron to take to control post-operative nausea and pain. You will start this tomorrow. - If you have constipation you should take Colace (which has been prescribed) or Miralax (which is available [id number]). It takes most people 3-4 days to have a bowel movement. Follow-up: 2 weeks If you have any acute concerns or questions, please do not hesitate to contact the office at [phone]. You may contact Dr. Peterson with any questions after hours through the hospital at [phone] or on his cell phone at [phone]. Stand Alone Forms: Anesthesia Discharge Inst., Nerve Block Instructions, Christophe Kelly ([facility]) Referrals: Víctor Peterson MD [ [facility] STAFF PHYSICIAN] - 05/12/24 11:15 am Equipment/Supplies: Walker Activity:: Elevate Remove Dressings/Wound Care:: Do Not Remove Shower/Bathe:: Cover Diet:: As Tolerated Discharge Orders Discharge Orders: Discharge Order (Routine); Ordered 04/29/24 Ordered By: Felicia Snow Discharge Data Discharge Date/Time-TO BE ENTERED AT DEPARTURE: 04/29/24 15:58 Discharge Comment: pt d/c from [facility] DS: Summary Time Spent with Patient providing and/or coordinating discharge services: Less than 30 minutes Status at Discharge Functional status at discharge: uses cane/walker Overall status at discharge: patient is progressing back to baseline Mental Status: mental status grossly normal Speech and Movement: speech and movement normal Mood: congruent mood Affect: normal affect Quality:SDOH Health Related Social Needs: No Data to Display Exam Psych Mental Status: mental status grossly normal Speech and Movement: speech and movement normal Mood: congruent mood Affect: normal affect PFSH All Active Problems (Updated 04/30/24 @ 08:10 by Wesly Stoddard RN) History of total right knee replacement (Acute 04/29/24) Sacroiliac joint dysfunction of both sides (Acute) Bilateral primary osteoarthritis of hip (Acute) Hip pain, bilateral (Acute) Knee instability (Chronic) gives out vs pain .. XR shows lat , effusn, patella spurring .. [ ] Ortho 07/26 Effusion into joint (Acute) Rt knee, Hx knee pain with XR (06/2023) showing spur/effusion.. MANSI (acute kidney injury) (Acute) CKD (chronic kidney disease) stage 3, GFR 30-59 ml/min (Chronic) Worsened to stage 3b.. Newly developed, Stg 74[address] Anemia (Chronic) Presume 2' CKD, with exacerbation by GI Bleed 2' gastric ulcer (healed per 08/01/23 EGD) .. MONITORING PLANNED .. Hx low-normal, low .. [ ] iron studies? Low back pain, unspecified (Chronic) Due to compression fracture Lumbar radiculopathy, acute (Acute) Weakness and radiating pain per ED visit, 04/30/2023 Compression fracture of L3 vertebra (Acute) 05/31/23 [facility] pain and spine progress note. MRI of lumbar spine dated 05/24/23 shows subacute compression fracture of L3 which is new compared to prior films dated 03/28/23. Compression fracture of thoracic spine, non-traumatic (Acute) T8, T11 Anticoagulated by anticoagulation treatment (Chronic) Eliquis 2' PE .. DVT/PE 2' decreased ambulation due to PMR, with Eliquis @ 1/2 dose per Heme - possible d/c post PMR resolution and steroid D/C. Bilateral pulmonary embolism (Acute ~11/09/21) Sudden onset, PAIN .. on Chest CT ([facility])(11/09/21) Multiple pulmonary emboli (Acute) Nov 2021 & May 2023 ([facility] ED), 2' missed Eliquis (d/w Heme: PMR = Coagulopathy) Polymyalgia rheumatica (Acute) New Dx, [facility] Rheum. Tapering down from Predn 10mg, 5mg starts 01/12/22. Couns possibility of extending 2mg .. Steroid dependent (Acute) from PMR Dx .. still trying to taper, 09/2022 Liver mass, left lobe (Acute ~11/09/21) Incidental findin.5 x 3.4 x 4 cm septated cyst in the liver Nov 2021/ yr checks) Osteoporosis (Chronic ~09/12/16) Tymlos started by Rheum ([facility]) (Nov? 2023).. Hx alendronate and boniva rx .. Rx stopped 2' worsening vs improving bone density per pt report.. Medical History GI bleed Gastric ulcer healed per 08/01/23 EGD ([facility])! possible 2' steroid use (for PMR) + re-start of eliquis (PE x2!) Ulcer, gastric, acute Healed, per 08/01/23 EGD.. per [facility] GI (neg Bx)(neg H.Pylori) .. large URI (upper respiratory infection) Sore throat; Tickle, now cough (with back pain), wheeze qHS x dayss Bilateral hand pain PArt of PMR? (since 11/2021?) Terrible pain and stiffness in the AM Chronic deep vein thrombosis (DVT) of left popliteal vein Nov 2021 Tubular adenoma of colon (~03/2022) per [facility] colonoscopy Family history of colon cancer in mother Dx @ 91yo, but she from this cancer and had Hx IBS symptoms x years.. Diarrhea Recent symptoms .. recommending colo sooner than later [ ] Sleeping difficulties Hx Advil PM .. changing to Tyl PM (01/2022). 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 more of a heavy head than headache. Almost resolved with Fluoxetine. (symptoms rtd @ 20mg prednisone) Ptosis of both eyelids Keratosis, seborrheic Plantar fasciitis Resolved with stretching, inserts and expensive shoes.. Trigger finger, right index finger Complicated migraine Benign head tremor Arthralgia Double vision with both eyes open Surgical History H/O esophagogastroduodenoscopy 05/09/23: done at [facility] ; mildly severe esophagitis 5cm hiatal hernia, non bleeding gastric ulcer, biopsied. normal examined duodenum. recommended repeat in 2months to check healing 08/01/2308-[id number]--hernia unchanged. Ulcer has healed H/O cataract extraction right 01/11/10, left 02/04/10 Dr. Hampton Tubal Ligation, (~1972) Tonsillectomy (~1972) Colonoscopy - MAC (01/03/17) 2006, 2016, 04/2022 Family History Mother Colon cancer Osteoporosis Father Leukemia Aneurysm Alcohol use disorder Paternal Grandmother Diabetes Social History Smoking/Tobacco Use Status: Never Smoking risk assessment performed?: Yes Alcohol Intake: current Alcohol Intake frequency: holidays/special occasions only Drug use: Never Substance use type: does not use Adopted: No Caregiver/Support person: No Foster care: No Household members: spouse Housing: house Number of Children: 2 number of grandchildren: 3 Communication Needs: None Education Level: college Details: Bachelor's Degree Do you need help understanding health information?: Never current occupation: Retired Pets and animals: No Sexually active: Yes Do you think of yourself as: straight/heterosexual Current gender identity: female What is your relationship status?: How often do you talk on the phone with friends or family?: three or more times per week How often do you get together with friends or relatives?: twice per week Do you belong to any clubs or organized social groups?: no Panel score (0-1 are the most socially isolated patients): 2 What type of physical activity do you participate in: other Details: gardening Duration: > 90 minutes/day Frequency: 5-6 times per week Sandra/Pentecostal: None Special sandra needs: No Seatbelt use: always Helmet use: No Drive intox or ride w/intox bulk 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
--- NOTE | 2024-04-29 07:30 | ANES.PREOP_ITS ---
General Info Date of Service Date Performed: 04/29/24 Height: 5 ft 3 in Weight: 72.121 kg Body Mass Index (BMI): 28.1 Surgical Procedure: Operation Date: 04/29/24 09:25 Proposed Procedure Side Surgeon p Knee Total Arthroplasty, Cementless CR Right Víctor Peterson MD Pre-Op Diagnosis Post-Op Diagnosis Osteoarthritis of right knee Meds Allergies and Home Medications Allergies Allergy/AdvReac Type Severity Reaction Status Date / Time No Known Allergies Allergy Verified 04/29/24 07:48 Home Medication Medication Instructions Recorded multivitamin 1 ea PO DAILY 07/31/15 diclofenac sodium 1 % topical gel 2 g topical QID 05/16/23 abaloparatide (Tymlos) 80 mcg subcut DAILY 06/15/23 calcium citrate 200 mg (950 mg) 1,900 mg (9.5 x 200 mg (950 mg)) 07/13/23 tablet PO BID #1 tab iron sucrose 200 mg iron/10 mL 200 mg (10 mL) IV QWEEK 5 doses 01/01/24 intravenous solution (Venofer) verapamil 180 mg tablet,extended 180 mg PO DAILY #180 tabs 02/14/24 release gabapentin 100 mg capsule 100 mg PO TID #90 caps 02/20/24 apixaban 5 mg tablet 5 mg PO BID #60 tabs 02/28/24 fluoxetine 20 mg capsule 20 mg PO QAM #90 caps 03/07/24 pantoprazole 40 mg tablet,delayed 40 mg PO BID #60 tabs 03/28/24 release acetaminophen 500 mg tablet 1,000 mg (2 x 500 mg) PO Q8H PRN 04/29/24 pain #90 tabs celecoxib 200 mg capsule (Celebrex) 200 mg PO BID PRN #60 caps 04/29/24 dexamethasone 4 mg tablet 4 mg PO DAILY #2 tabs 04/29/24 docusate sodium 100 mg capsule 100 mg PO BID #30 caps 04/29/24 (Colace) gabapentin 300 mg capsule 300 mg PO QHS #14 caps 04/29/24 oxycodone 5 mg tablet 5 mg PO Q4H PRN #18 tabs 04/29/24 Current Visit Medications: Current Medications Generic Name Dose Route Start Last Admin Trade Name Freq PRN Reason Stop Dose Admin Acetaminophen 1,000 mg 04/29/24 06:00 Acetaminophen 500 Mg Tab PO 04/29/24 23:59 PREOP ETHAN Celecoxib 400 mg 04/29/24 06:00 Celecoxib 200 Mg Cap PO 04/29/24 23:59 PREOP ETHAN Gabapentin 300 mg 04/29/24 06:00 Gabapentin 300 Mg Cap PO 04/29/24 23:59 PREOP ETHAN Hydromorphone HCl 0.5 mg 04/29/24 07:22 Hydromorphone 2 Mg/Ml Syr IVP 05/29/24 07:21 Q2H PRN PRN Ringer's Solution 1,000 mls @ 80 mls/hr 04/29/24 06:00 IV 04/29/24 23:59 INFUSION ETHAN Cefazolin Sodium/Dextrose 2 gm in 50 mls @ 100 mls/hr 04/29/24 06:00 Ancef Duplex IVPB 04/29/24 23:59 PREOP ETHAN Tranexamic Acid/Sodium Chloride 1,000 mg in 100 mls @ 600 mls/hr 04/29/24 06:00 IVPB 04/29/24 23:59 PREOP ETHAN Cefazolin Sodium/Dextrose 1 gm in 50 mls @ 100 mls/hr 04/29/24 08:00 Ancef Duplex IVPB 04/30/24 00:29 Q8H ETHAN IV Miscellaneous Supplies 1 each 04/29/24 06:00 Iv Access IV 04/29/24 23:59 DIRECTED ETHAN Oxycodone HCl 0 mg 04/29/24 07:22 Oxycodone 5 Mg Tab PO 05/29/24 07:21 Q3H PRN PRN Pain Sodium Chloride 0 ml 04/29/24 06:00 Normal Saline Flush 10 Ml Syr IV 04/29/24 23:59 PRN PRN Sodium Chloride 0 ml 04/29/24 06:00 Normal Saline 10 Ml Vial IJ 04/29/24 23:59 DIRECTED PRN Sterile Water 0 ml 04/29/24 06:00 Water,Injection,Sterile 10 Ml Vial IJ 04/29/24 23:59 DIRECTED PRN PFSH Active Problems Active Problems: Problem Status Onset Code Sacroiliac joint dysfunction of both sides M53.3 Bilateral primary osteoarthritis of hip M16.0 Hip pain, bilateral M25.551, M25.552 Osteoarthritis of right knee M17.11 Knee instability M25.369 Effusion into joint M25.40 MANSI (acute kidney injury) N17.9 CKD (chronic kidney disease) stage 3, GFR 30-59 ml/min N18.30 Anemia D64.9 Low back pain, unspecified M54.50 Lumbar radiculopathy, acute M54.16 Compression fracture of L3 vertebra S32.030A Compression fracture of thoracic spine, non-traumatic M48.54XA Anticoagulated by anticoagulation treatment Z79.01 Bilateral pulmonary embolism ~11/09/21 I26.99 Multiple pulmonary emboli I26.99 Polymyalgia rheumatica M35.3 Steroid dependent F19.20 Liver mass, left lobe ~11/09/21 R16.0 Osteoporosis ~09/12/16 M81.0 Medical History Medical History GI bleed Gastric ulcer healed per 08/01/23 [place] possible 2' steroid use (for PMR) + re-start of eliquis (PE x2!) Ulcer, gastric, acute Healed, per 08/01/23 EGD.. per [facility] [place] (neg Bx)(neg H.Pylori) .. large URI (upper respiratory infection) Sore throat; Tickle, now cough (with back pain), wheeze qHS x dayss Bilateral hand pain PArt of PMR? (since 11/2021?) Terrible pain and stiffness in the AM Chronic deep vein thrombosis (DVT) of left popliteal vein Nov 2021 Tubular adenoma of colon (~03/2022) per [facility] [place] Family history of colon cancer in mother Dx @ 91yo, but she from this cancer and had Hx IBS symptoms x years.. Diarrhea Recent symptoms .. recommending colo sooner than later [ ] Sleeping difficulties Hx Advil PM .. changing to Tyl PM (01/2022). 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 more of a heavy head than headache. Almost resolved with Fluoxetine. (symptoms rtd @ 20mg prednisone) Ptosis of both eyelids Keratosis, seborrheic Plantar fasciitis Resolved with stretching, inserts and expensive shoes.. Trigger finger, right index finger Complicated migraine Benign head tremor Arthralgia Double vision with both eyes open Surgical History Surgical History H/O esophagogastroduodenoscopy 05/09/23: done at [facility] ; mildly severe esophagitis 5cm hiatal hernia, non bleeding gastric ulcer, biopsied. normal examined duodenum. recommended repeat in 2months to check healing 08/01/[id number]--hernia unchanged. Ulcer has healed H/O cataract extraction right 01/11/10, left 02/04/10 Dr. Hampton Tubal Ligation, (~1972) Tonsillectomy (~1972) Colonoscopy - MAC (01/03/17) 2006, 2016, 04/2022 Tobacco Smoking/Tobacco Use Status: Never Passive smoking exposure: Yes (Yes, during childhood. ) Alcohol Alcohol Intake: current Alcohol intake frequency: holidays/special occasions only Substance Use Substance use: Never Substance use type: does not use Vital Signs and Lab Results Lab Results Blood Type / Crossmatch: No Data to Display Complete Blood Count: White Blood Count 5.84 10^3/uL (4.4-10.8) 04/11/24 11:35 Red Blood Count 4.23 10^6/uL (3.93-5.22) 04/11/24 11:35 Hemoglobin 12.7 g/dL (11.2-15.7) 04/11/24 11:35 Hematocrit 38.3 % (36.0-46.0) 04/11/24 11:35 Platelet Count 329 10^3/uL (130-400) 04/11/24 11:35 Complete Metabolic Panel: Sodium 140 mmol/L (136-145) 04/11/24 11:35 Potassium 4.0 mmol/L (3.5-5.1) 04/11/24 11:35 Chloride 104 mmol/L (98-107) 04/11/24 11:35 Carbon Dioxide 26.5 mmol/L (21.0-32.0) 04/11/24 11:35 BUN 20 mg/dL (7-18) H 04/11/24 11:35 Creatinine 1.3 mg/dL (0.55-1.02) H 04/11/24 11:35 Est GFR (CKD-EPI 2020) 41.31 (mL/min/1.73m2) 04/11/24 11:35 Calcium 9.3 mg/dL (8.5-10.1) 04/11/24 11:35 Albumin 3.9 g/dL (3.4-5.0) 04/11/24 11:35 Glucose 97 mg/dL (74-106) 04/11/24 11:35 C-Reactive Protein 0.56 mg/dL (<or=0.5) H 04/11/24 11:35 Liver Function Panel: Alanine Aminotransferase (ALT/SGPT) 21 U/L (14-59) 04/11/24 11: 35 Aspartate Amino Transf (AST/SGOT) 10 U/L (15-37) L 04/11/24 11: 35 Coagulation Panel: No Data to Display Cardiac Panel: No Data to Display Arterial Blood Gas: No Data to Display Venous Blood Gas: No Data to Display Pancreas Panel: No Data to Display Thyroid Panel: No Data to Display Infectious Disease: No Data to Display Blood Cultures: No Data to Display Toxicology Panel: No Data to Display Imaging and Studies Imaging and Studies Study information below may be from another EMR and interpreted by another provider. Please see original notes in EMR for more complete details. EKG Summary: 05/08/23: Exam: Resting ECG Reason for Exam: CHEST AND JAW PAIN Patient Location: E HR:84 bpm ECG Measurements Heart Rate 84 AXIS AZ 160 P 17 QRSd 76 QRS 5 QT 361 T6 QTc 427 Conclusion Sinus rhythm...normal P axis, V-rate 60- 99 Low voltage, precordial leads...precordial leads <1.0mV I have reviewed and I agree with the emergency room physician's ECG interpretation. Echocardiogram Summary: 11/10/2021: Conclusion Normal left ventricular wall thickness and chamber size. Estimated ejection fraction is 60 to 65%. Wall motion is normal Normal right ventricular size and systolic function The atria are normal in size Mild mitral annular calcification. Trace mitral regurgitation Trileaflet aortic valve without stenosis or regurgitation Normal tricuspid valve with trace regurgitation. Estimated right ventricular systolic pressure is 28 mmHg Borderline dilated ascending aorta measuring 3.44 cm Anesthesia Assessment and Plan Anesthesia History Personal History: Awareness Under Anesthesia Family History: No Family History of Anesthesia Complications Exercise Tolerance Exercise Tolerance: Metabolic Equivalents>4 Pertinent Negatives Pertinent Negatives: No Symptoms of GERD Cardiac & Pulmonary Exam Cardiac Exam: Normal S1/S2 Heart Sounds Pulmonary Exam: Clear Bilateral Breath Sounds Implantable Cardiac Device Does patient have a Pacemaker or an ICD?: No Airway Exam Known Difficult Airway: No Mallampati Class: 2 Mouth Opening: Normal (> 3cm) Thyromental Distance: Greater than 3 cm Neck Range of Motion: Full ROM Neck Circumference: Normal Teeth Condition: Normal Dentition ASA Classification ASA Score: ASA 3 Emergency Case?: No NPO Status NPO Status: NPO Clears >2 hours, Solids >8 hours Anesthesia Plan Resuscitation Status: Full Code Anesthesia Technique: Spinal Anesthesia Airway Planned: Natural Airway Pain Management: Surgeon and patient request nerve block Monitors Used: Standard Monitors Preoperative Comments:: Patient's SpO2 drifts down to 90-91% when resting in bed during preoperative interview. Reports no SOB. Dr. Peterson made aware.
[2024-04-29] MEDS: Acetaminophen 500 MG TAB 1000 MG PO (07:49)
[2024-04-29] MEDS: Gabapentin 300 MG CAP PO (07:50)
[2024-04-29] MEDS: Celecoxib 200 MG CAP 400 MG PO (07:50)
[2024-04-29] MEDS: Lactated Ringers 1,000 ML 80 ML IV (08:02)
[2024-04-29] MEDS: ceFAZolin 2 GM/50 ML BAG IVPB (08:50)
[2024-04-29] MEDS: TRANEXAMIC ACID/SOD. CHL. 1,000 MG/100 ML BAG 600 MG IVPB (09:04)
--- NOTE | 2024-04-29 09:21 | W.ANESNERVE ---
Nerve Block Single Injection Procedure Date and Time Date Performed: 04/29/24 Procedure Start: 08:30 Location Where Procedure Performed Procedure Location: Day Surgery Unit Reason Performed: Postoperative Analgesia Requesting Provider: Víctor Peterson Timeout Performed Timeout Performed: Yes Monitoring Used ECG, Blood Pressure, SpO2 and See EMR for corresponding vital signs Sterility Sterility: Hand Hygiene, Surgical Cap, Surgical Mask, Sterile Gloves and Chlorhexidine Sedation Given During Procedure Sedation Given (Indicate Dose Given): No Sedation given Patient Mental Status Patient Mental Status: Awake Nerve Block 1st Nerve Block: Laterality: Right Block Type: Adductor Canal Ultrasound Image Saved?: Yes Needle / Catheter Used: 100mm SonoPlex II Local Anesthetic Bolus (Indicate Dose Given): Lidocaine used for local infiltration of skin, Injected in 3-5ml increments after negative blood aspiration and Bupivacaine 0.25% Dose:: 12 mL Additives (Indicate Dose Given): None Ultrasound: Not Used Nerve Stimulator: Supplement to Ultrasound use and No twitch or parasthesia noted < 0.5 mA Paresthesia: None Procedure Tolerated: No Complications Procedure Outcome: Successful Performed By: Shannen Prieto
--- NOTE | 2024-04-29 10:16 | W.PM.OP ---
Date of service: 04/29/24 Time of Service: 09:05 Operative Note Operative Note DATE OF PROCEDURE: 04/29/24 PRE-OP DIAGNOSIS: Right Knee Osteoarthritis POST-OP DIAGNOSIS: same PROCEDURE: Right Total Knee Replacement SURGEON: Víctor Peterson SUPERVISOR AGENCY APPOINTMENTS: Felicia Snow ANESTHESIA TYPE: Spinal Refer to Anesthesia Record ESTIMATED BLOOD LOSS: 150 PATHOLOGY: none sent TOURNIQUET TIME: 0 COMPLICATIONS: None Patient was transported to: PACU Patient's condition: stable Implants: 1. Depuy Attune Cementless Cruciate Retaining Femoral Component, Size 5 2. Depuy Attune Cementless Fixed Bearing Tibial Component, Size 4 3. Depuy Attune 5x7 CR/FB Poly 4. Depuy Attune Patellar Component, Size 35 Indications: I have seen Shena in clinic for symptoms of knee arthritis, confirmed with radiographic findings. She has exhausted nonoperative methods and was having significant limitations in daily function and desired better function and less pain. I discussed the technical details of a knee replacement. I explained the risks of the procedure to include, but not limited to, bleeding, infection, pain, stiffness, fracture, damage to nerves and vessels, damage to muscles and tendons, loosening, need for repeat procedure, blood clot and cardiopulmonary demise. Despite these risks, Shena elected to proceed. Findings: There was significant signs of arthritis throughout the knee, primarily involving the lateral aspect of the knee. Procedure Description: Shena was greeted in the preoperative holding area where the correct side was identified and marked. The consent was reviewed with the patient and signed. The history and physical was updated. All questions were answered. Preoperative medications were administered: Acetaminophen 1000mg, Celebrex 400mg, and Gabapentin 300mg. An adductor canal block was then administered by the anesthesia team in the DSU. Shena was taken back to the operating room. A spinal anesthestic was then administered. The patient was placed into the supine position on the operating room table. A nonsterile tourniquet was placed high onto the leg but only used for cementing. Posts were placed for positioning during the procedure. All bony prominences were well padded. Prophylactic antibiotics in the form of Cefazolin were administered. 1g of Tranxemic Acid was given intravenously within 30 minutes of incision. The right leg was then prepped with Chloraprep and draped in a standard fashion with impervious stockinette. A second prep with Chloraprep was performed prior to application of Iodine impregnated skin protection. A timeout to confirm correct identity, side and site, procedure, allergies, anesthesia, and medical concerns was performed. With the knee in some flexion, a midline incision was made overlying the knee. Full thickness skin flaps were raised once the extensor mechanism was encountered. These were raised medially and laterally. Any bleeding was controlled with electrocautery. Once the extensor mechanism was fully exposed, a medial parapatellar arthrotomy was performed in a flexed position. All bleeding from the arthrotomy and the geniculate arteries was coagulated. A medial subperiosteal peel was performed with electrocautery to the midcoronal plane. The fat pad was removed while keeping the patellar tendon protected. The anterior distal femur synovium was removed for later visualization. The ACL and PCL were resected and the anterior horn of the lateral meniscus was transected. The knee was then flexed with the patella everted. Large osteophytes from the tibia were removed. Large osteophytes from the femur were removed. Using a step drill, and based on preoperative templating, the femoral canal was entered. This was done with a step drill without any difficulty. The intramedullary distal femoral cut guide was inserted, set to a 5 degree valgus cut and 9mm cut thickness. The distal femoral cut guide was then held in position and pinned. With the soft tissues protected, the distal cut was performed. This was passed over a few times to ensure a planar cut. I then turned attention to the tibia. The extramedullary guide was placed onto the leg. The distal aspect was slid medial to adjust for position of center of ankle and stay in line with shaft of the tibia. Approximately 3-5 degrees of posterior slope was kept in the proximal cutting guide. The center of the guide was aligned with the PCL. The stylus was used to assess cut thickness. The lateral side, most involved side, was set for a 5mm cut, corresponding to 8mm medially. This was then held in position and pinned into place with 2 additional pins and a cross pin for stability. The medial and lateral collateral ligaments were protected and the cut was performed. With this completed, it was assessed and noted to be of appropriate dimensions. The guide was removed. A spacer block was inserted and the knee was brought into extension. The 7mm spacer block provided full extension, without hyperextension and with stability of both the medial and lateral collateral ligaments was assessed. The pins from the femur and the tibia were then removed. The distal femur was then sized. The anterior stylus was placed onto the lateral ridge of the anterior femur. This indicated a size 5 femur. The external rotation of the guide was adjusted to 3 degrees to match the epicondylar axis, perpendicular to Gillespie?s line. The 4-in-1 cutting guide was the placed. The posterior medial femur cut was evaluated and appeared of good thickness. The spacer block was inserted underneath the cutting guide and stability was confirmed in 90 degrees of flexion. An magali wing was used to confirm appropriate position of the anterior cut to avoid notching. This cutting guide was ensured to be flush on the cut surface and then pinned into place with headed pins. While protecting the soft tissues, quad tendon, and collateral ligaments, the anterior and posterior cuts were performed with a saw. The central two pins were removed and the posterior and anterior chamfers were cut next. The notch-cutting guide was placed. This was pinned to lateralize the femoral component as much as possible while keeping it flush on the cut surface. This was then pinned into position. A reciprocating saw was used to make the notch cut. A rasp smoothed the cut surfaces. The medial and lateral menisci were removed. A trial femoral component was then inserted, impacted down to the cut surfaces, and the lug holes were drilled. A provisional trial tibial component was placed and the knee was brought through range of motion. There was noted to be excellent extension and flexion. There was no significant instability. The patella was tracking without thumbs. A size 7mm polyethylene component provided the best range of motion and stability with less than 2mm gapping with medial and lateral stress and full extension without significant hyperextension. The tibial cut surface was fully exposed. The tibia was then sized as a 4. The tibia had been previously marked during trialing to correspond to the center of the tibial component to help with rotation. The trial was aligned to this bruce, approximately rotated to the medial 1/3rd of the tibial tubercle. The trial was pinned into place. The tibia was prepared with a reamer and a keel punch and lug holes. The knee was then brought into extension and the patella was measured as 23mm. Using the patellar clamp and cut guide, this was resected to a flat surface with at least 13mm of thickness remaining. The size 35 patella fit the best. This was oriented and then clamped into position. The lugs were drilled. The trial components were removed. The final components were opened on the back table. The periosteal and capsular tissues, especially posteriorly, around the knee were then systematically injected with a periarticular cocktail consisting of 246mg of Ropivacaine, 0.5mg of Epinephrine, 0.08mg of Clonidine, and 30mg of Ketorolac, diluted to 100cc. On the back table, with the implants opened, the cement was mixed. One batch of high viscosity cement was prepared with vacuum assistance. After the cement was ready a small amount was placed on the cut surface of the patella and the patellar button was clamped into position and held. While the cement was hardening, the cementless knee components were placed. Starting with the tibial component, the tibia was subluxed anteriorly and the lug holes of the component were lined up. The tibia was then impacted with an impactor and mallet until the tibial component was in contact with the tibia. The final polyethylene component was inserted. Then, the femoral component was inserted. The lug holes were aligned and the component was impacted into position. The knee was irrigated with Surgiphor Betadine solution. This was allowed to sit in the knee for 3 minutes and then it was irrigated out with saline. After the cement had finally cured, approximately 15min, the clamp was removed from the patella and the knee was taken through range of motion. The patella was tracking with a no-thumbs technique. The capsule was then reapproximated with a No. 1 Vicryl at multiple locations. The capsule was finally closed with a No. 2 Stratafix, barbed suture. The second dosing of 1g TXA was started. Deep tissues were then reapproximated with 0 Vicryl and 2-0 Vicryl. The skin was closed with a running 3-0 Monocryl in a subcuticular fashion. This was reinforced with skin glue. A Mepilex silver dressing was applied along with a [id number] NGOC wrap. A CryoCuff was applied. Shena was transferred to the hospital bed without difficulty an suffering no apparent complication. Shena has a good prognosis. Physical therapy will start today and without restrictions, weight-bearing as tolerated. Her home dose of Apixaban 5mg BID will be used for DVT prophylaxis.
[2024-04-29] MEDS: fentaNYL 100 MCG/2 ML VIAL IVP ×2 (10:50→11:10)
[2024-04-29] MEDS: HYDROmorphone 2 MG/ML SYR IVP ×2 (11:23→11:35)
[2024-04-29] MEDS: oxyCODONE 5 MG TAB PO (12:37)
--- NOTE | 2024-04-29 13:49 | PT.INIE ---
PT Notes Visit Reasons: Right knee DJD Physical Therapy Day Surgery Initial Evaluation Date: 04/29/2024 Referring Doctor: GILDARDO Zimmerman PT Orders: PT CONSULT: S/p Ortho Surgery Precautions: WBAT on the R LE with AD per Dr. Peterson. Patient Profile/Admitting Diagnosis: Khushbu is an 79-year-old female with degenerative joint disease of the right knee and status post right total knee arthroplasty on postoperative day 0. PMHX: Medical History GI bleed Gastric ulcer healed per 08/01/23 EGD ([facility] [place] possible 2' steroid use (for PMR) + re-start of eliquis (PE x2!) Ulcer, gastric, acute Healed, per 08/01/23 EGD.. per [facility] [place] GI (neg Bx)(neg H.Pylori) .. large URI (upper respiratory infection) Sore throat; Tickle, now cough (with back pain), wheeze qHS x dayss Bilateral hand pain PArt of PMR? (since 11/2021?) Terrible pain and stiffness in the AM Chronic deep vein thrombosis (DVT) of left popliteal vein Nov 2021 Tubular adenoma of colon (~03/2022) per [facility] [place] colonoscopy Family history of colon cancer in mother Dx @ 91yo, but she from this cancer and had Hx IBS symptoms x years.. Diarrhea Recent symptoms .. recommending colo sooner than later [ ] Sleeping difficulties Hx Advil PM .. changing to Tyl PM (01/2022).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 more of a heavy head than headache. Almost resolved with Fluoxetine. (symptoms rtd @ 20mg prednisone) Ptosis of both eyelids Keratosis, seborrheic Plantar fasciitis Resolved with stretching, inserts and expensive shoes.. Trigger finger, right index finger Complicated migraine Benign head tremor Arthralgia Double vision with both eyes open Surgical History H/O esophagogastroduodenoscopy 05/09/23: done at [facility] [place] ; mildly severe esophagitis 5cm hiatal hernia, non bleeding gastric ulcer, biopsied. normal examined duodenum. recommended repeat in 2months to check healing 08/01/2392-KO[facility]-rusimr--hernia unchanged. Ulcer has healed H/O cataract extraction right 01/11/10, left 02/04/10 Dr. Hampton Tubal Ligation, (~1972) Tonsillectomy (~1972) Colonoscopy - [facility] [place] (01/03/17) 2006, 2016, 04/2022 Social History/Home Situation: Lives with in a private home with sick steps to enter with a rail on one side but will help will have the systems of patient's are patient's son on the other side for stair negotiation. Equipment Owned/DME: [employer] Subjective: Reported fatigue and drowsiness throughout session. Objective: General Observation: NGOC wraps to right LE Cryocuff to right knee. Sarwat present in room throughout session. Mental Status: Drowsy but orinted x 4 Pain: 3/10 in the R knee ROM: Right Lower Extremity: Hip flexion WFL. Hip abduction WFL. Knee flexion 20 degrees to 90 degrees. Knee extension -20 degrees ankle dorsiflexion WFL. Ankle plantarflexion WFL. Left Lower Extremity: Hip flexion WFL. Hip abduction WFL. Knee flexion WFL. Ankle dorsiflexion WFL. Ankle plantarflexion WFL. Strength: Right Lower Extremity: Hip flexors 4/5. Hip abductors 4/5. Knee flexors 3-/5. Knee extensors 3-/5. Ankle dorsiflexors 5/5. Ankle plantarflexors 5/5. Left Lower Extremity:Hip flexors 5/5. Hip abductors 5/5. Knee flexors 5/5. Knee extensors 5/5. Ankle dorsiflexors 5/5. Ankle plantarflexors 5/5. Sensation: Intact history of pain and light pressure in bilateral lower extremities Bed Mobility/Transfers: Minimal cueing provided for use of B hands as needed for support, movement sequence, AD management, and posture to reduce fall risk and minimize pain report Supine to sit stand by assist Sit to stand contact guard assist Stand to sit stand by assist Bed to chair stand by assist Gait: Facilitated safe and correct performance of level surface ambulation covering a distance of 40 feet + 75 feet + 35 feet using front wheeled walker and contact-guard assist of PT for safety as patient reported nausea throughout activity requiring seated rest x 3. Moderate verbal cueing provided for safe gait pattern, AD management, and posture. BP 116/77/mmHg, oxygen saturation between 88 to 91% on room air, and HR between 60 to 80 bpm after walking 75 feet. Nurse import customer service manager Dee providing chair follow for safety. Stairs: Evaluated patient with safe and correcting ulceration of 3 x 4 inch steps and 2 x 6 inch step holding onto bilateral rails with step through gait pattern requiring contact-guard assist with moderate verbal cueing for increased knee flexion on the right during each send, hand placement, posture, and movement sequence. Balance: Static Sitting: Normal Dynamic Sitting: Good Static Standing: Fair Dynamic Standing: Fair Special Tests: Mobility Limitations Standardized Measure [facility] AM-PAC 6 clicks Basic Mobility Inpatient Short Form: Raw Score: 21 CMS Score: 29% deficit Informed Consent/Education: Patient instructed in purpose of PT consult. Packet containing TKA exercise protocol has been given to patient. Education and training on initial set of exercises that can be done at home have been completed with patient. Trained patient with correct performance of exercises below to maximize motor control, joint flexibility, soft tissue extensibility of the R knee musculature: Access Code: [email or web address] URL: [email or web address] Date: 04/29/2024 Prepared by: Nancy Jordan Exercises - Supine Quad Set - 1 x daily - 7 x weekly - 1 sets - 10 reps - 5 hold - Supine Heel Slide - 1 x daily - 7 x weekly - 1 sets - 10 reps - 5 hold - Supine Ankle Pumps - 1 x daily - 7 x weekly - 1 sets - 10 reps - 5 hold - Small Range Straight Leg Raise - 1 x daily - 7 x weekly - 1 sets - 10 reps - 5 hold - Seated March - 1 x daily - 7 x weekly - 1 sets - 10 reps - 5 hold ASSESSMENT: Patient requires the use of a front-wheel walker and the consists of standby assist of another for mobility ADLs to maximize independence and reduce fall risk. Patient presents with clinical signs and symptoms consistent with current/admitting diagnoses that have resulted to mobility limitations, gait instability, generalized weakness, and impairment of motor control as demonstrated by the following impairment level findings: 1. Decreased strength to right knee major muscle groups 2. Impaired standing balance 3. Limitation of joint range of motion in left knee Impairments are contributing to the following functional limitations: 1. Inability to safely ambulate without assistive device 2. Increase completion time for mobility ADL performance 3. Increased fall risk Patient is assessed as a 9716 2 mg complexity based on the following: History: 79-year-old female with impairment level findings, functional limitations, and past medical history as indicated above Examination: Demonstrable impairment in strength, balance, and mobility level with underlying impairments and functional limitations as documented above Presentation: Evolving Decision Makin moderate complexity Goals: N/A. PT evaluation and 1-2 treatment sessions only for functional mobility training using recommended AD and for HEP instruction. Plan of Care/Treatment Plan: N/A. PT evaluation and 1-2 treatment session only for functional mobility training using recommended AD and for HEP instruction. DISCHARGE RECOMMENDATIONS: Home when medically cleared by orthopedic surgeon. Recommend outpatient PT services in order to optimize functional mobility outcomes and facilitate return to independent community ambulation without an assistive device. TREATMENT CODE/TIME: 59660 x 20 mnutes for 1 unit, 14487 x 25 minutes for 2 units (13:49-14:34). Thank you for the opportunity to participate in the care of this patient. Please sign an return this page within 30 days if you agree with the above POC. Thank you! Physician Signature Date Thank you for the opportunity to participate in the care of this patient. Nancy Jordan PT, DPT, CLT [facility] [place], [place]
--- NOTE | 2024-04-29 14:25 | W.ANESPOSTOP ---
Postoperative Evaluation Date, Time and Location Date Performed: 04/29/24 Time Performed: 14:25 Patient Location: Day Surgery Unit Vital Signs Most Recent Imported Vital Signs: Most Recent Vital Signs Temp Pulse Resp BP Pulse Ox 36.2 C L 61 12 136/76 97 04/29/24 13:29 04/29/24 13:29 04/29/24 13:29 04/29/24 13:29 04/29/24 13:29 Pain Score Most Recent Pain Score: Most Recent Pain Score Pain Level 4 04/29/24 13:29 Assessment Mental Status: Awake (Alert & Oriented to Patient Baseline) Airway and Respiratory Function: Patent airway with normal (patient baseline) respiratory exam Cardiovascular Function: Hemodynamically Stable Hydration Status: Adequately Hydrated Nausea & Vomiting: Active Nausea or Vomiting Present Nausea and Vomiting Management: Other (Short period of nausea during PT, resolved) Pain: Pain is tolerable per patient Peripheral Nerve Block: Regional nerve block not resolved at time of post operative discharge
[2024-04-29] MEDS: Droperidol 5 MG/2 ML VIAL 0.625 MG IVP (15:05)
== END 2024-04-29 15:58 | disposition home or self-care (01) ==
PROVIDERS: PCP Student in an Organized Health Care Education/Training Program; Visit Provider Student in an Organized Health Care Education/Training Program
PROC: (CPT 27447; principal; 2024-04-29 09:15)
DX: M17.11 Unilateral primary osteoarthritis, right knee (principal); M35.3 Polymyalgia rheumatica; N18.30 Chronic kidney disease, stage 3 unspecified; D64.9 Anemia, unspecified
CPT/HCPCS: 27447; C1776; 76942; 97162; 97530; J0665; J0690; J1790; J2001; J2371; J2401; J2405; J2704; J3010

== ENCOUNTER 2024-05-12 12:41 | Outpatient (CLI) | payer MEDICARE, SELFPAY ==
--- NOTE | 2024-05-12 11:30 | DI.RAD_ITS ---
Exam(s) XR KNEE RT 1V XR STANDING ALIGNMENT EXAM: XR STANDING ALIGNMENT and XR knee RT 1 V CLINICAL HISTORY: 1ST POST OP R TKA. TECHNIQUE: 2D digital imaging was performed. Five images were obtained. COMPARISON: CR XR KNEE RT 1V from 04/11/2024 CR XR STANDING ALIGNMENT from 04/11/2024 FINDINGS: BONES: There is marked narrowing of the right hip joint space. Note is made of prior L3 vertebral pl asty. The right knee is fairly well maintained with minimal degenerative change present. The patien t has a right total knee replacement which appears in good position. No lucencies are seen about the hardware to suggest loosening at this time. The ankles are well maintained.There is no significant leg length discrepancy. SOFT TISSUE: Vascular calcifications are present. IMPRESSION: Right total knee replacement appears in good position. DATA REPOSITORY: RADIATION DOSE DELIVERED:
== END 2024-05-12 12:42 | disposition home or self-care (01) ==
LOC: DIORS 12:44
PROVIDERS: PCP Student in an Organized Health Care Education/Training Program; Referring Provider Student in an Organized Health Care Education/Training Program; Visit Provider Student in an Organized Health Care Education/Training Program
DX: Z96.651 Presence of right artificial knee joint (principal); Z47.1 Aftercare following joint replacement surgery
CPT/HCPCS: 73560; 77073

== ENCOUNTER → 2024-06-09 10:59 | Outpatient (BNVA) | payer MEDICARE, SELFPAY | PROVIDERS: PCP Student in an Organized Health Care Education/Training Program; Referring Provider Student in an Organized Health Care Education/Training Program; Visit Provider Student in an Organized Health Care Education/Training Program | DX: Z47.1 Aftercare following joint replacement surgery (principal); Z96.651 Presence of right artificial knee joint ==

== ENCOUNTER → 2024-08-01 08:11 | Outpatient (BNVA) | payer MEDICARE, SELFPAY | PROVIDERS: PCP Student in an Organized Health Care Education/Training Program; Referring Provider Student in an Organized Health Care Education/Training Program | DX: Z47.1 Aftercare following joint replacement surgery (principal); Z96.651 Presence of right artificial knee joint ==

== ENCOUNTER 2024-08-05 13:09 | Outpatient (CLI) | payer MEDICARE, SELFPAY ==
[2024-08-05 13:22] VITALS: BP 140/75; PULSE 82; RESP 20; TEMP 36.7; O2SAT 94
[2024-08-05 13:48] VITALS: O2SAT 95
[2024-08-05 13:50] VITALS: O2SAT 93
[2024-08-05 14:00] VITALS: O2SAT 95
--- NOTE | 2024-08-05 14:04 | PDOC.PAIN ---
Date of service: 08/05/24 Time of Service: 14:09 Pain Managment Procedure Note Procedure Note Procedure Note: Lumbar Medial Branch Block ? Location: [Left] [Right] [Bilateral] Medial Branches ? Levels: [L1,2,3]? [(L2-3, L3-4 FACET)] ? 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 Post-procedure Diagnosis:? The same as above ? Sedation: NONE? Estimated blood loss:? less than 2 cc ? Surgeon:? Jaret Ames MD COMMENT: PRE PROCEDURE PAIN SCORE: 7/10 . Patient had L3 compression fracture and kyphoplasty and still having back pain. ? Procedure Detail:? The procedure and potential risks were explained to the patient and informed written consent was obtained. The patient was escorted to the procedure room and placed in the prone position. Pillows were utilized for proper positioning and comfort.? Time out was performed in procedure room with nursing staff confirming the patient's identity, procedure to be performed, allergies, and any blood thinning or anti-platelet medications. The patient's lower back was prepped with chlorhexidine and draped in a sterile fashion. Sterile technique was maintained throughout the procedure.? Sterile gloves were used, a face mask was worn, and new single dose vials of all medications were used with the top being swabbed with alcohol and given time to dry prior to withdrawal of medication.? A left AND right-sided oblique fluoroscopic view was obtained, with visualization of the: ?RIGHT and LEFT L1,2, and 3 ? junction of the transverse process and superior articular process. Lidocaine 1% was used to anesthetize the skin. A 22-gauge Quincke needle was advanced along the superior margin of the transverse process and lateral to the articular process.? It was directed inferiorly and medially so that the tip struck the junction of the base of the transverse process and the superior articular process. The needle was then walked over the superior aspect of the transverse process and advanced slightly along the course of the L1,2,3 medial branch nerves. Proper placement was verified in A/P, oblique and lateral views under fluoroscopy. At this location, following negative aspiration, 0.5cc 0.5% bupivacaine was injected.? The patient tolerated the procedure well and was transported to the recovery area for observation and discharge instructions. Permanent images saved and recorded. Follow-up:? The patient will return in 2 weeks for confirmatory LMBBs if they? meet the criteria from today's procedure lasting for at least 2 hours.? If not effective consider repeat at L4 and L5. Consider repeat MRI COMMENT:Pain went from 7/10 to 0/10. Before the patient left patient had greater than 100% pain relief.
[2024-08-05] MEDS: Bupivacaine 0.5% Pres-Free 10 ML VIAL IJ (14:10)
[2024-08-05] MEDS: Nerve Block Tray 1 EACH MC (14:10)
--- NOTE | 2024-08-05 14:10 | DI.RAD_ITS ---
Exam(s) XR PAIN CLINIC LUMBAR SP 2V EXAM: XR PAIN CLINIC LUMBAR SP 2V CLINICAL HISTORY: Dx: Lumbar Spondylosis. TECHNIQUE: Fluoroscopy was provided for the referring physician for guidance with performing pain cl inic injection procedure. COMPARISON: No exams were available for comparison FINDINGS: Please see procedure note for details. Fluoro time: 3.99 seconds RADIATION DOSE DELIVERED: Caseyr=16.2 mGy
== END 2024-08-05 13:10 | disposition home or self-care (01) ==
LOC: PC 13:09
PROVIDERS: PCP Student in an Organized Health Care Education/Training Program; Visit Provider Anesthesiology Pain Medicine
DX: M54.50 Low back pain, unspecified (principal); M47.817 Spondylosis without myelopathy or radiculopathy, lumbosacral region; M47.816 Spondylosis without myelopathy or radiculopathy, lumbar region
CPT/HCPCS: 00123; 64493; 64494; 72100; J0665

== ENCOUNTER 2024-09-19 00:34 | Outpatient (CLI) | payer MEDICARE, SELFPAY ==
--- NOTE | 2024-09-19 07:15 | DI.MRI_ITS ---
Exam(s) MR LUMBAR SPINE WO EXAM: MR LUMBAR SPINE WO CLINICAL HISTORY: Vertebrogenic low back pain,m54.51. TECHNIQUE: Multiplanar multisequence MRI of the Lumbar spine was performed. COMPARISON: MR MR LUMBAR SPINE WO from 05/24/2023 FINDINGS: Bones: The last intervertebral disc space is designated the L5/S1 level for the numbering purpose of this ex amination. Low-density material now seen within the L3 vertebral body which shows moderate to severe compression . Stable mild compression of the superior endplate of L5. Mildly increased T2 signal in the endplate s at L4-5. Alignment: Unremarkable. The marrow signal characteristics are unremarkable. Cord: The conus tip ends at the T12 level. It is of normal size and signal intensity. T12-L1: No focal disc herniation is present. No central spinal canal stenosis.No neural foraminal st enosis. L1-2: No focal disc herniation is present. No central spinal canal stenosis.No neural foraminal sten osis. L2-3:Small endplate osteophytes and mild disc bulging. Facet degenerative changes and ligamentous hyp ertrophy causing mild central canal stenosis. Mild bilateral neural foraminal narrowing. L3-4: Mild disc bulging and small endplate osteophytes. Facet degenerative changes and ligamentous hy pertrophy narrow the transverse dimension of the canal, overall mild central canal stenosis, unchange d. Moderate bilateral neural foraminal narrowing. L4-5:Loss of disc height and endplate osteophytes. Prominent facet degenerative changes. severe left and moderate right neural foraminal narrowing. Mild central canal stenosis. No focal disc herniation is present. L5-S1: The disc height is normal. Mild diffuse disc bulging. Facet degenerative changes. Mild bilater al neural foraminal narrowing. No focal disc herniation is present. The visualized SI joints and sacrum are unremarkable. Soft tissues: The paraspinal soft tissues are unremarkable. IMPRESSION: Multilevel degenerative disc changes and facet degenerative changes causing bilateral neural foramina l narrowing and central canal stenosis as above. Findings are roughly stable from prior. Stable L3 compression fracture. DATA REPOSITORY:
== END 2024-09-19 00:54 ==
LOC: DI 00:35
PROVIDERS: PCP Student in an Organized Health Care Education/Training Program; Visit Provider Anesthesiology Pain Medicine
DX: M54.51 Vertebrogenic low back pain (principal)
CPT/HCPCS: 72148

== ENCOUNTER 2024-10-20 12:30 | Outpatient (CLI) | payer MEDICARE, SELFPAY ==
[2024-10-20 12:56] VITALS: BP 133/80; PULSE 78; RESP 20; TEMP 36.7; O2SAT 96
--- NOTE | 2024-10-20 13:05 | PDOC.PAIN ---
Date of service: 10/20/24 Time of Service: 13:30 Pain Managment Procedure Note Procedure Note Procedure Note: Lumbar Medial Branch Block ? Location: Bilateral Medial Branches ? Levels: L3,4,5? (L4-5, L5-S1 FACET) ? 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 Post-procedure Diagnosis:? The same as above ? Sedation: NONE? Estimated blood loss:? less than 2 cc ? Surgeon:? Jaret Ames MD COMMENT: Patient had a vertebroplasty at L3 and still had back pain with subsequent L1, 2, 3 medial branch blocks without relief. Plan today is go below this. PRE PROCEDURE PAIN SCORE: 5/10 ? Procedure Detail:? The procedure and potential risks were explained to the patient and informed written consent was obtained. The patient was escorted to the procedure room and placed in the prone position. Pillows were utilized for proper positioning and comfort.? Time out was performed in procedure room with nursing staff confirming the patient's identity, procedure to be performed, allergies, and any blood thinning or anti-platelet medications. The patient's lower back was prepped with chlorhexidine and draped in a sterile fashion. Sterile technique was maintained throughout the procedure.? Sterile gloves were used, a face mask was worn, and new single dose vials of all medications were used with the top being swabbed with alcohol and given time to dry prior to withdrawal of medication.? A left AND right-sided oblique fluoroscopic view was obtained, with visualization of the: ?RIGHT and LEFT L3,4 and DORSAL RAMUS L5 AT SACRAL ALA ? junction of the transverse process and superior articular process. Lidocaine 1% was used to anesthetize the skin. A 22-gauge Quincke needle was advanced along the superior margin of the transverse process and lateral to the articular process.? It was directed inferiorly and medially so that the tip struck the junction of the base of the transverse process and the superior articular process. The needle was then walked over the superior aspect of the transverse process and advanced slightly along the course of the L3,4,5 medial branch nerves. Proper placement was verified in A/P, oblique and lateral views under fluoroscopy. At this location, following negative aspiration, 0.5cc 0.5% bupivacaine was injected.? The patient tolerated the procedure well and was transported to the recovery area for observation and discharge instructions. Permanent images saved and recorded. Follow-up:? The patient will return in 2 weeks for confirmatory LMBBs if they? meet the criteria from today's procedure lasting for at least 2 hours.? COMMENT:Pain went from 5/10 to 0/10. Before the patient left patient had 100% pain relief. Patient will come in for follow-up if does not make criteria.
--- NOTE | 2024-10-20 13:46 | DI.RAD_ITS ---
Exam(s) XR PAIN CLINIC LUMBAR SP 2V EXAM: XR PAIN CLINIC LUMBAR SP 2V CLINICAL HISTORY: Dx: Lumbar Spondylosis TECHNIQUE: 2D and realtime digital imaging was performed. CONTRAST MATERIAL: Refer to procedure report. COMPARISON: No exams were available for comparison FINDINGS: Fluoroscopy was provided for Dr. Ames during the performance of a bilateral lumbar medial branch block. Please refer to the procedure report for complete details. Ka,r=4.6 mGy IMPRESSION: RADIATION DOSE DELIVERED: 0.0 0.0 0
[2024-10-20 13:48] VITALS: PULSE 78; O2SAT 98
[2024-10-20] MEDS: Nerve Block Tray 1 EACH MC (13:48)
[2024-10-20] MEDS: Bupivacaine 0.5% Pres-Free 10 ML VIAL IJ (13:49)
== END 2024-10-20 12:31 | disposition home or self-care (01) ==
LOC: PC 12:30
PROVIDERS: PCP Student in an Organized Health Care Education/Training Program; Visit Provider Anesthesiology Pain Medicine
DX: M54.50 Low back pain, unspecified (principal); M47.817 Spondylosis without myelopathy or radiculopathy, lumbosacral region; M47.816 Spondylosis without myelopathy or radiculopathy, lumbar region
CPT/HCPCS: 00123; 64493; 64494; 72100; J0665

== ENCOUNTER 2024-12-10 15:17 | Outpatient (REF) | payer MEDICARE, SELFPAY ==
[2024-12-10 19:49] LABS: ALT 18 U/L (14-59); AST 10 U/L (15-37); Alkaline Phosphatase 83 U/L (46-116); Anion Gap 8.6 mmol/L (3-11); BUN 22 mg/dL (7-18); Bilirubin, Total 0.25 mg/dL (0.2-1.0); CO2 27.4 mmol/L (21.0-32.0); CREATININE 1.4 mg/dL (0.55-1.02); Calcium 9.3 mg/dL (8.5-10.1); Chloride 104 mmol/L (98-107); Glucose 105 mg/dL (74-106); Potassium 3.8 mmol/L (3.5-5.1); Sodium 140 mmol/L (136-145); Total Protein 6.9 g/dL (6.4-8.2); Vitamin B12 448 pg/mL (193-986)
== END 2024-12-10 15:18 | disposition home or self-care (01) ==
LOC: LBN 15:17
PROVIDERS: PCP Nurse Practitioner; Visit Provider Nurse Practitioner
DX: R41.3 Other amnesia (principal); N18.32 Chronic kidney disease, stage 3b; N18.9 Chronic kidney disease, unspecified; M47.816 Spondylosis without myelopathy or radiculopathy, lumbar region; M54.50 Low back pain, unspecified; G89.29 Other chronic pain
CPT/HCPCS: 80053; 82607; 84443

== ENCOUNTER 2025-01-28 12:31 | Outpatient (CLI) | payer MEDICARE, SELFPAY ==
--- NOTE | 2025-01-28 06:00 | DI.RAD_ITS ---
Exam(s) XR PAIN CLINIC LUMBAR SP 2V EXAM: XR PAIN CLINIC LUMBAR SP 2V CLINICAL HISTORY: DX: Lumbar Radiculopathy. TECHNIQUE: 2D and realtime digital imaging was performed. CONTRAST MATERIAL: Oral barium Oral water soluble contrast was administered. COMPARISON: No exams were available for comparison FINDINGS: Fluoroscopy was provided during pain management therapeutic injection lumbar spine. See procedure re port for details. IMPRESSION: Total fluoroscopy time 20 seconds RADIATION DOSE DELIVERED: nova Peña=5.76mGy
[2025-01-28 13:02] VITALS: BP 136/74; PULSE 76; RESP 16; TEMP 36.1; O2SAT 98
--- NOTE | 2025-01-28 13:04 | PDOC.PAIN ---
Date of service: 01/28/25 Time of Service: 13:43 Pain Managment Procedure Note Procedure Note Procedure Note: Lumbar Transforaminal Epidural Steroid Injection ? Location: LEFT L4-5 ? Pre-procedure Diagnosis: M54.17-Radiculopathy, lumbosacral region M54.16 Radiculopathy, lumbar region ? Post-procedure Diagnosis:? The same as above ? Sedation:? none ? Estimated blood loss:? less than 2 cc ? Surgeon:? Jaret Ames MD COMMENT: Patient had previous radiofrequency ablation and medial branch blocks without relief. She has some foraminal stenosis at L4-5 on the left with some radicular symptoms. ? Procedure Detail:?? The procedure and potential risks were explained to the patient and informed written consent was obtained. The patient was escorted to the procedure room and placed in the prone position. Pillows were utilized for proper positioning and comfort. Time out was performed in the procedure room with nursing staff confirming the patient's identity, procedure to be performed, allergies, and any blood thinning or anti-platelet medications. The patient's lower back was prepped with ChloraPrep and draped in a sterile fashion. Sterile gloves were used, a face mask was worn, and new single dose vials of all medications were used with the top being swabbed with alcohol and given time to dry prior to withdrawal of medication. A LEFT-sided L 4?5 oblique fluoroscopic view was obtained, with visualization of L4-5. Lidocaine 1% was used to anesthetize the skin. The tip of a 22-gauge, Quincke needle was advanced toward the 6 o'clock position of the superior pedicle at the target level.? It was advanced just under the pedicle to the neural foramen L4-5. Correct needle placement was confirmed through review of the fluoroscopy. Next, following negative aspiration, 1cc's of Omnipaque 240 contrast was injected under live fluoroscopy which showed good flow throughout the epidural space and no evidence of vascular flow or flow into adjacent compartments. Next, following negative aspiration, 40mg Depo-Medrol and 0.5ml of 0.5% bupivacaine was injected. The needle was gently removed.? ? The patient tolerated the procedure well.? Permanent images saved and recorded. Plan:? Follow up prn PAIN: PRE PROCEDURE 10 POST PROCEDURE 010 COMMENT: Could repeat as needed. Consider basivertebral nerve ablation at L4 and L5 for vertebrogenic pain nothing else is helping. She is Coding Conscious Sedation used for procedure: No CPT Codes: Transforaminal Lumbar/Sacral (includes fluoro) - 39719 ([id number] ~G) Additional Codes: Date of Service (12288) Date of service: 01/28/25
[2025-01-28 13:22] VITALS: PULSE 76; O2SAT 97
[2025-01-28 13:26] VITALS: PULSE 72; O2SAT 96
[2025-01-28 13:29] VITALS: PULSE 94; O2SAT 98
[2025-01-28] MEDS: Bupivacaine 0.5% Pres-Free 10 ML VIAL IJ (13:36)
[2025-01-28] MEDS: Omnipaque 240 MG/ML 50 ML BTL IJ (13:36)
[2025-01-28] MEDS: methylPREDNISolone ACETATE 40 MG/ML VIAL IJ (13:37)
[2025-01-28] MEDS: Nerve Block Tray 1 EACH MC (13:38)
== END 2025-01-28 12:32 | disposition home or self-care (01) ==
LOC: PC 12:32
PROVIDERS: PCP Nurse Practitioner; Visit Provider Anesthesiology Pain Medicine
DX: M54.16 Radiculopathy, lumbar region (principal); M54.50 Low back pain, unspecified; M54.17 Radiculopathy, lumbosacral region
CPT/HCPCS: 64483; 72100; J0665; J1010; Q9967

== ENCOUNTER 2025-02-20 12:40 | Emergency (ER) | payer MEDICARE, SELFPAY ==
[2025-02-20 12:45] VITALS: BP 153/83; PULSE 82; RESP 16; TEMP 36.6; O2SAT 96
[2025-02-20 13:41] VITALS: BP 115/82; PULSE 78; O2SAT 95
--- NOTE | 2025-02-20 13:44 | W.ED.GENAD ---
Discharge Plan Disposition Patient Disposition: Home Condition: Stable Discharge Details Clinical Impression: Concussion syndrome Primary Care Provider: Aide Gabriel ED Provider: Bright Contreras Home Meds and New Rx's Prescriptions: Continued tramadol 25 mg tablet 25 mg PO TID PRN (Reason: pain) Qty: 84 2RF Rx Instructions: Earliest fill 12/19/24 fluoxetine 20 mg capsule 20 mg PO QAM Qty: 90 3RF Rx Instructions: migraine management verapamil 180 mg tablet extended release 180 mg PO DAILY Qty: 180 3RF Rx Instructions: facial tic and Hx migraines Tymlos 80 mcg (3,120 mcg/1.56 mL) pen injector 80 mcg subcut DAILY Rx Instructions: inject into abdomen; do not inject within 2 inches of belly button/navel; rotate sites calcium citrate 200 mg (950 mg) tablet 400 mg PO BID apixaban 5 mg tablet 5 mg PO BID Qty: 60 3RF Rx Instructions: restarted post vertebroplasty. [place] [facility] [place] [facility] [place] (coagulopathy 2' PMR!) gabapentin 100 mg capsule 100 mg PO TID Qty: 90 3RF pantoprazole 40 mg tablet,delayed release (DR/EC) 40 mg PO BID Qty: 60 3RF multivitamin 1 EACH capsule 1 ea PO DAILY acetaminophen 500 mg tablet 1,000 mg PO Q8H PRN Qty: 90 0RF Rx Instructions: Take two tablets up to every 8 hours as needed for pain docusate sodium [Colace] 100 mg capsule 100 mg PO BID Qty: 30 0RF Discharge Instructions Instructions: Post-Concussion Syndrome ED Additional Instructions: You were seen in the emergency department for your after bumping your head, you are on blood thinners but there is no evidence of any neck fracture or intracranial bleeding, please take Tylenol as needed for pain, concussion syndrome try to take it easy and a calm and soothing environment for the rest of the day today, please return for any neurologic changes, nausea or vomiting, repetitive questioning or any other emergent concerns. Referrals: Aide Gabriel NP [Primary Care Provider] - Discharge Data Discharge Date/Time-TO BE ENTERED AT DEPARTURE: 02/20/25 14:47 HPI General Date/Time Provider Initiated Documentation: 02/20/25 13:42. HPI Narrative: 79 year-old female presents to ED today by POV/ambulating with a chief complaint of fall from one rung of ladder hitting the back of her head, feeling dizzy with onset around 1030 today. Quality described as mild dizziness, denies neck pain, denies nausea/vomiting, denies LOC, no radiation to visual changes, palpitations prior to fall, recent illness, repetitive speech per partner. Severity is described as moderate. Palliating factors include nothing specific attempted. Provoking factors include nothing specific. Patient is anticoagulated. Related Data Home Medications ?Medication ?Instructions ?Recorded ?Confirmed multivitamin 1 ea PO DAILY 07/31/15 02/20/25 abaloparatide (Tymlos) 80 mcg subcut DAILY 06/15/23 02/20/25 acetaminophen 500 mg tablet 1,000 mg (2 x 500 mg) PO Q8H PRN 04/29/24 02/20/25 pain #90 tabs docusate sodium 100 mg capsule 100 mg PO BID #30 caps 04/29/24 02/20/25 (Colace) calcium citrate 400 mg PO BID 07/21/24 02/20/25 apixaban 5 mg tablet 5 mg PO BID #60 tabs 11/25/24 02/20/25 fluoxetine 20 mg capsule 20 mg PO QAM #90 caps 12/10/24 02/20/25 tramadol 25 mg tablet 25 mg PO TID PRN pain #84 tabs 12/10/24 02/20/25 verapamil 180 mg tablet,extended 180 mg PO DAILY #180 tabs 12/10/24 02/20/25 release gabapentin 100 mg capsule 100 mg PO TID #90 caps 02/18/25 02/20/25 pantoprazole 40 mg tablet,delayed 40 mg PO BID #60 tabs 02/18/25 02/20/25 release Previous Rx's ?Medication ?Instructions ?Recorded acetaminophen 500 mg tablet 1,000 mg (2 x 500 mg) PO Q8H PRN 04/29/24 pain #90 tabs docusate sodium 100 mg capsule 100 mg PO BID #30 caps 04/29/24 (Colace) apixaban 5 mg tablet 5 mg PO BID #60 tabs 11/25/24 fluoxetine 20 mg capsule 20 mg PO QAM #90 caps 12/10/24 tramadol 25 mg tablet 25 mg PO TID PRN pain #84 tabs 12/10/24 verapamil 180 mg tablet,extended 180 mg PO DAILY #180 tabs 12/10/24 release gabapentin 100 mg capsule 100 mg PO TID #90 caps 02/18/25 pantoprazole 40 mg tablet,delayed 40 mg PO BID #60 tabs 02/18/25 release Allergies Allergy/AdvReac Type Severity Reaction Status Date / Time No Known Allergies Allergy Verified 02/20/25 12:49 General Stated Complaint: HeadInjury ESTEPHANIE: 3 Review of Systems All systems reviewed & are unremarkable except as noted in HPI and below Exam Narrative Exam Narrative: GENERAL APPEARANCE: Well-nourished, non-toxic, awake and alert, atraumatic, no acute distress. SKIN: Warm, pink, dry, intact, without rashes/lesions/ulcerations. HEAD: Normocephalic, atraumatic- no scalp hematoma, no Sepulveda's sign, no periorbital ecchymosis, normal hair distribution for gender/age. EYES: Normal conjunctiva, no exudates on lids/lashes. ENT: Nares patent, no circumoral cyanosis, no facial swelling NECK: Supple, trachea midline, painless cervical ROM, no midline cervical vertebral tenderness. LUNGS/CHEST: Lungs CTA bilaterally- no rhonchi/rales/wheezes diffusely, non-labored respirations, normal A/P diameter, symmetrical expansion, no chest wall deformity HEART (CV/PV): Regular rate and rhythm without murmur, no peripheral edema, no JVD. ABDOMEN: Soft, non-distended, no guarding. MSK: Normal ROM, no swelling/deformity to bilateral UEs or LEs, moving all extremities without weakness, no cyanosis, spine midline without tenderness, normal curvature. NEURO: Mental Status AAOx4 - alert to person, place, time, events No facial droop, no forehead involvement. Motor: No focal weakness - strength 5/5 in bilateral UEs and LEs, proximal and distal, symmetric. Sensory: sensation intact to light touch globally. Gait normal: patient ambulated without ataxia into ED room. PSYCH: euthymic, cooperative, pleasant, appropriate speech Course Vital Signs Vital signs: Vital Signs Temperature 36.6 C 02/20/25 12:45 Pulse 82 02/20/25 12:45 Respiratory Rate 16 02/20/25 12:45 Blood Pressure 153/83 H 02/20/25 12:45 Pulse Oximetry 96 02/20/25 12:45 Temperature 36.6 C 02/20/25 12:45 Temperature Source Oral 02/20/25 12:45 Pulse 82 02/20/25 12:45 Respiratory Rate 16 02/20/25 12:45 Blood Pressure 153/83 H 02/20/25 12:45 Pulse Oximetry 96 02/20/25 12:45 Oxygen Delivery Method Room Air 02/20/25 12:45 Oxygen Flow Rate 0 02/20/25 12:45 Medical Decision Making This dictation utilizes [id number]-chat dictation software and may contain unedited grammatical errors. 79 year-old female presents to ED today by POV/ambulating with a chief complaint of fall from one rung of ladder hitting the back of her head, feeling dizzy with onset around 1030 today. Quality described as mild dizziness, denies neck pain, denies nausea/vomiting, denies LOC, no radiation to visual changes, palpitations prior to fall, recent illness, repetitive speech per partner. Severity is described as moderate. Palliating factors include nothing specific attempted. Provoking factors include nothing specific. Patients' medical history: History of GI bleeding, gastric ulcer, chronic DVT, tremor, migraine, CKD, anemia, history of PEs, polymyalgia rheumatica. Family and social history: Noncontributory. Pertinent exam findings / vital signs include no significant scalp hematoma, no cervical vertebral tenderness, answering all questions appropriately, neuro intact diffusely. Differential / pathologies of concern include concussion, head strike, intracranial hemorrhage. Diagnostic studies of: - CT head and cervical spine without contrast shows no acute abnormality. Interventions of: - None, patient states does not require Tylenol at this time. ED Course/Assessment/Plan: 79-year-old female had a minor fall from 1 rung of a ladder, suffering a head strike without loss of consciousness, is anticoagulated, imaging is negative for any intracranial processes, counseled on mild dizziness being consistent with likely concussion syndrome, strict return criteria for any alteration from baseline or worsening pain despite Tylenol use. Findings not consistent with neurologic deficit, intracranial hemorrhage, vertebral injury. Disposition of concussion syndrome. Patient verbalized understanding of the plan and return to ED criteria and engaged in shared decision making. Medical Records Medical records reviewed: Yes I reviewed the patient's medical records. Imaging Data Radiologic Study: Attestation: I personally reviewed and interpreted this imaging study as follows: Imaging: CT Scan Radiologist's impression: EXAM: CT HEAD CERVICAL SPINE WO CLINICAL HISTORY: fall on thinners. TECHNIQUE: Imaging Protocol: Axial computed tomography images with coronal and sagittal reformatted images were created and reviewed COMPARISON: CT HEAD WITHOUT CONTRAST from 08/01/2015 FINDINGS: Head CT Ventricles and Extra axial spaces: Normal in size and morphology for the patient's age. Hemorrhage: None. Cerebral parenchyma: No evidence of mass or acute infarct. Bilateral basal ganglia calcifications are again noted. Midline shift: None. Brainstem/Cerebellum: Normal. Calvarium: Normal. Visualized Paranasal sinuses/Mastoids: Clear. Soft tissues: Right parietal scalp swelling. Cervical Spine CT BONES: Vertebral body heights are maintained. Alignment is normal. There is no evidence of acute fracture. Degenerative disc changes and facet degenerative changes are seen . SOFT TISSUES: No paraspinal hematoma. The airway appears intact. No pneumothorax is seen at the lung apices. IMPRESSION: Head CT: No acute abnormality. C-spine CT: Degenerative changes, no acute abnormality. Quality:SDOH Health Related Social Needs: No Data to Display PFSH All Active Problems (Updated 02/20/25 @ 14:38 by GILDARDO Gallegos) Concussion syndrome (Acute) Back pain, chronic (Acute) Mechanical low back pain (Acute) Vertebrogenic low back pain (Acute) Lumbar spondylosis (Acute) Spondylosis of lumbar region without myelopathy or radiculopathy (Acute) Wedge compression fracture of unspecified thoracic vertebra, sequela (Acute ~05/28/24) [place] [facility] [place] dated 05/28/24.HE History of total right knee replacement (Acute 04/29/24) Sacroiliac joint dysfunction of both sides (Acute) Bilateral primary osteoarthritis of hip (Acute) Hip pain, bilateral (Acute) Knee instability (Chronic) gives out vs pain .. XR shows lat , effusn, patella spurring .. [ ] Ortho 07/26 Effusion into joint (Acute) Rt knee, Hx knee pain with XR (06/2023) showing spur/effusion.. MANSI (acute kidney injury) (Acute) CKD (chronic kidney disease) stage 3, GFR 30-59 ml/min (Chronic) Worsened to stage 3b.. Newly developed, Stg 85282 Anemia (Chronic) Presume 2' CKD, with exacerbation by GI Bleed 2' gastric ulcer (healed per 08/01/23 EGD) .. MONITORING PLANNED .. ik Hx low-normal, low .. [ ] iron studies? Low back pain, unspecified (Chronic) Due to compression fracture Lumbar radiculopathy, acute (Acute) Weakness and radiating pain per ED visit, 04/30/2023 Compression fracture of L3 vertebra (Acute) 05/31/23 [facility] pain and spine progress note. MRI of lumbar spine dated 05/24/23 shows subacute compression fracture of L3 which is new compared to prior films dated 03/28/23. Compression fracture of thoracic spine, non-traumatic (Acute) T8, T11 Anticoagulated by anticoagulation treatment (Chronic) Eliquis 2' PE .. DVT/PE 2' decreased ambulation due to PMR, with Eliquis @ 1/2 dose per Heme - possible d/c post PMR resolution and steroid D/C. Bilateral pulmonary embolism (Acute ~11/09/21) Sudden onset, PAIN .. on Chest CT ([facility])(11/09/21) Multiple pulmonary emboli (Acute) Nov 2021 & May 2023 ([facility] ED), 2' missed Eliquis (d/w Heme: PMR = Coagulopathy) Polymyalgia rheumatica (Acute) New Dx, [facility] Rheum. Tapering down from Predn 10mg, 5mg starts 01/12/22. Couns possibility of extending 2mg .. Steroid dependent (Acute) from PMR Dx .. still trying to taper, 09/2022 Liver mass, left lobe (Acute ~11/09/21) Incidental findin.5 x 3.4 x 4 cm septated cyst in the liver Nov 2021/1 yr checks) Osteoporosis (Chronic ~09/12/16) Tymlos started by Rheum ([facility]) (Nov? 2023).. Hx alendronate and boniva rx .. Rx stopped 2' worsening vs improving bone density per pt report.. Medical History GI bleed Gastric ulcer healed per 08/01/23 EGD ([facility])! possible 2' steroid use (for PMR) + re-start of eliquis (PE x2!) Ulcer, gastric, acute Healed, per 08/01/23 EGD.. per [facility] GI (neg Bx)(neg H.Pylori) .. large URI (upper respiratory infection) Sore throat; Tickle, now cough (with back pain), wheeze qHS x dayss Bilateral hand pain PArt of PMR? (since 11/2021?) Terrible pain and stiffness in the AM Chronic deep vein thrombosis (DVT) of left popliteal vein Nov 2021 Tubular adenoma of colon (~03/2022) per [facility] colonoscopy Family history of colon cancer in mother Dx @ 91yo, but she from this cancer and had Hx IBS symptoms x years.. Diarrhea Recent symptoms .. recommending colo sooner than later [ ] Sleeping difficulties Hx Advil PM .. changing to Tyl PM (01/2022). 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 more of a heavy head than headache. Almost resolved with Fluoxetine. (symptoms rtd @ 20mg prednisone) Ptosis of both eyelids Keratosis, seborrheic Plantar fasciitis Resolved with stretching, inserts and expensive shoes.. Trigger finger, right index finger Complicated migraine Benign head tremor Arthralgia Double vision with both eyes open Surgical History History of total knee arthroplasty right TKA With Dr. Peterson April 2024 H/O esophagogastroduodenoscopy 05/09/23: done at [facility] ; mildly severe esophagitis 5cm hiatal hernia, non bleeding gastric ulcer, biopsied. normal examined duodenum. recommended repeat in 2months to check healing 08/01/2352-[id number]--hernia unchanged. Ulcer has healed H/O cataract extraction right 01/11/10, left 02/04/10 Dr. Hampton Tubal Ligation, (~1972) Tonsillectomy (~1972) Colonoscopy - MAC (01/03/17) 2006, 2016, 04/2022 Family History Mother Colon cancer Osteoporosis Father Leukemia Aneurysm Alcohol use disorder Paternal Grandmother Diabetes Social History Smoking/Tobacco Use Status: Never Smoking risk assessment performed?: Yes Alcohol Intake: current Alcohol Intake frequency: holidays/special occasions only Drug use: Never Substance use type: does not use Adopted: No Caregiver/Support person: No Foster care: No Household members: spouse Housing: house Number of Children: 2 number of grandchildren: 3 Communication Needs: None Education Level: college Details: Bachelor's Degree Do you need help understanding health information?: Never current occupation: Retired Pets and animals: No Sexually active: Yes Do you think of yourself as: straight/heterosexual Current gender identity: female What is your relationship status?: How often do you talk on the phone with friends or family?: three or more times per week How often do you get together with friends or relatives?: twice per week Do you belong to any clubs or organized social groups?: no Panel score (0-1 are the most socially isolated patients): 2 What type of physical activity do you participate in: other Details: gardening Duration: > 90 minutes/day Frequency: 5-6 times per week Sandra/Adventist: None Special sandra needs: No Seatbelt use: always Helmet use: No Drive intox or ride w/intox hazmat tanker driver: No Do you feel safe at home: Yes Do you feel safe in your relationship?: Yes
--- NOTE | 2025-02-20 14:17 | DI.CT_ITS ---
Exam(s) CT HEAD CERVICAL SPINE WO EXAM: CT HEAD CERVICAL SPINE WO CLINICAL HISTORY: fall on thinners. TECHNIQUE: Imaging Protocol: Axial computed tomography images with coronal and sagittal reformatted images were created and reviewed COMPARISON: CT HEAD WITHOUT CONTRAST from 08/01/2015 FINDINGS: Head CT Ventricles and Extra axial spaces: Normal in size and morphology for the patient's age. Hemorrhage: None. Cerebral parenchyma: No evidence of mass or acute infarct. Bilateral basal ganglia calcifications are again noted. Midline shift: None. Brainstem/Cerebellum: Normal. Calvarium: Normal. Visualized Paranasal sinuses/Mastoids: Clear. Soft tissues: Right parietal scalp swelling. Cervical Spine CT BONES: Vertebral body heights are maintained. Alignment is normal. There is no evidence of acute frac ture. Degenerative disc changes and facet degenerative changes are seen . SOFT TISSUES: No paraspinal hematoma. The airway appears intact. No pneumothorax is seen at the lung apices. IMPRESSION: Head CT: No acute abnormality. C-spine CT: Degenerative changes, no acute abnormality. RADIATION DOSE DELIVERED: Total DLP DATA REPOSITORY: All CT scans at this facility are submitted to the National Radiology Data Registry (NRDR) Dose Index Registry (DIR) with the [employer] ([employer]). RADIATION OPTIMIZATION: All CT scans at this facility use at least one of these dose optimization te chniques: automated exposure control; mA and/or kV adjustment per patient size (includes targeted exa ms where dose is matched to clinical indication); or iterative reconstruction.
[2025-02-20 14:31] VITALS: BP 135/58; PULSE 68; RESP 18; O2SAT 100
== END 2025-02-20 14:47 | disposition home or self-care (01) ==
PROVIDERS: Emergency Provider Physician Assistant; PCP Nurse Practitioner
DX: S06.0X0A Concussion without loss of consciousness, initial encounter (principal); N18.30 Chronic kidney disease, stage 3 unspecified; M35.3 Polymyalgia rheumatica; Z86.711 Personal history of pulmonary embolism; Z86.718 Personal history of other venous thrombosis and embolism; Z79.01 Long term (current) use of anticoagulants; W11.XXXA Fall on and from ladder, initial encounter; Y93.89 Activity, other specified
CPT/HCPCS: 99284; 70450; 72125

== ENCOUNTER 2025-05-04 10:48 | Outpatient (CLI) | payer MEDICARE, SELFPAY ==
--- NOTE | 2025-05-04 10:15 | DI.RAD_ITS ---
Exam(s) XR KNEE RT 3V AP,LAT,SANA EXAM: XR KNEE RT 3V AP,LAT,SANA INDICATION: ANNUAL F/U R TKA. COMPARISON: CR XR KNEE RT 1V from 04/11/2024 CR XR STANDING ALIGNMENT from 05/12/2024 CR XR KNEE RT 1V from 05/12/2024 TECHNIQUE: 2D digital imaging was performed. Two views. FINDINGS: Stable alignment of total knee prosthesis. Small joint effusion. No fracture or other abnormal lucency. DATA REPOSITORY: RADIATION DOSE DELIVERED:
--- NOTE | 2025-05-04 10:45 | DI.RAD_ITS ---
Exam(s) XR KNEE LT 4V AP,LAT,SANA,PAT EXAM: XR KNEE LT 4V AP,LAT,SANA,PAT CLINICAL HISTORY: eval L knee pain. TECHNIQUE: 2D digital imaging was performed. Three views. COMPARISON: CR XR STANDING ALIGNMENT from 05/12/2024 CR XR KNEE RT 3V AP,LAT,SANA from 05/04/2025 FINDINGS: BONES: No acute fracture is present. No bony destructive lesion is seen. JOINTS: The knee is normally aligned. The joint spaces are maintained. Mild periarticular spurring. No joint effusion is seen. SOFT TISSUE: Vascular calcifications. IMPRESSION: Mild degenerative changes of the left knee. DATA REPOSITORY: RADIATION DOSE DELIVERED:
== END 2025-05-04 10:49 | disposition home or self-care (01) ==
PROVIDERS: PCP Nurse Practitioner; Visit Provider Student in an Organized Health Care Education/Training Program
DX: M25.562 Pain in left knee (principal); M76.891 Other specified enthesopathies of right lower limb, excluding foot; M76.892 Other specified enthesopathies of left lower limb, excluding foot; Z96.651 Presence of right artificial knee joint; M54.50 Low back pain, unspecified; G89.29 Other chronic pain
CPT/HCPCS: 99213; 73562; 73564

== ENCOUNTER 2025-05-25 10:27 | Outpatient (REF) | payer MEDICARE, SELFPAY | END 2025-05-25 10:28 | disposition home or self-care (01) | LOC: LBN 10:27 | PROVIDERS: PCP Nurse Practitioner; Visit Provider Family Medicine | DX: R10.9 Unspecified abdominal pain (principal) | CPT/HCPCS: 87086 ==

== ENCOUNTER → 2025-10-20 14:42 | Outpatient (CLI) | payer MEDICARE, SELFPAY ==
--- NOTE | 2025-10-20 14:27 | DI.CT_ITS ---
Exam(s) CT HEAD CERV SPINE FACIAL WO EXAM: CT HEAD CERV SPINE FACIAL WO CLINICAL HISTORY: fall,W19.xxxa,neck stiffness,torticollis,m43.6. TECHNIQUE: Imaging Protocol: Axial computed tomography images with coronal and sagittal reformatted images were created and reviewed COMPARISON: CT CT HEAD CERVICAL SPINE WO from 02/20/2025 FINDINGS: CT Head: Ventricles and Extra axial spaces: Normal in size and morphology for the patient's age. Hemorrhage: None. Cerebral parenchyma: No evidence of acute hemorrhage or acute infarct. Bilateral basal ganglia calcifications again noted. Midline shift: None. Brainstem/Cerebellum: Normal. Calvarium: Normal. Visualized Paranasal sinuses/Mastoids: Clear. Soft Tissues: Unremarkable. CT Face: Facial Bones: No fracture is noted in facial bones. Sinuses and Mastoids: Unremarkable. Globes, extraocular muscles, optic nerves and retrobulbar fat: Normal. Upper aerodigestive tract: Normal. Mandible and bilateral temporomandibular joints: Normal. Soft tissues: Normal. Dental: Dental caries noted in the left upper posterior molar tooth. CT Cervical Spine: Bones: No acute fracture or subluxation. Mild degenerative straightening of the normal cervical lordosis. Degenerative disc changes at C5-6 and C6-7. No evidence of central canal stenosis. Soft Tissues: Unremarkable. Lung Apices: Clear. IMPRESSION: 1. No acute intracranial process. 2. No acute fracture or subluxation in the cervical spine. 3. No acute facial fracture. The preliminary [facility] report was reviewed. RADIATION DOSE DELIVERED: Total DLP DATA REPOSITORY: All CT scans at this facility are submitted to the National Radiology Data Registry (NRDR) Dose Index Registry (DIR) with the [employer] (ACR). RADIATION OPTIMIZATION: All CT scans at this facility use at least one of these dose optimization techniques: automated exposure control; mA and/or kV adjustment per patient size (includes targeted exams where dose is matched to clinical indication); or iterative reconstruction.
--- NOTE | 2025-10-20 16:09 | DI.[facility]_ITS ---
PROCEDURE INFORMATION: Exam: CT Head Without Contrast Exam date and time: 10/20/2025 3:32 PM Age: 80 years old Clinical indication: Injury or trauma; Fall; Blunt trauma (contusions or hematomas); Without loss of consciousness; Orbit/periorbital; Right; Additional info: Fall, w19. Xxxa, neck stiffness, torticollis, m43.6 TECHNIQUE: Imaging protocol: Computed tomography of the head without contrast. COMPARISON: CT HEAD CERVICAL SPINE WO 02/20/2025 2:02 PM FINDINGS: Brain: Basal ganglia calcifications No hemorrhage. Mild white matter disease. No mass effect. Cerebral ventricles: No ventriculomegaly. Paranasal sinuses: Visualized sinuses are unremarkable. No fluid levels. Mastoid air cells: Visualized mastoid air cells are well aerated. Bones: Unremarkable. No acute fracture. Soft tissues: Unremarkable. IMPRESSION: No acute intracranial abnormality. PROCEDURE INFORMATION: Exam: CT Maxillofacial Without Contrast Exam date and time: 10/20/2025 3:32 PM Age: 80 years old Clinical indication: Injury or trauma; Fall; Blunt trauma (contusions or hematomas); Without loss of consciousness; Orbit/periorbital; Right; Additional info: Fall, w19. Xxxa, neck stiffness, torticollis, m43.6 TECHNIQUE: Imaging protocol: Computed tomography of the face without contrast. COMPARISON: CT HEAD CERVICAL SPINE WO 02/20/2025 2:02 PM FINDINGS: Paranasal sinuses: No air-fluid levels. Orbital cavities: Orbits are normal. Globes are unremarkable. Bones: No acute fracture. Soft tissues: Unremarkable. IMPRESSION: No acute findings. PROCEDURE INFORMATION: Exam: CT Cervical Spine Without Contrast Exam date and time: 10/20/2025 3:32 PM Age: 80 years old Clinical indication: Injury or trauma; Fall; Blunt trauma (contusions or hematomas); Without loss of consciousness; Orbit/periorbital; Right; Additional info: Fall, w19. Xxxa, neck stiffness, torticollis, m43.6 TECHNIQUE: Imaging protocol: Computed tomography of the cervical spine without contrast. COMPARISON: CT HEAD CERVICAL SPINE WO 02/20/2025 2:02 PM FINDINGS: Bones: No acute fracture. Loss of cervical lordosis is presumably on a degenerative basis.No severe spinal canal stenosis. No significant neural foraminal narrowing. Lungs: Lung apices are normal. Soft tissues: Unremarkable. IMPRESSION: No acute cervical spine fracture. Dictated and Authenticated by: Oj Higgins MD. Orderin Emilee Amos MD
== END ==
LOC: DI 14:42
PROVIDERS: PCP Nurse Practitioner Family; Visit Provider Nurse Practitioner Family
DX: M43.6 Torticollis (principal); W19.XXXA Unspecified fall, initial encounter
CPT/HCPCS: 70450; 70486; 72125

== ENCOUNTER 2025-10-23 00:48 | Outpatient (CLI) | payer MEDICARE, SELFPAY ==
[2025-10-23 12:16] LABS: ALT 15 U/L (10-49); AST 17 U/L (<34); Albumin 4.2 g/dL (3.2-5.0); Alkaline Phosphatase 66 U/L (46-116); Bilirubin, Direct 0.1 mg/dL (<=0.3); Bilirubin, Total 0.4 mg/dL (0.2-1.2); Total Protein 6.9 g/dL (5.7-8.2)
== END 2025-10-23 00:49 | disposition home or self-care (01) ==
LOC: LBO 00:49
PROVIDERS: PCP Nurse Practitioner Family; Visit Provider Nurse Practitioner Family
DX: M54.50 Low back pain, unspecified (principal); G89.29 Other chronic pain
CPT/HCPCS: 36415; 80076